=== PATIENT | female | born 1960 | race Caucasian/White ===

== ENCOUNTER 2022-07-29 10:47 | Outpatient (CLI) | payer MEDICARE, MEDICAID, SELFPAY | END 2022-07-29 11:06 | disposition home or self-care (01) | LOC: MS OUT 10:51 → MEDSURG 10:51 → MS OUT 16:08 | PROVIDERS: PCP Family Medicine; Visit Provider Family Medicine | DX: Z48.01 Encounter for change or removal of surgical wound dressing (principal) | CPT/HCPCS: 99211 ==

== ENCOUNTER 2022-07-29 10:48 | Outpatient (RCR) | payer MEDICARE, MEDICAID, SELFPAY ==
[2022-07-28 11:07] VITALS: BP 155/68; PULSE 66; RESP 20; TEMP 36.7; O2SAT 91
== END 2022-07-29 11:50 | disposition home or self-care (01) ==
LOC: MS OUT 10:48
PROVIDERS: PCP Family Medicine; Visit Provider Family Medicine
DX: N61.1 Abscess of the breast and nipple (principal)
CPT/HCPCS: 99211

== ENCOUNTER 2022-08-05 11:27 | Outpatient (RCR) | payer MEDICARE, MEDICAID, SELFPAY | END 2022-08-05 13:07 | disposition home or self-care (01) | LOC: MS OUT 11:27 | PROVIDERS: PCP Family Medicine; Visit Provider Family Medicine | DX: Z48.01 Encounter for change or removal of surgical wound dressing (principal) | CPT/HCPCS: 99211 ==

== ENCOUNTER 2022-08-06 07:53 | Outpatient (CLI) | payer MEDICARE, MEDICAID, SELFPAY | END 2022-08-06 07:54 | disposition home or self-care (01) | LOC: WOUND 07:54 | PROVIDERS: PCP Family Medicine; Visit Provider Family Medicine | DX: N61.1 Abscess of the breast and nipple (principal) | CPT/HCPCS: 99203 ==

== ENCOUNTER 2022-08-13 09:46 | Outpatient (CLI) | payer MEDICARE, MEDICAID, SELFPAY | END 2022-08-13 09:47 | disposition home or self-care (01) | LOC: WOUND 09:47 | PROVIDERS: PCP Family Medicine; Visit Provider Family Medicine | DX: N61.1 Abscess of the breast and nipple (principal) | CPT/HCPCS: 99212 ==

== ENCOUNTER 2022-09-10 10:30 | Outpatient (CLI) | payer MEDICARE, MEDICAID, SELFPAY ==
--- NOTE | 2022-09-10 09:12 | W.ANESCHARGE ---
Anesthesia Charges Start Date/Time Anesthesia Start Date: 09/10/22 Anesthesia Start Time: 12:08 Stop Date/Time Anesthesia Stop Date: 09/10/22 Anesthesia Stop Time: 12:32
--- NOTE | 2022-09-10 13:17 | W.ANESCHARGE ---
Anesthesia Charges Start Date/Time Anesthesia Start Date: 09/10/22 Anesthesia Start Time: 12:08 Stop Date/Time Anesthesia Stop Date: 09/10/22 Anesthesia Stop Time: 12:32
== END 2022-09-10 10:31 | disposition home or self-care (01) ==
LOC: OP CLINIC 10:31
PROVIDERS: PCP Family Medicine; Visit Provider Internal Medicine Gastroenterology
DX: Z86.010 Personal history of colon polyps (principal); K63.5 Polyp of colon; K62.1 Rectal polyp
CPT/HCPCS: 45385; 811; 88305; J2704

== ENCOUNTER 2022-12-15 13:07 | Inpatient (IN) | payer MEDICARE, MEDICAID, SELFPAY ==
[2022-12-15 13:18] VITALS: BP 153/78; PULSE 84; RESP 22; TEMP 36.8; O2SAT 91; BMI 25.7
--- NOTE | 2022-12-15 13:33 | CRLHL7_ITS ---
For Patients: As a result of the Century Cures Act, medical imaging exams and procedure reports are released immediately into your electronic medical record. You may view this report before your referring provider. If you have questions, please contact your health care provider. INDICATION: Difficulty breathing TECHNIQUE: Two view chest. FINDINGS: Mildly enlarged cardiac silhouette. Prominent interstitial markings. Left basilar patchy consolidation possible small effusions. No pneumothorax. Dictated by Starla Solis MD @ 12/15/2022 2:35:20 PM (Electronically Signed)
--- NOTE | 2022-12-15 13:35 | ED_ITS ---
HPI - SOB/Dyspnea General Chief Complaint: Shortness of Breath/Dyspnea Stated Complaint: Difficulty breathing Time Seen by Provider: 12/15/22 13:09 History of Present Illness HPI Narrative: This 62-year-old female comes in reporting shortness of breath. She states that she quit smoking 3 weeks ago. She reports that she has been smoking for 56 years so she started at age 6. She arrives with a resting oximetry at 87%. With 3 L nasal cannula she is up around 91-93%. Her baseline oximetry is probably in the upper 80s to 90%. She had an oximetry of 78% when ambulating in here. She does not report any fevers. He does not use any medicines to treat her breathing. Related Data Home Medications Medication Instructions Recorded Confirmed amlodipine 10 mg tablet 10 mg PO DAILY 12/15/22 12/15/22 aspirin 81 mg capsule 81 mg PO DAILY 12/15/22 12/15/22 chlorthalidone 25 mg tablet 12.5 mg PO DAILY 12/15/22 12/15/22 insulin aspart U-100 100 unit/mL 36 unit subcut TID 12/15/22 12/15/22 (3 mL) subcutaneous pen (Novolog FlexPen U-100 Insulin aspart) insulin glargine 100 unit/mL (3 62 unit subcut QAM 12/15/22 12/15/22 mL) subcutaneous pen (Basaglar KwikPen U-100 Insulin) losartan 100 mg tablet 100 mg PO DAILY 12/15/22 12/15/22 metformin 1,000 mg tablet 1,000 mg PO BID 12/15/22 12/15/22 metoprolol succinate 100 mg 100 mg PO BID 12/15/22 12/15/22 tablet,extended release 24 hr multivitamin (Daily Multi-Vitamin 1 tab PO DAILY 12/15/22 12/15/22 tablet) nystatin 100,000 unit/gram topical 1 applic topical 3XD 12/15/22 12/15/22 powder ([facility]) omega-3 fatty acids 500 mg capsule 500 mg PO DAILY 12/15/22 12/15/22 rosuvastatin 40 mg tablet 40 mg PO HS 12/15/22 12/15/22 sertraline 100 mg tablet 100 mg PO QAM 12/15/22 12/15/22 Allergies Allergy/AdvReac Type Severity Reaction Status Date / Time iodine AdvReac Severe Anaphylaxis Verified 12/15/22 13:23 shellfish derived AdvReac Severe Anaphylaxis Verified 12/15/22 13:23 ticagrelor [From Brilinta] AdvReac Severe Rash Verified 12/15/22 13:23 Review of Systems Status of ROS: Reports: 10 or more systems reviewed and unremarkable except as noted in History and below Narrative: Constitutional: No fevers, no weight gain or loss. Eyes: No discharge. No vision changes. HENT: No congestion, no sore throat, no ear pain. Cardiovascular: No chest pain, no palpitations. Respiratory: Shortness of breath and frequent cough. Gastrointestinal: No abdominal pain, no vomiting, no diarrhea. Genitourinary: No dysuria, no hematuria. Musculoskeletal: Normal range of motion. Skin: No rashes, no pruritis. Neurological: No dizziness, weakness, sensory change, speech change. Endo/Heme/Allergies: No bruising or bleeding. No polydipsia. Pysch: no suicidality, no anxiety, no insomnia. All other systems reviewed and are negative. [facility] Medical History (Updated 12/15/22 @ 22:25 by Jasmeet Berg MD) Hyperlipidemia ?E78.5 - Hyperlipidemia, unspecified (ICD-10) Essential hypertension ?I10 - Essential (primary) hypertension (ICD-10) Type 2 diabetes mellitus ?E11.9 - Type 2 diabetes mellitus without complications (ICD-10) Social History What is your current living situation?: I presently have a place to live Problems where you live: no known problems Problems where you live details: None noted In the past 12 months, utilities in danger of being shut off: no In past 12 months, lack of transportation kept you from medical appts, meetings, work, or getting things needed for daily living: no In the past 12 mos, have been you worried that your food would run out before you had money to buy more?: never true In the past 12 mos, the food you bought just didn't last and you didn't have money to buy more?: never true Highest level of school completed/degree received: Associate degree: occupational, technical, vocational program Smoking Status: Former smoker What tobacco products do you use: cigarettes Smoking quit date/years: <= 15 years ago Do you use any of these nicotine containing products: None Second hand tobacco smoke exposure: No How often do you have a drink containing alcohol: never How often do you have six or more drinks on one occasion: Never AUDIT-C Alcohol total score: 0 Non-prescribed substance use: denies use Caffeine: No How often does anyone, including family, friends and others, physically hurt you : never How often does anyone, including family, friends and others, insult or talk down to you: never How often does anyone, including family, friends and others, threaten you with harm: never How often does anyone, including family, friends and others, scream or curse at you: never service: No Exam Narrative: Exam Narrative: Constitutional: Well-developed, well-nourished, no acute distress. HEENT: Normocephalic, atraumatic. Neck: Normal range of motion. Nontender. Supple. Heart: Regular. No murmurs. Normal rate. Intact distal pulses. Lungs: Clear to auscultation. No chest discomfort. Abdomen: Normal bowel sounds. Nontender. No rebound tenderness. Genitalia: Deferred. Back: No midline tenderness. Normal range of motion. Extremities: Normal range of motion. No injury. Skin: Intact. No rash. Warm. No erythema or pallor. Neurologic: No altered sensation. No weakness. Alert and oriented. Psychiatric: No suicidality. No anxiety or depression. No insomnia. Nursing notes and vitals signs are reviewed. Const: Vital Signs, click to edit/add: Vital Signs - 24 hr 12/15/22 13:18 12/15/22 14:15 12/15/22 18:16 Temperature 98.2 F 97.6 F Pulse Rate [Left P ulse Oximeter] 82 Pulse Rate [Right Pulse Oximeter] 84 Respiratory Rate 22 20 20 Blood Pressure [Ri ght Arm] 181/101 H Blood Pressure [Ri ght Upper Arm] 153/78 H Pulse Oximetry 91 90 94 Oxygen Delivery Me thod Nasal Cannula Nasal Cannula Nasal Cannula Oxygen Flow Rate 3 3 4 12/15/22 18:16 Temperature Pulse Rate [Left P ulse Oximeter] Pulse Rate [Right Pulse Oximeter] Respiratory Rate 20 Blood Pressure [Ri ght Arm] Blood Pressure [Ri ght Upper Arm] Pulse Oximetry 94 Oxygen Delivery Me thod Nasal Cannula Oxygen Flow Rate 4 Course Vital Signs Vital signs: Initial Vital Signs Temperature 98.2 F 12/15/22 13:18 Temperature Source Temporal Artery Scan 12/15/22 13:18 Pulse Rate 84 12/15/22 13:18 Pulse Rhythm Regular 12/15/22 13:18 Pulse Strength 3+ Normal 12/15/22 13:18 Respiratory Rate 22 12/15/22 13:18 Blood Pressure 153/78 H 12/15/22 13:18 Blood Pressure Mean 103 12/15/22 13:18 Blood Pressure Position Sitting 12/15/22 13:18 Pulse Oximetry 91 12/15/22 13:18 Oxygen Delivery Method Nasal Cannula 12/15/22 13:18 Oxygen Flow Rate 3 12/15/22 13:18 Vital Signs Temperature 98.2 F 12/15/22 13:18 Pulse Rate 84 12/15/22 13:18 Respiratory Rate 22 12/15/22 13:18 Blood Pressure 153/78 H 12/15/22 13:18 Pulse Oximetry 91 12/15/22 13:18 Oxygen Delivery Method Nasal Cannula 12/15/22 13:18 Oxygen Flow Rate 3 12/15/22 13:18 Temperature 98.0 F 12/15/22 19:22 Pulse Rate 83 12/15/22 19:22 Respiratory Rate 20 12/15/22 19:22 Blood Pressure 171/71 H 12/15/22 19:22 Pulse Oximetry 91 12/15/22 19:22 Oxygen Delivery Method Nasal Cannula 12/15/22 19:22 Oxygen Flow Rate 4 12/15/22 19:22 MDM - SOB/Dyspnea MDM Narrative Medical decision making narrative: This patient comes in with shortness of breath. She quit smoking about 3 weeks ago. She is requiring oxygen at this time to maintain oximetry around 90%. I did turn her oxygen off and she desaturated to 78% at rest. X-ray imaging does show a consolidation in the left lower lung. CT imaging was followed up which does show again this consolidation and some evidence of effusion. The patient is in need of admission to the hospital. I did speak to Dr. Verde in this regard who accepts her admission. After cultures are drawn the patient did receive IV dose of Rocephin and an oral dose of Zithromax. She also received an oral dose of prednisone 40 mg. Lab Data Labs: Lab Results 12/15/22 12/15/22 Range/Units 13:25 15:07 WBC 11.93 H (4.50-11.00) K/uL RBC 5.19 (4.00-5.20) m/uL Hgb 14.3 (12.0-16.0) gm/dL Hct 46.3 (33.0-51.0) % MCV 89 (80-100) fL MCH 28 (26-34) pg MCHC 31 L (32-36) gm/dL RDW Coeff of Vanessa 14.7 (11.5-15.5) % Plt Count 409 (140-440) K/uL Neut % (Auto) 77.7 H (42.0-72.0) % Lymph % (Auto) 13.4 L (20-44) % [place] % (Auto) 6.5 (0.0-11.0) % Eos % (Auto) 1.1 (0.0-7.0) % Baso % (Auto) 0.2 (0.0-3.0) % Neut # (Auto) 9.30 H (1.7-7.0) K/uL Lymph # (Auto) 1.60 (0.90-2.90) K/uL [place] # (Auto) 0.80 (0.00-0.90) K/UL Eos # (Auto) 0.10 (0.00-0.50) K/uL Baso # (Auto) 0.00 (0.00-0.30) K/uL Abs Immat Gran (auto) 0.10 (0.00-0.30) K/uL Imm/Tot Granulo (auto) 1.1 % Sodium 137 (135-149) mmol/L Potassium 2.6 L* (3.6-5.1) mmol/L Chloride 97 (96-114) mmol/L Carbon Dioxide 34 H (20-32) mmol/L Anion Gap 6 L (7-15) mEq/L BUN 17 (7-30) mg/dL Creatinine 0.8 (0.5-1.5) mg/dL Estimated Creat Clear 49.72 Estimated GFR 83 ml/min Glucose 419 H* (60-115) mg/dL Calcium 9.2 (8.4-10.6) mg/dL SARS-CoV-2 (PCR) Negative SARS-CoV-2 (Negative) Influenza Type A (PCR) Negative PCR FLU A (Negative) Influenza Type B (PCR) Negative PCR FLU B (Negative) RSV (PCR) Negative PCR RSV (Negative) Imaging Data CT scan - chest: Radiologist's impression: 1. Bilateral pulmonary opacities, with smooth interlobular septal thickening, ground-glass, and areas of consolidation in the left lung. 2. Bilateral pleural effusions, left greater than right. Differential diagnosis for the left-sided effusion includes a parapneumonic effusion or empyema. Consider thoracentesis with laboratory analysis. 3. Bilateral adrenal nodules, 1 of which meets criteria for an adenoma. The larger lesion in the left adrenal gland measures greater than 10 Hounsfield units, and is favored to represent a lipid poor adenoma. This could be assessed non emergently with an adrenal mass protocol CT. Discharge Plan Discharge Clinical Impression: Pneumonia Patient Disposition: Admitted As Observation Discharge Location: [facility]
[2022-12-15 14:15] VITALS: RESP 20; O2SAT 90
--- NOTE | 2022-12-15 14:17 | RESP.RT ---
DuoNeb given with small volume nebulizer, mouth piece, at 6 Lpm Oxygen flow meter. Patient tolerated well, VSS during treatment, Post treatment patient able to take deeper breath, and breath easier. Return to 3 Lpm Nasal Cannula to maintain SaO2 >88%.
[2022-12-15 14:33] LABS: PCR FLU A Negative PCR FLU A (Negative); PCR FLU B Negative PCR FLU B (Negative); PCR RSV Negative PCR RSV (Negative)
[2022-12-15 14:54] LABS: SARS PCR* Negative SARS-CoV-2 (Negative)
--- NOTE | 2022-12-15 14:58 | CRLHL7_ITS ---
For Patients: As a result of the 21st Century Cures Act, medical imaging exams and procedure reports are released immediately into your electronic medical record. You may view this report before your referring provider. If you have questions, please contact your health care provider. INDICATION: HYPOXIA HISTORY: Hypoxia. COMPARISON: Chest, 2 views, 12/15/2022. Technique: CT of the chest without contrast. Coronal/sagittal reconstruction images. Findings: Sub centimeter nodules and a benign-appearing calcification in the thyroid gland. There are calcified and noncalcified mediastinal lymph nodes. Nonenlarged axillary lymph nodes are present. Coronary artery calcifications. Moderate left and small right pleural effusion. The effusion on the left appears loculated. There is no intramural or mediastinal hematoma. The lung windows demonstrate no endobronchial mass. There is a region of consolidation within the lingular segment and left lower lobe, and nonspecific ground-glass opacities, which are seen bilaterally. There is also mild interlobular septal thickening. There is no endobronchial nodule or mass. There is no peripheral reticulation or honeycombing. No traction bronchiectasis. No pneumothorax. Evaluation of the upper abdomen demonstrates hepatomegaly. Spleen size is normal. Bilateral adrenal nodules are present. The largest is seen in the left adrenal gland. This measures 2.6 cm in AP dimension, and 12 Hounsfield units. The smaller nodule measures 5 Hounsfield units, and 14 millimeters in AP dimension. No gastric or duodenal wall thickening. No pancreatic duct dilation. The bone windows demonstrate no suspicious bone lesions. Degenerative disc disease. There are left-sided rib fractures, which do not appear acute. On sagittal reconstruction images, vertebral body heights are maintained. Indeterminate sclerotic lesion at the level of T1. This is seen on series 2, image 12. On sagittal reconstruction images, it measures 8 millimeters in maximum dimension. If there is concern regarding this finding, consider skeletal scintigraphy. Impression: 1. Bilateral pulmonary opacities, with smooth interlobular septal thickening, ground-glass, and areas of consolidation in the left lung. 2. Bilateral pleural effusions, left greater than right. Differential diagnosis for the left-sided effusion includes a parapneumonic effusion or empyema. Consider thoracentesis with laboratory analysis. 3. Bilateral adrenal nodules, 1 of which meets criteria for an adenoma. The larger lesion in the left adrenal gland measures greater than 10 Hounsfield units, and is favored to represent a lipid poor adenoma. This could be assessed non emergently with an adrenal mass protocol CT. Dictated by Jerald Ortiz MD @ 12/15/2022 3:56:18 PM Please note that all CT scans at this facility use dose modulation, iterative reconstruction, and/or weight-based dosing when appropriate to reduce radiation dose to as low as reasonably achievable. Dictated by: Jerald Ortiz MD @ 12/15/2022 15:57:03 (Electronically Signed)
[2022-12-15 15:29] LABS: Basophils Percent Auto 0.2 % (0.0-3.0); Chloride* 97 mmol/L (96-114); Eosinophils Percent Auto 1.1 % (0.0-7.0); Hematocrit 46.3 % (33.0-51.0); Hemoglobin* 14.3 gm/dL (12.0-16.0); Immature Granulocytes Pct Auto 1.1 %; Lymphocytes Percent Auto 13.4 % (20-44); Mean Corpuscular HGB Conc 31 gm/dL (32-36); Mean Corpuscular Hemoglobin 28 pg (26-34); Mean Corpuscular Volume 89 fL (80-100); Monocytes Percent Auto 6.5 % (0.0-11.0); Neutrophils Percent Auto 77.7 % (42.0-72.0); Platelet Count* 409 K/uL (140-440); RDW Coefficient of Variation % 14.7 % (11.5-15.5); Red Blood Count 5.19 m/uL (4.00-5.20); White Blood Count* 11.93 K/uL (4.50-11.00)
[2022-12-15 15:30] LABS: Sodium* 137 mmol/L (135-149)
[2022-12-15 15:32] LABS: Anion Gap 6 mEq/L (7-15); Carbon Dioxide* 34 mmol/L (20-32); Creatinine* 0.8 mg/dL (0.5-1.5); Est. Creatinine Clearance* 49.72; Estimated Glomerular Filt Rate 83 ml/min
[2022-12-15 15:33] LABS: Blood Urea Nitrogen* 17 mg/dL (7-30); Calcium* 9.2 mg/dL (8.4-10.6)
[2022-12-15 15:36] LABS: Slide Review Reflex No
[2022-12-15 15:54] LABS: Glucose* 419 mg/dL (60-115); Potassium* 2.6 mmol/L (3.6-5.1)
[2022-12-15] MEDS: predniSONE 20 MG TABLET 40 MG PO (16:23)
[2022-12-15] MEDS: AZITHROMYCIN 250 MG TABLET 500 MG PO (16:23)
[2022-12-15] MEDS: cefTRIAXone 1 GM in 0.9 % SODIUM CHLORIDE Mini-bag 100 ML IVPB (16:24)
[2022-12-15] MEDS: IPRAT-ALBUT 0.5-2.5 MG/3 ML NEB 1 NEB IH ×2 (16:41→19:28)
--- NOTE | 2022-12-15 17:30 | ED.NURSE ---
Report called to Med/Surg nurse, they are aware of oral potassium replacement that needs to be given upstairs.
[2022-12-15 18:16] VITALS: BP 181/101; PULSE 82; RESP 20; TEMP 36.4; O2SAT 94; BMI 42.3
--- NOTE | 2022-12-15 18:42 | P.IMHP_ITS ---
Hospitalist- H&P: HPI History of Present Illness Time Seen by Provider: 18:30 Date Seen: 12/15/22 Chief complaint: Difficulty breathing Narrative: Nela Gutierrez is a 62 year old female with DM type 1.5, HTN, long h/o smoking who presented through the ER for dyspnea. She started noticing a cough late night which then turned into difficulty breathing. Today she found it very difficult to breathe and felt like maybe she should get out her CPAP and use that even during the day to try to push the air in. She did not have any fevers this week, but noted that 2 weeks ago she thought she had a fever and then it went away. She did not have any other symptoms at that time. She has a long history of smoking, but quit 3 weeks ?cold turkey? ago because it is now too expensive at 12 dollars a pack. She denies any chest pain or leg swelling. She has noticed that her sugars have been higher over the last few days, but has not changed her insulin regimen. She has been following with Dr. Beavers about every 3 months as an outpatient and they have been going on blood pressure management because her blood pressures have continued to be elevated. She is due to see him within the next week or 2 and has that appointment already scheduled. She reports that she had been switch from hydrochlorothiazide to chlorthalidone about 6 months ago because of low potassium and have gotten a phone call after her last labs about 3 months ago saying that her potassium was normal. Review of Systems Status of ROS: Reports: 10 or more systems reviewed and unremarkable except as noted in History and below [facility] Medical History (Updated 12/15/22 @ 23:00 by Susie Verde MD) Depression, recurrent ?F33.9 - Major depressive disorder, recurrent, unspecified (ICD-10) Spinal stenosis, lumbar region with neurogenic claudication ?M48.062 - Spinal stenosis, lumbar region with neurogenic claudication (ICD- 10) Abscess of right breast ?N61.1 - Abscess of the breast and nipple (ICD-10) Adenomatous colon polyp ?D12.6 - Benign neoplasm of colon, unspecified (ICD-10) Ureteral stone with hydronephrosis ?N13.2 - Hydronephrosis with renal and ureteral calculous obstruction (ICD- 10) Coronary artery disease involving [place] coronary artery of [place] heart without angina pectoris ?I25.10 - Atherosclerotic heart disease of [place] coronary artery without angina pectoris (ICD-10) BILLIE (obstructive sleep apnea) ?G47.33 - Obstructive sleep apnea (adult) (pediatric) (ICD-10) STEMI (ST elevation myocardial infarction) ?I21.3 - ST elevation (STEMI) myocardial infarction of unspecified site (ICD- 10) Psoriasis ?L40.9 - Psoriasis, unspecified (ICD-10) Hypokalemia ?E87.6 - Hypokalemia (ICD-10) Sciatica ?M54.30 - Sciatica, unspecified side (ICD-10) Hyperlipidemia ?E78.5 - Hyperlipidemia, unspecified (ICD-10) Essential hypertension ?I10 - Essential (primary) hypertension (ICD-10) Type 2 diabetes mellitus ?E11.9 - Type 2 diabetes mellitus without complications (ICD-10) Surgical History (Updated 12/15/22 @ 22:48 by Susie Verde MD) H/O tubal ligation ?Z98.51 - Tubal ligation status (ICD-10) S/P rotator cuff repair ?Z98.890 - Other specified postprocedural states (ICD-10) H/O lithotripsy ?Z98.890 - Other specified postprocedural states (ICD-10) H/O arthroscopic knee surgery ?Z98.890 - Other specified postprocedural states (ICD-10) History of reduction surgery of right breast ?Z98.890 - Other specified postprocedural states (ICD-10) Hx of colonoscopy ?Z98.890 - Other specified postprocedural states (ICD-10) Previous back surgery ?Z98.890 - Other specified postprocedural states (ICD-10) Social History (Updated 12/15/22 @ 22:49 by Susie Verde MD) Narrative: Smoked 1ppd for 45 years, quit cold turkey 3 weeks ago because of the cost. Denies alcohol use. Denies recreational drug use. FULL CODE What is your current living situation?: I presently have a place to live Problems where you live: no known problems Problems where you live details: None noted In the past 12 months, utilities in danger of being shut off: no In past 12 months, lack of transportation kept you from medical appts, meetings, work, or getting things needed for daily living: no In the past 12 mos, have been you worried that your food would run out before you had money to buy more?: never true In the past 12 mos, the food you bought just didn't last and you didn't have money to buy more?: never true Highest level of school completed/degree received: Associate degree: occupational, technical, vocational program Smoking Status: Former smoker What tobacco products do you use: cigarettes Smoking quit date/years: <= 15 years ago Do you use any of these nicotine containing products: None Second hand tobacco smoke exposure: No How often do you have a drink containing alcohol: never How often do you have six or more drinks on one occasion: Never AUDIT-C Alcohol total score: 0 Non-prescribed substance use: denies use Caffeine: No How often does anyone, including family, friends and others, physically hurt you : never How often does anyone, including family, friends and others, insult or talk down to you: never How often does anyone, including family, friends and others, threaten you with harm: never How often does anyone, including family, friends and others, scream or curse at you: never service: No Meds Home Medications and Allergies Home Medications Medication Instructions Recorded Confirmed Type amlodipine 10 mg tablet 10 mg PO DAILY 12/15/22 12/15/22 History aspirin 81 mg capsule 81 mg PO DAILY 12/15/22 12/15/22 History chlorthalidone 25 mg tablet 12.5 mg PO DAILY 12/15/22 12/15/22 History insulin aspart U-100 100 unit/mL 36 unit subcut TID 12/15/22 12/15/22 History (3 mL) subcutaneous pen (Novolog FlexPen U-100 Insulin aspart) insulin glargine 100 unit/mL (3 62 unit subcut QAM 12/15/22 12/15/22 History mL) subcutaneous pen (Basaglar KwikPen U-100 Insulin) losartan 100 mg tablet 100 mg PO DAILY 12/15/22 12/15/22 History metformin 1,000 mg tablet 1,000 mg PO BID 12/15/22 12/15/22 History metoprolol succinate 100 mg 100 mg PO BID 12/15/22 12/15/22 History tablet,extended release 24 hr multivitamin (Daily Multi-Vitamin 1 tab PO DAILY 12/15/22 12/15/22 History tablet) nystatin 100,000 unit/gram topical 1 applic topical 3XD 12/15/22 12/15/22 History powder ([facility]) omega-3 fatty acids 500 mg capsule 500 mg PO DAILY 12/15/22 12/15/22 History rosuvastatin 40 mg tablet 40 mg PO HS 12/15/22 12/15/22 History sertraline 100 mg tablet 100 mg PO QAM 12/15/22 12/15/22 History Allergies Allergy/AdvReac Type Severity Reaction Status Date / Time iodine AdvReac Severe Anaphylaxis Verified 12/15/22 13:23 shellfish derived AdvReac Severe Anaphylaxis Verified 12/15/22 13:23 ticagrelor [From Brilinta] AdvReac Severe Rash Verified 12/15/22 13:23 Exam Narrative: Exam Narrative: General: No acute distress. Awake alert oriented x3. HEENT: Normocephalic atraumatic, pupils equally round and reactive to light and accommodation. Oropharynx clear. Mucous membranes are moist. No cervical lymphadenopathy, thyromegaly or carotid bruits. No JVD. Cardiovascular: Regular rate and rhythm. No murmurs, gallops, or rubs. Chest: No increased work of breathing. Up and moving about the room without difficulty or shortness of breath. Coarse bilaterally. Diminished in both bases. No crackles or wheezes. Abdomen: Bowel sounds present. Soft, nondistended, nontender. No hepatosplenomegaly or masses. Extremities: No edema, no cyanosis or clubbing. Skin: No jaundice, no pallor, no rashes. Neuro: Grossly intact. No focal deficits. Const: Vital Signs, click to edit/add: Vital Signs - 24 hr 12/15/22 13:18 12/15/22 14:15 12/15/22 18:16 Temperature 98.2 F 97.6 F Pulse Rate [Left P ulse Oximeter] 82 Pulse Rate [Right Pulse Oximeter] 84 Respiratory Rate 22 20 20 Blood Pressure [Ri ght Arm] 181/101 H Blood Pressure [Ri ght Upper Arm] 153/78 H Pulse Oximetry 91 90 94 Oxygen Delivery Me thod Nasal Cannula Nasal Cannula Nasal Cannula Oxygen Flow Rate 3 3 4 12/15/22 18:16 Temperature Pulse Rate [Left P ulse Oximeter] Pulse Rate [Right Pulse Oximeter] Respiratory Rate 20 Blood Pressure [Ri ght Arm] Blood Pressure [Ri ght Upper Arm] Pulse Oximetry 94 Oxygen Delivery Me thod Nasal Cannula Oxygen Flow Rate 4 Hospitalist - H&P: Result Labs Labs: Short CBC 12/15/22 Range/Units 15:07 WBC 11.93 H (4.50-11.00) K/uL Hgb 14.3 (12.0-16.0) gm/dL Hct 46.3 (33.0-51.0) % Plt Count 409 (140-440) K/uL BMP 12/15/22 15:07 Sodium 137 Potassium 2.6 L* Chloride 97 Carbon Dioxide 34 H BUN 17 Creatinine 0.8 Glucose 419 H* Calcium 9.2 Ordering Physician: Jasmeet Berg M.D. Date of Service: 12/15/22 Procedure(s): XR chest 2V Accession Number(s): [id number] cc: Jasmeet Berg M.D.; Mateusz Beavers M.D.~ For Patients: As a result of the Cures Act, medical imaging exams and procedure reports are released immediately into your electronic medical record. You may view this report before your referring provider. If you have questions, please contact your health care provider. INDICATION: Difficulty breathing TECHNIQUE: Two view chest. FINDINGS: Mildly enlarged cardiac silhouette. Prominent interstitial markings. Left basilar patchy consolidation possible small effusions. No pneumothorax. Dictated by Starla Solis MD @ 12/15/2022 2:35:20 PM (Electronically Signed) Ordering Physician: Jasmeet Berg M.D. Date of Service: 12/15/22 Procedure(s): CT chest wo con Accession Number(s): [id number] cc: Jasmeet Berg M.D.; Mateusz Beavers M.D.~ For Patients: As a result of the Cures Act, medical imaging exams and procedure reports are released immediately into your electronic medical record. You may view this report before your referring provider. If you have questions, please contact your health care provider. INDICATION: HYPOXIA HISTORY: Hypoxia. COMPARISON: Chest, 2 views, 12/15/2022. Technique: CT of the chest without contrast. Coronal/sagittal reconstruction images. Findings: Sub centimeter nodules and a benign-appearing calcification in the thyroid gland. There are calcified and noncalcified mediastinal lymph nodes. Nonenlarged axillary lymph nodes are present. Coronary artery calcifications. Moderate left and small right pleural effusion. The effusion on the left appears loculated. There is no intramural or mediastinal hematoma. The lung windows demonstrate no endobronchial mass. There is a region of consolidation within the lingular segment and left lower lobe, and nonspecific ground-glass opacities, which are seen bilaterally. There is also mild interlobular septal thickening. There is no endobronchial nodule or mass. There is no peripheral reticulation or honeycombing. No traction bronchiectasis. No pneumothorax. Evaluation of the upper abdomen demonstrates hepatomegaly. Spleen size is normal. Bilateral adrenal nodules are present. The largest is seen in the left adrenal gland. This measures 2.6 cm in AP dimension, and 12 Hounsfield units. The smaller nodule measures 5 Hounsfield units, and 14 millimeters in AP dimension. No gastric or duodenal wall thickening. No pancreatic duct dilation. The bone windows demonstrate no suspicious bone lesions. Degenerative disc disease. There are left-sided rib fractures, which do not appear acute. On sagittal reconstruction images, vertebral body heights are maintained. Indeterminate sclerotic lesion at the level of T1. This is seen on series 2, image 12. On sagittal reconstruction images, it measures 8 millimeters in maximum dimension. If there is concern regarding this finding, consider skeletal scintigraphy. Impression: 1. Bilateral pulmonary opacities, with smooth interlobular septal thickening, ground-glass, and areas of consolidation in the left lung. 2. Bilateral pleural effusions, left greater than right. Differential diagnosis for the left-sided effusion includes a parapneumonic effusion or empyema. Consider thoracentesis with laboratory analysis. 3. Bilateral adrenal nodules, 1 of which meets criteria for an adenoma. The larger lesion in the left adrenal gland measures greater than 10 Hounsfield units, and is favored to represent a lipid poor adenoma. This could be assessed non emergently with an adrenal mass protocol CT. Dictated by Jerald Ortiz MD @ 12/15/2022 3:56:18 PM Please note that all CT scans at this facility use dose modulation, iterative reconstruction, and/or weight-based dosing when appropriate to reduce radiation dose to as low as reasonably achievable. Dictated by: Jerald Ortiz MD @ 12/15/2022 15:57:03 (Electronically Signed) Assessment and Plan Assessment and plan (1) Pneumonia: Problem comment: - Community acquired. Continue ceftriaxone and azithromycin started in the ER. Was tight and wheezy in ER for which she was given nebs and steroids. COPD also strongly suspected, but does not have previous diagnosis of this. Continue daily oral prednisone for total of 5 days. Status: Acute (2) Bilateral pleural effusion: Problem comment: - Concern for possible empyema by radiology read. I spoke with general surgery, Dr. Gastelum. She called me back and said she looked at the CT and did not see rim enhancement. We spoke about the patient's condition and how she was actually fairly well, white count not that high, and no recent fevers. She did not think there was enough fluid to tap at this point and suggested treating the pneumonia and seeing if the patient improves. If she does not, then we can reimage to see if the fluid has loculated or if there is enough to tap at that point. Status: Acute (3) Hypokalemia: Problem comment: - Has h/o this for which she switched from HCTZ to chlorthalidone about 6 months ago. - patient has markedly elevated blood pressures, although this appears to be chronic. Continue chlorthalidone and replace potassium. I checked a magnesium with which is within normal limits. She will likely need to be on a higher daily dose of potassium as an outpatient as well. Status: Acute (4) Hyperlipidemia: Problem comment: Continue home medication Status: Chronic (5) Essential hypertension: Problem comment: BP's are elevated and patient notes that they have been elevated as an outpatient as well. She is asymptomatic. Continue her usual home medications. I have recommended that she follow-up with her primary care provider as previously scheduled. Status: Chronic (6) Type 2 diabetes mellitus: Problem comment: - proteinuria - check hemoglobin A1c. - since she will be on prednisone for presumed COPD, and her sugars were already elevated due to illness, I have increased her basal insulin and added insulin sliding scale. Continue her usual mealtime insulin as well. Also continue metformin. Status: Chronic (7) Lesion of adrenal gland: Problem comment: CT scan today: Bilateral adrenal nodules, 1 of which meets criteria for an adenoma. The larger lesion in the left adrenal gland measures greater than 10 Hounsfield units, and is favored to represent a lipid poor adenoma. This could be assessed non emergently with an adrenal mass protocol CT. - I spoke with the patient about these findings and have recommended outpatient follow-up with her primary care provider to obtain an on urgent adrenal mass protocol CT. Status: Acute
[2022-12-15] MEDS: POTASSIUM CHLORIDE 10 MEQ CAPSULE ER 40 MEQ PO (19:04)
--- NOTE | 2022-12-15 19:15 | PC.NURSE ---
End of Shift: Pt admitted to MedSurg unit via ED, arrived at 1700. Pt reports SOB and dry cough. LS diminished. O2 sats ranging from 91-94% on 4L NC. Pt ambulating with cane well. Continent, no BM during shift. rounded and entered orders. Awaiting pharmacy verification.
[2022-12-15 19:22] VITALS: BP 171/71; PULSE 83; RESP 20; TEMP 36.7; O2SAT 91
[2022-12-15 20:42] LABS: Magnesium* 2.1 mg/dL (1.5-2.6)
[2022-12-15] MEDS: SODIUM CHLORIDE 0.9 % (FLUSH) 10 ML SYRINGE 5 ML IVF (20:53)
[2022-12-15 21:00] LABS: Potassium* 2.9 mmol/L (3.6-5.1)
[2022-12-15] MEDS: ENOXAPARIN 40 MG/0.4 ML INJ SUBCUT (21:57)
[2022-12-15 23:00] VITALS: BP 182/70; PULSE 83; PULSE 85; RESP 18; TEMP 36.9; O2SAT 90
[2022-12-15] MEDS: METOPROLOL SUCCINATE (XL) 100 MG TAB PO (23:10)
[2022-12-15] MEDS: POTASSIUM BICARB 25 MEQ EFFERVESCENT TAB PO (23:10)
[2022-12-16] VITALS (7 sets, daily range): BP systolic 147–186; BP diastolic 60–87; PULSE 69–84; RESP 18–20; TEMP 36.3–36.9; O2SAT 88–90
[2022-12-16] MEDS: POTASSIUM BICARB 25 MEQ EFFERVESCENT TAB PO ×2 (00:25→02:22)
[2022-12-16] MEDS: IPRAT-ALBUT 0.5-2.5 MG/3 ML NEB 1 NEB IH ×4 (00:26→18:05)
[2022-12-16] MEDS: NYSTATIN POWDER 1 APPLIC TOPICAL ×3 (00:29→14:35)
--- NOTE | 2022-12-16 06:34 | PC.NURSE ---
End of shift [id number]: A&O, pleasant and cooperative. Hypertensive throughout shift. MD aware. Pt denies pain. Lung sounds diminished. Pt has dry cough. Using IS. Pt had CPAP on but keep de sating to mid 80s. O2 placed back on pt to sleep to maintain sats. SBA. Reports SOB w/ activity. Occasionally inc of urine. Using call light appropriately.
[2022-12-16 06:42] LABS: Basophils Absolute Auto 0.03 K/uL (0.00-0.30); Basophils Percent Auto 0.3 % (0.0-3.0); Eosinophils Absolute Auto 0.02 K/uL (0.00-0.50); Eosinophils Percent Auto 0.2 % (0.0-7.0); Hemoglobin* 13.2 gm/dL (12.0-16.0); Immature Granulocytes Abs Auto 0.03 K/uL (0.00-0.30); Immature Granulocytes Pct Auto 0.3 %; Lymphocytes Percent Auto 13.1 % (20-44); Mean Corpuscular HGB Conc 31 gm/dL (32-36); Mean Corpuscular Hemoglobin 28 pg (26-34); Mean Corpuscular Volume 90 fL (80-100); Monocytes Percent Auto 4.9 % (0.0-11.0); Neutrophils Percent Auto 81.2 % (42.0-72.0); Platelet Count* 366 K/uL (140-440); RDW Coefficient of Variation % 14.8 % (11.5-15.5); Red Blood Count 4.76 m/uL (4.00-5.20); White Blood Count* 9.59 K/uL (4.50-11.00)
[2022-12-16 06:46] LABS: Slide Review Reflex No
[2022-12-16 06:57] LABS: Chloride* 98 mmol/L (96-114); Sodium* 139 mmol/L (135-149)
[2022-12-16 06:58] LABS: Potassium* 3.3 mmol/L (3.6-5.1)
[2022-12-16 07:00] LABS: Creatinine* 0.8 mg/dL (0.5-1.5); Est. Creatinine Clearance* 49.72; Estimated Glomerular Filt Rate 83 ml/min
[2022-12-16 07:01] LABS: Anion Gap 5 mEq/L (7-15); Blood Urea Nitrogen* 20 mg/dL (7-30); Carbon Dioxide* 36 mmol/L (20-32)
[2022-12-16 07:04] LABS: C Reactive Protein* 1.4 mg/dL (0.5-1.0)
[2022-12-16 07:08] LABS: Glucose* 392 mg/dL (60-115)
[2022-12-16] MEDS: predniSONE 20 MG TABLET 40 MG PO (07:54)
[2022-12-16] MEDS: CHLORTHALIDONE 25 MG TABLET 12.5 MG PO (09:00)
[2022-12-16] MEDS: METFORMIN 1,000 MG TABLET 1000 MG PO ×2 (09:01→20:37)
[2022-12-16] MEDS: AMLODIPINE 10 MG TABLET PO (09:01)
[2022-12-16] MEDS: METOPROLOL SUCCINATE (XL) 100 MG TAB PO ×2 (09:01→20:37)
[2022-12-16] MEDS: SERTRALINE 100 MG TABLET PO (09:01)
[2022-12-16] MEDS: ASPIRIN 81 MG TABLET EC PO (09:01)
[2022-12-16] MEDS: LOSARTAN POTASSIUM 50 MG TABLET 100 MG PO (09:01)
[2022-12-16] MEDS: MULTIVITAMIN/MINERALS 1 TABLET 1 TAB PO (09:01)
[2022-12-16] MEDS: NYSTATIN CREAM 30 GM 1 APPLIC TOPICAL ×3 (09:02→21:57)
[2022-12-16] MEDS: SODIUM CHLORIDE 0.9 % (FLUSH) 10 ML SYRINGE 5 ML IVF ×2 (09:03→20:41)
--- NOTE | 2022-12-16 10:22 | PM.IMPN1 ---
Progress Note: A&P Assessment and plan (1) Pneumonia: Problem details: - Community acquired. Continue ceftriaxone and azithromycin started in the ER. Was tight and wheezy in ER for which she was given nebs and steroids. COPD also strongly suspected, but does not have previous diagnosis of this. Continue daily oral prednisone for total of 5 days. Status: Acute (2) Bilateral pleural effusion: Problem details: - Concern for possible empyema by radiology read. I spoke with general surgery, Dr. Gastelum. She called me back and said she looked at the CT and did not see rim enhancement. We spoke about the patient's condition and how she was actually fairly well, white count not that high, and no recent fevers. She did not think there was enough fluid to tap at this point and suggested treating the pneumonia and seeing if the patient improves. If she does not, then we can reimage to see if the fluid has loculated or if there is enough to tap at that point. Status: Acute (3) Hypokalemia: Problem details: - Has h/o this for which she switched from HCTZ to chlorthalidone about 6 months ago. - patient has markedly elevated blood pressures, although this appears to be chronic. Continue chlorthalidone and replace potassium. I checked a magnesium with which is within normal limits. She will likely need to be on a higher daily dose of potassium as an outpatient as well. Status: Acute (4) Hyperlipidemia: Problem details: Continue home medication Status: Chronic (5) Essential hypertension: Problem details: BP's are elevated and patient notes that they have been elevated as an outpatient as well. She is asymptomatic. Continue her usual home medications. I have recommended that she follow-up with her primary care provider as previously scheduled. Status: Chronic (6) Type 2 diabetes mellitus: Problem details: - proteinuria - check hemoglobin A1c. - since she will be on prednisone for presumed COPD, and her sugars were already elevated due to illness - up titrated her basal bolus insulin dosing. Also continue metformin. Status: Chronic (7) Lesion of adrenal gland: Problem details: CT scan today: Bilateral adrenal nodules, 1 of which meets criteria for an adenoma. The larger lesion in the left adrenal gland measures greater than 10 Hounsfield units, and is favored to represent a lipid poor adenoma. This could be assessed non emergently with an adrenal mass protocol CT. - I spoke with the patient about these findings and have recommended outpatient follow-up with her primary care provider to obtain an on urgent adrenal mass protocol CT. Status: Acute Subjective Date Seen: 12/16/22 Interval history: Daily Progress Note - Hospital Medicine #: 2 CC: acute hypoxic resp failure. CAP. diabetes. OVERNIGHT UPDATES FROM STAFF & MED, LAB, IMAGING UPDATES feels much better. less air hunger and weakness. Blood pressures have been hypertensive 155-186 systolic and 60s to 70s up to 101 diastolic. Afebrile Pulse 70s to 80s Respiratory rate 18 Pulse ox 90% Weight this morning 111.8 kilos Leukocytosis is down to 9.5, normal this morning Potassium is up 3.3 Hyperglycemic with a glucose of 419 and 392 CRP this morning's 1.4 Blood glucose: 333, 426 CT chest from admission Impression: 1. Bilateral pulmonary opacities, with smooth interlobular septal thickening, ground-glass, and areas of consolidation in the left lung. 2. Bilateral pleural effusions, left greater than right. Differential diagnosis for the left-sided effusion includes a parapneumonic effusion or empyema. Consider thoracentesis with laboratory analysis. 3. Bilateral adrenal nodules, 1 of which meets criteria for an adenoma. The larger lesion in the left adrenal gland measures greater than 10 Hounsfield units, and is favored to represent a lipid poor adenoma. This could be assessed non emergently with an adrenal mass protocol CT. Blood cultures negative to date Prednisone 40 mg, oral Ceftriaxone 1 g Q 24 Azithromycin Objective: tired, disshelved. poor dentition. Vitals: see above Lungs: scattered wheeze, much improved Cardiac: S1S2. Disposition/Potential discharge - Likely to return to previous living situation. Today I spent 50minutes seeing the patient, reviewing [facility] and EPIC notes/diagnostics, discussing the care plan with our care time that includes social work, PT/OT, pharmacy, RT, [place] [facility] and documenting my impressions and plan in the medical record. Smoking/Tobacco 42715 >10 mins. I went over the clinical stigmata of chronic tobacco use on the body. I explained the effect on the vasculature, lungs, heart, skin. I recommended complete abstinence from tobacco products and instructed on programs available at discharge from acute care. Exam Const: Vital Signs, click to edit/add: Vital Signs - 24 hr 12/15/22 13:18 12/15/22 14:15 12/15/22 18:16 Temperature 98.2 F 97.6 F Pulse Rate Pulse Rate [Left P ulse Oximeter] 82 Pulse Rate [Right Pulse Oximeter] 84 Respiratory Rate 22 20 20 Blood Pressure [Ri ght Arm] 181/101 H Blood Pressure [Ri ght Upper Arm] 153/78 H Pulse Oximetry 91 90 94 Oxygen Delivery Me thod Nasal Cannula Nasal Cannula Nasal Cannula Oxygen Flow Rate 3 3 4 12/15/22 18:16 12/15/22 19:22 12/15/22 23:00 Temperature 98.0 F 98.4 F Pulse Rate Pulse Rate [Left P ulse Oximeter] 83 85 Pulse Rate [Right Pulse Oximeter] Respiratory Rate 20 20 18 Blood Pressure [Ri ght Arm] 171/71 H 182/70 H Blood Pressure [Ri ght Upper Arm] Pulse Oximetry 94 91 90 Oxygen Delivery Me thod Nasal Cannula Nasal Cannula Oxygen Flow Rate 4 4 12/15/22 23:00 12/15/22 23:00 12/16/22 03:00 Temperature 98.4 F Pulse Rate 83 Pulse Rate [Left P ulse Oximeter] 73 Pulse Rate [Right Pulse Oximeter] Respiratory Rate 18 18 Blood Pressure [Ri ght Arm] 186/65 H Blood Pressure [Ri ght Upper Arm] Pulse Oximetry 90 90 Oxygen Delivery Me thod Nasal Cannula Nasal Cannula Oxygen Flow Rate 4 4 Labs Labs: Laboratory Results - last 24 hr 12/15/22 12/15/22 12/15/22 13:25 15:07 20:14 WBC 11.93 H RBC 5.19 Hgb 14.3 Hct 46.3 MCV 89 MCH 28 MCHC 31 L RDW Coeff of Vanessa 14.7 Plt Count 409 Neut % (Auto) 77.7 H Lymph % (Auto) 13.4 L [place] % (Auto) 6.5 Eos % (Auto) 1.1 Baso % (Auto) 0.2 Neut # (Auto) 9.30 H Lymph # (Auto) 1.60 [place] # (Auto) 0.80 Eos # (Auto) 0.10 Baso # (Auto) 0.00 Abs Immat Gran (auto) 0.10 Imm/Tot Granulo (auto) 1.1 Sodium 137 Potassium 2.6 L* 2.9 L* Chloride 97 Carbon Dioxide 34 H Anion Gap 6 L BUN 17 Creatinine 0.8 Estimated Creat Clear 49.72 Estimated GFR 83 Glucose 419 H* Hemoglobin A1c Cancelled Calcium 9.2 Magnesium 2.1 C-Reactive Protein SARS-CoV-2 (PCR) Negative SARS-CoV-2 Influenza Type A (PCR) Negative PCR FLU A Influenza Type B (PCR) Negative PCR FLU B RSV (PCR) Negative PCR RSV 12/16/22 05:30 WBC 9.59 RBC 4.76 Hgb 13.2 Hct 43.0 MCV 90 MCH 28 MCHC 31 L RDW Coeff of [place]essa 14.8 Plt Count 366 Neut % (Auto) 81.2 H Lymph % (Auto) 13.1 L [place] % (Auto) 4.9 Eos % (Auto) 0.2 Baso % (Auto) 0.3 Neut # (Auto) 7.80 H Lymph # (Auto) 1.30 [place] # (Auto) 0.50 Eos # (Auto) 0.02 Baso # (Auto) 0.03 Abs Immat Gran (auto) 0.03 Imm/Tot Granulo (auto) 0.3 Sodium 139 Potassium 3.3 L Chloride 98 Carbon Dioxide 36 H Anion Gap 5 L BUN 20 Creatinine 0.8 Estimated Creat Clear 49.72 Estimated GFR 83 Glucose 392 H* Hemoglobin A1c Calcium 9.0 Magnesium C-Reactive Protein 1.4 H SARS-CoV-2 (PCR) Influenza Type A (PCR) Influenza Type B (PCR) RSV (PCR)
--- NOTE | 2022-12-16 13:32 | RESP.RT ---
Patient sitting on edge of bed, On Nasal Cannula 2 Lpm, SaO2 88-90%, breathing regular/easy, no complaint of SOB. Patient did Aerobika with good effort, good chest shake, had patient feel chest shake to help understand user of Aerobika, she did and verbally stated so. Used IS with good effort to 1200 matt with float in middle of column. Both produced good congested, moist nonproductive cough, able to clear secretions when present. Patient has 56 Yr smoking history, quit 3 weeks ago, doing well with quitting.
[2022-12-16] MEDS: cefTRIAXone 1 GM in 0.9 % SODIUM CHLORIDE Mini-bag 100 ML IVPB (15:30)
[2022-12-16] MEDS: AZITHROMYCIN 500 MG in 0.9 % SODIUM CHLORIDE 250 ml 250 ML 255 MG IVPB (16:44)
[2022-12-16] MEDS: POTASSIUM BICARB 25 MEQ EFFERVESCENT TAB 50 MEQ PO (17:54)
--- NOTE | 2022-12-16 19:17 | PC.NURSE ---
End of Shift: Pt AO, pleasant and cooperative throughout shift. Denies any pain, SOB at rest. Intermittent cough, no sputum production noted. O2 titrated down to 1L NC, saturations at 89%. Independent in room, continent with bowel and bladder. Tele NSR. Blood glucose range between 192-333. IV in right hand infiltrated. New IV placed in left wrist, remained patent, tolerating abx infusions well.
[2022-12-16] MEDS: ROSUVASTATIN CALCIUM 10 MG TABLET 40 MG PO (20:37)
[2022-12-16] MEDS: ENOXAPARIN 40 MG/0.4 ML INJ SUBCUT (20:38)
[2022-12-17] VITALS (7 sets, daily range): BP systolic 138–180; BP diastolic 56–107; PULSE 62–74; RESP 18–28; TEMP 36.6–37.1; O2SAT 85–93; BMI 42.6
[2022-12-17] MEDS: IPRAT-ALBUT 0.5-2.5 MG/3 ML NEB 1 NEB IH ×4 (00:05→18:22)
[2022-12-17 02:01] LABS: CDIFFEPI 027 PRESUMPTIVE NEGATIVE (Negative)
[2022-12-17 02:02] LABS: C.Difficile POSITIVE (Negative)
[2022-12-17] MEDS: VANCOMYCIN 125 MG CAPSULE 250 MG PO ×3 (02:47→15:32)
--- NOTE | 2022-12-17 06:28 | PC.NURSE ---
End of shift [id number]: A&O, pleasant and cooperative.? Pt denies pain. Lung sounds diminished. has dry cough. Using IS and Aerobika. 2L of o2 on pt to maintain sats. Pt had two episodes of inc loose stool. MD updated. C-DIFF sample obtained. Updated w/ results. See orders. SBA. Reports SOB w/ activity.
[2022-12-17 06:40] LABS: HCO3 VBG 39 mmol/L (21-28); PCO2 VBG 57 mmHG (40-50); PO2 VBG 34.6 mmHG (25-47); pH VBG 7.447 (7.32-7.43)
[2022-12-17 07:00] LABS: Hematocrit 45.6 % (33.0-51.0); Hemoglobin* 13.8 gm/dL (12.0-16.0); Mean Corpuscular HGB Conc 30 gm/dL (32-36); Mean Corpuscular Hemoglobin 28 pg (26-34); Mean Corpuscular Volume 92 fL (80-100); Platelet Count* 414 K/uL (140-440); Red Blood Count 4.95 m/uL (4.00-5.20)
[2022-12-17 07:09] LABS: Chloride* 99 mmol/L (96-114)
[2022-12-17 07:10] LABS: Slide Review Reflex No; Sodium* 142 mmol/L (135-149)
[2022-12-17 07:13] LABS: Creatinine* 0.8 mg/dL (0.5-1.5); Est. Creatinine Clearance* 49.72; Estimated Glomerular Filt Rate 83 ml/min
[2022-12-17 07:14] LABS: Anion Gap 5 mEq/L (7-15); Blood Urea Nitrogen* 21 mg/dL (7-30); Calcium* 8.8 mg/dL (8.4-10.6); Carbon Dioxide* 38 mmol/L (20-32); Glucose* 68 mg/dL (60-115)
[2022-12-17 07:16] LABS: C Reactive Protein* 0.6 mg/dL (0.5-1.0)
[2022-12-17] MEDS: LACTOBACILLUS ACIDOPHILUS 1 TABLET 2 TAB PO ×3 (08:25→18:22)
[2022-12-17] MEDS: POTASSIUM BICARB 25 MEQ EFFERVESCENT TAB 50 MEQ PO ×2 (08:25→18:22)
[2022-12-17] MEDS: AMLODIPINE 10 MG TABLET PO (08:26)
[2022-12-17] MEDS: ASPIRIN 81 MG TABLET EC PO (08:26)
[2022-12-17] MEDS: predniSONE 20 MG TABLET 40 MG PO (08:26)
[2022-12-17] MEDS: CHLORTHALIDONE 25 MG TABLET 12.5 MG PO (08:26)
[2022-12-17] MEDS: LOSARTAN POTASSIUM 50 MG TABLET 100 MG PO (08:28)
[2022-12-17] MEDS: METOPROLOL SUCCINATE (XL) 100 MG TAB PO ×2 (08:28→20:10)
[2022-12-17] MEDS: METFORMIN 1,000 MG TABLET 1000 MG PO ×2 (08:28→20:10)
[2022-12-17] MEDS: MULTIVITAMIN/MINERALS 1 TABLET 1 TAB PO (08:29)
[2022-12-17] MEDS: NYSTATIN CREAM 30 GM 1 APPLIC TOPICAL ×3 (08:29→20:11)
[2022-12-17] MEDS: SERTRALINE 100 MG TABLET PO (08:30)
[2022-12-17] MEDS: NYSTATIN POWDER 1 APPLIC TOPICAL ×2 (08:30→20:19)
[2022-12-17] MEDS: SODIUM CHLORIDE 0.9 % (FLUSH) 10 ML SYRINGE 5 ML IVF ×2 (08:30→20:19)
--- NOTE | 2022-12-17 11:52 | RESP.RT ---
Goal Maintain Patients SaO2 85-92%. Placed Patient on room air 11:45, SaO2 88-89%, post IS, PEP, and forceful cough SO2 increased to 94%. Patient has good forceful cough able to clear secretions when present. BBS with coarse crackles, good air movement, and end expiratory wheeze noted, wheeze clears with cough. Patient has good clear voice, excellent cough to command, good effort with IS and Aerobika. Both promoting cough.
--- NOTE | 2022-12-17 12:36 | PM.IMPN1 ---
Progress Note: A&P Assessment and plan (1) Pneumonia: Problem details: - Community acquired. Continue ceftriaxone and azithromycin started in the ER. Was tight and wheezy in ER for which she was given nebs and steroids. COPD also strongly suspected but does not have previous diagnosis of this. Continue daily oral prednisone for total of 5 days. -CXR for f/u morning of 12/18 ordered Status: Acute (2) Bilateral pleural effusion: Problem details: - Concern for possible empyema by radiology read. I spoke with general surgery, Dr. Gastelum. She called me back and said she looked at the CT and did not see rim enhancement. We spoke about the patient's condition and how she was actually fairly well, white count not that high, and no recent fevers. She did not think there was enough fluid to tap at this point and suggested treating the pneumonia and seeing if the patient improves. If she does not, then we can reimage to see if the fluid has loculated or if there is enough to tap at that point. Status: Acute (3) Hypokalemia: Problem details: - Has h/o this for which she switched from HCTZ to chlorthalidone about 6 months ago. - patient has markedly elevated blood pressures, although this appears to be chronic. Continue chlorthalidone and replace potassium. I checked a magnesium with which is within normal limits. She will likely need to be on a higher daily dose of potassium as an outpatient as well. Status: Acute (4) Hyperlipidemia: Problem details: Continue home medication Status: Chronic (5) Essential hypertension: Problem details: BP's are elevated and patient notes that they have been elevated as an outpatient as well. She is asymptomatic. Continue her usual home medications. I have recommended that she follow-up with her primary care provider as previously scheduled. Status: Chronic (6) Type 2 diabetes mellitus: Problem details: - proteinuria - check hemoglobin A1c. - since she will be on prednisone for presumed COPD, and her sugars were already elevated due to illness - up titrated her basal bolus insulin dosing. Also continue metformin. Status: Chronic (7) Lesion of adrenal gland: Problem details: CT scan today: Bilateral adrenal nodules, 1 of which meets criteria for an adenoma. The larger lesion in the left adrenal gland measures greater than 10 Hounsfield units, and is favored to represent a lipid poor adenoma. This could be assessed non emergently with an adrenal mass protocol CT. - I spoke with the patient about these findings and have recommended outpatient follow-up with her primary care provider to obtain an on urgent adrenal mass protocol CT. Status: Acute (8) Clostridium difficile diarrhea: Problem details: dx 12/17 started vancomycin po conservative care Status: Acute Subjective Date Seen: 12/17/22 Interval history: Daily Progress Note - Hospital Medicine Day #: 3 CC: acute hypoxic resp failure. CAP. diabetes. OVERNIGHT UPDATES FROM STAFF & MED, LAB, IMAGING UPDATES feels improved. off oxygen. coughing is intense, but she is bringing up phelgm. doing ISP and aerobika well. 180/18, 138/56 Pulse is in the 70s Respiratory rate 18 88-90% on room air White count is about the same. Potassium between 3.0 and 3.3. Blood sugar has been difficult it has bounced between 68-535 C diff positive stool study 12/[address] chest from admission Impression: 1. Bilateral pulmonary opacities, with smooth interlobular septal thickening, ground-glass, and areas of consolidation in the left lung. 2. Bilateral pleural effusions, left greater than right. Differential diagnosis for the left-sided effusion includes a parapneumonic effusion or empyema. Consider thoracentesis with laboratory analysis. 3. Bilateral adrenal nodules, 1 of which meets criteria for an adenoma. The larger lesion in the left adrenal gland measures greater than 10 Hounsfield units, and is favored to represent a lipid poor adenoma. This could be assessed non emergently with an adrenal mass protocol CT. Blood cultures negative to date Prednisone 40 mg, oral Ceftriaxone 1 g Q 24 Azithromycin Objective: tired, disshelved. poor dentition. Vitals: see above Lungs: scattered wheeze, much improved Cardiac: S1S2. Disposition/Potential discharge - Likely to return to previous living situation. Today I spent 50minutes seeing the patient, reviewing Expanse and EPIC notes/diagnostics, discussing the care plan with our care time that includes social work, PT/OT, pharmacy, RT, detention and documenting my impressions and plan in the medical record. Exam Const: Vital Signs, click to edit/add: Vital Signs - 24 hr 12/16/22 13:29 12/16/22 15:00 12/16/22 15:00 Temperature 97.4 F L Pulse Rate 84 Pulse Rate [Left P ulse Oximeter] 77 Respiratory Rate 20 20 Blood Pressure [Ri ght Arm] 167/60 H Pulse Oximetry 88 89 Oxygen Delivery Me thod Nasal Cannula Nasal Cannula Oxygen Flow Rate 2 4 12/16/22 15:00 12/16/22 15:00 12/16/22 19:53 Temperature 98.1 F Pulse Rate Pulse Rate [Left P ulse Oximeter] 72 78 Respiratory Rate 20 20 20 Blood Pressure [Ri ght Arm] 167/87 H Pulse Oximetry 88 88 Oxygen Delivery Me thod Nasal Cannula Nasal Cannula Oxygen Flow Rate 2 1.5 12/16/22 23:00 12/16/22 23:00 12/17/22 00:01 Temperature 98.7 F Pulse Rate 70 Pulse Rate [Left P ulse Oximeter] 68 Respiratory Rate 20 20 Blood Pressure [Ri ght Arm] 147/107 H Pulse Oximetry 89 89 Oxygen Delivery Me thod Nasal Cannula Nasal Cannula Oxygen Flow Rate 2 2 12/17/22 02:40 12/17/22 07:00 12/17/22 07:00 Temperature 98.4 F 98 F Pulse Rate 64 Pulse Rate [Left P ulse Oximeter] 62 72 Respiratory Rate 22 20 Blood Pressure [Ri ght Arm] 144/60 H 167/101 H Pulse Oximetry 90 93 Oxygen Delivery Me thod Nasal Cannula Nasal Cannula Oxygen Flow Rate 2 2 12/17/22 07:00 12/17/22 07:00 12/17/22 11:15 Temperature Pulse Rate Pulse Rate [Left P ulse Oximeter] 72 Respiratory Rate 20 20 20 Blood Pressure [Ri ght Arm] Pulse Oximetry 93 89 Oxygen Delivery Me thod Nasal Cannula Room Air Oxygen Flow Rate 2 Labs Labs: Laboratory Results - last 24 hr 12/17/22 12/17/22 00:38 06:12 WBC 11.80 H RBC 4.95 Hgb 13.8 Hct 45.6 MCV 92 MCH 28 MCHC 30 L Plt Count 414 VBG pH 7.447 H VBG pCO2 57 H VBG pO2 34.6 VBG HCO3 39 H Sodium 142 Potassium 3.0 L Chloride 99 Carbon Dioxide 38 H Anion Gap 5 L BUN 21 Creatinine 0.8 Estimated Creat Clear 49.72 Estimated GFR 83 Glucose 68 Calcium 8.8 C-Reactive Protein 0.6 Stl C. diff Tox B Gene POSITIVE A* Stl C. diff [id number] PRESUMPTIVE NEGATIVE
[2022-12-17] MEDS: cefTRIAXone 1 GM in 0.9 % SODIUM CHLORIDE Mini-bag 100 ML IVPB (15:34)
[2022-12-17] MEDS: AZITHROMYCIN 500 MG in 0.9 % SODIUM CHLORIDE 250 ml 250 ML 255 MG IVPB (16:55)
--- NOTE | 2022-12-17 19:40 | PC.NURSE ---
Nursing Care Hours: [id number] Pt this shift calm and cooperative with cares, alert and oriented. No c/o pain. Titrated supplemental oxygen from 2L to RA, sats around 84-88%. Independent in room. Eating and drinking. Insulin orders adjusted d/t low blood sugar in AM. New orders started with dinner. Sliding scale given at lunch. Dinner blood sugar critically elevated. Hospitalist made aware and new orders entered, racebook writer administered as ordered. Recheck blood sugar QH and treat per orders. Pt HTN, asymptomatic. Loose stool x1.
[2022-12-17] MEDS: VANCOMYCIN 125 MG CAPSULE PO (20:10)
[2022-12-17] MEDS: ENOXAPARIN 40 MG/0.4 ML INJ SUBCUT (20:11)
[2022-12-17] MEDS: ROSUVASTATIN CALCIUM 10 MG TABLET 40 MG PO (20:11)
[2022-12-18] VITALS (8 sets, daily range): BP systolic 147–185; BP diastolic 70–101; PULSE 58–93; RESP 18–20; TEMP 36.4–37.1; O2SAT 88–93
[2022-12-18] MEDS: IPRAT-ALBUT 0.5-2.5 MG/3 ML NEB 1 NEB IH ×3 (06:53→17:33)
[2022-12-18 06:56] LABS: HCO3 VBG 38 mmol/L (21-28); PCO2 VBG 55 mmHG (40-50); PO2 VBG 33.5 mmHG (25-47); pH VBG 7.453 (7.32-7.43)
[2022-12-18 07:12] LABS: Basophils Absolute Auto 0.02 K/uL (0.00-0.30); Basophils Percent Auto 0.2 % (0.0-3.0); Eosinophils Absolute Auto 0.15 K/uL (0.00-0.50); Eosinophils Percent Auto 1.5 % (0.0-7.0); Hematocrit 45.1 % (33.0-51.0); Hemoglobin* 13.7 gm/dL (12.0-16.0); Immature Granulocytes Abs Auto 0.01 K/uL (0.00-0.30); Immature Granulocytes Pct Auto 0.1 %; Lymphocytes Absolute Auto 2.57 K/uL (0.90-2.90); Lymphocytes Percent Auto 25.7 % (20-44); Mean Corpuscular HGB Conc 30 gm/dL (32-36); Mean Corpuscular Hemoglobin 28 pg (26-34); Mean Corpuscular Volume 92 fL (80-100); Monocytes Percent Auto 6.5 % (0.0-11.0); Platelet Count* 377 K/uL (140-440); RDW Coefficient of Variation % 15.2 % (11.5-15.5); Red Blood Count 4.92 m/uL (4.00-5.20)
[2022-12-18 07:20] LABS: Slide Review Reflex No
--- NOTE | 2022-12-18 07:56 | PC.NURSE ---
Pt is alert and oriented x3. Afebrile. Pt denies pain, chest pain, and N/V. SOB is noted with exertion. Pt is up ad grace in room. Pt is voiding and tolerating a regular diet. Pt O2 stats overnight ranged between 87-90% on room air. Pt refused CPAP. Night uneventful.
--- NOTE | 2022-12-18 08:00 | CRLHL7_ITS ---
For Patients: As a result of the Cures Act, medical imaging exams and procedure reports are released immediately into your electronic medical record. You may view this report before your referring provider. If you have questions, please contact your health care provider. INDICATION: f/u pneumonia TECHNIQUE: Chest 2 views COMPARISON: 12/15/2022 FINDINGS: Decreased pleural effusions. Mild improved aeration within the left lower lobe. No vertebral body compression fracture. Interstitium is similar. Stable mediastinum. IMPRESSION: Mild improvement regarding the left lower lobe infiltrate. Decreased pleural effusions. Dictated by Jarrett Russo MD @ 12/18/2022 11:46:17 AM (Electronically Signed)
[2022-12-18 08:05] LABS: Albumin* 3.1 g/dL (3.3-5.0); Chloride* 94 mmol/L (96-114)
[2022-12-18 08:06] LABS: Sodium* 140 mmol/L (135-149)
[2022-12-18 08:07] LABS: Creatinine* 0.6 mg/dL (0.5-1.5); Est. Creatinine Clearance* 49.72; Estimated Glomerular Filt Rate 101 ml/min
[2022-12-18 08:08] LABS: Alanine Aminotransferase* 38 U/L (4-35); Alkaline Phosphatase* 63 U/L (40-150); Anion Gap 9 mEq/L (7-15); Aspartate Amino Transferase* 34 U/L (12-35); Bilirubin Total* 0.5 mg/dL (0.1-1.5); Blood Urea Nitrogen* 19 mg/dL (7-30); Carbon Dioxide* 37 mmol/L (20-32); Total Protein* 6.2 g/dL (6.0-8.3)
[2022-12-18 08:09] LABS: Calcium* 8.5 mg/dL (8.4-10.6); Glucose* 81 mg/dL (60-115); Magnesium* 2.1 mg/dL (1.5-2.6)
[2022-12-18 08:21] LABS: C Reactive Protein* < 0.5 mg/dL (0.5-1.0)
[2022-12-18] MEDS: ASPIRIN 81 MG TABLET EC PO (10:58)
[2022-12-18] MEDS: MULTIVITAMIN/MINERALS 1 TABLET 1 TAB PO (10:59)
[2022-12-18] MEDS: predniSONE 20 MG TABLET 40 MG PO (10:59)
[2022-12-18] MEDS: METOPROLOL SUCCINATE (XL) 100 MG TAB PO ×2 (10:59→20:40)
[2022-12-18] MEDS: LACTOBACILLUS ACIDOPHILUS 1 TABLET 2 TAB PO ×3 (11:00→16:54)
[2022-12-18] MEDS: POTASSIUM BICARB 25 MEQ EFFERVESCENT TAB 50 MEQ PO ×3 (11:00→16:54)
[2022-12-18] MEDS: SERTRALINE 100 MG TABLET PO (11:00)
[2022-12-18] MEDS: LOSARTAN POTASSIUM 50 MG TABLET 100 MG PO (11:01)
[2022-12-18] MEDS: CHLORTHALIDONE 25 MG TABLET 12.5 MG PO (11:01)
[2022-12-18] MEDS: VANCOMYCIN 125 MG CAPSULE PO ×4 (11:02→20:39)
[2022-12-18] MEDS: AMLODIPINE 10 MG TABLET PO (11:02)
[2022-12-18] MEDS: METFORMIN 1,000 MG TABLET 1000 MG PO ×2 (11:03→20:40)
[2022-12-18] MEDS: SODIUM CHLORIDE 0.9 % (FLUSH) 10 ML SYRINGE 5 ML IVF ×2 (11:10→20:50)
[2022-12-18] MEDS: NYSTATIN CREAM 30 GM 1 APPLIC TOPICAL ×3 (11:10→20:42)
[2022-12-18] MEDS: NYSTATIN POWDER 1 APPLIC TOPICAL ×3 (11:10→20:42)
[2022-12-18 12:24] LABS: Hemoglobin A1C* 8.6 % (0-5.6)
--- NOTE | 2022-12-18 12:54 | PM.IMPN1 ---
Progress Note: A&P Assessment and plan (1) Pneumonia: Problem details: - Community acquired. Continue ceftriaxone and azithromycin started in the ER. Will transition to oral prior to discharge. Was tight and wheezy in ER for which she was given nebs and steroids. COPD also strongly suspected but does not have previous diagnosis of this. Continue daily oral prednisone for total of 5 days. -CXR 12/18 shows Mild improvement regarding the left lower lobe infiltrate. Decreased pleural effusions. Status: Acute (2) Bilateral pleural effusion: Problem details: - Concern for possible empyema by radiology read. I spoke with general surgery, Dr. Gastelum. She called me back and said she looked at the CT and did not see rim enhancement. We spoke about the patient's condition and how she was actually fairly well, white count not that high, and no recent fevers. She did not think there was enough fluid to tap at this point and suggested treating the pneumonia and seeing if the patient improves. If she does not, then we can reimage to see if the fluid has loculated or if there is enough to tap at that point. - CXR as above shows improvement in pleural effusions. Plan to continue clinical course Status: Acute (3) Hypokalemia: Problem details: - Has h/o this for which she switched from HCTZ to chlorthalidone about 6 months ago. - patient has markedly elevated blood pressures, although this appears to be chronic. Continue chlorthalidone and replace potassium. I checked a magnesium with which is within normal limits. She will likely need to be on a higher daily dose of potassium as an outpatient as well - increase potassium to 60 mEq b.i.d. on 12/18 Status: Acute (4) Hyperlipidemia: Problem details: Continue home medication Status: Chronic (5) Essential hypertension: Problem details: BP's are elevated and patient notes that they have been elevated as an outpatient as well. She is asymptomatic. Continue her usual home medications. I have recommended that she follow-up with her primary care provider as previously scheduled. Status: Chronic (6) Type 2 diabetes mellitus: Problem details: - proteinuria - A1c 8.6 - since she will be on prednisone for presumed COPD, and her sugars were already elevated due to illness - up titrated her basal bolus insulin dosing. Also continue metformin. Status: Chronic (7) Lesion of adrenal gland: Problem details: CT scan today: Bilateral adrenal nodules, 1 of which meets criteria for an adenoma. The larger lesion in the left adrenal gland measures greater than 10 Hounsfield units, and is favored to represent a lipid poor adenoma. This could be assessed non emergently with an adrenal mass protocol CT. - I spoke with the patient about these findings and have recommended outpatient follow-up with her primary care provider to obtain an on urgent adrenal mass protocol CT. Status: Acute (8) Clostridium difficile diarrhea: Problem details: dx 12/17 started vancomycin po conservative care Status: Acute Plan Possible discharge 12/19/2022 Time Spent With Patient Total time spent: Total time spent caring for the patient today was 45 minutes. This includes time spent for the visit reviewing the chart, time spent during the visit, time spent after the visit and documentation and planning in coordination of care. Subjective Date Seen: 12/18/22 Interval history: Patient reports feeling pretty good this morning. Breathing has improved. She remained stable on room air. No fevers. Stool culture growing C difficile and started on vancomycin yesterday. Tolerating orals. No events reported overnight. Exam Narrative: Exam Narrative: PHYSICAL EXAM General: Lying in bed, pleasant, conversant, NAD Cardiovascular: RRR, S1S2. Pulmonary: mildly diminished without rhonchi, rales, expiratory wheezes. No dyspnea on room air Neurological: Alert, answering questions appropriately, cranial nerves intact, no focal findings Extremities: No gross joint deformity or swelling. AROMI. Neurovascularly intact Skin: Warm, dry. Const: Vital Signs, click to edit/add: Vital Signs - 24 hr 12/17/22 15:00 12/17/22 15:00 12/17/22 15:00 Temperature Pulse Rate Pulse Rate [Left P ulse Oximeter] 74 74 Respiratory Rate 18 18 18 Blood Pressure [Ri ght Arm] 180/80 H Pulse Oximetry 88 88 Oxygen Delivery Me thod Room Air Room Air Oxygen Flow Rate 12/17/22 15:00 12/17/22 19:17 12/18/22 00:20 Temperature 98 F Pulse Rate 69 58 L Pulse Rate [Left P ulse Oximeter] 74 Respiratory Rate 18 Blood Pressure [Ri ght Arm] 163/74 H Pulse Oximetry 88 Oxygen Delivery Me thod Room Air Oxygen Flow Rate 0 12/18/22 00:20 12/18/22 00:20 12/18/22 00:20 Temperature 97.7 F Pulse Rate Pulse Rate [Left P ulse Oximeter] 60 Respiratory Rate 20 20 20 Blood Pressure [Ri ght Arm] 155/101 H Pulse Oximetry 88 88 Oxygen Delivery Me thod Room Air Room Air Oxygen Flow Rate 12/18/22 04:40 12/18/22 07:00 12/18/22 08:15 Temperature 97.6 F Pulse Rate 59 L Pulse Rate [Left P ulse Oximeter] 60 Respiratory Rate 20 Blood Pressure [Ri ght Arm] 178/87 H Pulse Oximetry 88 93 Oxygen Delivery Me thod Room Air Room Air Oxygen Flow Rate 12/18/22 08:15 Temperature 98.3 F Pulse Rate Pulse Rate [Left P ulse Oximeter] 93 Respiratory Rate 20 Blood Pressure [Ri ght Arm] 169/76 H Pulse Oximetry 93 Oxygen Delivery Me thod Room Air Oxygen Flow Rate Labs Labs: Laboratory Results - last 24 hr 12/15/22 12/17/22 12/17/22 20:14 06:12 17:43 WBC RBC Hgb Hct MCV MCH MCHC RDW Coeff of Vanessa Plt Count Neut % (Auto) Lymph % (Auto) [place] % (Auto) Eos % (Auto) Baso % (Auto) Neut # (Auto) Lymph # (Auto) [place] # (Auto) Eos # (Auto) Baso # (Auto) Abs Immat Gran (auto) Imm/Tot Granulo (auto) VBG pH VBG pCO2 VBG pO2 VBG HCO3 Sodium Potassium Chloride Carbon Dioxide Anion Gap BUN Creatinine Estimated Creat Clear Estimated GFR Glucose Hemoglobin A1c 8.6 H Cancelled Calcium Magnesium Total Bilirubin AST ALT Alkaline Phosphatase C-Reactive Protein Total Protein Albumin Lab Acknowledgement Test Added 12/18/22 06:07 WBC 10.00 RBC 4.92 Hgb 13.7 Hct 45.1 MCV 92 MCH 28 MCHC 30 L RDW Coeff of Vanessa 15.2 Plt Count 377 Neut % (Auto) 66.0 Lymph % (Auto) 25.7 [place] % (Auto) 6.5 Eos % (Auto) 1.5 Baso % (Auto) 0.2 Neut # (Auto) 6.60 Lymph # (Auto) 2.57 [place] # (Auto) 0.70 Eos # (Auto) 0.15 Baso # (Auto) 0.02 Abs Immat Gran (auto) 0.01 Imm/Tot Granulo (auto) 0.1 VBG pH 7.453 H VBG pCO2 55 H VBG pO2 33.5 VBG HCO3 38 H Sodium 140 Potassium 3.0 L Chloride 94 L Carbon Dioxide 37 H Anion Gap 9 BUN 19 Creatinine 0.6 Estimated Creat Clear 49.72 Estimated GFR 101 Glucose 81 Hemoglobin A1c Calcium 8.5 Magnesium 2.1 Total Bilirubin 0.5 AST 34 ALT 38 H Alkaline Phosphatase 63 C-Reactive Protein < 0.5 L Total Protein 6.2 Albumin 3.1 L Lab Acknowledgement
[2022-12-18] MEDS: cefTRIAXone 1 GM in 0.9 % SODIUM CHLORIDE Mini-bag 100 ML IVPB (15:39)
--- NOTE | 2022-12-18 16:26 | PC.NURSE ---
Tele indicates NSR. Pt taken for CXR prior to bkfst. BG 98 so no SS insulin given and scheduled Novolog held, though pt did receive her Levemir. Contact precautions continue for + c-diff toxin. Please see Emar for multiple meds administered to this patient on day shift, no dysphagia noted with pills. BG 218 at 1230 was covered with 4 units Novolog insulin from SS and 35 units scheduled insulin. Continue plan of care, report provided to Rosalba CASANOVA for evening shift.
--- NOTE | 2022-12-18 18:25 | PC.NURSE ---
PATIENT PLEASANT AND COOPERATIVE, ALERT AND ORIENTED, UP AD WOJCIECH TOLERATING WELL, DECLINING PAIN, DECLINING SOB, TOLERATING REGULAR DIET.
[2022-12-18] MEDS: ROSUVASTATIN CALCIUM 10 MG TABLET 40 MG PO (20:39)
[2022-12-18] MEDS: ENOXAPARIN 40 MG/0.4 ML INJ SUBCUT (20:40)
[2022-12-19] MEDS: IPRAT-ALBUT 0.5-2.5 MG/3 ML NEB 1 NEB IH ×3 (00:21→13:57)
[2022-12-19 03:00] VITALS: BP 154/77; PULSE 59; RESP 18; TEMP 36.5; O2SAT 88
--- NOTE | 2022-12-19 04:43 | PC.NURSE ---
Shift note: Pt has been doing well without oxygen except that the O2 desaturate when sleeping. O2 has been between 87 and 91. CPAP applied tonight. No pain, SOB, and Cough observed. Alert and oriented, vitally stable. Pt had adequate sleep.
[2022-12-19 07:00] VITALS: PULSE 63
[2022-12-19 07:00] LABS: Mean Corpuscular HGB Conc 30 gm/dL (32-36); Mean Corpuscular Hemoglobin 28 pg (26-34); Mean Corpuscular Volume 91 fL (80-100); Platelet Count* 361 K/uL (140-440); Red Blood Count 5.08 m/uL (4.00-5.20)
[2022-12-19 07:05] LABS: Slide Review Reflex No
[2022-12-19 07:17] LABS: Chloride* 94 mmol/L (96-114); Potassium* 3.4 mmol/L (3.6-5.1); Sodium* 139 mmol/L (135-149)
[2022-12-19 07:20] LABS: Anion Gap 11 mEq/L (7-15); Blood Urea Nitrogen* 19 mg/dL (7-30); Carbon Dioxide* 34 mmol/L (20-32); Creatinine* 0.7 mg/dL (0.5-1.5); Est. Creatinine Clearance* 49.72; Estimated Glomerular Filt Rate 97 ml/min
[2022-12-19 07:21] LABS: Calcium* 8.8 mg/dL (8.4-10.6); Glucose* 110 mg/dL (60-115)
[2022-12-19 09:40] VITALS: BP 164/77; PULSE 68; RESP 20; TEMP 36.4; O2SAT 92
[2022-12-19] MEDS: AMLODIPINE 10 MG TABLET PO (09:47)
[2022-12-19] MEDS: POTASSIUM BICARB 25 MEQ EFFERVESCENT TAB 50 MEQ PO ×2 (09:47→13:55)
[2022-12-19] MEDS: SERTRALINE 100 MG TABLET PO (09:47)
[2022-12-19] MEDS: VANCOMYCIN 125 MG CAPSULE PO ×2 (09:48→13:55)
[2022-12-19] MEDS: ASPIRIN 81 MG TABLET EC PO (09:48)
[2022-12-19] MEDS: LOSARTAN POTASSIUM 50 MG TABLET 100 MG PO (09:48)
[2022-12-19] MEDS: predniSONE 20 MG TABLET 40 MG PO (09:49)
[2022-12-19] MEDS: MULTIVITAMIN/MINERALS 1 TABLET 1 TAB PO (09:49)
[2022-12-19] MEDS: LACTOBACILLUS ACIDOPHILUS 1 TABLET 2 TAB PO ×2 (09:49→13:56)
[2022-12-19] MEDS: CHLORTHALIDONE 25 MG TABLET 12.5 MG PO (09:50)
[2022-12-19] MEDS: METOPROLOL SUCCINATE (XL) 100 MG TAB PO (09:50)
[2022-12-19] MEDS: METFORMIN 1,000 MG TABLET 1000 MG PO (09:51)
[2022-12-19] MEDS: NYSTATIN CREAM 30 GM 1 APPLIC TOPICAL ×2 (09:58→13:57)
[2022-12-19] MEDS: NYSTATIN POWDER 1 APPLIC TOPICAL ×2 (09:59→13:57)
[2022-12-19] MEDS: SODIUM CHLORIDE 0.9 % (FLUSH) 10 ML SYRINGE 5 ML IVF (13:54)
[2022-12-19] MEDS: cefTRIAXone 1 GM in 0.9 % SODIUM CHLORIDE Mini-bag 100 ML IVPB (13:56)
--- NOTE | 2022-12-19 15:07 | P.DS_ITS ---
DS: Providers Provider Date Seen: 12/19/22 Date of admission: 12/15/22 18:23 Primary care physician: Mateusz Beavers MD Admitting Clinician: Susie Verde MD Consults: 12/15/22 18:25 Consult to Respiratory Therapy [CONS] Routine Comment: Reason(s) for RT Consult:: Consult Attending Physician on discharge: DALTON Duke, [facility] Date of Discharge: 12/19/22 DS: Diagnosis Discharge Diagnosis (1) Clostridium difficile diarrhea: Status: Acute Problem details: dx 12/17 after developing diarrhea while on IV antibiotics continue oral vancomycin 4 times daily to complete a 10 day course (2) Hypokalemia: Status: Acute Problem details: - Has h/o this for which she switched from HCTZ to chlorthalidone about 6 months ago. - patient has markedly elevated blood pressures, although this appears to be chronic. Continue chlorthalidone and replace potassium. I checked a magnesium with which is within normal limits. She will likely need to be on a higher daily dose of potassium as an outpatient as well - increased potassium to 50 mEq t.i.d. on 12/18 with improved response, potassium 3.4 on day of discharge. Will continue on 20 mEq twice daily for the next 5 days. Recheck BMP with PCP for further management. (3) Pneumonia: Status: Acute Problem details: - Community acquired. Continue ceftriaxone and azithromycin started in the ER. Will transition to oral prior to discharge. Was tight and wheezy in ER for which she was given nebs and steroids. COPD also strongly suspected but does not have previous diagnosis of this. Continue daily oral prednisone for total of 5 days. -CXR 12/18 showed Mild improvement regarding the left lower lobe infiltrate. Decreased pleural effusions. patient completed 5 day course of IV antibiotics. She is discharged with oral prednisone to complete a 5 day course. remained stable on room air. (4) Bilateral pleural effusion: Status: Acute Problem details: - Concern for possible empyema by radiology read. I spoke with general surgery, Dr. Gastelum. She called me back and said she looked at the CT and did not see rim enhancement. We spoke about the patient's condition and how she was actually fairly well, white count not that high, and no recent fevers. She did not think there was enough fluid to tap at this point and suggested treating the pneumonia and seeing if the patient improves. If she does not, then we can reimage to see if the fluid has loculated or if there is enough to tap at that point. - repeat CXR as above showed improvement in pleural effusions. patient completed 5 day course of IV antibiotics for pneumonia. (5) Hyperlipidemia: Status: Chronic Problem details: Continue home medication (6) Essential hypertension: Status: Chronic Problem details: BP's are elevated and patient notes that they have been elevated as an outpatient as well. She is asymptomatic. Continue her usual home medications. I have recommended that she follow-up with her primary care provider as previously scheduled. (7) Type 2 diabetes mellitus: Status: Chronic Problem details: - proteinuria - A1c 8.6 - since she will be on prednisone for presumed COPD, and her sugars were already elevated due to illness - up titrated her basal bolus insulin dosing. Also continue metformin. She will continue with home medications on discharge and follow-up with PCP for further medication management. (8) Lesion of adrenal gland: Status: Acute Problem details: CT scan today: Bilateral adrenal nodules, 1 of which meets criteria for an adenoma. The larger lesion in the left adrenal gland measures greater than 10 Hounsfield units, and is favored to represent a lipid poor adenoma. This could be assessed non emergently with an adrenal mass protocol CT. - I spoke with the patient about these findings and have recommended outpatient follow-up with her primary care provider to obtain an on urgent adrenal mass protocol CT. DS: Summary Hospital Course Hospital Course: [age] year old female past medical history significant for diabetes mellitus type 2, hypertension, hyperlipidemia, former smoker was admitted to the medical floor for further management pneumonia with dyspnea. Course of care and details as noted above. Remainder of chronic medical comorbidities were monitored and managed with home medications. Status at Discharge Overall status at discharge: patient is back to baseline Time Spent with Patient Time attestation: Total time spent providing and/or coordinating discharge services: Time spent: Greater than 30 minutes Exam Narrative: Exam Narrative: PHYSICAL EXAM General: Pleasant, conversant, NAD Cardiovascular: RRR, S1S2. Pulmonary: mildly diminished without rhonchi, rales, expiratory wheezes. No dyspnea on room air Neurological: Alert, answering questions appropriately, cranial nerves intact, no focal findings Extremities: No gross joint deformity or swelling. AROMI. Neurovascularly intact Skin: Warm, dry. Const: Vital Signs, click to edit/add: Vital Signs - 24 hr 12/18/22 19:00 12/18/22 23:00 12/18/22 23:00 Temperature 98.1 F Pulse Rate 58 L Pulse Rate [Left P ulse Oximeter] 72 Respiratory Rate 18 18 Blood Pressure [Ri ght Arm] 152/70 H Pulse Oximetry 89 Oxygen Delivery Me thod Room Air Oxygen Flow Rate 0 12/18/22 23:00 12/18/22 23:00 12/19/22 03:00 Temperature 97.8 F 97.7 F Pulse Rate Pulse Rate [Left P ulse Oximeter] 61 59 L Respiratory Rate 18 18 18 Blood Pressure [Ri ght Arm] 147/78 H 154/77 H Pulse Oximetry 90 90 88 Oxygen Delivery Me thod CPAP Room Air Room Air Oxygen Flow Rate 0 0 0 DS: Data Data Completed and Pending Labs on day of discharge: Labs from last 24 hours 12/19/22 06:20 WBC 10.70 RBC 5.08 Hgb 14.0 Hct 46.0 MCV 91 MCH 28 MCHC 30 L Plt Count 361 Sodium 139 Potassium 3.4 L Chloride 94 L Carbon Dioxide 34 H Anion Gap 11 BUN 19 Creatinine 0.7 Estimated Creat Clear 49.72 Estimated GFR 97 Glucose 110 Calcium 8.8 Preliminary micro results at discharge 12/15/22 15:39 Blood Culture - Preliminary Blood NO GROWTH AFTER 72 HOURS 12/15/22 15:19 Blood Culture - Preliminary Blood NO GROWTH AFTER 72 HOURS Discharge Plan Discharge Disposition: Home, Self-Care Date of Admission: 12/15/22 18:23 Attending Provider on Discharge: Shea Carey Primary Care Provider: Mateusz Beavers Condition: Improved Anticipated Discharge Date/Time: 12/19/22 12:03 Discharge Medications: New prednisone 20 mg Tablet 40 mg PO DAILYWM 1 Days Qty: 2 0RF vancomycin 125 mg Capsule 125 mg PO QID 9 Days Qty: 36 0RF potassium chloride 20 mEq tablet extended release 20 meq PO BID Qty: 10 0RF Continued chlorthalidone 25 mg tablet 12.5 mg PO DAILY amlodipine 10 mg tablet 10 mg PO DAILY insulin aspart U-100 [Novolog FlexPen U-100 Insulin] 100 unit/mL (3 mL) insulin pen 36 unit subcut TID metoprolol succinate 100 mg tablet extended release 24 hr 100 mg PO BID metformin 1,000 mg tablet 1,000 mg PO BID losartan 100 mg tablet 100 mg PO DAILY rosuvastatin 40 mg tablet 40 mg PO HS insulin glargine [Basaglar KwikPen U-100 Insulin] 100 unit/mL (3 mL) insulin pen 62 unit subcut QAM sertraline 100 mg tablet 100 mg PO QAM nystatin [Nyamyc] 100,000 unit/gram powder 1 applic topical 3XD omega-3 fatty acids 500 mg capsule 500 mg PO DAILY multivitamin [Daily Multi-Vitamin] Tablet 1 tab PO DAILY aspirin 81 mg capsule 81 mg PO DAILY Discharge Orders: Discharge Order (Routine); Ordered 12/19/22 Ordered By: Shea Carey Patient Education: Prednisone (By mouth), Vancomycin (By mouth), C. Diff (Clostridioides Difficile) Infection (GEN), Bacterial Pneumonia (GEN) Additional Instructions: You completed a 5 day course of ceftriaxone for your pneumonia while in the hospital so you do not need to take an oral antibiotic when you discharge. You have 1 more day of prednisone to take on 12/20/2022. Complete your antibiotics for C difficile infection. Follow-up with your primary care provider following your hospital stay. Follow-up with her primary care provider to obtain an adrenal mass protocol CT. Activity Level: No Restrictions Discharge Diet: Diabetic Follow Up Appointments: Mateusz Beavers MD [Primary Care Provider] - 12/28/22 11:20 am ([facility] for follow-up, and post hospital follow-up community-acquired pneumonia, C difficile infection) Forms: [employer] Info Instructions
--- NOTE | 2022-12-19 16:03 | PC.NURSE ---
Please see eMar for extensive list of medications provided to this patient on day shift. No dysphagia with meds. Pt denies pain. Adequate appetite. Pt remains on C-diff enhanced precautions. Pt verbalized understanding of d/c diagnosis, new meds, home meds, f/up appt and sx to report urgently to MD. Pt d/c'ed via w/c to own home with her personal belongings at 1522 pm with dtr as transportation.
== END 2022-12-19 15:22 | disposition home or self-care (01) | DRG 193 ==
LOC: ED 14:42 → MEDSURG 16:59
PROVIDERS: Family Medicine; Internal Medicine; Physician Assistant; Admitting Provider Family Medicine; Emergency Provider Emergency Medicine Emergency Medical Services; PCP Family Medicine; Visit Provider Family Medicine
DX: J18.9 Pneumonia, unspecified organism (principal); J96.01 Acute respiratory failure with hypoxia; J90 Pleural effusion, not elsewhere classified; A04.72 Enterocolitis due to Clostridium difficile, not specified as recurrent; F33.9 Major depressive disorder, recurrent, unspecified; E87.6 Hypokalemia; E27.9 Disorder of adrenal gland, unspecified; I10 Essential (primary) hypertension; E11.9 Type 2 diabetes mellitus without complications; G47.33 Obstructive sleep apnea (adult) (pediatric); Z79.4 Long term (current) use of insulin; Z79.84 Long term (current) use of oral hypoglycemic drugs; I25.10 Atherosclerotic heart disease of native coronary artery without angina pectoris; E78.5 Hyperlipidemia, unspecified; Z87.891 Personal history of nicotine dependence
CPT/HCPCS: 36415; 71046; 71250; 80048; 80053; 82803; 82962; 83036; 83735; 84132; 85025; 85027; 86140; 87040; 87493; 87631; 93005; 94640; 94664; 99284; 99285; A9153; A9270; J0456; J0696; J1650; J7050; J7512

== ENCOUNTER 2023-01-21 09:09 | Outpatient (CLI) | payer MEDICARE, MEDICAID, SELFPAY | END 2023-01-21 09:10 | disposition home or self-care (01) | PROVIDERS: PCP Family Medicine; Visit Provider Family Medicine | DX: R06.09 Other forms of dyspnea (principal) | CPT/HCPCS: A0425; A0427 ==

== ENCOUNTER 2023-01-21 09:28 | Inpatient (IN) | payer MEDICARE, MEDICAID, SELFPAY ==
[2023-01-21] VITALS (47 sets, daily range): BP systolic 123–172; BP diastolic 56–99; PULSE 65–81; RESP 22–33; TEMP 36.9–37.7; O2SAT 86–94; BMI 41.2; BMI 41.8
--- NOTE | 2023-01-21 10:03 | ED.GENADULT ---
HPI - General Adult General Time Seen by Provider: 10:04 Date Seen: 01/21/23 Chief complaint: Shortness of Breath/Dyspnea Stated complaint: Difficulty breathing Time Seen by Provider: 01/21/23 10:03 Source: patient, EMS and RN notes reviewed Mode of arrival: EMS History of Present Illness HPI narrative: This 62-year-old female is brought in by ambulance from home for not feeling well. 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 She was hospitalized recently and was treated with vancomycin. She just was not feeling well at home and short of breath. On arrival here her O2 sats were 86%, respiratory therapy did see her and she ended up on 6 L OxyMask. She reports that the oxygen has made her breathing feel better. She is not coughing, has been feeling short of breath. Denies any significant abdominal pain at this time, has not noted fevers at home. She feels like she completed the vancomycin as prescribed, maybe was well for couple days in the diarrhea started again. She states the diarrhea looks yellowish and smells like it could be C difficile. She denies any chest pain. She notes she did not take her insulin this morning. Related Data Home Medications Medication Instructions Recorded Confirmed amlodipine 10 mg tablet 10 mg PO DAILY 12/15/22 01/21/23 aspirin 81 mg capsule 81 mg PO DAILY 12/15/22 01/21/23 chlorthalidone 25 mg tablet 12.5 mg PO DAILY 12/15/22 01/21/23 insulin aspart U-100 100 unit/mL 36 unit subcut TID 12/15/22 01/21/23 (3 mL) subcutaneous pen (Novolog FlexPen U-100 Insulin aspart) insulin glargine 100 unit/mL (3 62 unit subcut QAM 12/15/22 01/21/23 mL) subcutaneous pen (Basaglar KwikPen U-100 Insulin) losartan 100 mg tablet 100 mg PO DAILY 12/15/22 01/21/23 metformin 1,000 mg tablet 1,000 mg PO BID 12/15/22 01/21/23 metoprolol succinate 100 mg 100 mg PO BID 12/15/22 01/21/23 tablet,extended release 24 hr multivitamin (Daily Multi-Vitamin 1 tab PO DAILY 12/15/22 01/21/23 tablet) nystatin 100,000 unit/gram topical 1 applic topical 3XD 12/15/22 01/21/23 powder ([facility]) omega-3 fatty acids 500 mg capsule 500 mg PO DAILY 12/15/22 01/21/23 rosuvastatin 40 mg tablet 40 mg PO HS 12/15/22 01/21/23 sertraline 100 mg tablet 100 mg PO QAM 12/15/22 01/21/23 Previous Rx's Medication Instructions Recorded potassium chloride 20 mEq 20 meq PO BID #10 tabs 12/19/22 tablet,extended release Allergies Allergy/AdvReac Type Severity Reaction Status Date / Time iodine AdvReac Severe Anaphylaxis Verified 01/21/23 09:42 shellfish derived AdvReac Severe Anaphylaxis Verified 01/21/23 09:42 ticagrelor [From Brilinta] AdvReac Severe Rash Verified 01/21/23 09:42 Review of Systems Status of ROS: Reports: 6 or more systems reviewed and unremarkable except as noted in History and below [facility] Medical History Depression, recurrent ?F33.9 - Major depressive disorder, recurrent, unspecified (ICD-10) Spinal stenosis, lumbar region with neurogenic claudication ?M48.062 - Spinal stenosis, lumbar region with neurogenic claudication (ICD-10) Abscess of right breast ?N61.1 - Abscess of the breast and nipple (ICD-10) Adenomatous colon polyp ?D12.6 - Benign neoplasm of colon, unspecified (ICD-10) Ureteral stone with hydronephrosis ?N13.2 - Hydronephrosis with renal and ureteral calculous obstruction (ICD-10) Coronary artery disease involving [place] coronary artery of [place] heart without angina pectoris ?I25.10 - Atherosclerotic heart disease of [place] coronary artery without angina pectoris (ICD-10) BILLIE (obstructive sleep apnea) ?G47.33 - Obstructive sleep apnea (adult) (pediatric) (ICD-10) STEMI (ST elevation myocardial infarction) ?I21.3 - ST elevation (STEMI) myocardial infarction of unspecified site (ICD-10) Psoriasis ?L40.9 - Psoriasis, unspecified (ICD-10) Hypokalemia ?E87.6 - Hypokalemia (ICD-10) Sciatica ?M54.30 - Sciatica, unspecified side (ICD-10) Hyperlipidemia ?E78.5 - Hyperlipidemia, unspecified (ICD-10) Essential hypertension ?I10 - Essential (primary) hypertension (ICD-10) Type 2 diabetes mellitus ?E11.9 - Type 2 diabetes mellitus without complications (ICD-10) Surgical History H/O tubal ligation ?Z98.51 - Tubal ligation status (ICD-10) S/P rotator cuff repair ?Z98.890 - Other specified postprocedural states (ICD-10) H/O lithotripsy ?Z98.890 - Other specified postprocedural states (ICD-10) H/O arthroscopic knee surgery ?Z98.890 - Other specified postprocedural states (ICD-10) History of reduction surgery of right breast ?Z98.890 - Other specified postprocedural states (ICD-10) Hx of colonoscopy ?Z98.890 - Other specified postprocedural states (ICD-10) Previous back surgery ?Z98.890 - Other specified postprocedural states (ICD-10) Social History Narrative: Smoked 1ppd for 45 years, quit cold turkey 3 weeks ago because of the cost. Denies alcohol use. Denies recreational drug use. FULL CODE What is your current living situation?: I presently have a place to live Problems where you live: no known problems Problems where you live details: None noted In the past 12 months, utilities in danger of being shut off: no In past 12 months, lack of transportation kept you from medical appts, meetings, work, or getting things needed for daily living: no In the past 12 mos, have been you worried that your food would run out before you had money to buy more?: never true In the past 12 mos, the food you bought just didn't last and you didn't have money to buy more?: never true Highest level of school completed/degree received: Associate degree: occupational, technical, vocational program Smoking Status: Former smoker What tobacco products do you use: cigarettes Smoking quit date/years: <= 15 years ago Do you use any of these nicotine containing products: None Second hand tobacco smoke exposure: No How often do you have a drink containing alcohol: never How often do you have six or more drinks on one occasion: Never AUDIT-C Alcohol total score: 0 Non-prescribed substance use: denies use Caffeine: No How often does anyone, including family, friends and others, physically hurt you: never How often does anyone, including family, friends and others, insult or talk down to you: never How often does anyone, including family, friends and others, threaten you with harm: never How often does anyone, including family, friends and others, scream or curse at you: never service: No Exam Const: Vital Signs, click to edit/add: Vital Signs - 24 hr 01/21/23 09:46 01/21/23 09:50 01/21/23 09:52 Temperature 98.6 F Pulse Rate 72 Pulse Rate [Pulse Oximeter] 67 Respiratory Rate 28 H Blood Pressure Blood Pressure [Ri ght Upper Arm] 127/99 H Pulse Oximetry 86 L 92 93 Oxygen Delivery Me thod Room Air OxyMask OxyMask Oxygen Flow Rate 6 6 01/21/23 10:00 01/21/23 10:05 01/21/23 10:06 Temperature Pulse Rate 72 65 76 Pulse Rate [Pulse Oximeter] Respiratory Rate 28 H 28 H Blood Pressure 132/61 Blood Pressure [Ri ght Upper Arm] Pulse Oximetry 92 91 88 Oxygen Delivery Me thod OxyMask OxyMask Oxygen Flow Rate 6 6 01/21/23 10:15 01/21/23 10:15 01/21/23 10:15 Temperature 99.9 F H Pulse Rate 72 Pulse Rate [Pulse Oximeter] Respiratory Rate Blood Pressure Blood Pressure [Ri ght Upper Arm] Pulse Oximetry 91 91 94 Oxygen Delivery Me thod OxyMask Oxygen Flow Rate 6 01/21/23 10:30 01/21/23 10:45 01/21/23 11:00 Temperature Pulse Rate 70 73 69 Pulse Rate [Pulse Oximeter] Respiratory Rate Blood Pressure Blood Pressure [Ri ght Upper Arm] Pulse Oximetry 88 92 92 Oxygen Delivery Me thod Oxygen Flow Rate 01/21/23 11:02 01/21/23 11:15 01/21/23 11:30 Temperature Pulse Rate 65 72 69 Pulse Rate [Pulse Oximeter] Respiratory Rate Blood Pressure 157/79 H Blood Pressure [Ri ght Upper Arm] Pulse Oximetry 91 89 88 Oxygen Delivery Me thod Oxygen Flow Rate 01/21/23 11:32 01/21/23 11:45 01/21/23 12:02 Temperature Pulse Rate 69 75 67 Pulse Rate [Pulse Oximeter] Respiratory Rate Blood Pressure 172/74 H Blood Pressure [Ri ght Upper Arm] Pulse Oximetry 91 86 L 90 Oxygen Delivery Me thod Oxygen Flow Rate 01/21/23 12:15 01/21/23 12:30 01/21/23 12:32 Temperature Pulse Rate 75 68 69 Pulse Rate [Pulse Oximeter] Respiratory Rate Blood Pressure 123/56 L Blood Pressure [Ri ght Upper Arm] Pulse Oximetry 92 91 91 Oxygen Delivery Me thod Oxygen Flow Rate 01/21/23 12:45 01/21/23 13:00 01/21/23 13:02 Temperature Pulse Rate 76 71 70 Pulse Rate [Pulse Oximeter] Respiratory Rate Blood Pressure 158/86 H Blood Pressure [Ri ght Upper Arm] Pulse Oximetry 89 89 90 Oxygen Delivery Me thod Oxygen Flow Rate 01/21/23 13:15 01/21/23 13:30 01/21/23 13:32 Temperature Pulse Rate 72 75 75 Pulse Rate [Pulse Oximeter] Respiratory Rate Blood Pressure 149/76 H Blood Pressure [Ri ght Upper Arm] Pulse Oximetry 92 91 92 Oxygen Delivery Me thod Oxygen Flow Rate 01/21/23 13:45 01/21/23 14:00 01/21/23 14:04 Temperature Pulse Rate 77 78 73 Pulse Rate [Pulse Oximeter] Respiratory Rate Blood Pressure Blood Pressure [Ri ght Upper Arm] Pulse Oximetry 90 86 L 93 Oxygen Delivery Me thod OxyMask Oxygen Flow Rate 6 01/21/23 14:05 01/21/23 14:15 01/21/23 14:15 Temperature 98.5 F Pulse Rate 72 74 Pulse Rate [Pulse Oximeter] Respiratory Rate 22 Blood Pressure Blood Pressure [Ri ght Upper Arm] Pulse Oximetry 93 91 Oxygen Delivery Me thod Oxygen Flow Rate Patient is a 62-year-old female resting the bed, she awakens very easily, is alert after wakening, no apparent distress. She has an oxygen mask on. Pupils are equal round reactive, sclera clear, extraocular muscles intact. Oropharynx with dry mucosa but lips are not cracked. She is able to roll for me to listen to her lungs, diminished at bases but do not hear any crackles or wheezing, no tachypnea no significant prolongation of her expiratory phase. CV regular rate and rhythm, no murmur, normal S1-S2. Abdomen is soft, nontender, nondistended, no organomegaly. She does have some symmetric lower extremity edema, no overlying changes of any cellulitis. Is moving all extremities. Documenting provider has reviewed patient's vital signs: yes Course Course ED Course: Patient obviously needs to be tested for failed C difficile treatment. I did review in her records that she was hospitalized December 15 through December 19. She did have C difficile colitis but was also hospitalized with community-acquired pneumonia, did have effusion seen. We will test this patient for C diff today, look at chest x-ray, consider advanced imaging. We will get full complement of labs, initiate antibiotics if appropriate. She will have cardiac monitoring and pulse oximetry while here, established an IV. Reevaluation(s) Time of Reevaluation #1: 13:26 Reevaluation #1: Reviewed with patient her hypokalemia, her potassium is already started replacement IV. We also reviewed the possibly obstructing stone seen on the right side, currently her bowel is looking normal, she has not had any further diarrhea to recheck a C difficile here. We discussed the implications of an infected obstructing kidney stone. This is a complex situation with her with a recent C difficile and reported recurrent diarrhea. She also has evidence fluid buildup with pulmonary edema and pleural effusions in her lungs. This could be secondary to underlying infectious etiology, congestive heart failure developing. She will certainly need an echo. With her potassium being so low at 2.4, this is going to prove to be difficult treatment, overall she has evidence of being clinically dry but with pulmonary edema. She is maintaining with the OxyMask on at 6 L. nursing staff is going to do an in and out catheter to obtain urinalysis so that we can proceed attempting to contact for transfer if there is an obstructing stone with infection. Patient possibly has an obstructing kidney stone but does not seem to be symptomatic from my interactions with her. No C difficile colitis based on the lab test. Consultations Consultation #1: Have reviewed with the hospitalist Dr. Kim, he will accept this patient. Have reviewed that she has some IV fluids going to counter effects of the potassium IV, he will follow up on fluids. Have reviewed that I did subsequently give 40mg IV lasix for very likely fluid overload. Her procalcitonin is normal, likely not infection at this time. Time: 16:25 Vital Signs Vital signs: Initial Vital Signs Temperature 98.6 F 01/21/23 09:46 Temperature Source Temporal Artery Scan 01/21/23 09:46 Pulse Rate 67 01/21/23 09:46 Pulse Rhythm Regular 01/21/23 09:46 Pulse Strength 3+ Normal 01/21/23 09:46 Respiratory Rate 28 H 01/21/23 09:46 Blood Pressure 127/99 H 01/21/23 09:46 Blood Pressure Mean 108 H 01/21/23 09:46 Blood Pressure Position Sitting 01/21/23 09:46 Pulse Oximetry 86 L 01/21/23 09:46 Oxygen Delivery Method Room Air 01/21/23 09:46 Vital Signs Temperature 98.6 F 01/21/23 09:46 Pulse Rate 67 01/21/23 09:46 Respiratory Rate 28 H 01/21/23 09:46 Blood Pressure 127/99 H 01/21/23 09:46 Pulse Oximetry 86 L 01/21/23 09:46 Oxygen Delivery Method Room Air 01/21/23 09:46 Temperature 98.5 F 01/21/23 14:15 Pulse Rate 74 01/21/23 14:15 Respiratory Rate 22 01/21/23 14:15 Blood Pressure 149/76 H 01/21/23 13:32 Pulse Oximetry 91 01/21/23 14:15 Oxygen Delivery Method OxyMask 01/21/23 14:04 Oxygen Flow Rate 6 01/21/23 14:04 Medications Administered Medications: Generic Name Dose Route Start Last Admin Trade Name Freq PRN Reason Stop Dose Admin Potassium Chloride 10 meq in 100 mls @ 100 mls/hr 01/21/23 11:30 01/21/23 15:13 Potassium Chloride IVPB 01/21/23 16:59 100 mls/hr Q90M JOSH Administration Lactated Ringer's 1,000 mls @ 75 mls/hr 01/21/23 11:25 01/21/23 12:10 Lactated Ringers 1000 Ml IV 75 mls/hr .[id number] JOSH Administration Discontinued Medications Generic Name Dose Route Start Last Admin Trade Name Freq PRN Reason Stop Dose Admin Furosemide 40 mg 01/21/23 15:10 01/21/23 15:21 Furosemide 10 Mg/Ml Inj IVP 01/21/23 15:11 40 mg ONCE ONE Administration Sodium Chloride 250 mls @ 250 mls/hr 01/21/23 10:25 01/21/23 11:52 0.9 % Sodium Chloride 250 Ml IV 01/21/23 11:24 Infused .Q1H ONE Infusion Medical Decision Making Lab Data Lab results reviewed: Yes I reviewed the patient's lab results Labs: Lab Results 01/21/23 01/21/23 01/21/23 Range/Units 10:05 10:06 10:29 WBC 13.06 H (4.50-11.00) K/uL RBC 4.93 (4.00-5.20) m/uL Hgb 13.4 (12.0-16.0) gm/dL Hct 43.4 (33.0-51.0) % MCV 88 (80-100) fL MCH 27 (26-34) pg MCHC 31 L (32-36) gm/dL RDW Coeff of Vanessa 15.8 H (11.5-15.5) % Plt Count 315 (140-440) K/uL Neut % (Auto) 83.4 H (42.0-72.0) % Lymph % (Auto) 10.1 L (20-44) % [place] % (Auto) 4.9 (0.0-11.0) % Eos % (Auto) 0.3 (0.0-7.0) % Baso % (Auto) 0.2 (0.0-3.0) % Neut # (Auto) 10.90 H (1.7-7.0) K/uL Lymph # (Auto) 1.30 (0.90-2.90) K/uL [place] # (Auto) 0.60 (0.00-0.90) K/UL Eos # (Auto) 0.00 (0.00-0.50) K/uL Baso # (Auto) 0.00 (0.00-0.30) K/uL Abs Immat Gran (auto) 0.10 (0.00-0.30) K/uL Imm/Tot Granulo (auto) 1.1 % ESR 51 H (2-20) mm/hr D-Dimer Quant (PE/DVT) 0.60 H (0.00-0.50) ug/ml VBG pH 7.452 H (7.32-7.43) VBG pCO2 48 (40-50) mmHG VBG pO2 44.3 (25-47) mmHG VBG HCO3 34 H (21-28) mmol/L Sodium 134 L (135-149) mmol/L Potassium 2.3 L* (3.6-5.1) mmol/L Chloride 93 L (96-114) mmol/L Carbon Dioxide 33 H (20-32) mmol/L Anion Gap 8 (7-15) mEq/L BUN 12 (7-30) mg/dL Creatinine 0.8 (0.5-1.5) mg/dL Estimated Creat Clear 49.72 Estimated GFR 83 ml/min Glucose 356 H* (60-115) mg/dL Lactate 2.4 H (0.5-1.9) mmol/L Calcium 8.5 (8.4-10.6) mg/dL Magnesium 2.0 (1.5-2.6) mg/dL Total Bilirubin 1.0 (0.1-1.5) mg/dL AST 23 (12-35) U/L ALT 22 (4-35) U/L Alkaline Phosphatase 92 (40-150) U/L Troponin I 0.03 (0.01-0.04) ng/mL C-Reactive Protein 5.4 H (0.5-1.0) mg/dL NT-Pro-B Natriuret Pep 5300 pg/mL Total Protein 6.4 (6.0-8.3) g/dL Albumin 3.5 (3.3-5.0) g/dL Procalcitonin 0.14 (<0.50) ng/mL Urine Color (Yellow) Urine Appearance (Clear) Urine pH (5.0-8.5) Ur Specific [place] (1.000-1.030) Urine Protein (Negative) Urine Glucose (UA) (Negative) Urine Ketones (Negative) Urine Blood (Negative) Urine Nitrite (Negative) Urine Bilirubin (Negative) Urine Urobilinogen (0.2-1.0) Ur Leukocyte Esterase (Negative) Urine RBC (0-2) Urine WBC (0-5) Ur Squamous Epith Cells (None-Few) Urine Bacteria (None) Coarse Granular Casts (None) Stl C. diff Tox B Gene (Negative) Stl C. diff 027-NAP1-BI (Negative) SARS-CoV-2 (PCR) (Negative) Influenza Type A (PCR) (Negative) Influenza Type B (PCR) (Negative) RSV (PCR) (Negative) Lab Acknowledgement Test Added POC Troponin I 0.04 (0.01-0.04) ng/ml 01/21/23 01/21/23 01/21/23 Range/Units 11:42 14:02 Unknown WBC (4.50-11.00) K/uL RBC (4.00-5.20) m/uL Hgb (12.0-16.0) gm/dL Hct (33.0-51.0) % MCV (80-100) fL MCH (26-34) pg MCHC (32-36) gm/dL RDW Coeff of Vanessa (11.5-15.5) % Plt Count (140-440) K/uL Neut % (Auto) (42.0-72.0) % Lymph % (Auto) (20-44) % [place] % (Auto) (0.0-11.0) % Eos % (Auto) (0.0-7.0) % Baso % (Auto) (0.0-3.0) % Neut # (Auto) (1.7-7.0) K/uL Lymph # (Auto) (0.90-2.90) K/uL [place] # (Auto) (0.00-0.90) K/UL Eos # (Auto) (0.00-0.50) K/uL Baso # (Auto) (0.00-0.30) K/uL Abs Immat Gran (auto) (0.00-0.30) K/uL Imm/Tot Granulo (auto) % ESR (2-20) mm/hr D-Dimer Quant (PE/DVT) (0.00-0.50) ug/ml VBG pH (7.32-7.43) VBG pCO2 (40-50) mmHG VBG pO2 (25-47) mmHG VBG HCO3 (21-28) mmol/L Sodium (135-149) mmol/L Potassium (3.6-5.1) mmol/L Chloride (96-114) mmol/L Carbon Dioxide (20-32) mmol/L Anion Gap (7-15) mEq/L BUN (7-30) mg/dL Creatinine (0.5-1.5) mg/dL Estimated Creat Clear Estimated GFR ml/min Glucose (60-115) mg/dL Lactate (0.5-1.9) mmol/L Calcium (8.4-10.6) mg/dL Magnesium (1.5-2.6) mg/dL Total Bilirubin (0.1-1.5) mg/dL AST (12-35) U/L ALT (4-35) U/L Alkaline Phosphatase (40-150) U/L Troponin I (0.01-0.04) ng/mL C-Reactive Protein (0.5-1.0) mg/dL NT-Pro-B Natriuret Pep pg/mL Total Protein (6.0-8.3) g/dL Albumin (3.3-5.0) g/dL Procalcitonin (<0.50) ng/mL Urine Color Yellow (Yellow) Urine Appearance Clear (Clear) Urine pH 6.5 (5.0-8.5) Ur Specific [place] >= 1.030 (1.000-1.030) Urine Protein 3+ A (Negative) Urine Glucose (UA) 1+ A (Negative) Urine Ketones Negative (Negative) Urine Blood 2+ A (Negative) Urine Nitrite Negative (Negative) Urine Bilirubin 1+ A (Negative) Urine Urobilinogen 0.2 (0.2-1.0) Ur Leukocyte Esterase Negative (Negative) Urine RBC 0-2 (0-2) Urine WBC 2-5 (0-5) Ur Squamous Epith Cells Moderate A (None-Few) Urine Bacteria None (None) Coarse Granular Casts Moderate A (None) Stl C. diff Tox B Gene Negative (Negative) Stl C. diff 027-NAP1-BI PRESUMPTIVE NEGATIVE (Negative) SARS-CoV-2 (PCR) Negative SARS-CoV-2 (Negative) Influenza Type A (PCR) Negative PCR FLU A (Negative) Influenza Type B (PCR) Negative PCR FLU B (Negative) RSV (PCR) Negative PCR RSV (Negative) Lab Acknowledgement Test Added POC Troponin I (0.01-0.04) ng/ml Imaging Data Chest x-ray: Attestation: I have reviewed the pertinent imaging results. Radiologist's impression: Patient: SHANIKA NOWAK Facility:?[facility] Patient ID:?[id number] Site Patient ID:?[id number]. Site :?[id number] Study:?XRay Chest PORTABLE-01/21/2023 10:26:37 AM Ordering Physician:Victor Hugo Osborn Final Report: INDICATION: Hypoxia, shortness of breath TECHNIQUE: Chest 1 views. COMPARISON: Chest radiograph on December 18, 2022 FINDINGS/IMPRESSION: Examination is limited secondary to underpenetration. The cardiomediastinal silhouette is unchanged compared to prior examination. There is no new focal airspace consolidation or appreciable new pleural effusion or pneumothorax. There appears to be improvement in left basilar airspace opacities/effusion compared to prior exam. The osseous structures are unremarkable. Dictated by Winston Handley MD @ 01/21/2023 10:37:22 AM (Electronic Signature) CT Chest/Ab/Pelvis: Attestation: I have reviewed the pertinent imaging results. Radiologist's impression: Patient: SHANIKA NOWAK Facility:?[facility] Patient ID:?[id number] Site Patient ID:?[id number]. Site :?[id number] Study:?CT Chest/Abd/Pelvis WITHOUT-01/21/2023 12:07:43 PM Ordering Physician:Victor Hugo Osborn Final Report: INDICATION: Hypoxia. Fever. TECHNIQUE: CT chest, abdomen and pelvis acquired without contrast. COMPARISON: December 15, 2022. December 11, 2018. FINDINGS: CHEST: Cardiovascular structures: Heart size is normal. Coronary artery calcifications. Thoracic aorta and main pulmonary artery are normal in caliber. Mediastinum and alannah: No mass or adenopathy. Lungs and pleura: Mosaic attenuation throughout the lungs. Few scattered tiny pulmonary nodules. Small bilateral pleural effusions. No pneumothorax. Chest wall and axilla: No mass or adenopathy. Bones: No suspicious bone lesions. Unremarkable for age. ABDOMEN AND PELVIS: Liver: Unremarkable. Gallbladder and bile ducts: Unremarkable. Pancreas: Unremarkable. Spleen: Unremarkable. Adrenal glands: Stable bilateral adrenal nodules. Kidneys: Mild left-sided hydroureteronephrosis with 6 millimeter partially obstructing stone in the left UVJ. Punctate nonobstructing right renal stone. GI tract: Unremarkable. Vascular structures: Moderate aortoiliac arterial calcification. S abdominal aorta is normal in caliber. Lymph nodes: Unremarkable. Miscellaneous: Unremarkable. No free air or significant free fluid. Pelvic Organs: Unremarkable. Bones: L4-S1 posterior hardware fixation. IMPRESSION: Mosaic attenuation throughout the lung, possibly small vessel/airway disease or pulmonary edema. Small bilateral pleural effusions. Coronary artery calcifications. Mild left-sided hydroureteronephrosis with 6 millimeter partially obstructing stone in the left UVJ. No CT evidence of colitis on this limited noncontrast CT scan. Please note that all CT scans at this facility use dose modulation, iterative reconstruction, and/or weight-based dosing when appropriate to reduce radiation dose to as low as reasonably achievable. Dictated by Garrett Rivas MD @ 01/21/2023 1:10:59 PM (Electronic Signature) ECG Data Attestation: I personally reviewed and interpreted this ECG as follows: (Sinus rhythm with calculated it short NV interval by computer, 70 beats per minute for rate. Some artifact seen. Nonspecific ST and T-wave segment changes but not indicative acute OH. QT corrected 524 milliseconds. ) Discharge Plan Discharge Clinical Impression: Congestive heart failure, Hypoxia, Hypokalemia Patient Disposition: Admitted As Observation
--- NOTE | 2023-01-21 10:05 | CRLHL7_ITS ---
For Patients: As a result of the Century Cures Act, medical imaging exams and procedure reports are released immediately into your electronic medical record. You may view this report before your referring provider. If you have questions, please contact your health care provider. INDICATION: Hypoxia, shortness of breath TECHNIQUE: Chest 1 views. COMPARISON: Chest radiograph on December 18, 2022 FINDINGS/IMPRESSION: Examination is limited secondary to underpenetration. The cardiomediastinal silhouette is unchanged compared to prior examination. There is no new focal airspace consolidation or appreciable new pleural effusion or pneumothorax. There appears to be improvement in left basilar airspace opacities/effusion compared to prior exam. The osseous structures are unremarkable. Dictated by Winston Handley MD @ 01/21/2023 10:37:22 AM (Electronically Signed)
[2023-01-21 10:16] LABS: Troponin, Point-of-Care* 0.04 ng/ml (0.01-0.04)
[2023-01-21 10:18] LABS: HCO3 VBG 34 mmol/L (21-28); Lactate* 2.4 mmol/L (0.5-1.9); PCO2 VBG 48 mmHG (40-50); PO2 VBG 44.3 mmHG (25-47); pH VBG 7.452 (7.32-7.43)
[2023-01-21 10:23] LABS: Basophils Percent Auto 0.2 % (0.0-3.0); Eosinophils Percent Auto 0.3 % (0.0-7.0); Hematocrit 43.4 % (33.0-51.0); Hemoglobin* 13.4 gm/dL (12.0-16.0); Immature Granulocytes Pct Auto 1.1 %; Lymphocytes Percent Auto 10.1 % (20-44); Mean Corpuscular HGB Conc 31 gm/dL (32-36); Mean Corpuscular Hemoglobin 27 pg (26-34); Mean Corpuscular Volume 88 fL (80-100); Monocytes Percent Auto 4.9 % (0.0-11.0); Neutrophils Percent Auto 83.4 % (42.0-72.0); Platelet Count* 315 K/uL (140-440); RDW Coefficient of Variation % 15.8 % (11.5-15.5); Red Blood Count 4.93 m/uL (4.00-5.20); White Blood Count* 13.06 K/uL (4.50-11.00)
[2023-01-21 10:41] LABS: Slide Review Reflex No
[2023-01-21 10:44] LABS: Albumin* 3.5 g/dL (3.3-5.0); Chloride* 93 mmol/L (96-114); Sodium* 134 mmol/L (135-149)
[2023-01-21 10:47] LABS: Creatinine* 0.8 mg/dL (0.5-1.5); Est. Creatinine Clearance* 49.72; Estimated Glomerular Filt Rate 83 ml/min
[2023-01-21 10:48] LABS: Alanine Aminotransferase* 22 U/L (4-35); Alkaline Phosphatase* 92 U/L (40-150); Anion Gap 8 mEq/L (7-15); Aspartate Amino Transferase* 23 U/L (12-35); Blood Urea Nitrogen* 12 mg/dL (7-30); Calcium* 8.5 mg/dL (8.4-10.6); Carbon Dioxide* 33 mmol/L (20-32); Total Protein* 6.4 g/dL (6.0-8.3)
[2023-01-21] MEDS: 0.9 % SODIUM CHLORIDE 250 ml 250 ML IV (10:50)
[2023-01-21 10:51] LABS: C Reactive Protein* 5.4 mg/dL (0.5-1.0)
[2023-01-21 10:52] LABS: Potassium* 2.3 mmol/L (3.6-5.1)
[2023-01-21 10:53] LABS: Glucose* 356 mg/dL (60-115); Troponin I* 0.03 ng/mL (0.01-0.04)
--- NOTE | 2023-01-21 10:54 | ED.NURSE ---
Critical lab K 2.3 and Glucose [address] Wu of results
[2023-01-21 11:06] LABS: NT Pro B Type NatriureticPept* 5300 pg/mL; Procalcitonin* 0.14 ng/mL (<0.50)
--- NOTE | 2023-01-21 11:21 | CRLHL7_ITS ---
For Patients: As a result of the Century Cures Act, medical imaging exams and procedure reports are released immediately into your electronic medical record. You may view this report before your referring provider. If you have questions, please contact your health care provider. INDICATION: Hypoxia. Fever. TECHNIQUE: CT chest, abdomen and pelvis acquired without contrast. COMPARISON: December 15, 2022. December 11, 2018. FINDINGS: CHEST: Cardiovascular structures: Heart size is normal. Coronary artery calcifications. Thoracic aorta and main pulmonary artery are normal in caliber. Mediastinum and alannah: No mass or adenopathy. Lungs and pleura: Mosaic attenuation throughout the lungs. Few scattered tiny pulmonary nodules. Small bilateral pleural effusions. No pneumothorax. Chest wall and axilla: No mass or adenopathy. Bones: No suspicious bone lesions. Unremarkable for age. ABDOMEN AND PELVIS: Liver: Unremarkable. Gallbladder and bile ducts: Unremarkable. Pancreas: Unremarkable. Spleen: Unremarkable. Adrenal glands: Stable bilateral adrenal nodules. Kidneys: Mild left-sided hydroureteronephrosis with 6 millimeter partially obstructing stone in the left UVJ. Punctate nonobstructing right renal stone. GI tract: Unremarkable. Vascular structures: Moderate aortoiliac arterial calcification. S abdominal aorta is normal in caliber. Lymph nodes: Unremarkable. Miscellaneous: Unremarkable. No free air or significant free fluid. Pelvic Organs: Unremarkable. Bones: L4-S1 posterior hardware fixation. IMPRESSION: Mosaic attenuation throughout the lung, possibly small vessel/airway disease or pulmonary edema. Small bilateral pleural effusions. Coronary artery calcifications. Mild left-sided hydroureteronephrosis with 6 millimeter partially obstructing stone in the left UVJ. No CT evidence of colitis on this limited noncontrast CT scan. Please note that all CT scans at this facility use dose modulation, iterative reconstruction, and/or weight-based dosing when appropriate to reduce radiation dose to as low as reasonably achievable. Dictated by Garrett Rivas MD @ 01/21/2023 1:10:59 PM (Electronically Signed)
[2023-01-21 11:35] LABS: Erythrocyte SedimentationRate* 51 mm/hr (2-20)
[2023-01-21 11:38] LABS: PCR FLU A Negative PCR FLU A (Negative); PCR FLU B Negative PCR FLU B (Negative); PCR RSV Negative PCR RSV (Negative)
[2023-01-21 11:40] LABS: SARS PCR* Negative SARS-CoV-2 (Negative)
[2023-01-21] MEDS: POTASSIUM CHLORIDE 10 MEQ/100 ML PIGGYBACK 100 MEQ IVPB ×4 (12:09→15:13)
[2023-01-21] MEDS: LACTATED RINGERS 1000 ML 1,000 ML 75 ML IV (12:10)
--- NOTE | 2023-01-21 13:41 | ED.NURSE ---
obtained the UA from a straight cath and sent ua to lab. patient is warm to touch and feeling weak on the feet, sob with activity.
--- NOTE | 2023-01-21 14:12 | ED.NURSE ---
Patient up to bed side commode. Took oxygen off. Sats were 56% on RA with activity. Replaced on 6L oxymask and recovered after 5 minutes.
[2023-01-21 14:21] LABS: Appearance Urine Clear (Clear); Bilirubin Urine 1+ (Negative); Blood Urine 2+ (Negative); Color Urine Yellow (Yellow); Glucose Urine 1+ (Negative); Ketones Urine Negative (Negative); Leukocyte Esterase Urine Negative (Negative); Nitrite Urine Negative (Negative); Protein Urine 3+ (Negative); Specific Gravity Urine >= 1.030 (1.000-1.030); Urobilinogen Urine 0.2 (0.2-1.0); pH Urine 6.5 (5.0-8.5)
--- NOTE | 2023-01-21 14:33 | ED.NURSE ---
MD notified of low oxygen saturation with activity.
[2023-01-21 14:44] LABS: RBC Urine 0-2 (0-2); Squamous Epithelial Cell Urine Moderate (None-Few)
[2023-01-21 14:45] LABS: Coarse Granular Casts Urine Moderate
[2023-01-21 15:07] LABS: C.Difficile Negative (Negative); CDIFFEPI 027 PRESUMPTIVE NEGATIVE (Negative)
[2023-01-21] MEDS: FUROSEMIDE 10 MG/ML inj 40 MG IVP (15:21)
--- NOTE | 2023-01-21 17:03 | ED.NURSE ---
Report to JOCELYNE Daniel.
[2023-01-21] MEDS: METFORMIN 1,000 MG TABLET 1000 MG PO (19:16)
[2023-01-21] MEDS: POTASSIUM CHLORIDE 10 MEQ CAPSULE ER 20 MEQ PO (19:17)
[2023-01-21] MEDS: VANCOMYCIN 125 MG CAPSULE PO ×2 (19:18→21:27)
[2023-01-21] MEDS: INSULIN ASPART 100 UNIT/ML 36 UNIT SUBCUT (19:54)
[2023-01-21] MEDS: INSULIN ASPART 100 UNIT/ML SUBCUT ×2 (19:55→21:27)
--- NOTE | 2023-01-21 20:05 | PM.IMHP1 ---
Hospitalist- H&P: HPI History of Present Illness Date Seen: 01/21/23 Chief complaint: Difficulty breathing Narrative: Nela Gutierrez is a 62 year old woman presents to the emergency department for evaluation of not feeling well. She notes that she has had a sense of dyspnea with exertion. Denies dyspnea at rest. Denies paroxysmal nocturnal dyspnea orthopnea. Denies cough, syncope, chest heaviness, pressure, tightness, or pain. Denies nausea or vomiting. Denies palpitations or chest fluttering. Denies dependent edema. She she was diagnosed with C difficile diarrhea while in the hospital about a month ago. Was treated with 10 days of oral vancomycin, which she states she completed. She states the diarrhea never really resolved. Continues to have loose stools. Denies fevers, rigors, diaphoresis. She wonders if she needs more medication for this. Has multiple episodes of loose stools during the course of the day. No bloody stools. Review of Systems Status of ROS: Reports: 10 or more systems reviewed and unremarkable except as noted in History and below [facility] Medical History Depression, recurrent ?F33.9 - Major depressive disorder, recurrent, unspecified (ICD-10) Spinal stenosis, lumbar region with neurogenic claudication ?M48.062 - Spinal stenosis, lumbar region with neurogenic claudication (ICD-10) Abscess of right breast ?N61.1 - Abscess of the breast and nipple (ICD-10) Adenomatous colon polyp ?D12.6 - Benign neoplasm of colon, unspecified (ICD-10) Ureteral stone with hydronephrosis ?N13.2 - Hydronephrosis with renal and ureteral calculous obstruction (ICD-10) Coronary artery disease involving [place] coronary artery of [place] heart without angina pectoris ?I25.10 - Atherosclerotic heart disease of [place] coronary artery without angina pectoris (ICD-10) BILLIE (obstructive sleep apnea) ?G47.33 - Obstructive sleep apnea (adult) (pediatric) (ICD-10) STEMI (ST elevation myocardial infarction) ?I21.3 - ST elevation (STEMI) myocardial infarction of unspecified site (ICD-10) Psoriasis ?L40.9 - Psoriasis, unspecified (ICD-10) Hypokalemia ?E87.6 - Hypokalemia (ICD-10) Sciatica ?M54.30 - Sciatica, unspecified side (ICD-10) Hyperlipidemia ?E78.5 - Hyperlipidemia, unspecified (ICD-10) Essential hypertension ?I10 - Essential (primary) hypertension (ICD-10) Type 2 diabetes mellitus ?E11.9 - Type 2 diabetes mellitus without complications (ICD-10) Surgical History H/O tubal ligation ?Z98.51 - Tubal ligation status (ICD-10) S/P rotator cuff repair ?Z98.890 - Other specified postprocedural states (ICD-10) H/O lithotripsy ?Z98.890 - Other specified postprocedural states (ICD-10) H/O arthroscopic knee surgery ?Z98.890 - Other specified postprocedural states (ICD-10) History of reduction surgery of right breast ?Z98.890 - Other specified postprocedural states (ICD-10) Hx of colonoscopy ?Z98.890 - Other specified postprocedural states (ICD-10) Previous back surgery ?Z98.890 - Other specified postprocedural states (ICD-10) Family History Brother Alcohol dependence Father Alcohol dependence Social History (Updated 01/21/23 @ 21:07 by Hua Kim MD) Narrative: Smoked 1ppd for 45 years, quit cold turkey 2 months ago. Denies alcohol use. Denies recreational drug use. Requests DNR DNI resuscitation status. Designates her sons as power of real estate associate attorney for health should that be required. What is your current living situation?: I presently have a place to live Problems where you live: no known problems Problems where you live details: NA In the past 12 months, utilities in danger of being shut off: no In past 12 months, lack of transportation kept you from medical appts, meetings, work, or getting things needed for daily living: no In the past 12 mos, have been you worried that your food would run out before you had money to buy more?: never true In the past 12 mos, the food you bought just didn't last and you didn't have money to buy more?: never true Highest level of school completed/degree received: high school graduate Smoking Status: Former smoker What tobacco products do you use: cigarettes Smoking quit date/years: <= 15 years ago Do you use any of these nicotine containing products: None Second hand tobacco smoke exposure: No How often do you have a drink containing alcohol: never How often do you have six or more drinks on one occasion: Never AUDIT-C Alcohol total score: 0 Non-prescribed substance use: denies use Caffeine: Yes (sometimes pop) How often does anyone, including family, friends and others, physically hurt you: never How often does anyone, including family, friends and others, insult or talk down to you: never How often does anyone, including family, friends and others, threaten you with harm: never How often does anyone, including family, friends and others, scream or curse at you: never service: No Meds Home Medications and Allergies Home Medications Medication Instructions Recorded Confirmed Type amlodipine 10 mg tablet 10 mg PO DAILY 12/15/22 01/21/23 History aspirin 81 mg capsule 81 mg PO DAILY 12/15/22 01/21/23 History chlorthalidone 25 mg tablet 12.5 mg PO DAILY 12/15/22 01/21/23 History insulin aspart U-100 100 unit/mL 36 unit subcut TID 12/15/22 01/21/23 History (3 mL) subcutaneous pen (Novolog FlexPen U-100 Insulin aspart) insulin glargine 100 unit/mL (3 62 unit subcut QAM 12/15/22 01/21/23 History mL) subcutaneous pen (Basaglar KwikPen U-100 Insulin) losartan 100 mg tablet 100 mg PO DAILY 12/15/22 01/21/23 History metformin 1,000 mg tablet 1,000 mg PO BID 12/15/22 01/21/23 History metoprolol succinate 100 mg 100 mg PO BID 12/15/22 01/21/23 History tablet,extended release 24 hr multivitamin (Daily Multi-Vitamin 1 tab PO DAILY 12/15/22 01/21/23 History tablet) nystatin 100,000 unit/gram topical 1 applic topical 3XD 12/15/22 01/21/23 History powder ([facility]) omega-3 fatty acids 500 mg capsule 500 mg PO DAILY 12/15/22 01/21/23 History rosuvastatin 40 mg tablet 40 mg PO HS 12/15/22 01/21/23 History sertraline 100 mg tablet 100 mg PO QAM 12/15/22 01/21/23 History Allergies Allergy/AdvReac Type Severity Reaction Status Date / Time iodine AdvReac Severe Anaphylaxis Verified 01/21/23 09:42 shellfish derived AdvReac Severe Anaphylaxis Verified 01/21/23 09:42 ticagrelor [From Brilinta] AdvReac Severe Rash Verified 01/21/23 09:42 Exam Narrative: Exam Narrative: Examined patient in the emergency department and then again on hospital medical floor. Appears comfortable in no acute distress. Obese. When she 1st presents to the hospital her resting room air oxygen saturation is 86%. Oxygen saturation improves with oxygen supplementation at 6 liters/minute via OxyMask. Later she walks to the bedside commode and back to her exam table without oxygen supplementation and her saturations are in the mid 50% range. With oxygen supplementation her saturations improved to around 90%. Is tachypneic at rest which worsens with exertion. Hearing is preserved. Tympanic membranes normal. Midline nasal septum. Multiple missing teeth. Neck is supple. Midline trachea. No JVD but does have hepatojugular reflux in sitting upright position. Fine end inspiratory rales bibasilarly. Few scattered rhonchi that clear with cough. No wheezing. Chest wall excursions are full. Heart tones with regular rhythm, normal S1-S2. Abdomen obese with active bowel sounds, soft, nontender. Extremities without edema. Independent transfer, station, and gait. No focal motor neurologic deficits. No tremor, asterixis, or ataxia. Does have diarrhea on the floor in the emergency department next to where she was sitting on bedside commode. Const: Vital Signs, click to edit/add: Vital Signs - 24 hr 01/21/23 09:46 01/21/23 09:50 01/21/23 09:52 Temperature 98.6 F Pulse Rate 72 Pulse Rate [Pulse Oximeter] 67 Respiratory Rate 28 H Blood Pressure Blood Pressure [Ri ght Upper Arm] 127/99 H Pulse Oximetry 86 L 92 93 Oxygen Delivery Me thod Room Air OxyMask OxyMask Oxygen Flow Rate 6 6 01/21/23 10:00 01/21/23 10:05 01/21/23 10:06 Temperature Pulse Rate 72 65 76 Pulse Rate [Pulse Oximeter] Respiratory Rate 28 H 28 H Blood Pressure 132/61 Blood Pressure [Ri ght Upper Arm] Pulse Oximetry 92 91 88 Oxygen Delivery Me thod OxyMask OxyMask Oxygen Flow Rate 6 6 01/21/23 10:15 01/21/23 10:15 01/21/23 10:15 Temperature 99.9 F H Pulse Rate 72 Pulse Rate [Pulse Oximeter] Respiratory Rate Blood Pressure Blood Pressure [Ri ght Upper Arm] Pulse Oximetry 91 91 94 Oxygen Delivery Me thod OxyMask Oxygen Flow Rate 6 01/21/23 10:30 01/21/23 10:45 01/21/23 11:00 Temperature Pulse Rate 70 73 69 Pulse Rate [Pulse Oximeter] Respiratory Rate Blood Pressure Blood Pressure [Ri ght Upper Arm] Pulse Oximetry 88 92 92 Oxygen Delivery Me thod Oxygen Flow Rate 01/21/23 11:02 01/21/23 11:15 01/21/23 11:30 Temperature Pulse Rate 65 72 69 Pulse Rate [Pulse Oximeter] Respiratory Rate Blood Pressure 157/79 H Blood Pressure [Ri ght Upper Arm] Pulse Oximetry 91 89 88 Oxygen Delivery Me thod Oxygen Flow Rate 01/21/23 11:32 01/21/23 11:45 01/21/23 12:02 Temperature Pulse Rate 69 75 67 Pulse Rate [Pulse Oximeter] Respiratory Rate Blood Pressure 172/74 H Blood Pressure [Ri ght Upper Arm] Pulse Oximetry 91 86 L 90 Oxygen Delivery Me thod Oxygen Flow Rate 01/21/23 12:15 01/21/23 12:30 01/21/23 12:32 Temperature Pulse Rate 75 68 69 Pulse Rate [Pulse Oximeter] Respiratory Rate Blood Pressure 123/56 L Blood Pressure [Ri ght Upper Arm] Pulse Oximetry 92 91 91 Oxygen Delivery Me thod Oxygen Flow Rate 01/21/23 12:45 01/21/23 13:00 01/21/23 13:02 Temperature Pulse Rate 76 71 70 Pulse Rate [Pulse Oximeter] Respiratory Rate Blood Pressure 158/86 H Blood Pressure [Ri ght Upper Arm] Pulse Oximetry 89 89 90 Oxygen Delivery Me thod Oxygen Flow Rate 01/21/23 13:15 01/21/23 13:30 01/21/23 13:32 Temperature Pulse Rate 72 75 75 Pulse Rate [Pulse Oximeter] Respiratory Rate Blood Pressure 149/76 H Blood Pressure [Ri ght Upper Arm] Pulse Oximetry 92 91 92 Oxygen Delivery Me thod Oxygen Flow Rate 01/21/23 13:45 01/21/23 14:00 01/21/23 14:04 Temperature Pulse Rate 77 78 73 Pulse Rate [Pulse Oximeter] Respiratory Rate Blood Pressure Blood Pressure [Ri ght Upper Arm] Pulse Oximetry 90 86 L 93 Oxygen Delivery Me thod OxyMask Oxygen Flow Rate 6 01/21/23 14:05 01/21/23 14:15 01/21/23 14:15 Temperature 98.5 F Pulse Rate 72 74 Pulse Rate [Pulse Oximeter] Respiratory Rate 22 Blood Pressure Blood Pressure [Ri ght Upper Arm] Pulse Oximetry 93 91 Oxygen Delivery Me thod Oxygen Flow Rate 01/21/23 14:30 01/21/23 14:33 01/21/23 14:45 Temperature Pulse Rate 73 73 68 Pulse Rate [Pulse Oximeter] Respiratory Rate Blood Pressure 157/74 H Blood Pressure [Ri ght Upper Arm] Pulse Oximetry 92 91 89 Oxygen Delivery Me thod Oxygen Flow Rate 01/21/23 15:00 01/21/23 15:02 01/21/23 15:15 Temperature Pulse Rate 68 67 71 Pulse Rate [Pulse Oximeter] Respiratory Rate Blood Pressure 155/72 H Blood Pressure [Ri ght Upper Arm] Pulse Oximetry 87 L 91 92 Oxygen Delivery Me thod Oxygen Flow Rate 01/21/23 15:30 01/21/23 15:31 01/21/23 15:45 Temperature Pulse Rate 74 74 74 Pulse Rate [Pulse Oximeter] Respiratory Rate Blood Pressure 157/94 H Blood Pressure [Ri ght Upper Arm] Pulse Oximetry 93 94 91 Oxygen Delivery Me thod Oxygen Flow Rate 01/21/23 16:00 01/21/23 16:01 01/21/23 16:15 Temperature Pulse Rate 68 69 72 Pulse Rate [Pulse Oximeter] Respiratory Rate Blood Pressure 165/89 H Blood Pressure [Ri ght Upper Arm] Pulse Oximetry 90 91 94 Oxygen Delivery Me thod Oxygen Flow Rate 01/21/23 16:33 01/21/23 16:34 Temperature Pulse Rate 81 79 Pulse Rate [Pulse Oximeter] Respiratory Rate Blood Pressure 170/82 H Blood Pressure [Ri ght Upper Arm] Pulse Oximetry 89 92 Oxygen Delivery Me thod Oxygen Flow Rate Hospitalist - H&P: Result Labs Labs: Short CBC 01/21/23 Range/Units 10:05 WBC 13.06 H (4.50-11.00) K/uL Hgb 13.4 (12.0-16.0) gm/dL Hct 43.4 (33.0-51.0) % Plt Count 315 (140-440) K/uL BMP 01/21/23 10:05 Sodium 134 L Potassium 2.3 L* Chloride 93 L Carbon Dioxide 33 H BUN 12 Creatinine 0.8 Glucose 356 H* Calcium 8.5 Cardiac Enzymes 01/21/23 Range/Units 10:05 Troponin I 0.03 (0.01-0.04) ng/mL Liver Function 01/21/23 Range/Units 10:05 Total Bilirubin 1.0 (0.1-1.5) mg/dL AST 23 (12-35) U/L ALT 22 (4-35) U/L Alkaline Phosphatase 92 (40-150) U/L Albumin 3.5 (3.3-5.0) g/dL Urine 01/21/23 Range/Units 14:02 Urine Color Yellow (Yellow) Urine Appearance Clear (Clear) Urine pH 6.5 (5.0-8.5) Ur Specific [place] >= 1.030 (1.000-1.030) Urine Protein 3+ A (Negative) Urine Glucose (UA) 1+ A (Negative) ECG Attestation: I personally reviewed and interpreted this ECG as follows: ECG interpretation date: 01/21/23 Interpretation: Normal sinus rhythm. Nonspecific ST segment changes. Imaging Chest x-ray: Attestation: I have reviewed the pertinent imaging results. Radiologist's impression: FINDINGS/IMPRESSION: Examination is limited secondary to underpenetration. The cardiomediastinal silhouette is unchanged compared to prior examination. There is no new focal airspace consolidation or appreciable new pleural effusion or pneumothorax. There appears to be improvement in left basilar airspace opacities/effusion compared to prior exam. The osseous structures are unremarkable. CT Chest/Ab/Pelvis: Attestation: I have reviewed the pertinent imaging results. Radiologist's impression: IMPRESSION: Mosaic attenuation throughout the lung, possibly small vessel/airway disease or pulmonary edema. Small bilateral pleural effusions. Coronary artery calcifications. Mild left-sided hydroureteronephrosis with 6 millimeter partially obstructing stone in the left UVJ. No CT evidence of colitis on this limited noncontrast CT scan. Assessment and Plan Assessment and plan (1) Dyspnea: Problem comment: - likely due to cardiac and pulmonary disease - oxygen supplementation Status: Acute (2) Hypoxia: Problem comment: - likely multifactorial from lung disease and heart failure - oxygen supplementation and respiratory therapy consultation Status: Acute (3) Congestive heart failure: Problem comment: - brain natriuretic peptide level markedly elevated at 5300 - already on beta-torri and angiotensin receptor torri agents. Will initiate furosemide therapy in hospital at this time. - check echo on 01/22/2023 Status: Acute (4) Clostridium difficile diarrhea: Problem comment: -dx 12/17 after developing diarrhea while on IV antibiotics Completed a 10 day course of oral vancomycin 4 times daily -restart on 01/21/2023, and will likely need extended taper Status: Acute (5) Hypokalemia: Problem comment: - likely from ongoing diarrhea inadequate oral supplementation Status: Acute (6) Bilateral pleural effusion: Problem comment: - small bilateral pleural effusions 1st noted 12/15/2022, too small to tap for diagnostic purposes - repeat CXR prior to discharge from hospital on 12/19/2022 showed improvement in pleural effusions. patient completed 5 day course of IV antibiotics for pneumonia. - CT scan of chest, abdomen, pelvis 01/21/2023 demonstrated the following findings: Mosaic attenuation throughout the lung, possibly small vessel/airway disease or pulmonary edema. Small bilateral pleural effusions. Coronary artery calcifications. - seemingly related to heart failure, no loculation, no obvious pneumonia therefore doubt parapneumonic effusion at this time. Status: Acute (7) Hydronephrosis concurrent with and due to calculi of kidney and ureter: Problem comment: - CT scan of chest, abdomen, pelvis on 01/21/2023 demonstrated the following findings: Mild left-sided hydroureteronephrosis with 6 millimeter partially obstructing stone in the left UVJ. Status: Acute (8) Tobacco dependence in remission: Problem comment: - quit abruptly about 2 months ago Status: Acute Plan 1. Patient agreeable to above stated plans and recommendations.
--- NOTE | 2023-01-21 20:11 | PC.NURSE ---
Nursing Care Hours: [id number] Pt this shift arrived on stretcher to unit alert and oriented, calm and cooperative. 6L oxi mask, spo2 above 90%, tachypnea, c/o SOB with exertion. Afebrile but states feeling flushed. Able to walk with cane and SB assist from lee onto bed. No c/o pain but does have chronic R leg pain. States 3 days of increasing SOB and nausea with dry heaves, no emesis. Scabs on bilat shoulders from self picking' d/t itchiness. Dinner meal ordered.
[2023-01-21] MEDS: METOPROLOL SUCCINATE (XL) 100 MG TAB PO (21:26)
[2023-01-21] MEDS: ROSUVASTATIN CALCIUM 10 MG TABLET 40 MG PO (21:27)
[2023-01-21] MEDS: NYSTATIN POWDER 1 APPLIC TOPICAL (21:27)
[2023-01-22 03:00] VITALS: BP 147/78; PULSE 61; RESP 24; TEMP 36.8; O2SAT 91
--- NOTE | 2023-01-22 06:29 | PC.NURSE ---
Shift note: Pt has been on 6L of oxygen via OxyMask throughout the night. O2 desaturate when sleeping, especially when mask accidentally get displaced. Ambulated independently in room. Blood glucose level was high (460). Charge nurse informed and NovoLog given per scheduled and sliding scale.
[2023-01-22 06:42] LABS: HCO3 VBG 37 mmol/L (21-28); Lactate* 0.9 mmol/L (0.5-1.9); PCO2 VBG 56 mmHG (40-50); PO2 VBG 57.2 mmHG (25-47); pH VBG 7.426 (7.32-7.43)
[2023-01-22 06:46] LABS: Hematocrit 44.1 % (33.0-51.0); Hemoglobin* 13.5 gm/dL (12.0-16.0); Mean Corpuscular HGB Conc 31 gm/dL (32-36); Mean Corpuscular Hemoglobin 27 pg (26-34); Mean Corpuscular Volume 89 fL (80-100); Platelet Count* 344 K/uL (140-440); Red Blood Count 4.98 m/uL (4.00-5.20); White Blood Count* 9.92 K/uL (4.50-11.00)
[2023-01-22 07:00] VITALS: BP 128/80; PULSE 116; PULSE 69; RESP 24; TEMP 36.5; O2SAT 96
[2023-01-22 07:16] LABS: Slide Review Reflex No
[2023-01-22 07:26] LABS: Chloride* 98 mmol/L (96-114); Sodium* 138 mmol/L (135-149)
[2023-01-22 07:29] LABS: Anion Gap 4 mEq/L (7-15); Blood Urea Nitrogen* 16 mg/dL (7-30); Carbon Dioxide* 36 mmol/L (20-32); Creatinine* 0.7 mg/dL (0.5-1.5); Est. Creatinine Clearance* 49.72; Estimated Glomerular Filt Rate 97 ml/min
[2023-01-22 07:30] LABS: Calcium* 8.4 mg/dL (8.4-10.6); Glucose* 221 mg/dL (60-115); Magnesium* 2.2 mg/dL (1.5-2.6); Phosphorus* 2.7 mg/dL (2.5-4.5)
[2023-01-22 07:32] LABS: C Reactive Protein* 5.6 mg/dL (0.5-1.0)
[2023-01-22 07:43] LABS: Troponin I* 0.02 ng/mL (0.01-0.04)
[2023-01-22 07:45] LABS: Procalcitonin* 0.15 ng/mL (<0.50)
[2023-01-22 07:48] LABS: NT Pro B Type NatriureticPept* 3580 pg/mL; Potassium* 2.8 mmol/L (3.6-5.1)
[2023-01-22] MEDS: INSULIN ASPART 100 UNIT/ML 36 UNIT SUBCUT (08:47)
[2023-01-22] MEDS: INSULIN ASPART 100 UNIT/ML SUBCUT ×4 (08:47→21:44)
[2023-01-22] MEDS: METFORMIN 1,000 MG TABLET 1000 MG PO (08:48)
[2023-01-22] MEDS: POTASSIUM CHLORIDE 10 MEQ CAPSULE ER 20 MEQ PO ×3 (10:42→18:13)
[2023-01-22] MEDS: SERTRALINE 100 MG TABLET PO (10:43)
[2023-01-22] MEDS: AMLODIPINE 10 MG TABLET PO (10:43)
[2023-01-22] MEDS: LOPERAMIDE HCL 2 MG CAPSULE PO (10:43)
[2023-01-22] MEDS: METOPROLOL SUCCINATE (XL) 100 MG TAB PO ×2 (10:43→21:44)
[2023-01-22] MEDS: ASPIRIN 81 MG TABLET EC PO (10:44)
[2023-01-22] MEDS: LOSARTAN POTASSIUM 50 MG TABLET 100 MG PO (10:44)
[2023-01-22] MEDS: NYSTATIN POWDER 1 APPLIC TOPICAL ×3 (10:45→21:45)
[2023-01-22 11:00] VITALS: BP 133/65; PULSE 74; RESP 28; O2SAT 92
[2023-01-22] MEDS: FUROSEMIDE 10 MG/ML inj 20 MG IVP ×2 (11:02→16:32)
--- NOTE | 2023-01-22 11:18 | P.IMPN_ITS ---
Progress Note: A&P Assessment and plan (1) Congestive heart failure: Problem details: - brain natriuretic peptide level markedly elevated at 5300 - already on beta-torri and angiotensin receptor torri agents. Will initiate furosemide therapy in hospital at this time. - check echo on 01/22/202301/22: Echo; additional IV lasix; daily weight; monitor I&O; electrolyte replacement as needed Status: Acute (2) Hypoxia: Problem details: - likely multifactorial from lung disease and heart failure - oxygen supplementation and respiratory therapy consultation 01/22: Acute hypoxic resp failure likely multifactorial; CHF, possible COPD and underlying Obesity hypoventilation syndrome; marina check Vbg; wean oxygen as tolerated goal 88-92%; RT consult; scheduled duoneb; outpatient PFTs Status: Acute (3) Tobacco dependence in remission: Problem details: - quit abruptly about 2 months ago -will need outpatient PFTs Status: Acute (4) Clostridium difficile diarrhea: Problem details: -dx 12/17 after developing diarrhea while on IV antibiotics Completed a 10 day course of oral vancomycin 4 times daily -restart on 01/21/2023, and will likely need extended taper 01/22: C diff pcr negative vanco stopped Status: Acute (5) Hypokalemia: Problem details: - likely from ongoing diarrhea inadequate oral supplementation -continue replacement as needed Status: Acute (6) Lesion of adrenal gland: Problem details: CT scan today: Bilateral adrenal nodules, 1 of which meets criteria for an adenoma. The larger lesion in the left adrenal gland measures greater than 10 Hounsfield units, and is favored to represent a lipid poor adenoma. This could be assessed non emergently with an adrenal mass protocol CT. - I spoke with the patient about these findings and have recommended outpatient follow-up with her primary care provider to obtain an on urgent adrenal mass protocol CT. Status: Acute (7) Hydronephrosis concurrent with and due to calculi of kidney and ureter: Problem details: - CT scan of chest, abdomen, pelvis on 01/21/2023 demonstrated the following findings: Mild left-sided hydroureteronephrosis with 6 millimeter partially obstructing stone in the left UVJ. Status: Acute Subjective Date Seen: 01/22/23 Interval history: patient endorses SOB on 6 liters likely hx of undiagnosed COPD denies chest pain C diff negative; oral vanco stopped Exam Narrative: Exam Narrative: Gen: obese female no acute distress HEENT: NCAT EOMI mmm CV: RRR normal s1 s2 Lungs:diminished breath sounds Abd: Soft,nt, nd Neuro: Alert, oriented, CN grossly intact; nonfocal screening?exam Psych: appropriate affect MSK: age appropriate muscle mass Skin; Warm, dry no rash on face Const: Vital Signs, click to edit/add: Vital Signs - 24 hr 01/21/23 11:30 01/21/23 11:32 01/21/23 11:45 Temperature Pulse Rate 69 69 75 Pulse Rate [Left P ulse Oximeter] Respiratory Rate Blood Pressure 172/74 H Blood Pressure [Ri ght Radial Artery] Pulse Oximetry 88 91 86 L Oxygen Delivery Me thod Oxygen Flow Rate 01/21/23 12:02 01/21/23 12:15 01/21/23 12:30 Temperature Pulse Rate 67 75 68 Pulse Rate [Left P ulse Oximeter] Respiratory Rate Blood Pressure Blood Pressure [Ri ght Radial Artery] Pulse Oximetry 90 92 91 Oxygen Delivery Me thod Oxygen Flow Rate 01/21/23 12:32 01/21/23 12:45 01/21/23 13:00 Temperature Pulse Rate 69 76 71 Pulse Rate [Left P ulse Oximeter] Respiratory Rate Blood Pressure 123/56 L Blood Pressure [Ri ght Radial Artery] Pulse Oximetry 91 89 89 Oxygen Delivery Me thod Oxygen Flow Rate 01/21/23 13:02 01/21/23 13:15 01/21/23 13:30 Temperature Pulse Rate 70 72 75 Pulse Rate [Left P ulse Oximeter] Respiratory Rate Blood Pressure 158/86 H Blood Pressure [Ri ght Radial Artery] Pulse Oximetry 90 92 91 Oxygen Delivery Me thod Oxygen Flow Rate 01/21/23 13:32 01/21/23 13:45 01/21/23 14:00 Temperature Pulse Rate 75 77 78 Pulse Rate [Left P ulse Oximeter] Respiratory Rate Blood Pressure 149/76 H Blood Pressure [Ri ght Radial Artery] Pulse Oximetry 92 90 86 L Oxygen Delivery Me thod Oxygen Flow Rate 01/21/23 14:04 01/21/23 14:05 01/21/23 14:15 Temperature 98.5 F Pulse Rate 73 72 Pulse Rate [Left P ulse Oximeter] Respiratory Rate Blood Pressure Blood Pressure [Ri ght Radial Artery] Pulse Oximetry 93 93 Oxygen Delivery Me thod OxyMask Oxygen Flow Rate 6 01/21/23 14:15 01/21/23 14:30 01/21/23 14:33 Temperature Pulse Rate 74 73 73 Pulse Rate [Left P ulse Oximeter] Respiratory Rate 22 Blood Pressure 157/74 H Blood Pressure [Ri ght Radial Artery] Pulse Oximetry 91 92 91 Oxygen Delivery Me thod Oxygen Flow Rate 01/21/23 14:45 01/21/23 15:00 01/21/23 15:02 Temperature Pulse Rate 68 68 67 Pulse Rate [Left P ulse Oximeter] Respiratory Rate Blood Pressure 155/72 H Blood Pressure [Ri ght Radial Artery] Pulse Oximetry 89 87 L 91 Oxygen Delivery Me thod Oxygen Flow Rate 01/21/23 15:15 01/21/23 15:30 01/21/23 15:31 Temperature Pulse Rate 71 74 74 Pulse Rate [Left P ulse Oximeter] Respiratory Rate Blood Pressure 157/94 H Blood Pressure [Ri ght Radial Artery] Pulse Oximetry 92 93 94 Oxygen Delivery Me thod Oxygen Flow Rate 01/21/23 15:45 01/21/23 16:00 01/21/23 16:01 Temperature Pulse Rate 74 68 69 Pulse Rate [Left P ulse Oximeter] Respiratory Rate Blood Pressure 165/89 H Blood Pressure [Ri ght Radial Artery] Pulse Oximetry 91 90 91 Oxygen Delivery Me thod Oxygen Flow Rate 01/21/23 16:15 01/21/23 16:33 01/21/23 16:34 Temperature Pulse Rate 72 81 79 Pulse Rate [Left P ulse Oximeter] Respiratory Rate Blood Pressure 170/82 H Blood Pressure [Ri t Radial Artery] Pulse Oximetry 94 89 92 Oxygen Delivery Me thod Oxygen Flow Rate 01/21/23 17:31 01/21/23 17:31 01/21/23 19:00 Temperature 98.5 F Pulse Rate Pulse Rate [Left P ulse Oximeter] 66 75 Respiratory Rate 33 H 24 24 Blood Pressure Blood Pressure [Ri ght Radial Artery] 156/83 H 150/62 H Pulse Oximetry 92 92 Oxygen Delivery Me thod OxyMask OxyMask Oxygen Flow Rate 6 6 01/21/23 23:00 01/21/23 23:00 01/22/23 03:00 Temperature 98.5 F 98.2 F Pulse Rate Pulse Rate [Left P ulse Oximeter] 68 68 61 Respiratory Rate 24 24 24 Blood Pressure Blood Pressure [Ri [facility] Radial Artery] 126/66 147/78 H Pulse Oximetry 90 91 Oxygen Delivery Me thod OxyMask OxyMask Oxygen Flow Rate 6 6 01/22/23 07:00 Temperature 97.7 F Pulse Rate Pulse Rate [Left P ulse Oximeter] 116 H Respiratory Rate Blood Pressure Blood Pressure [[facility] Radial Artery] 128/80 Pulse Oximetry 96 Oxygen Delivery Me thod OxyMask Oxygen Flow Rate 6 Labs Labs: Laboratory Results - last 24 hr 01/21/23 01/21/23 01/21/23 10:05 11:42 14:02 WBC RBC Hgb Hct MCV MCH MCHC Plt Count ESR 51 H VBG pH VBG pCO2 VBG pO2 VBG HCO3 Sodium Potassium Chloride Carbon Dioxide Anion Gap BUN Creatinine Estimated Creat Clear Estimated GFR Glucose Lactate Calcium Phosphorus Magnesium 2.0 Troponin I C-Reactive Protein NT-Pro-B Natriuret Pep Procalcitonin TSH Urine Color Yellow Urine Appearance Clear Urine pH 6.5 Ur Specific [place] >= 1.030 Urine Protein 3+ A Urine Glucose (UA) 1+ A Urine Ketones Negative Urine Blood 2+ A Urine Nitrite Negative Urine Bilirubin 1+ A Urine Urobilinogen 0.2 Ur Leukocyte Esterase Negative Urine RBC 0-2 Urine WBC 2-5 Ur Squamous Epith Cells Moderate A Urine Bacteria None Coarse Granular Casts Moderate A Stl C. diff Tox B Gene Negative Stl C. diff [id number]-NAP1-[id number] PRESUMPTIVE NEGATIVE SARS-CoV-2 (PCR) Influenza Type A (PCR) Influenza Type B (PCR) RSV (PCR) Lab Acknowledgement Test Added 01/21/23 01/22/23 Unknown 05:55 WBC 9.92 RBC 4.98 Hgb 13.5 Hct 44.1 MCV 89 MCH 27 MCHC 31 L Plt Count 344 ESR VBG pH 7.426 VBG pCO2 56 H VBG pO2 57.2 H VBG HCO3 37 H Sodium 138 Potassium 2.8 L* Chloride 98 Carbon Dioxide 36 H Anion Gap 4 L BUN 16 Creatinine 0.7 Estimated Creat Clear 49.72 Estimated GFR 97 Glucose 221 H Lactate 0.9 Calcium 8.4 Phosphorus 2.7 Magnesium 2.2 Troponin I 0.02 C-Reactive Protein 5.6 H NT-Pro-B Natriuret Pep 3580 Procalcitonin 0.15 TSH 1.010 Urine Color Urine Appearance Urine pH Ur Specific [place] Urine Protein Urine Glucose (UA) Urine Ketones Urine Blood Urine Nitrite Urine Bilirubin Urine Urobilinogen Ur Leukocyte Esterase Urine RBC Urine WBC Ur Squamous Epith Cells Urine Bacteria Coarse Granular Casts Stl C. diff Tox B Gene Stl C. diff [id number] SARS-CoV-2 (PCR) Negative SARS-CoV-2 Influenza Type A (PCR) Negative PCR FLU A Influenza Type B (PCR) Negative PCR FLU B RSV (PCR) Negative PCR RSV Lab Acknowledgement
[2023-01-22] MEDS: INSULIN ASPART 100 UNIT/ML 18 UNIT SUBCUT (12:32)
--- NOTE | 2023-01-22 13:36 | NUTR.NU ---
MARIANO with diet education related to new congestive heart failure diagnosis. Patient admitted for hypoxia, found the have new congestive heart failure diagnosis. RDN visited with patient whom reports eating regularly at home. She reports not salting food. She reports living with her daughter. Current diet is low sodium. 100% of dinner 01/21 recorded. Weight history is stable; weight 242 lb, height 64 inches, BMI is obese at 41.6 kg/m2. 12/19/2022 250 lb 6oz. RDN offered patient diet education related to congestive heart failure. Nutrition education provided on a low sodium diet related to congestive heart failure. Verbal and written information provided. Recommend limiting sodium to 2,000 mg per day. Discussed foods recommended and to avoid. Handouts provided from [facility] on heart failure nutrition therapy, sodium content of foods, heart healthy label reading tips, sodium-free flavoring tips and heart healthy cooking and shopping tips. Patient verbalized understanding. RDN's contact information was provided and patient was encouraged to call with questions.
[2023-01-22 15:00] VITALS: PULSE 68; PULSE 74; RESP 28; O2SAT 91
[2023-01-22] MEDS: IPRAT-ALBUT 0.5-2.5 MG/3 ML NEB 1 NEB IH ×2 (16:28→21:44)
[2023-01-22] MEDS: INSULIN ASPART 100 UNIT/ML 20 UNIT SUBCUT (18:12)
--- NOTE | 2023-01-22 18:37 | P.EN_ITS ---
Chart Event Note Time Seen by Provider: 18:30 Date Seen: 01/22/23 Chart Event Note: Patient's heart rate has been variable between 102,140 with patient at rest. Rhythm is chaotic. Patient is unaware of this. Denies any symptoms. Indicates she is starting to feel better than when she 1st came in. Systolic blood pressure of 130. With patient on 2 L of oxygen per minute via nasal cannula, resting respiratory rate is 24 with saturations of 92%. Patient is afebrile. Twelve lead electrocardiogram demonstrates atrial fibrillation with rapid ventricular response. Preliminary report of transthoracic echocardiogram obtained earlier today demonstrates the following findings: 1. Left ventricular inferior wall thinned and akinetic. Ejection fraction estimated at 46%. Appears restrictive diastolic. 2. Left atrial enlargement. 3. Mild functional mitral regurgitation. 4. Right ventricle within normal limits. Paroxysmal atrial fibrillation with rapid ventricular response. Likely has a lot to do with her presentation of being in heart failure. Appears to have had previous myocardial infarction involving the inferior wall of the left ventricle. Combined systolic and diastolic heart failure, acute on chronic. Acute on chronic hypoxemic respiratory failure, multifactorial. Hypokalemia. 1. Stop scheduled amlodipine 10 mg once daily. 2. Continue with metoprolol succinate 100 mg twice daily id 3. Schedule diltiazem immediate release 30 mg q.6 hours for now, consider sw itching to the CD formula in time. 4. IV metoprolol tartrate 2.5 mg q.6 hours p.r.n. for heart rate greater than 100 for more than 10 minutes with mean arterial pressures of greater than 65 mmHg. 5. Continue to supplement potassium and magnesium as warranted.
[2023-01-22] MEDS: dilTIAZem 30 MG TABLET PO (18:52)
[2023-01-22 19:00] VITALS: BP 158/80; PULSE 75; RESP 20; TEMP 36.6; O2SAT 88
--- NOTE | 2023-01-22 20:14 | PC.NURSE ---
Nursing Care Hours: [id number] Pt this shift alert and oriented, calm and cooperative. C/o sore throat but declined medications. Was independent in room with cane. Per PT, d/t hypoxia with exertion, recommend SB assist. Mid day, tele strip shows some abnormal rhythm, EKG done and results given to hospitalist. At end of shift, HR noted to be tachycardic on monitor and irregular and faint on palpation. No c/o from pt. EKG done and showed Afib with RVR. Hospitalist made aware and new orders put in. Abnormal lung sounds see note. Neb treatments started. Pt having loose stools, Imodium requested and administered. Eating and drinking sufficiently.
[2023-01-22] MEDS: ROSUVASTATIN CALCIUM 10 MG TABLET 40 MG PO (21:44)
[2023-01-22] MEDS: METOPROLOL TARTRATE 1 MG/ML inj 2.5 MG IVP (22:23)
[2023-01-22 23:00] VITALS: BP 120/92; PULSE 120; PULSE 65; RESP 20; RESP 22; TEMP 36.6; O2SAT 90
[2023-01-23] VITALS (7 sets, daily range): BP systolic 137–147; BP diastolic 67–83; PULSE 62–127; RESP 20; TEMP 35.8–37.1; O2SAT 90–98
[2023-01-23] MEDS: dilTIAZem 30 MG TABLET PO ×5 (00:24→23:44)
[2023-01-23 06:58] LABS: HCO3 VBG 38 mmol/L (21-28); PCO2 VBG 56 mmHG (40-50); PO2 VBG 39.3 mmHG (25-47); pH VBG 7.446 (7.32-7.43)
--- NOTE | 2023-01-23 07:00 | CRLHL7_ITS ---
For Patients: As a result of the Cures Act, medical imaging exams and procedure reports are released immediately into your electronic medical record. You may view this report before your referring provider. If you have questions, please contact your health care provider. INDICATION: CHF, hypoxia TECHNIQUE: Chest 2 views COMPARISON: CT 01/21/2023 FINDINGS: Bilateral pleural effusions are present. Thickening of the interlobular septa noted bilaterally with cephalization of the pulmonary vascularity. No pneumothorax. Cardiac silhouette enlarged. IMPRESSION: CHF with bilateral effusions. Improved aeration within the left lung base since the prior study. Persistent right basilar atelectasis. Dictated by Jarrett Russo MD @ 01/23/2023 9:08:08 AM (Electronically Signed)
[2023-01-23 07:11] LABS: Basophils Absolute Auto 0.03 K/uL (0.00-0.30); Basophils Percent Auto 0.3 % (0.0-3.0); Eosinophils Absolute Auto 0.35 K/uL (0.00-0.50); Eosinophils Percent Auto 3.8 % (0.0-7.0); Hematocrit 44.3 % (33.0-51.0); Hemoglobin* 13.4 gm/dL (12.0-16.0); Immature Granulocytes Abs Auto 0.02 K/uL (0.00-0.30); Immature Granulocytes Pct Auto 0.2 %; Lymphocytes Absolute Auto 2.25 K/uL (0.90-2.90); Lymphocytes Percent Auto 24.5 % (20-44); Mean Corpuscular HGB Conc 30 gm/dL (32-36); Mean Corpuscular Hemoglobin 27 pg (26-34); Mean Corpuscular Volume 90 fL (80-100); Monocytes Percent Auto 6.5 % (0.0-11.0); Neutrophils Absolute Auto 5.92 K/uL (1.7-7.0); Neutrophils Percent Auto 64.7 % (42.0-72.0); Platelet Count* 330 K/uL (140-440); RDW Coefficient of Variation % 15.9 % (11.5-15.5); Red Blood Count 4.94 m/uL (4.00-5.20); White Blood Count* 9.17 K/uL (4.50-11.00)
[2023-01-23 07:28] LABS: Slide Review Reflex No
[2023-01-23 07:31] LABS: Chloride* 99 mmol/L (96-114); Potassium* 3.1 mmol/L (3.6-5.1); Sodium* 138 mmol/L (135-149)
[2023-01-23 07:34] LABS: Anion Gap 1 mEq/L (7-15); Blood Urea Nitrogen* 15 mg/dL (7-30); Carbon Dioxide* 38 mmol/L (20-32); Creatinine* 0.7 mg/dL (0.5-1.5); Est. Creatinine Clearance* 49.72; Estimated Glomerular Filt Rate 97 ml/min; Glucose* 163 mg/dL (60-115)
--- NOTE | 2023-01-23 07:34 | PC.NURSE ---
End of shift report [id number]: Pleasant and cooperative with cares, denies any pain. Shortness of breath with exertion, patient denies dyspnea at rest. O2 at 2L per nasal cannula, at 0500 patient O2 sat decreased to 82%, increased to 4L per NC but sats remained <85%. Oxymask applied with oxygen at 5L, O2 sat increased to 89%. Patient denies any difficulty breathing at that time. Pulse remains variable from 60-135, PRN metoprolol given around 2225 for pulse rate sustained at 120 or greater, medication effective and pulse decreased to 70?s. Ambulates with SBA with cane.
[2023-01-23 07:35] LABS: Calcium* 7.9 mg/dL (8.4-10.6); Magnesium* 2.1 mg/dL (1.5-2.6)
[2023-01-23 07:39] LABS: NT Pro B Type NatriureticPept* 1900 pg/mL
[2023-01-23] MEDS: INSULIN ASPART 100 UNIT/ML 20 UNIT SUBCUT ×3 (08:07→17:44)
[2023-01-23] MEDS: INSULIN ASPART 100 UNIT/ML SUBCUT ×4 (08:07→21:18)
[2023-01-23] MEDS: FUROSEMIDE 10 MG/ML inj 20 MG IVP (08:08)
[2023-01-23] MEDS: POTASSIUM CHLORIDE 10 MEQ CAPSULE ER 20 MEQ PO (08:11)
[2023-01-23] MEDS: ASPIRIN 81 MG TABLET EC PO (09:23)
[2023-01-23] MEDS: LOSARTAN POTASSIUM 50 MG TABLET 100 MG PO (09:23)
[2023-01-23] MEDS: SERTRALINE 100 MG TABLET PO (09:23)
[2023-01-23] MEDS: IPRAT-ALBUT 0.5-2.5 MG/3 ML NEB 1 NEB IH (09:23)
[2023-01-23] MEDS: METOPROLOL SUCCINATE (XL) 100 MG TAB PO ×2 (09:23→21:17)
[2023-01-23] MEDS: NYSTATIN POWDER 1 APPLIC TOPICAL ×2 (09:24→15:00)
--- NOTE | 2023-01-23 10:25 | PM.IMPN1 ---
Progress Note: A&P Assessment and plan (1) Systolic CHF, acute: Problem details: EF 46%; enlarged RA Abnormal Inferior Wall Plan: Increase lasix 40 mg BID; daily weight, monitor I&O, electrolyte replacement Status: Acute (2) Atrial fibrillation with RVR: Problem details: Likely secondary to #1; stop duonebs; continue metoprolol; wean off diltiazem as able; start eliquis (01/23) Status: Acute (3) Tobacco dependence in remission: Problem details: - quit abruptly about 2 months ago -will need outpatient PFTs Status: Acute (4) Hydronephrosis concurrent with and due to calculi of kidney and ureter: Problem details: - CT scan of chest, abdomen, pelvis on 01/21/2023 demonstrated the following findings: Mild left-sided hydroureteronephrosis with 6 millimeter partially obstructing stone in the left UVJ. Status: Acute (5) Hypokalemia: Problem details: - likely from ongoing diarrhea inadequate oral supplementation -continue replacement as needed Status: Acute (6) Clostridium difficile diarrhea: Problem details: -dx 12/17 after developing diarrhea while on IV antibiotics Completed a 10 day course of oral vancomycin 4 times daily -restart on 01/21/2023, and will likely need extended taper 01/22: C diff pcr negative vanco stopped Status: Acute (7) Lesion of adrenal gland: Problem details: CT scan today: Bilateral adrenal nodules, 1 of which meets criteria for an adenoma. The larger lesion in the left adrenal gland measures greater than 10 Hounsfield units, and is favored to represent a lipid poor adenoma. This could be assessed non emergently with an adrenal mass protocol CT. - I spoke with the patient about these findings and have recommended outpatient follow-up with her primary care provider to obtain an on urgent adrenal mass protocol CT. Status: Acute Plan Likely 2-3 more days in hospital for diuresis; electrolyte replacement; rate control; wean off oxygen Therapy team anticipate discharge to home Subjective Date Seen: 01/23/23 Interval history: patient had episode of afib w/RVR yesterday on supplemental oxygen denies chest pain or palpitations currently states SOB better weight 110 kg to 106 kg cxr CHF with bilateral effusions. Improved aeration within the left lung base since the prior study. Persistent right basilar atelectasis. Exam Narrative: Exam Narrative: Gen: no acute distress HEENT: NCAT EOMI mmm CV: RRR normal s1 s2 Lungs: diminished Abd: Soft,nt, nd Neuro: Alert, oriented, CN grossly intact; nonfocal screening?exam Psych: appropriate affect MSK: age appropriate muscle mass Skin; Warm, dry no rash on face Const: Vital Signs, click to edit/add: Vital Signs - 24 hr 01/22/23 11:00 01/22/23 15:00 01/22/23 15:00 Temperature Pulse Rate Pulse Rate [Left P ulse Oximeter] 74 74 Respiratory Rate 28 H 28 H 28 H Blood Pressure [Ri t Radial Artery] 133/65 Pulse Oximetry 92 91 Oxygen Delivery Me thod Nasal Cannula Nasal Cannula Oxygen Flow Rate 3 2 01/22/23 15:00 01/22/23 15:00 01/22/23 19:00 Temperature 97.9 F Pulse Rate 68 Pulse Rate [Left P ulse Oximeter] 68 75 Respiratory Rate 20 Blood Pressure [Ri t Radial Artery] 158/80 H Pulse Oximetry 91 88 Oxygen Delivery Me thod Nasal Cannula Nasal Cannula Oxygen Flow Rate 2 2 01/22/23 23:00 01/22/23 23:00 01/22/23 23:00 Temperature 97.9 F Pulse Rate Pulse Rate [Left P ulse Oximeter] 120 H 120 H Respiratory Rate 20 20 22 Blood Pressure [Ri t Radial Artery] 120/92 H Pulse Oximetry 90 90 Oxygen Delivery Me thod Nasal Cannula Nasal Cannula Oxygen Flow Rate 2 2 01/22/23 23:00 01/23/23 03:00 Temperature 96.4 F L Pulse Rate 65 Pulse Rate [Left P ulse Oximeter] 62 Respiratory Rate 20 Blood Pressure [Ri t Radial Artery] 141/75 H Pulse Oximetry 91 Oxygen Delivery Me thod Nasal Cannula Oxygen Flow Rate 3 Labs Labs: Laboratory Results - last 24 hr 01/22/23 01/23/23 19:03 06:19 WBC 9.17 RBC 4.94 Hgb 13.4 Hct 44.3 MCV 90 MCH 27 MCHC 30 L RDW Coeff of [place] 15.9 H Plt Count 330 Neut % (Auto) 64.7 Lymph % (Auto) 24.5 [place] % (Auto) 6.5 Eos % (Auto) 3.8 Baso % (Auto) 0.3 Neut # (Auto) 5.92 Lymph # (Auto) 2.25 [place] # (Auto) 0.60 Eos # (Auto) 0.35 Baso # (Auto) 0.03 Abs Immat Gran (auto) 0.02 Imm/Tot Granulo (auto) 0.2 VBG pH 7.446 H VBG pCO2 56 H VBG pO2 39.3 VBG HCO3 38 H Sodium 138 Potassium 3.0 L 3.1 L Chloride 99 Carbon Dioxide 38 H Anion Gap 1 L BUN 15 Creatinine 0.7 Estimated Creat Clear 49.72 Estimated GFR 97 Glucose 163 H Calcium 7.9 L Magnesium 2.1 NT-Pro-B Natriuret Pep 1900
[2023-01-23] MEDS: POTASSIUM CHLORIDE 10 MEQ CAPSULE ER 40 MEQ PO ×2 (10:33→17:48)
--- NOTE | 2023-01-23 10:44 | REH.OT ---
Pt seen and talked with provider regarding pt's Respiratory Care. She is not wheezing, thus neb's are not helpful at this time. Pt. is probably over oxygenated suspecting that she does have undiagnosed. At this time, looking at heart failure for her. She is a compliant user of CPAP, and instructed pt to contact family to bring it in. Do not over oxygenate, tolerate SPO2 88-90%
[2023-01-23] MEDS: MAGNESIUM OXIDE 400 MG TABLET 800 MG PO (11:47)
[2023-01-23] MEDS: FUROSEMIDE 10 MG/ML inj 40 MG IVP (15:00)
--- NOTE | 2023-01-23 18:56 | PC.NURSE ---
End of shift: Patient is pleasant and cooperative with cares, alert and oriented x4, denies any pain. Shortness of breath with exertion at times, patient denies dyspnea at rest, SBA to BR, up to chair for meals. O2 currently at 1L oxymask, MD wants to continue trying to wean patient off O2 and to keep sats 88%-93%.
[2023-01-23] MEDS: ROSUVASTATIN CALCIUM 10 MG TABLET 40 MG PO (21:17)
[2023-01-23] MEDS: APIXABAN 5 MG TABLET PO (21:17)
[2023-01-23 22:00] LABS: Potassium* 3.4 mmol/L (3.6-5.1)
[2023-01-24] VITALS (8 sets, daily range): BP systolic 124–150; BP diastolic 65–82; PULSE 57–102; RESP 18–24; TEMP 36.2–37.2; O2SAT 88–93
--- NOTE | 2023-01-24 05:47 | PC.NURSE ---
Addendum entered by Deb Arguelles RN 01/24/23 06:19: HS blood sugar: 199; received 1 unit Novolog. Original Note: Patient A&O and afebrile overnight. VSS with exception to continued O2 therapy need. Patient was on 1.5-2L NC when awake and required 6-8L bled into CPAP machine overnight. Patient ambulates independently in her room. Dilip SOB at rest or exertion, nausea or pain. Patient had low output overnight but will get IV lasix again today. TELE continues to read A. Fib. Rate ranged between 60s and low 100s. Scheduled diltiazem given q6H per APR. PIV in left FA and left AC SL and C/D/I. No bowel movement overnight.
[2023-01-24] MEDS: dilTIAZem 30 MG TABLET PO (06:01)
[2023-01-24 07:13] LABS: Basophils Absolute Auto 0.03 K/uL (0.00-0.30); Basophils Percent Auto 0.4 % (0.0-3.0); Eosinophils Absolute Auto 0.35 K/uL (0.00-0.50); Eosinophils Percent Auto 4.7 % (0.0-7.0); Hematocrit 43.2 % (33.0-51.0); Hemoglobin* 13.1 gm/dL (12.0-16.0); Immature Granulocytes Abs Auto 0.02 K/uL (0.00-0.30); Immature Granulocytes Pct Auto 0.3 %; Lymphocytes Absolute Auto 1.73 K/uL (0.90-2.90); Lymphocytes Percent Auto 23.2 % (20-44); Mean Corpuscular HGB Conc 30 gm/dL (32-36); Mean Corpuscular Hemoglobin 27 pg (26-34); Mean Corpuscular Volume 89 fL (80-100); Neutrophils Absolute Auto 4.73 K/uL (1.7-7.0); Neutrophils Percent Auto 63.4 % (42.0-72.0); Platelet Count* 305 K/uL (140-440); RDW Coefficient of Variation % 15.9 % (11.5-15.5); Red Blood Count 4.86 m/uL (4.00-5.20); White Blood Count* 7.46 K/uL (4.50-11.00)
[2023-01-24 07:20] LABS: Slide Review Reflex No
[2023-01-24 07:33] LABS: Chloride* 101 mmol/L (96-114); Sodium* 138 mmol/L (135-149)
[2023-01-24 07:36] LABS: Anion Gap 0 mEq/L (7-15); Blood Urea Nitrogen* 18 mg/dL (7-30); Calcium* 7.7 mg/dL (8.4-10.6); Carbon Dioxide* 37 mmol/L (20-32); Creatinine* 0.7 mg/dL (0.5-1.5); Est. Creatinine Clearance* 49.72; Estimated Glomerular Filt Rate 97 ml/min; Glucose* 186 mg/dL (60-115)
[2023-01-24 07:39] LABS: Potassium* 2.8 mmol/L (3.6-5.1)
[2023-01-24] MEDS: POTASSIUM CHLORIDE 10 MEQ CAPSULE ER 40 MEQ PO ×3 (07:42→17:32)
[2023-01-24] MEDS: INSULIN ASPART 100 UNIT/ML 20 UNIT SUBCUT ×3 (08:12→17:32)
[2023-01-24] MEDS: INSULIN ASPART 100 UNIT/ML SUBCUT ×4 (08:12→20:38)
[2023-01-24] MEDS: LOSARTAN POTASSIUM 50 MG TABLET 100 MG PO (09:06)
[2023-01-24] MEDS: FUROSEMIDE 10 MG/ML inj 40 MG IVP ×2 (09:06→20:33)
[2023-01-24] MEDS: MAGNESIUM OXIDE 400 MG TABLET 800 MG PO (09:06)
[2023-01-24] MEDS: APIXABAN 5 MG TABLET PO ×2 (09:06→20:33)
[2023-01-24] MEDS: SERTRALINE 100 MG TABLET PO (09:06)
[2023-01-24] MEDS: NYSTATIN POWDER 1 APPLIC TOPICAL ×3 (09:10→20:35)
[2023-01-24 09:39] LABS: Magnesium* 2.1 mg/dL (1.5-2.6)
--- NOTE | 2023-01-24 10:56 | PM.IMPN1 ---
Progress Note: A&P Assessment and plan (1) Systolic CHF, acute: Problem details: EF 46%; enlarged RA Abnormal Inferior Wall Plan: Increase lasix 40 mg BID; daily weight, monitor I&O, electrolyte replacement Status: Acute (2) Atrial fibrillation with RVR: Problem details: Likely secondary to #1; stop duonebs; continue metoprolol; wean off diltiazem as able; start eliquis (01/23) Status: Acute (3) Tobacco dependence in remission: Problem details: - quit abruptly about 2 months ago -will need outpatient PFTs Status: Acute (4) Hydronephrosis concurrent with and due to calculi of kidney and ureter: Problem details: - CT scan of chest, abdomen, pelvis on 01/21/2023 demonstrated the following findings: Mild left-sided hydroureteronephrosis with 6 millimeter partially obstructing stone in the left UVJ. Status: Acute (5) Hypokalemia: Problem details: - likely from ongoing diarrhea inadequate oral supplementation -continue replacement as needed Status: Acute (6) Lesion of adrenal gland: Problem details: CT scan today: Bilateral adrenal nodules, 1 of which meets criteria for an adenoma. The larger lesion in the left adrenal gland measures greater than 10 Hounsfield units, and is favored to represent a lipid poor adenoma. This could be assessed non emergently with an adrenal mass protocol CT. - I spoke with the patient about these findings and have recommended outpatient follow-up with her primary care provider to obtain an on urgent adrenal mass protocol CT. Status: Acute (7) Clostridium difficile diarrhea: Problem details: -dx 12/17 after developing diarrhea while on IV antibiotics Completed a 10 day course of oral vancomycin 4 times daily -restart on 01/21/2023, and will likely need extended taper 01/22: C diff pcr negative vanco stopped Status: Acute Plan Hopefully discharge tomorrow; Oxygen requirements trending down to 1 liter currently (previously 6 liters at peak) Subjective Date Seen: 01/24/23 Interval history: patient oxygen demands decreasing denies chest pain SOB and cough improving Exam Narrative: Exam Narrative: Gen: no acute distress HEENT: NCAT EOMI mmm CV: RRR normal s1 s2 Lungs: diminished Abd: Soft,nt, nd Neuro: Alert, oriented, CN grossly intact; nonfocal screening?exam Psych: appropriate affect MSK: age appropriate muscle mass Skin; Warm, dry no rash on face Const: Vital Signs, click to edit/add: Vital Signs - 24 hr 01/23/23 15:00 01/23/23 15:00 01/23/23 15:00 Temperature Pulse Rate 63 Pulse Rate [Left P ulse Oximeter] 68 Respiratory Rate 20 20 Blood Pressure [Le ft Arm] Blood Pressure [Ri ght Arm] Blood Pressure [Ri ght Radial Artery] Pulse Oximetry 91 Oxygen Delivery Me thod Nasal Cannula Oxygen Flow Rate 1 01/23/23 15:00 01/23/23 19:00 01/23/23 22:54 Temperature 98.4 F 98.3 F Pulse Rate 62 Pulse Rate [Left P ulse Oximeter] 68 71 Respiratory Rate 20 20 Blood Pressure [Le ft Arm] Blood Pressure [Ri ght Arm] 147/76 H Blood Pressure [Ri ght Radial Artery] 139/78 Pulse Oximetry 91 91 Oxygen Delivery Me thod Nasal Cannula OxyMask Oxygen Flow Rate 1 1.5 01/23/23 22:54 01/23/23 22:54 01/23/23 23:00 Temperature 97.7 F Pulse Rate Pulse Rate [Left P ulse Oximeter] 71 127 H Respiratory Rate 20 20 20 Blood Pressure [Le ft Arm] 137/67 Blood Pressure [Ri ght Arm] Blood Pressure [Ri ght Radial Artery] Pulse Oximetry 90 92 Oxygen Delivery Me thod CPAP CPAP Oxygen Flow Rate 4 8 01/24/23 03:00 01/24/23 07:38 01/24/23 07:38 Temperature 97.2 F L 97.7 F Pulse Rate Pulse Rate [Left P ulse Oximeter] 60 102 H 102 H Respiratory Rate 20 20 20 Blood Pressure [Le ft Arm] Blood Pressure [Ri ght Arm] 124/76 136/82 Blood Pressure [Ri ght Radial Artery] Pulse Oximetry 92 93 Oxygen Delivery Me thod CPAP CPAP Oxygen Flow Rate 6 3 01/24/23 07:38 01/24/23 10:44 Temperature Pulse Rate 57 L Pulse Rate [Left P ulse Oximeter] Respiratory Rate 20 Blood Pressure [Le ft Arm] Blood Pressure [Ri ght Arm] Blood Pressure [Ri ght Radial Artery] Pulse Oximetry 93 Oxygen Delivery Me thod CPAP Oxygen Flow Rate 3 Labs Labs: Laboratory Results - last 24 hr 01/23/23 01/24/23 01/24/23 21:30 06:55 09:00 WBC 7.46 RBC 4.86 Hgb 13.1 Hct 43.2 MCV 89 MCH 27 MCHC 30 L RDW Coeff of [place]essa 15.9 H Plt Count 305 Neut % (Auto) 63.4 Lymph % (Auto) 23.2 [place] % (Auto) 8.0 Eos % (Auto) 4.7 Baso % (Auto) 0.4 Neut # (Auto) 4.73 Lymph # (Auto) 1.73 [place] # (Auto) 0.60 Eos # (Auto) 0.35 Baso # (Auto) 0.03 Abs Immat Gran (auto) 0.02 Imm/Tot Granulo (auto) 0.3 Sodium 138 Potassium 3.4 L 2.8 L* Chloride 101 Carbon Dioxide 37 H Anion Gap 0 L BUN 18 Creatinine 0.7 Estimated Creat Clear 49.72 Estimated GFR 97 Glucose 186 H Calcium 7.7 L Magnesium 2.1 Lab Acknowledgement Test Added
--- NOTE | 2023-01-24 18:17 | PC.NURSE ---
End of Shift: Patient pleasant and cooperative. Patient vitally stable, lungs clear, lower lobes diminished, BS WNL, IV SL and intact. Patient on 0.5 L nasal cannula with sats 88% to to low 90's, on RA patient slightly desats below 88%. Patient independent in room, and denies pain. Patient tolerating regular diet, urinating, and had 2 BM's today. Patient blood sugars 191, 326, 234. Tele=A.fib/NSR/BBB.
[2023-01-24] MEDS: ROSUVASTATIN CALCIUM 10 MG TABLET 40 MG PO (20:33)
[2023-01-24] MEDS: METOPROLOL SUCCINATE (XL) 100 MG TAB PO (20:33)
[2023-01-25 03:00] VITALS: BP 138/65; PULSE 60; RESP 20; TEMP 36.3; O2SAT 90
--- NOTE | 2023-01-25 05:08 | PC.NURSE ---
Pt A&O, afebrile and VSS overnight with exception to increased O2 therapy needs. O2 sats with CPAP only drop down to 82-83% so pt required anywhere between 3L and 7L bled into CPAP to maintain O2 sats between 88-92%. Pt ambulates independently in her room. Denies having any pain, nausea or SOB. Received IV lasix before bed; total output overnight: 1000 mL. Pt had x1 loose BM. TELE reading SR w/ BBB. HS blood sugar: 317; received 4 units Novolog. ?
[2023-01-25 07:00] LABS: HCO3 VBG 38 mmol/L (21-28); PCO2 VBG 58 mmHG (40-50); PO2 VBG 41.8 mmHG (25-47); pH VBG 7.423 (7.32-7.43)
[2023-01-25 07:02] LABS: Basophils Absolute Auto 0.02 K/uL (0.00-0.30); Basophils Percent Auto 0.3 % (0.0-3.0); Eosinophils Absolute Auto 0.28 K/uL (0.00-0.50); Eosinophils Percent Auto 4.1 % (0.0-7.0); Hematocrit 43.6 % (33.0-51.0); Immature Granulocytes Abs Auto 0.01 K/uL (0.00-0.30); Immature Granulocytes Pct Auto 0.1 %; Lymphocytes Absolute Auto 1.66 K/uL (0.90-2.90); Lymphocytes Percent Auto 24.4 % (20-44); Mean Corpuscular HGB Conc 30 gm/dL (32-36); Mean Corpuscular Hemoglobin 27 pg (26-34); Mean Corpuscular Volume 90 fL (80-100); Monocytes Percent Auto 7.2 % (0.0-11.0); Neutrophils Absolute Auto 4.34 K/uL (1.7-7.0); Neutrophils Percent Auto 63.9 % (42.0-72.0); Platelet Count* 308 K/uL (140-440); RDW Coefficient of Variation % 15.7 % (11.5-15.5); Red Blood Count 4.86 m/uL (4.00-5.20)
[2023-01-25 07:11] LABS: Slide Review Reflex No
[2023-01-25 07:27] LABS: Chloride* 101 mmol/L (96-114); Potassium* 3.5 mmol/L (3.6-5.1); Sodium* 140 mmol/L (135-149)
[2023-01-25 07:30] LABS: Anion Gap 1 mEq/L (7-15); Blood Urea Nitrogen* 18 mg/dL (7-30); Calcium* 7.7 mg/dL (8.4-10.6); Carbon Dioxide* 38 mmol/L (20-32); Creatinine* 0.7 mg/dL (0.5-1.5); Est. Creatinine Clearance* 49.72; Estimated Glomerular Filt Rate 97 ml/min; Glucose* 202 mg/dL (60-115)
[2023-01-25 07:31] LABS: Magnesium* 2.1 mg/dL (1.5-2.6)
[2023-01-25 07:43] LABS: Procalcitonin* 0.06 ng/mL (<0.50)
[2023-01-25 08:15] VITALS: BP 157/79; PULSE 55; PULSE 62; RESP 20; TEMP 37; O2SAT 90
[2023-01-25] MEDS: INSULIN ASPART 100 UNIT/ML SUBCUT ×4 (08:58→21:19)
[2023-01-25] MEDS: INSULIN ASPART 100 UNIT/ML 20 UNIT SUBCUT ×3 (09:02→18:05)
[2023-01-25] MEDS: POTASSIUM CHLORIDE 10 MEQ CAPSULE ER 40 MEQ PO ×2 (09:07→18:04)
[2023-01-25] MEDS: FUROSEMIDE 10 MG/ML inj 40 MG IVP ×2 (09:07→21:19)
[2023-01-25] MEDS: MAGNESIUM OXIDE 400 MG TABLET 800 MG PO (09:07)
[2023-01-25] MEDS: LOSARTAN POTASSIUM 50 MG TABLET 100 MG PO (09:08)
[2023-01-25] MEDS: APIXABAN 5 MG TABLET PO ×2 (09:08→21:19)
[2023-01-25] MEDS: METOPROLOL SUCCINATE (XL) 100 MG TAB PO ×2 (09:08→21:19)
[2023-01-25] MEDS: SERTRALINE 100 MG TABLET PO (09:08)
[2023-01-25] MEDS: NYSTATIN POWDER 1 APPLIC TOPICAL ×2 (09:08→21:19)
--- NOTE | 2023-01-25 09:29 | PM.IMPN1 ---
Progress Note: A&P Assessment and plan (1) Systolic CHF, acute: Problem details: EF 46%; enlarged RA Abnormal Inferior Wall; hx of previous STEMI with PCI Plan: Increase lasix 40 mg BID; daily weight, monitor I&O, electrolyte replacement 01/25: continues to have crackles on exam; pleural effusion on cxr, likely 1-2 days of IV lasix; assess daily Status: Acute (2) Atrial fibrillation with RVR: Problem details: Likely secondary to #1; stop duonebs; continue metoprolol; wean off diltiazem as able; start eliquis (01/23) 01/25: diltiazem stopped due to CHF with reduced EF; RVR has resolved, currently rate controlled on metoprolol Status: Acute (3) Tobacco dependence in remission: Problem details: - quit abruptly about 2 months ago -will need outpatient PFTs -presumed undiagnosed COPD Status: Acute (4) Hydronephrosis concurrent with and due to calculi of kidney and ureter: Problem details: - CT scan of chest, abdomen, pelvis on 01/21/2023 demonstrated the following findings: Mild left-sided hydroureteronephrosis with 6 millimeter partially obstructing stone in the left UVJ. Status: Acute (5) Hypokalemia: Problem details: - likely from ongoing diarrhea inadequate oral supplementation -continue replacement as needed Status: Acute (6) Clostridium difficile diarrhea: Problem details: -dx 12/17 after developing diarrhea while on IV antibiotics Completed a 10 day course of oral vancomycin 4 times daily -restart on 01/21/2023, and will likely need extended taper 01/22: C diff pcr negative vanco stopped Status: Acute (7) Lesion of adrenal gland: Problem details: CT scan today: Bilateral adrenal nodules, 1 of which meets criteria for an adenoma. The larger lesion in the left adrenal gland measures greater than 10 Hounsfield units, and is favored to represent a lipid poor adenoma. This could be assessed non emergently with an adrenal mass protocol CT. - I spoke with the patient about these findings and have recommended outpatient follow-up with her primary care provider to obtain an on urgent adrenal mass protocol CT. Status: Acute (8) BILLIE (obstructive sleep apnea): Problem details: continue cpap qhs Status: Acute Plan likely 1-2 days of IV diuresis then discharge home; may need home oxygen; home oxygen nocturnal evaluation Subjective Date Seen: 01/25/23 Interval history: patient down to 1 liter CXR this morning CHF with bilateral effusions. Improved aeration within the left lung base since the prior study. Persistent right basilar atelectasis. overall SOB improved denies chest pain weight's not accurate due to discrepancy between bedscale and standing scale Exam Narrative: Exam Narrative: Gen: no acute distress HEENT: NCAT EOMI mmm CV: RRR normal s1 s2 Lungs: bibasilar crackles Abd: Soft,nt, nd Neuro: Alert, oriented, CN grossly intact; nonfocal screening?exam Psych: appropriate affect MSK: age appropriate muscle mass Skin; Warm, dry no rash on face Const: Vital Signs, click to edit/add: Vital Signs - 24 hr 01/24/23 10:44 01/24/23 11:00 01/24/23 15:00 Temperature 98.6 F 98.9 F Pulse Rate 57 L Pulse Rate [Left P ulse Oximeter] 72 91 Respiratory Rate 24 20 Blood Pressure [Le ft Arm] 130/70 136/79 Pulse Oximetry 92 91 Oxygen Delivery Me thod Nasal Cannula Nasal Cannula Oxygen Flow Rate 0.5 0.5 01/24/23 15:00 01/24/23 15:00 01/24/23 15:00 Temperature Pulse Rate 69 Pulse Rate [Left P ulse Oximeter] 91 Respiratory Rate 20 20 Blood Pressure [Le ft Arm] Pulse Oximetry 91 Oxygen Delivery Me thod Nasal Cannula Oxygen Flow Rate 0.5 01/24/23 19:00 01/24/23 22:48 01/24/23 23:00 Temperature 98.2 F 97.9 F Pulse Rate 65 Pulse Rate [Left P ulse Oximeter] 88 64 Respiratory Rate 18 20 Blood Pressure [Le ft Arm] 139/65 150/67 H Pulse Oximetry 88 89 Oxygen Delivery Me thod Nasal Cannula CPAP Oxygen Flow Rate 0.5 5 01/24/23 23:00 01/24/23 23:00 01/25/23 03:00 Temperature 97.4 F L Pulse Rate Pulse Rate [Left P ulse Oximeter] 64 60 Respiratory Rate 20 20 20 Blood Pressure [Le ft Arm] 138/65 Pulse Oximetry 89 90 Oxygen Delivery Me thod CPAP CPAP Oxygen Flow Rate 5 7 Labs Labs: Laboratory Results - last 24 hr 01/24/23 01/24/23 01/25/23 06:55 09:00 05:55 WBC 6.80 RBC 4.86 Hgb 13.0 Hct 43.6 MCV 90 MCH 27 MCHC 30 L RDW Coeff of Vanessa 15.7 H Plt Count 308 Neut % (Auto) 63.9 Lymph % (Auto) 24.4 [place] % (Auto) 7.2 Eos % (Auto) 4.1 Baso % (Auto) 0.3 Neut # (Auto) 4.34 Lymph # (Auto) 1.66 [place] # (Auto) 0.50 Eos # (Auto) 0.28 Baso # (Auto) 0.02 Abs Immat Gran (auto) 0.01 Imm/Tot Granulo (auto) 0.1 VBG pH 7.423 VBG pCO2 58 H VBG pO2 41.8 VBG HCO3 38 H Sodium 140 Potassium 3.5 L Chloride 101 Carbon Dioxide 38 H Anion Gap 1 L BUN 18 Creatinine 0.7 Estimated Creat Clear 49.72 Estimated GFR 97 Glucose 202 H Calcium 7.7 L Magnesium 2.1 2.1 Procalcitonin 0.06 Lab Acknowledgement Test Added
[2023-01-25 11:20] VITALS: BP 147/67; PULSE 57; RESP 20; TEMP 36.4; O2SAT 90
[2023-01-25 15:30] VITALS: BP 152/65; PULSE 64; PULSE 65; RESP 20; TEMP 36.7; O2SAT 88
[2023-01-25 19:00] VITALS: BP 143/66; PULSE 73; RESP 20; TEMP 36.6; O2SAT 88
--- NOTE | 2023-01-25 19:15 | PC.NURSE ---
Pt up with cane in room. 1L O2 via nc entire shift to keep sats above 88%. States SOB with exertion has reduced since admitence. Denies pain.
[2023-01-25 19:56] LABS: C.Difficile Negative (Negative); CDIFFEPI 027 PRESUMPTIVE NEGATIVE (Negative)
[2023-01-25] MEDS: ROSUVASTATIN CALCIUM 10 MG TABLET 40 MG PO (21:19)
[2023-01-25 23:00] VITALS: BP 154/62; PULSE 69; PULSE 71; RESP 22; TEMP 36.9; O2SAT 88
[2023-01-26] VITALS (7 sets, daily range): BP systolic 141–186; BP diastolic 64–88; PULSE 59–66; RESP 18–22; TEMP 36.2–36.7; O2SAT 87–92
[2023-01-26 06:21] LABS: Basophils Absolute Auto 0.02 K/uL (0.00-0.30); Basophils Percent Auto 0.2 % (0.0-3.0); Eosinophils Percent Auto 3.2 % (0.0-7.0); Hematocrit 42.8 % (33.0-51.0); Immature Granulocytes Abs Auto 0.01 K/uL (0.00-0.30); Immature Granulocytes Pct Auto 0.1 %; Lymphocytes Percent Auto 18.1 % (20-44); Mean Corpuscular HGB Conc 30 gm/dL (32-36); Mean Corpuscular Hemoglobin 27 pg (26-34); Mean Corpuscular Volume 89 fL (80-100); Monocytes Percent Auto 5.1 % (0.0-11.0); Neutrophils Percent Auto 73.3 % (42.0-72.0); Platelet Count* 314 K/uL (140-440); RDW Coefficient of Variation % 15.5 % (11.5-15.5); Red Blood Count 4.79 m/uL (4.00-5.20); White Blood Count* 9.38 K/uL (4.50-11.00)
--- NOTE | 2023-01-26 06:34 | PC.NURSE ---
End of shift report [id number]: Patient pleasant and cooperative with cares. Denies any pain. CPAP applied at HS, throughout the night patient oximeter alarm sounding, entry writer titrated O2 up to 5L to maintain sats>87%. Currently on 5L via CPAP with O2 sats 88%, patient denies any dizziness or lightheadedness. Stool specimen collected, final results c-diff negative. Patient did have large loose incontinent stool at 0530.
[2023-01-26 06:38] LABS: Chloride* 100 mmol/L (96-114)
[2023-01-26 06:39] LABS: Potassium* 3.1 mmol/L (3.6-5.1); Sodium* 139 mmol/L (135-149)
[2023-01-26 06:41] LABS: Creatinine* 0.6 mg/dL (0.5-1.5); Est. Creatinine Clearance* 49.72; Estimated Glomerular Filt Rate 101 ml/min; Slide Review Reflex No
[2023-01-26 06:42] LABS: Anion Gap 5 mEq/L (7-15); Blood Urea Nitrogen* 17 mg/dL (7-30); Calcium* 7.9 mg/dL (8.4-10.6); Carbon Dioxide* 34 mmol/L (20-32); Glucose* 230 mg/dL (60-115); Magnesium* 2.2 mg/dL (1.5-2.6)
[2023-01-26] MEDS: INSULIN ASPART 100 UNIT/ML 20 UNIT SUBCUT ×3 (09:43→16:53)
[2023-01-26] MEDS: INSULIN ASPART 100 UNIT/ML SUBCUT ×4 (09:45→21:05)
[2023-01-26] MEDS: MAGNESIUM OXIDE 400 MG TABLET 800 MG PO (09:51)
[2023-01-26] MEDS: SERTRALINE 100 MG TABLET PO (09:51)
[2023-01-26] MEDS: METOPROLOL SUCCINATE (XL) 100 MG TAB PO ×2 (09:52→21:05)
[2023-01-26] MEDS: FUROSEMIDE 10 MG/ML inj 40 MG IVP ×2 (09:53→16:52)
[2023-01-26] MEDS: POTASSIUM CHLORIDE 10 MEQ CAPSULE ER 40 MEQ PO ×2 (09:53→17:56)
[2023-01-26] MEDS: APIXABAN 5 MG TABLET PO ×2 (09:53→21:05)
[2023-01-26] MEDS: LOSARTAN POTASSIUM 50 MG TABLET 100 MG PO (09:56)
[2023-01-26] MEDS: NYSTATIN POWDER 1 APPLIC TOPICAL ×2 (10:08→21:07)
--- NOTE | 2023-01-26 14:32 | RESP.RT ---
Patient has Home CPAP with Oxygen bleed in. Last night 5 Lpm Oxygen bed in to Maintain SaO2 >87%.
--- NOTE | 2023-01-26 15:51 | PC.NURSE ---
Pt's BG levels 218 prior to bkfst and 376 prior to lunch. Oxygen at 1L/NC. Please see eMar for meds provided and insulin coverage. Pt walked in hallway with PT and 1L/O2 via portable tank. Mild dyspnea with exertion, sats rebounded post brief rest period. Report to Karlee CASANOVA for evening shift.
--- NOTE | 2023-01-26 15:58 | PC.NURSE ---
Tele indicates NSR.
[2023-01-26] MEDS: POTASSIUM BICARB 25 MEQ EFFERVESCENT TAB PO ×3 (16:51→20:41)
--- NOTE | 2023-01-26 17:19 | PM.IMPN1 ---
Progress Note: A&P Assessment and plan (1) Systolic CHF, acute: Problem details: EF 46%; enlarged RA Abnormal Inferior Wall; hx of previous STEMI with PCI Plan: Increase lasix 40 mg BID; daily weight, monitor I&O, electrolyte replacement 01/25: continues to have crackles on exam; pleural effusion on cxr, likely 1-2 days of IV lasix; assess daily - 01/26 persistent crackles and lower extremity edema. Creatinine stable at 0.6. Weight up 1 kg each day over the last 2 days. Increase IV Lasix. Status: Acute (2) Atrial fibrillation with RVR: Problem details: Likely secondary to #1; stop duonebs; continue metoprolol; wean off diltiazem as able; start eliquis (01/23) 01/25: diltiazem stopped due to CHF with reduced EF; RVR has resolved, currently rate controlled on metoprolol - RVR resolved. Continue metoprolol. Now on Eliquis for anticoagulation. Status: Acute (3) Tobacco dependence in remission: Problem details: - quit abruptly about 2 months ago -will need outpatient PFTs -presumed undiagnosed COPD Status: Chronic (4) Hydronephrosis concurrent with and due to calculi of kidney and ureter: Problem details: - CT scan of chest, abdomen, pelvis on 01/21/2023 demonstrated the following findings: Mild left-sided hydroureteronephrosis with 6 millimeter partially obstructing stone in the left UVJ. - outpatient Urology follow-up Status: Acute (5) Hypokalemia: Problem details: - likely from ongoing diarrhea inadequate oral supplementation - continue oral replacement as needed Status: Acute (6) Clostridium difficile diarrhea: Problem details: -dx 12/17 after developing diarrhea while on IV antibiotics Completed a 10 day course of oral vancomycin 4 times daily -restart on 01/21/2023, and will likely need extended taper - 01/22: C diff pcr negative vanco stopped - 01/25 C diff pcr negative Status: Acute (7) Lesion of adrenal gland: Problem details: CT scan today: Bilateral adrenal nodules, 1 of which meets criteria for an adenoma. The larger lesion in the left adrenal gland measures greater than 10 Hounsfield units, and is favored to represent a lipid poor adenoma. This could be assessed non emergently with an adrenal mass protocol CT. - Dr. Fam spoke with the patient about these findings and have recommended outpatient follow-up with her primary care provider to obtain an on urgent adrenal mass protocol CT. Status: Acute (8) BILLIE (obstructive sleep apnea): Problem details: continue cpap qhs Status: Acute (9) Cellulitis of right breast: Problem details: Start Clindamycin. Aware of recent Cdiff and increased risk of recurrence with clinida. Monitor. May need surgical I&D if develops abscess. Status: Acute Plan likely 1-2 days of IV diuresis then discharge home; may need home oxygen; home oxygen nocturnal evaluation Time Spent With Patient Total time spent: Today I spent 35 minutes rounding on the patient. Greater than 50% included reviewing patient's chart, discussing care with the team, reviewing data, updating and managing the care plan. Subjective Time Seen by Provider: 14:40 Date Seen: 01/26/23 Interval history: Nela continues to have swollen feet. This morning she noticed a red hot tender swollen area on her right breast which is the same spot where she had an abscess that caused sepsis, according to her, in July. I have reviewed the wound care notes. I am not finding reference to an antibiotic used at that time. Apparently it broke open and drained on its own and then she followed in wound care for packing afterward. Exam Narrative: Exam Narrative: General: No acute distress. Awake, alert, oriented x3. No pallor. No jaundice. Oropharynx: Clear. Mucous membranes moist. Cardiovascular: Irregularly irregular. No murmurs, gallops, or rubs. Respiratory: Bibasilar crackles. Chest: Medial right breast has an area of induration without fluctuance of approximately 4 x 2 cm. This area is tender with calor. Abdomen: Bowel sounds present. Soft, nondistended, nontender. Extremities: 1+ pedal edema. Const: Vital Signs, click to edit/add: Vital Signs - 24 hr 01/25/23 19:00 01/25/23 23:00 01/25/23 23:00 Temperature 97.8 F Pulse Rate 69 Pulse Rate [Left P ulse Oximeter] 73 69 Respiratory Rate 20 22 Blood Pressure [Le ft Arm] Blood Pressure [Ri ght Arm] 143/66 H Pulse Oximetry 88 Oxygen Delivery Me thod Nasal Cannula Oxygen Flow Rate 1 01/25/23 23:00 01/25/23 23:00 01/26/23 03:00 Temperature 98.5 F 97.7 F Pulse Rate Pulse Rate [Left P ulse Oximeter] 71 66 Respiratory Rate 22 22 22 Blood Pressure [Le ft Arm] 153/66 H Blood Pressure [Ri ght Arm] 154/62 H Pulse Oximetry 88 88 89 Oxygen Delivery Me thod Nasal Cannula CPAP CPAP Oxygen Flow Rate 1 1 4 01/26/23 07:00 01/26/23 08:00 01/26/23 08:00 Temperature Pulse Rate 60 Pulse Rate [Left P ulse Oximeter] 65 Respiratory Rate 20 20 Blood Pressure [Le ft Arm] 141/64 H Blood Pressure [Ri ght Arm] Pulse Oximetry 92 92 Oxygen Delivery Me thod Room Air Room Air Oxygen Flow Rate 01/26/23 14:31 01/26/23 15:00 01/26/23 15:00 Temperature Pulse Rate 63 Pulse Rate [Left P ulse Oximeter] 64 Respiratory Rate 20 20 Blood Pressure [Le ft Arm] Blood Pressure [Ri ght Arm] Pulse Oximetry 88 Oxygen Delivery Me thod Nasal Cannula Oxygen Flow Rate 1 01/26/23 15:00 01/26/23 15:00 Temperature 98.1 F Pulse Rate Pulse Rate [Left P ulse Oximeter] 64 Respiratory Rate 20 20 Blood Pressure [Le ft Arm] Blood Pressure [Ri ght Arm] 149/72 H Pulse Oximetry 92 92 Oxygen Delivery Me thod Nasal Cannula Nasal Cannula Oxygen Flow Rate 1 1 Labs Labs: Laboratory Results - last 24 hr 01/25/23 01/26/23 Unknown 05:24 WBC 9.38 RBC 4.79 Hgb 13.0 Hct 42.8 MCV 89 MCH 27 MCHC 30 L RDW Coeff of Vanessa 15.5 Plt Count 314 Neut % (Auto) 73.3 H Lymph % (Auto) 18.1 L [place] % (Auto) 5.1 Eos % (Auto) 3.2 Baso % (Auto) 0.2 Neut # (Auto) 6.90 Lymph # (Auto) 1.70 [place] # (Auto) 0.50 Eos # (Auto) 0.30 Baso # (Auto) 0.02 Abs Immat Gran (auto) 0.01 Imm/Tot Granulo (auto) 0.1 Sodium 139 Potassium 3.1 L Chloride 100 Carbon Dioxide 34 H Anion Gap 5 L BUN 17 Creatinine 0.6 Estimated Creat Clear 49.72 Estimated GFR 101 Glucose 230 H Calcium 7.9 L Magnesium 2.2 Stl C. diff Tox B Gene Negative Stl C. diff [id number] PRESUMPTIVE NEGATIVE
--- NOTE | 2023-01-26 19:52 | PC.NURSE ---
Pt denies pain, up independent in room to BR. Continues to hold sats in upper 80's on 1L.
[2023-01-26] MEDS: ROSUVASTATIN CALCIUM 10 MG TABLET 40 MG PO (21:05)
[2023-01-26] MEDS: CLINDAMYCIN 150 MG CAPSULE PO (21:09)
[2023-01-27] VITALS (10 sets, daily range): BP systolic 148–166; BP diastolic 53–127; PULSE 52–122; RESP 16–20; TEMP 36.4–36.7; O2SAT 87–94
--- NOTE | 2023-01-27 06:44 | PC.NURSE ---
End of shift report [id number]: Patient pleasant and cooperative with cares. Denies any pain. CPAP applied at HS, oxygen bleed into CPAP at 3L and sats maintained between 88-90%. Right breast ?cyst? continues to be red and irritated, patient denies pain but does state she can feel it at times. Per report she has had this cyst drained several times in the past and has been seen in the wound clinic for this particular area as well as several other cysts. Independent with ambulation.
[2023-01-27 07:04] LABS: Chloride* 101 mmol/L (96-114); Potassium* 3.3 mmol/L (3.6-5.1); Sodium* 139 mmol/L (135-149)
[2023-01-27 07:07] LABS: Anion Gap 2 mEq/L (7-15); Blood Urea Nitrogen* 14 mg/dL (7-30); Carbon Dioxide* 36 mmol/L (20-32); Creatinine* 0.6 mg/dL (0.5-1.5); Est. Creatinine Clearance* 49.72; Estimated Glomerular Filt Rate 101 ml/min
[2023-01-27 07:08] LABS: Calcium* 8.3 mg/dL (8.4-10.6); Glucose* 219 mg/dL (60-115); Magnesium* 2.2 mg/dL (1.5-2.6)
[2023-01-27] MEDS: SERTRALINE 100 MG TABLET PO (09:30)
[2023-01-27] MEDS: LOSARTAN POTASSIUM 50 MG TABLET 100 MG PO (09:30)
[2023-01-27] MEDS: MAGNESIUM OXIDE 400 MG TABLET 800 MG PO (09:30)
[2023-01-27] MEDS: POTASSIUM CHLORIDE 10 MEQ CAPSULE ER 40 MEQ PO ×2 (09:31→17:45)
[2023-01-27] MEDS: METOPROLOL SUCCINATE (XL) 100 MG TAB PO ×2 (09:31→20:51)
[2023-01-27] MEDS: FUROSEMIDE 10 MG/ML inj 80 MG IVP ×2 (09:32→15:42)
[2023-01-27] MEDS: POTASSIUM BICARB 25 MEQ EFFERVESCENT TAB PO ×3 (09:32→13:02)
[2023-01-27] MEDS: NYSTATIN POWDER 1 APPLIC TOPICAL ×3 (09:35→20:51)
[2023-01-27] MEDS: APIXABAN 5 MG TABLET PO ×2 (09:36→20:50)
[2023-01-27] MEDS: INSULIN ASPART 100 UNIT/ML 20 UNIT SUBCUT ×3 (09:41→16:45)
[2023-01-27] MEDS: INSULIN ASPART 100 UNIT/ML SUBCUT ×4 (09:42→20:51)
[2023-01-27] MEDS: CLINDAMYCIN 150 MG CAPSULE PO ×3 (09:51→20:50)
[2023-01-27] MEDS: METOPROLOL TARTRATE 1 MG/ML inj 5 MG IVP ×2 (11:22→16:45)
--- NOTE | 2023-01-27 16:28 | PC.NURSE ---
BG levels remain high 251 at bkfst, 455 at lunch- Dr. Verde notified. Please see eMar for meds provided on day shift. Pt received 3 effervescent potassium bumps for K+ of 3.3. Pt reports 4 small loose stools. Adequate I and O. After physical therapy pt's HR went into 120-137 range. Triggered sepsis risk, she is already on ATB, afebrile, Metoprolol 5 mg IV given prn and HR returned to normal range. No new orders. IV site d/c'ed and new site to left forearm #20 per primary RN. Report to Annmarie Walker RN.
--- NOTE | 2023-01-27 16:32 | PC.NURSE ---
Tele indicates Sinus bradycardia at initial assesssment.
--- NOTE | 2023-01-27 18:42 | PM.IMPN1 ---
Progress Note: A&P Assessment and plan (1) Systolic CHF, acute: Problem details: EF 46%; enlarged RA Abnormal Inferior Wall; hx of previous STEMI with PCI Plan: Increase lasix 40 mg BID; daily weight, monitor I&O, electrolyte replacement 01/25: continues to have crackles on exam; pleural effusion on cxr, likely 1-2 days of IV lasix; assess daily - 01/26 persistent crackles and lower extremity edema. Creatinine stable at 0.6. Weight up 1 kg each day over the last 2 days. Increase Lasix dose started today. Continue to monitor weight daily. Status: Acute (2) Atrial fibrillation with RVR: Problem details: Likely secondary to #1; stop duonebs; continue metoprolol; wean off diltiazem as able; start eliquis (01/23) 01/25: diltiazem stopped due to CHF with reduced EF; RVR has resolved, currently rate controlled on metoprolol - RVR. Continue metoprolol. If she continues to have periodically elevated heart rates, may need to start on digoxin. Eliquis for anticoagulation. Status: Acute (3) Tobacco dependence in remission: Problem details: - quit abruptly about 2 months ago -will need outpatient PFTs -presumed undiagnosed COPD Status: Chronic (4) Hydronephrosis concurrent with and due to calculi of kidney and ureter: Problem details: - CT scan of chest, abdomen, pelvis on 01/21/2023 demonstrated the following findings: Mild left-sided hydroureteronephrosis with 6 millimeter partially obstructing stone in the left UVJ. - outpatient Urology follow-up Status: Acute (5) Hypokalemia: Problem details: - likely from ongoing diarrhea inadequate oral supplementation - continue oral replacement as needed Status: Acute (6) Clostridium difficile diarrhea: Problem details: -dx 12/17 after developing diarrhea while on IV antibiotics Completed a 10 day course of oral vancomycin 4 times daily -restart on 01/21/2023, and will likely need extended taper - 01/22: C diff pcr negative vanco stopped - 01/25 C diff pcr negative Status: Acute (7) Lesion of adrenal gland: Problem details: CT scan today: Bilateral adrenal nodules, 1 of which meets criteria for an adenoma. The larger lesion in the left adrenal gland measures greater than 10 Hounsfield units, and is favored to represent a lipid poor adenoma. This could be assessed non emergently with an adrenal mass protocol CT. - Dr. Fam spoke with the patient about these findings and have recommended outpatient follow-up with her primary care provider to obtain an on urgent adrenal mass protocol CT. Status: Acute (8) BILLIE (obstructive sleep apnea): Problem details: continue cpap qhs Status: Acute (9) Cellulitis of right breast: Problem details: Clindamycin started yesterday. Aware of recent Cdiff and increased risk of recurrence with clinida. Monitor. May need surgical I&D if develops abscess. Status: Acute Plan likely 1-2 days of IV diuresis then discharge home; may need home oxygen; home oxygen nocturnal evaluation Subjective Time Seen by Provider: 08:37 Date Seen: 01/27/23 Interval history: Jemima breast is much better today. It is still somewhat red, but feels better and is less indurated than yesterday she is having some elevated heart rates today for which she got IV metoprolol in addition to oral metoprolol. She is starting the higher dose of Lasix today. She notices that she is still having some lower extremity edema. Exam Narrative: Exam Narrative: General: No acute distress. Awake, alert, oriented x3. No pallor. No jaundice. Oropharynx: Clear. Mucous membranes moist. Cardiovascular: Irregularly irregular. No murmurs, gallops, or rubs. Respiratory: Bibasilar crackles, unchanged. Chest: Medial right breast has an area of induration which is pink, but much less red indurated today. There is no fluctuance or abscess. Abdomen: Bowel sounds present. Soft, nondistended, nontender. Extremities: 1+ pedal edema, unchanged. Const: Vital Signs, click to edit/add: Vital Signs - 24 hr 01/26/23 19:00 01/26/23 23:00 01/26/23 23:00 Temperature 97.9 F Pulse Rate 65 Pulse Rate [Left A pical] Pulse Rate [Left P ulse Oximeter] 66 65 Respiratory Rate 18 22 Blood Pressure [Le ft Arm] 159/88 H Blood Pressure [Ri ght Arm] Pulse Oximetry 89 Oxygen Delivery Me thod Nasal Cannula Oxygen Flow Rate 1 01/26/23 23:00 01/26/23 23:00 01/27/23 03:00 Temperature 97.1 F L 97.9 F Pulse Rate Pulse Rate [Left A pical] Pulse Rate [Left P ulse Oximeter] 59 L 62 Respiratory Rate 22 22 20 Blood Pressure [Le ft Arm] 186/85 H Blood Pressure [Ri ght Arm] 166/86 H Pulse Oximetry 87 L 87 L 90 Oxygen Delivery Me thod CPAP CPAP CPAP Oxygen Flow Rate 5 5 3 01/27/23 07:00 01/27/23 08:45 01/27/23 08:45 Temperature 97.5 F L Pulse Rate 53 L Pulse Rate [Left A pical] 56 L Pulse Rate [Left P ulse Oximeter] 56 L Respiratory Rate 20 20 Blood Pressure [Le ft Arm] 150/84 H Blood Pressure [Ri ght Arm] Pulse Oximetry 94 92 Oxygen Delivery Me thod Room Air Nasal Cannula Oxygen Flow Rate 1 01/27/23 11:00 01/27/23 12:30 01/27/23 15:50 Temperature 97.6 F 97.8 F Pulse Rate Pulse Rate [Left A pical] 122 H Pulse Rate [Left P ulse Oximeter] 58 L Respiratory Rate 20 20 Blood Pressure [Le ft Arm] 161/83 H Blood Pressure [Ri ght Arm] 160/127 H Pulse Oximetry 87 L 94 89 Oxygen Delivery Me thod Nasal Cannula Room Air Nasal Cannula Oxygen Flow Rate 1 2 01/27/23 15:50 01/27/23 17:03 01/27/23 17:52 Temperature 98.1 F Pulse Rate 109 H 59 L Pulse Rate [Left A pical] 59 L Pulse Rate [Left P ulse Oximeter] Respiratory Rate 18 Blood Pressure [Le ft Arm] 166/67 H Blood Pressure [Ri ght Arm] Pulse Oximetry 89 Oxygen Delivery Me thod Nasal Cannula Oxygen Flow Rate 2 Labs Labs: Laboratory Results - last 24 hr 01/27/23 05:45 Sodium 139 Potassium 3.3 L Chloride 101 Carbon Dioxide 36 H Anion Gap 2 L BUN 14 Creatinine 0.6 Estimated Creat Clear 49.72 Estimated GFR 101 Glucose 219 H Calcium 8.3 L Magnesium 2.2
[2023-01-27] MEDS: ROSUVASTATIN CALCIUM 10 MG TABLET 40 MG PO (20:51)
--- NOTE | 2023-01-27 23:15 | PC.NURSE ---
Shift [id number]- Patient denies SOB at rest, though admits with exertion. She is on 2L O2 with saturations 88-91% while awake. CPAP used with sleep with 3L O2 to keep saturations within range. She is up ad grace within room. Denies pain.
[2023-01-28] VITALS (7 sets, daily range): BP systolic 146–184; BP diastolic 66–86; PULSE 51–64; RESP 18–20; TEMP 36.2–37.2; O2SAT 88–92
--- NOTE | 2023-01-28 06:09 | PC.NURSE ---
Shift note: Pt has been sleeping very well. No diarrhea reported tonight. Alert and oriented and has been using CPAP throughout the shift. Vitally stable.
[2023-01-28 07:06] LABS: Chloride* 101 mmol/L (96-114); Potassium* 3.3 mmol/L (3.6-5.1); Sodium* 140 mmol/L (135-149)
[2023-01-28 07:09] LABS: Anion Gap 2 mEq/L (7-15); Blood Urea Nitrogen* 15 mg/dL (7-30); Calcium* 8.2 mg/dL (8.4-10.6); Carbon Dioxide* 37 mmol/L (20-32); Creatinine* 0.6 mg/dL (0.5-1.5); Est. Creatinine Clearance* 49.72; Estimated Glomerular Filt Rate 101 ml/min; Glucose* 193 mg/dL (60-115)
[2023-01-28] MEDS: INSULIN ASPART 100 UNIT/ML 20 UNIT SUBCUT ×3 (09:08→17:15)
[2023-01-28] MEDS: INSULIN ASPART 100 UNIT/ML SUBCUT ×4 (09:09→21:14)
[2023-01-28] MEDS: CLINDAMYCIN 150 MG CAPSULE PO ×3 (09:12→21:02)
[2023-01-28] MEDS: POTASSIUM CHLORIDE 10 MEQ CAPSULE ER 40 MEQ PO ×2 (09:12→17:12)
[2023-01-28] MEDS: METOPROLOL SUCCINATE (XL) 100 MG TAB PO ×2 (09:13→21:08)
[2023-01-28] MEDS: APIXABAN 5 MG TABLET PO ×2 (09:13→21:01)
[2023-01-28] MEDS: MAGNESIUM OXIDE 400 MG TABLET PO ×2 (09:13→21:02)
[2023-01-28] MEDS: FUROSEMIDE 10 MG/ML inj 80 MG IVP ×2 (09:13→16:04)
[2023-01-28] MEDS: SERTRALINE 100 MG TABLET PO (09:13)
[2023-01-28] MEDS: LOSARTAN POTASSIUM 50 MG TABLET 100 MG PO (09:13)
--- NOTE | 2023-01-28 09:31 | PC.NURSE ---
had an area on lower right breast that is now draining placed a telfa pad and abd pad to try and collect drainage. Did have patient take a hot shower before pads placed to see if it would drain more. Patient states after shower area feels much better. Stated yesterday it was painful to touch and swollen.
[2023-01-28] MEDS: NYSTATIN POWDER 1 APPLIC TOPICAL ×3 (10:09→21:06)
--- NOTE | 2023-01-28 13:15 | RESP.RT ---
Patient used Home CPAP during night with 3 Lpm Oxygen bleed in. During the day patient use 1.5 Lpm as needed for activity or SOB.
--- NOTE | 2023-01-28 15:00 | CRLHL7_ITS ---
For Patients: As a result of the Century Cures Act, medical imaging exams and procedure reports are released immediately into your electronic medical record. You may view this report before your referring provider. If you have questions, please contact your health care provider. RIGHT BREAST ULTRASOUND CLINICAL HISTORY: Patient has history of breast reduction. Admitted to in-patient 01/22, redness at area of concern. Per patient, has had two previous abscesses at this site. COMPARISON: 04/27/2020, 05/03/2020. TECHNIQUE: Real-time ultrasound imaging of RIGHT breast with imaging documentation. FINDINGS: Hypoechoic collection of material located at the level of the skin extending 1.6 cm deep from the skin surface. This collection measures 5.8 x 4.1 cm. Increased vascularity noted in the adjacent soft tissues. IMPRESSION: Probable complex hypoechoic collection of fluid within the RIGHT breast just beneath the skin 5 o`clock 8 cm from the nipple. RECOMMENDATIONS: Surgical consultation for consideration of incision and drainage. Exam was done without radiologist present. Short-term follow-up in 2-3 weeks recommended after antibiotic/surgical therapy. BI-RADS Category 3: Probably benign A lay language report of this examination will be provided to the patient. Dictated by Jarrett Russo MD @ 01/29/2023 10:46:06 AM jj/Dictated by: Jarrett Russo MD @ 01/29/2023 10:46:00 AM (Electronically Signed)
--- NOTE | 2023-01-28 15:19 | PC.NURSE ---
End of Shift Note: Patient has been up indep in room. She does have an area on her right breast that is draining. Applied telfa pad and abd to area after she had a hot shower. VSS. Will continue to monitor.
--- NOTE | 2023-01-28 16:52 | PM.IMPN1 ---
Progress Note: A&P Assessment and plan (1) Cellulitis of right breast: Problem details: - Clindamycin started 01/26. Aware of recent Cdiff and increased risk of recurrence with clinida. - appears to be an abscess now with drainage I have spoken with Dr. Gastelum from General surgery and she is going to drop by either today or tomorrow to take a look give recommendations. Status: Acute (2) Systolic CHF, acute: Problem details: EF 46%; enlarged RA Abnormal Inferior Wall; hx of previous STEMI with PCI Plan: Increase lasix 40 mg BID; daily weight, monitor I&O, electrolyte replacement 01/25: continues to have crackles on exam; pleural effusion on cxr, likely 1-2 days of IV lasix; assess daily - 01/28 crackles and lower extremity edema improving now that she is on a higher dose of Lasix that was started yesterday morning. Creatinine stable at 0.6. Weight down 2 kg each day over the last 2 days. Continue Lasix at 80 mg IV twice a day for diuresis. I spoke with the patient and her daughter today about my recommendations for daily weights, fluid restriction, and sodium restriction. They demonstrated understanding. Continue to monitor weight daily. Status: Acute (3) Atrial fibrillation with RVR: Problem details: Likely secondary to #1; stop duonebs; continue metoprolol; wean off diltiazem as able; start eliquis (01/23) 01/25: diltiazem stopped due to CHF with reduced EF; RVR has resolved, currently rate controlled on metoprolol - RVR. Although this was going on yesterday, it has resolved again. Continue metoprolol. Continue Eliquis for anticoagulation. Status: Acute (4) Tobacco dependence in remission: Problem details: - quit abruptly about 2 months ago -will need outpatient PFTs -presumed undiagnosed COPD Status: Chronic (5) Hydronephrosis concurrent with and due to calculi of kidney and ureter: Problem details: - CT scan of chest, abdomen, pelvis on 01/21/2023 demonstrated the following findings: Mild left-sided hydroureteronephrosis with 6 millimeter partially obstructing stone in the left UVJ. - outpatient Urology follow-up Status: Acute (6) Hypokalemia: Problem details: - likely from ongoing diarrhea inadequate oral supplementation - continue oral replacement as needed Status: Acute (7) Clostridium difficile diarrhea: Problem details: -dx 12/17 after developing diarrhea while on IV antibiotics Completed a 10 day course of oral vancomycin 4 times daily -restart on 01/21/2023, and will likely need extended taper - 01/22: C diff pcr negative vanco stopped - 01/25 C diff pcr negative - 01/28 complains of diarrhea. Rechecking C diff. Status: Acute (8) Lesion of adrenal gland: Problem details: CT scan today: Bilateral adrenal nodules, 1 of which meets criteria for an adenoma. The larger lesion in the left adrenal gland measures greater than 10 Hounsfield units, and is favored to represent a lipid poor adenoma. This could be assessed non emergently with an adrenal mass protocol CT. - Dr. Fam spoke with the patient about these findings and have recommended outpatient follow-up with her primary care provider to obtain an on urgent adrenal mass protocol CT. Status: Acute (9) BILLIE (obstructive sleep apnea): Problem details: continue cpap qhs Status: Acute Plan Await recommendations from Dr. Gastelum regarding right breast cellulitis and abscess, continue diuresis, disposition will then be determined these recommendations are available. Time Spent With Patient Total time spent: Today I spent 40 minutes rounding on the patient. Greater than 50% included discussing care with the patient and her daughter, Dr. Gastelum, team, reviewing data, updating and managing the care plan. Subjective Time Seen by Provider: 11:41 Date Seen: 01/28/23 Interval history: Edgard tells me that she feels a bit better today, but still has heavy breathing. Her ankles are slightly less swollen, but she does still note there is some swelling there. She has had more urine output over the last 24 hours with a higher dose of Lasix. Her daughter, who is deaf, was in the room with her today and I used application that wrote down what I was saying as I was saying it to communicate with her daughter. Her daughter does read lips, but we are currently masked on the unit so she was unable to read my lips while I spoke. Her daughter listened to the recommendations about weighing Edgard daily and a low-salt diet along with a fluid restriction. Edgard and her daughter live together and help each other out. Edgard noted that the abscess on her breast has now opened up and started draining. She says it feels a bit better,, but is still somewhat tender and red. Although she got a few extra doses of IV metoprolol yesterday, she has not needed any today and her heart rates are well controlled in the 50s. Exam Narrative: Exam Narrative: General: No acute distress. Awake, alert, oriented. No pallor. No jaundice. Oropharynx: Clear. Mucous membranes moist. Cardiovascular: Irregularly irregular. No murmurs, gallops, or rubs. Respiratory: Bibasilar crackles, unchanged. Chest: Medial right breast has an area of induration which is pink, about the same as yesterday. There is a small punctate opening with a small amount of serous drainage at the most medial portion of the induration. Palpation reveals that there is a band of induration now that appears to have coalesced overnight headed from 5:00 a.m. up to the mid breast. Abdomen: Bowel sounds present. Soft, nondistended, nontender. Extremities: 1+ pedal edema, slight improvement from yesterday. Const: Vital Signs, click to edit/add: Vital Signs - 24 hr 01/27/23 17:03 01/27/23 17:52 01/27/23 19:05 Temperature 98.1 F Pulse Rate 109 H 59 L Pulse Rate [Left A pical] 58 L Pulse Rate [Left P ulse Oximeter] Respiratory Rate 16 Blood Pressure [Le ft Arm] 148/53 H Blood Pressure [Ri ght Arm] Pulse Oximetry 91 Oxygen Delivery Me thod Nasal Cannula Oxygen Flow Rate 2 01/27/23 23:00 01/27/23 23:00 01/27/23 23:00 Temperature 98 F Pulse Rate 52 L Pulse Rate [Left A pical] Pulse Rate [Left P ulse Oximeter] 53 L Respiratory Rate 18 18 Blood Pressure [Le ft Arm] 165/84 H Blood Pressure [Ri ght Arm] Pulse Oximetry 89 89 Oxygen Delivery Me thod CPAP CPAP Oxygen Flow Rate 2 2 01/28/23 03:00 01/28/23 07:00 01/28/23 07:00 Temperature 97.6 F 97.1 F L Pulse Rate Pulse Rate [Left A pical] 57 L Pulse Rate [Left P ulse Oximeter] 54 L Respiratory Rate 18 20 Blood Pressure [Le ft Arm] 166/81 H Blood Pressure [Ri ght Arm] 157/72 H Pulse Oximetry 89 91 91 Oxygen Delivery Me thod CPAP Nasal Cannula Room Air Oxygen Flow Rate 2 1 01/28/23 07:00 01/28/23 07:00 01/28/23 11:00 Temperature 97.5 F L Pulse Rate 64 Pulse Rate [Left A pical] 57 L 55 L Pulse Rate [Left P ulse Oximeter] Respiratory Rate 20 18 Blood Pressure [Le ft Arm] 146/66 H Blood Pressure [Ri ght Arm] Pulse Oximetry 92 Oxygen Delivery Me thod Nasal Cannula Oxygen Flow Rate 15 01/28/23 13:11 01/28/23 15:00 01/28/23 15:00 Temperature 98.9 F Pulse Rate Pulse Rate [Left A pical] Pulse Rate [Left P ulse Oximeter] 54 L Respiratory Rate 20 18 Blood Pressure [Le ft Arm] 153/75 H Blood Pressure [Ri ght Arm] Pulse Oximetry 88 90 88 Oxygen Delivery Me thod Room Air Nasal Cannula Nasal Cannula Oxygen Flow Rate 3.5 3.5 01/28/23 15:00 01/28/23 15:00 Temperature Pulse Rate 54 L Pulse Rate [Left A pical] Pulse Rate [Left P ulse Oximeter] Respiratory Rate 18 Blood Pressure [Le ft Arm] Blood Pressure [Ri ght Arm] Pulse Oximetry Oxygen Delivery Me thod Oxygen Flow Rate Labs Labs: Laboratory Results - last 24 hr 01/28/23 06:10 Sodium 140 Potassium 3.3 L Chloride 101 Carbon Dioxide 37 H Anion Gap 2 L BUN 15 Creatinine 0.6 Estimated Creat Clear 49.72 Estimated GFR 101 Glucose 193 H Calcium 8.2 L
[2023-01-28 19:19] LABS: C.Difficile Negative (Negative); CDIFFEPI 027 PRESUMPTIVE NEGATIVE (Negative)
[2023-01-28] MEDS: ROSUVASTATIN CALCIUM 10 MG TABLET 40 MG PO (21:06)
--- NOTE | 2023-01-28 21:54 | PC.NURSE ---
Sinus roland, elevated BP, saturations in high 80s to low 90s on 3-4 L NC. Denies pain. Right LS- fine crackles. Tolerating regular diet- 1840 cc fluids in. Voided 600 cc clear, yellow urine. Small loose stool x1- stool sample sent, c-diff negative. PIV in left hand- SL'd, 80 mg IV lasix given. Up in room independently. Wound on right breast, ultrasound complete, results pending- moderate serous drainage out of wound, dressing intact. Pt's son was in car accident tonight and is up at [facility]- pt coping okay, but concerned. Will continue to monitor, follow POC, and keep pt and family updated. Angella Baker RN
[2023-01-29] VITALS (10 sets, daily range): BP systolic 140–173; BP diastolic 61–97; PULSE 50–141; RESP 20; TEMP 36.2–37.4; O2SAT 88–93
[2023-01-29] MEDS: HYDRALAZINE HCL 20 MG/ML inj 10 MG IVP (01:07)
--- NOTE | 2023-01-29 06:16 | PC.NURSE ---
Pt A&O and afebrile overnight. VSS with exception to elevated SBP into the 170s-180s. Dr. Alvarez ordered PRN 10mg IV hydralazine q4H for SBP greater than or equal to 170. Gave x1 dose @ 0107 for SBP 184 with success resulting in SBP 147. Pt had no c/o pain overnight. Independent in her room. Total U/O: 700 mL. O2 maintained on CPAP with 3L bled in. On TELE showing SB w/ BBB rate in the 50s. Dressing on right breast abscess C/D/I. Pt to meet with General Surgery today for treatment advice. ?
[2023-01-29 07:39] LABS: Basophils Absolute Auto 0.05 K/uL (0.00-0.30); Basophils Percent Auto 0.6 % (0.0-3.0); Eosinophils Absolute Auto 0.33 K/uL (0.00-0.50); Eosinophils Percent Auto 3.7 % (0.0-7.0); Hemoglobin* 13.1 gm/dL (12.0-16.0); Immature Granulocytes Abs Auto 0.02 K/uL (0.00-0.30); Immature Granulocytes Pct Auto 0.2 %; Mean Corpuscular HGB Conc 30 gm/dL (32-36); Mean Corpuscular Hemoglobin 27 pg (26-34); Mean Corpuscular Volume 90 fL (80-100); Monocytes Percent Auto 6.6 % (0.0-11.0); Neutrophils Absolute Auto 6.44 K/uL (1.7-7.0); Neutrophils Percent Auto 71.9 % (42.0-72.0); Platelet Count* 348 K/uL (140-440); RDW Coefficient of Variation % 15.4 % (11.5-15.5); Red Blood Count 4.89 m/uL (4.00-5.20); White Blood Count* 8.95 K/uL (4.50-11.00)
[2023-01-29 07:42] LABS: Slide Review Reflex No
[2023-01-29 07:50] LABS: Chloride* 102 mmol/L (96-114)
[2023-01-29 07:51] LABS: Potassium* 3.7 mmol/L (3.6-5.1); Sodium* 141 mmol/L (135-149)
[2023-01-29 07:53] LABS: Creatinine* 0.6 mg/dL (0.5-1.5); Est. Creatinine Clearance* 49.72; Estimated Glomerular Filt Rate 101 ml/min
[2023-01-29 07:54] LABS: Anion Gap 4 mEq/L (7-15); Blood Urea Nitrogen* 15 mg/dL (7-30); Calcium* 8.6 mg/dL (8.4-10.6); Carbon Dioxide* 35 mmol/L (20-32); Glucose* 219 mg/dL (60-115)
--- NOTE | 2023-01-29 08:11 | PM.GSCN ---
History of Present Illness Consult details Date Seen: 01/29/23 Consult date: 01/29/23 Narrative: 62-year-old female was admitted to the hospital with shortness of breath that was thought to be due to COPD and hypoventilation syndrome developed right breast erythema. I was asked by Dr. Verde to see her in consultation. Patient is well known to me from her 2 other episodes of right breast infection. The first episode happened a few years ago and her last episode was in July of 2022. Patient usually develops erythema in the medial right breast that sometimes results in drainage. During her last episode in July we performed I&D and send the tissue to pathology. Pathology returned as benign tissue. Patient has a history of breast reduction in 1986. Patient developed redness and her right medial breast over the weekend. On Saturday she noticed increasing pain and developed drainage from the skin. Her pain is now slightly better but with palpation, she still experiences some discomfort. Her white count was reviewed and remained normal during her hospital stay. Patient had 2 episodes of C diff colitis in the past. She is currently on oral clindamycin. He Review of Systems Narrative: General: no fevers HENT: no problems swallowing CV: + shortness of breath. She was recently hospitalized with pneumonia as well. Resp: Occasional chronic cough Skin: See above Musculoskeletal: no back pain Neuro: no muscle weakness Psyche: + depression PFSH PFSH Medical History Dyspnea ?R06.00 - Dyspnea, unspecified (ICD-10) Hypoxia ?R09.02 - Hypoxemia (ICD-10) Congestive heart failure ?I50.9 - Heart failure, unspecified (ICD-10) Bilateral pleural effusion ?J90 - Pleural effusion, not elsewhere classified (ICD-10) Pneumonia ?J18.9 - Pneumonia, unspecified organism (ICD-10) Depression, recurrent ?F33.9 - Major depressive disorder, recurrent, unspecified (ICD-10) Spinal stenosis, lumbar region with neurogenic claudication ?M48.062 - Spinal stenosis, lumbar region with neurogenic claudication (ICD-10) Abscess of right breast ?N61.1 - Abscess of the breast and nipple (ICD-10) Adenomatous colon polyp ?D12.6 - Benign neoplasm of colon, unspecified (ICD-10) Ureteral stone with hydronephrosis ?N13.2 - Hydronephrosis with renal and ureteral calculous obstruction (ICD-10) Coronary artery disease involving [place] coronary artery of [place] heart without angina pectoris ?I25.10 - Atherosclerotic heart disease of [place] coronary artery without angina pectoris (ICD-10) BILLIE (obstructive sleep apnea) ?G47.33 - Obstructive sleep apnea (adult) (pediatric) (ICD-10) STEMI (ST elevation myocardial infarction) ?I21.3 - ST elevation (STEMI) myocardial infarction of unspecified site (ICD-10) Psoriasis ?L40.9 - Psoriasis, unspecified (ICD-10) Hypokalemia ?E87.6 - Hypokalemia (ICD-10) Sciatica ?M54.30 - Sciatica, unspecified side (ICD-10) Hyperlipidemia ?E78.5 - Hyperlipidemia, unspecified (ICD-10) Essential hypertension ?I10 - Essential (primary) hypertension (ICD-10) Type 2 diabetes mellitus ?E11.9 - Type 2 diabetes mellitus without complications (ICD-10) Surgical History H/O tubal ligation ?Z98.51 - Tubal ligation status (ICD-10) S/P rotator cuff repair ?Z98.890 - Other specified postprocedural states (ICD-10) H/O lithotripsy ?Z98.890 - Other specified postprocedural states (ICD-10) H/O arthroscopic knee surgery ?Z98.890 - Other specified postprocedural states (ICD-10) History of reduction surgery of right breast ?Z98.890 - Other specified postprocedural states (ICD-10) Hx of colonoscopy ?Z98.890 - Other specified postprocedural states (ICD-10) Previous back surgery ?Z98.890 - Other specified postprocedural states (ICD-10) Family History Brother Alcohol dependence Father Alcohol dependence Social History Narrative: Smoked 1ppd for 45 years, quit cold turkey 2 months ago. Denies alcohol use. Denies recreational drug use. Requests DNR DNI resuscitation status. Designates her sons as power of assistant district attorney for health should that be required. What is your current living situation?: I presently have a place to live Problems where you live: no known problems Problems where you live details: NA In the past 12 months, utilities in danger of being shut off: no In past 12 months, lack of transportation kept you from medical appts, meetings, work, or getting things needed for daily living: no In the past 12 mos, have been you worried that your food would run out before you had money to buy more?: never true In the past 12 mos, the food you bought just didn't last and you didn't have money to buy more?: never true Highest level of school completed/degree received: high school graduate Smoking Status: Former smoker What tobacco products do you use: cigarettes Smoking quit date/years: <= 15 years ago Do you use any of these nicotine containing products: None Second hand tobacco smoke exposure: No How often do you have a drink containing alcohol: never How often do you have six or more drinks on one occasion: Never AUDIT-C Alcohol total score: 0 Non-prescribed substance use: denies use Caffeine: Yes (sometimes pop) How often does anyone, including family, friends and others, physically hurt you: never How often does anyone, including family, friends and others, insult or talk down to you: never How often does anyone, including family, friends and others, threaten you with harm: never How often does anyone, including family, friends and others, scream or curse at you: never service: No Meds Home Medications and Allergies Home Medications Medication Instructions Recorded Confirmed Type amlodipine 10 mg tablet 10 mg PO DAILY 12/15/22 01/21/23 History aspirin 81 mg capsule 81 mg PO DAILY 12/15/22 01/21/23 History chlorthalidone 25 mg tablet 12.5 mg PO DAILY 12/15/22 01/21/23 History insulin aspart U-100 100 unit/mL 36 unit subcut TID 12/15/22 01/21/23 History (3 mL) subcutaneous pen (Novolog FlexPen U-100 Insulin aspart) insulin glargine 100 unit/mL (3 62 unit subcut QAM 12/15/22 01/21/23 History mL) subcutaneous pen (Basaglar KwikPen U-100 Insulin) losartan 100 mg tablet 100 mg PO DAILY 10/28/23 12/04/23 History metformin 1,000 mg tablet 1,000 mg PO BID 12/15/22 01/21/23 History metoprolol succinate 100 mg 100 mg PO BID 12/15/22 01/21/23 History tablet,extended release 24 hr multivitamin (Daily Multi-Vitamin 1 tab PO DAILY 12/15/22 01/21/23 History tablet) omega-3 fatty acids 500 mg capsule 500 mg PO DAILY 12/15/22 01/21/23 History rosuvastatin 40 mg tablet 40 mg PO HS 12/15/22 01/21/23 History sertraline 100 mg tablet 100 mg PO QAM 12/15/22 01/21/23 History potassium chloride 8 mEq 8 meq PO BID 01/22/23 01/22/23 History capsule,extended release Allergies Allergy/AdvReac Type Severity Reaction Status Date / Time iodine AdvReac Severe Anaphylaxis Verified 01/21/23 09:42 shellfish derived AdvReac Severe Anaphylaxis Verified 01/21/23 09:42 ticagrelor [From Brilinta] AdvReac Severe Rash Verified 01/21/23 09:42 Exam Narrative: Exam Narrative: General appearance: Alert, cooperative, and in no distress Pulmonary: Chest symmetric, breathing is nonlabored. Right breast: In the right medial breast there is a 1 cm x 0.6 cm slightly raised hyperemic area were patient's drainage was coming out. There is mild pink cellulitis extending towards the lateral breast. This is in the midst of well-healed surgical incisions from patient's breast reduction, previous excisional debridement, and most recent excisional debridement. Psychiatric: Alert, cooperative, normal affect. Const: Vital Signs, click to edit/add: Vital Signs - 24 hr 01/28/23 11:00 01/28/23 13:11 01/28/23 15:00 Temperature 97.5 F L 98.9 F Pulse Rate Pulse Rate [Left A pical] 55 L Pulse Rate [Left P ulse Oximeter] 54 L Respiratory Rate 18 20 18 Blood Pressure [Le ft Arm] 146/66 H 153/75 H Blood Pressure [Ri ght Arm] Pulse Oximetry 92 88 90 Oxygen Delivery Me thod Nasal Cannula Room Air Nasal Cannula Oxygen Flow Rate 15 3.5 01/28/23 15:00 01/28/23 15:00 01/28/23 15:00 Temperature Pulse Rate 54 L Pulse Rate [Left A pical] Pulse Rate [Left P ulse Oximeter] Respiratory Rate 18 Blood Pressure [Le ft Arm] Blood Pressure [Ri ght Arm] Pulse Oximetry 88 Oxygen Delivery Me thod Nasal Cannula Oxygen Flow Rate 3.5 01/28/23 17:44 01/28/23 23:00 01/28/23 23:00 Temperature 98.1 F 98.2 F Pulse Rate 51 L Pulse Rate [Left A pical] Pulse Rate [Left P ulse Oximeter] 61 56 L Respiratory Rate 20 20 Blood Pressure [Le ft Arm] 167/73 H 179/78 H Blood Pressure [Ri ght Arm] 184/86 H Pulse Oximetry 92 92 Oxygen Delivery Me thod Nasal Cannula CPAP Oxygen Flow Rate 3 3 01/28/23 23:00 01/28/23 23:00 01/29/23 02:56 Temperature 98.4 F Pulse Rate Pulse Rate [Left A pical] Pulse Rate [Left P ulse Oximeter] 56 L 74 Respiratory Rate 20 20 20 Blood Pressure [Le ft Arm] Blood Pressure [Ri ght Arm] 147/68 H Pulse Oximetry 92 88 Oxygen Delivery Me thod CPAP CPAP Oxygen Flow Rate 3 3 Results Labs Labs: Abnormal lab results 01/29/23 Range/Units 07:32 MCHC 30 L (32-36) gm/dL Lymph % (Auto) 17.0 L (20-44) % Carbon Dioxide 35 H (20-32) mmol/L Anion Gap 4 L (7-15) mEq/L Glucose 219 H (60-115) mg/dL Diabetes panel 01/29/23 Range/Units 07:32 Sodium 141 (135-149) mmol/L Potassium 3.7 (3.6-5.1) mmol/L Chloride 102 (96-114) mmol/L Carbon Dioxide 35 H (20-32) mmol/L BUN 15 (7-30) mg/dL Creatinine 0.6 (0.5-1.5) mg/dL Glucose 219 H (60-115) mg/dL Calcium 8.6 (8.4-10.6) mg/dL Calcium panel 01/29/23 Range/Units 07:32 Calcium 8.6 (8.4-10.6) mg/dL Pituitary panel 01/29/23 Range/Units 07:32 Sodium 141 (135-149) mmol/L Potassium 3.7 (3.6-5.1) mmol/L Chloride 102 (96-114) mmol/L Carbon Dioxide 35 H (20-32) mmol/L BUN 15 (7-30) mg/dL Creatinine 0.6 (0.5-1.5) mg/dL Glucose 219 H (60-115) mg/dL Calcium 8.6 (8.4-10.6) mg/dL Adrenal panel 01/29/23 Range/Units 07:32 Sodium 141 (135-149) mmol/L Potassium 3.7 (3.6-5.1) mmol/L Chloride 102 (96-114) mmol/L Carbon Dioxide 35 H (20-32) mmol/L BUN 15 (7-30) mg/dL Creatinine 0.6 (0.5-1.5) mg/dL Glucose 219 H (60-115) mg/dL Calcium 8.6 (8.4-10.6) mg/dL All other labs normal. Assessment and Plan Assessment and plan (1) Cellulitis of right breast: Problem comment: - Clindamycin started 01/26. Aware of recent Cdiff and increased risk of recurrence with clinida. - appears to be an abscess now with drainage I have spoken with Dr. Gastelum from General surgery and she is going to drop by either today or tomorrow to take a look give recommendations. Status: Acute Plan 62-year-old female on Eliquis with history of diabetes and breast reduction therapy in 1986 presents with recurrent right breast infection and drainage. This is patient's at least third episode of recurrence of infection in the same location in the right medial breast. This patient had 1 extensive debridement during her first episode and healed well by secondary intention. She then had a recent recurrence that also healed by secondary intention but recurred. I think her history of obesity, smoking, and diabetes contribute to recurrence of her infection. Patient quit smoking 2 months ago. However, I suspect that she may have a permanent suture from her previous breast reduction that could be a nidus for infection. I recommended to proceed with excisional biopsy and partial incisional closure. This will allow us to drain her infected field and stop antibiotics given patient's 2 episodes of C diff. Patient is aware that cosmetically her breast will not look natural after this excisional biopsy. Patient's last dose of Eliquis was last night. I discussed with the patient the risk of bleeding related to this procedure. I also discussed that we usually hold Eliquis for 2-3 days. Elimination half life is about 12 hours for Eliquis. Given the location of her procedure, I think it is reasonable to still proceed with this today. All questions were answered.
--- NOTE | 2023-01-29 11:14 | P.IMPN_ITS ---
Progress Note: A&P Assessment and plan (1) Cellulitis of right breast: Problem details: - Clindamycin started 01/26. Aware of recent Cdiff and increased risk of recurrence with clinida. - 01/28 appears to be an abscess now with drainage I have spoken with Dr. Gastelum from General surgery and she is going to drop by either today or tomorrow to take a look give recommendations. - US breast complete. 01/[address] Gastelum who is planning surgery today. We discussed anesthesia, I have recommended MAC due to probable underlying COPD. I think she is fairly well diuresed at this point. Eliquis stopped this morning. Dr. Gastelum aware. Should be able to stop clindamycin after surgery today. Status: Acute (2) Systolic CHF, acute: Problem details: EF 46%; enlarged RA Abnormal Inferior Wall; hx of previous STEMI with PCI Plan: Increase lasix 40 mg BID; daily weight, monitor I&O, electrolyte replacement 01/25: continues to have crackles on exam; pleural effusion on cxr, likely 1-2 days of IV lasix; assess daily - 01/28 crackles and lower extremity edema improving now that she is on a higher dose of Lasix that was started yesterday morning. Creatinine stable at 0.6. Weight down 2 kg each day over the last 2 days. Continue Lasix at 80 mg IV twice a day for diuresis. I spoke with the patient and her daughter today about my recommendations for daily weights, fluid restriction, and sodium restriction. They demonstrated understanding. Continue to monitor weight daily. - 01/29 better. Good UO, weight stable. symptoms improving. Remains hypoxic, suspect underlying COPD. Continue diuresis with IV lasix today and anticipate transition to oral lasix for d/c home tomorrow. Status: Acute (3) Atrial fibrillation with RVR: Problem details: Likely secondary to #1; stop duonebs; continue metoprolol; wean off diltiazem as able; start eliquis (01/23) 01/25: diltiazem stopped due to CHF with reduced EF; RVR has resolved, currently rate controlled on metoprolol - RVR. Although this was going on yesterday, it has resolved again. Continue metoprolol. Holding Eliquis for surgery. Status: Acute (4) Tobacco dependence in remission: Problem details: - quit abruptly about 2 months ago -will need outpatient PFTs -presumed undiagnosed COPD Status: Chronic (5) Hydronephrosis concurrent with and due to calculi of kidney and ureter: Problem details: - CT scan of chest, abdomen, pelvis on 01/21/2023 demonstrated the following findings: Mild left-sided hydroureteronephrosis with 6 millimeter partially obstructing stone in the left UVJ. - outpatient Urology follow-up Status: Acute (6) Hypokalemia: Problem details: - likely from ongoing diarrhea inadequate oral supplementation - continue oral replacement as needed, none needed today Status: Acute (7) Clostridium difficile diarrhea: Problem details: -dx 12/17 after developing diarrhea while on IV antibiotics Completed a 10 day course of oral vancomycin 4 times daily -restart on 01/21/2023, and will likely need extended taper - 01/22: C diff pcr negative vanco stopped - 01/25 C diff pcr negative - 01/28 complains of diarrhea. C diff negative Status: Acute (8) Lesion of adrenal gland: Problem details: CT scan today: Bilateral adrenal nodules, 1 of which meets criteria for an adenoma. The larger lesion in the left adrenal gland measures greater than 10 Hounsfield units, and is favored to represent a lipid poor adenoma. This could be assessed non emergently with an adrenal mass protocol CT. - Dr. Fam spoke with the patient about these findings and have recommended outpatient follow-up with her primary care provider to obtain an on urgent adrenal mass protocol CT. Status: Acute (9) BILLIE (obstructive sleep apnea): Problem details: continue cpap qhs Status: Acute (10) Type 2 diabetes mellitus: Problem details: - proteinuria - 12/15/22: A1c 8.6 - She is having hyperglycemia for which I have increased her total daily Levemir and have split it to BID. Continue mealtime insulin and ISS as is. Status: Chronic Plan Anticipating breast surgery today. Suspect COPD. Overnight pulse ox study tonight and evaluate for home O2 tomorrow. Continue IV diuresis and lab monitoring. Time Spent With Patient Total time spent: Today I spent 45 minutes rounding on the patient. Greater than 50% included discussing care with the patient, Dr. Gastelum, team, reviewing data, updating and managing the care plan. Subjective Time Seen by Provider: 07:55 Date Seen: 01/29/23 Interval history: Nela is feeling back to baseline breathing. She wishes she was off oxygen. She got a call last night that her son was in a MVA and is in [facility] hospital for a spinal compression fracture. She is hoping to go home soon so she can go visit him. Spoke with Nirav about OR today. Recommended MAC for anesthesia. Stopped Eliquis, last dose was last evening. Exam Narrative: Exam Narrative: General: No acute distress. Awake, alert, oriented. No pallor. No jaundice. Oropharynx: Clear. Mucous membranes moist. Cardiovascular: Irregularly irregular. No murmurs, gallops, or rubs. Respiratory: Bibasilar crackles, improving. Abdomen: Bowel sounds present. Soft, nondistended, nontender. Extremities: 1+ pedal edema, continues to improve slowly. Const: Vital Signs, click to edit/add: Vital Signs - 24 hr 01/28/23 13:11 01/28/23 15:00 01/28/23 15:00 Temperature 98.9 F Pulse Rate Pulse Rate [Left A pical] Pulse Rate [Left P ulse Oximeter] 54 L Respiratory Rate 20 18 Blood Pressure [Le ft Arm] 153/75 H Blood Pressure [Ri ght Arm] Pulse Oximetry 88 90 88 Oxygen Delivery Me thod Room Air Nasal Cannula Nasal Cannula Oxygen Flow Rate 3.5 3.5 01/28/23 15:00 01/28/23 15:00 01/28/23 17:44 Temperature 98.1 F Pulse Rate 54 L Pulse Rate [Left A pical] Pulse Rate [Left P ulse Oximeter] 61 Respiratory Rate 18 20 Blood Pressure [Le ft Arm] 167/73 H Blood Pressure [Ri ght Arm] Pulse Oximetry 92 Oxygen Delivery Me thod Nasal Cannula Oxygen Flow Rate 3 01/28/23 23:00 01/28/23 23:00 01/28/23 23:00 Temperature 98.2 F Pulse Rate 51 L Pulse Rate [Left A pical] Pulse Rate [Left P ulse Oximeter] 56 L 56 L Respiratory Rate 20 20 Blood Pressure [Le ft Arm] 179/78 H Blood Pressure [Ri ght Arm] 184/86 H Pulse Oximetry 92 Oxygen Delivery Me thod CPAP Oxygen Flow Rate 3 01/28/23 23:00 01/29/23 02:56 01/29/23 07:00 Temperature 98.4 F Pulse Rate Pulse Rate [Left A pical] Pulse Rate [Left P ulse Oximeter] 74 Respiratory Rate 20 20 Blood Pressure [Le ft Arm] Blood Pressure [Ri ght Arm] 147/68 H Pulse Oximetry 92 88 91 Oxygen Delivery Me thod CPAP CPAP CPAP Oxygen Flow Rate 3 3 01/29/23 07:00 01/29/23 07:00 01/29/23 11:00 Temperature 97.2 F L 97.8 F Pulse Rate 70 Pulse Rate [Left A pical] 50 L 55 L Pulse Rate [Left P ulse Oximeter] Respiratory Rate 20 20 Blood Pressure [Le ft Arm] 159/64 H 167/73 H Blood Pressure [Ri ght Arm] Pulse Oximetry 91 93 Oxygen Delivery Me thod CPAP Nasal Cannula Oxygen Flow Rate 1 Labs Labs: Laboratory Results - last 24 hr 01/28/23 01/29/23 18:18 07:32 WBC 8.95 RBC 4.89 Hgb 13.1 Hct 44.0 MCV 90 MCH 27 MCHC 30 L RDW Coeff of Vanessa 15.4 Plt Count 348 Neut % (Auto) 71.9 Lymph % (Auto) 17.0 L [place] % (Auto) 6.6 Eos % (Auto) 3.7 Baso % (Auto) 0.6 Neut # (Auto) 6.44 Lymph # (Auto) 1.50 [place] # (Auto) 0.60 Eos # (Auto) 0.33 Baso # (Auto) 0.05 Abs Immat Gran (auto) 0.02 Imm/Tot Granulo (auto) 0.2 Sodium 141 Potassium 3.7 Chloride 102 Carbon Dioxide 35 H Anion Gap 4 L BUN 15 Creatinine 0.6 Estimated Creat Clear 49.72 Estimated GFR 101 Glucose 219 H Calcium 8.6 Stl C. diff Tox B Gene Negative Stl C. diff [id number] PRESUMPTIVE NEGATIVE
[2023-01-29] MEDS: BUPIVACAINE 0.25% 30 ML INJECTION (12:18)
--- NOTE | 2023-01-29 12:25 | W.ANESCHARGE ---
Anesthesia Charges Start Date/Time Anesthesia Start Date: 01/29/23 Anesthesia Start Time: 11:57 Stop Date/Time Anesthesia Stop Date: 01/29/23 Anesthesia Stop Time: 13:05
--- NOTE | 2023-01-29 12:59 | P.GSOP_ITS ---
Operative Note Pre-op diagnosis: 1. Recurrent right breast infection s/p excisional debridement x2. Post-op diagnosis: same Type of Procedure: 1. Excisional biopsy of the right breast recurrent area of infection with partial incisional closure. Indications: 62-year-old female with history of bilateral breast reduction was admitted to the hospital with shortness of breath. Patient developed erythema and drainage from the right medial breast. Patient has a history of previous severe infection in the right medial breast over 2 years ago. At that time patient underwent excisional debridement and her incision was healed by secondary intention with VAC. In July of 2022 she developed infection in the same area and that was treated by local excisional debridement in clinic. The incision was again healed by secondary intention. A few days ago patient developed recurrent erythema and spontaneous drainage from the medial right breast. This was located in the same area as her previous infection. Patient's WBC was normal. She was placed on oral antibiotics but has a history of C diff colitis x2. An ultrasound was obtained that showed tissue edema and possible fluid col lection underlying the area of drainage. On clinical exam patient had erythema in the medial right breast at 5:00 near the sternum. There was an area of hyperemic raised skin measuring 1 x 0.6 cm. This is the area where patient had her drainage from. Given patient's clinical history and her recurrent infections with normal recent mammogram, excision of biopsy of this area with partial closure was recommended. The procedure was discussed in detail. The risks associated procedure including infection, bleeding and recurrence of the infection were all discussed with the patient, and she agreed to proceed. Procedure Description: After discussing the risks and benefits of the procedure, the patient signed informed consent.? The operative site was marked and the patient was brought to the operating room and placed on the operating table in supine position.? Care was taken to pad the patient's pressure points.?? The patient was then sedated by anesthesia.?? The operative site was then prepped and draped in the usual sterile fashion.? A time-out was then performed. The area of erythema and current drainage In the right breast was marked with a marking pen. Local anesthetic was injected in the surgical site. A horizontal elliptical skin incision was made excising the current drainage area and previously well-healed I&D incision just lateral to it. The ellipse of skin and underlying subcutaneous fat and breast tissue was then excised circumferentially with cautery. This excision was carried down to the muscle fascia. No sutures were noted in the excisional biopsy specimen. Internal mammary vessels were noted in the medial and superior breast and those were divided with clamps and ties. When the specimen was removed, it was inked for orientation and sent to pathology for permanent section. Hemostasis was achieved with cautery. The surrounding breast tissue was healthy with good blood supply. Breast tissue was minimally mobilized superiorly and inferiorly and reapproximated with interrupted 2-0 Vicryl sutures. The dermis was reapproximated with interrupted 2-0 Vicryl sutures laterally and medially. Over 50% of the central incision was left open. Medially, the skin was stapled with 3 nenita.The incision also had undermining medially and that was marked with a marking pen. The incision was irrigated with normal saline. The open area was then packed with moist 4 x 4. the incision was covered with sterile gauze and tape. All counts were correct at the end of the case.? The patient was then woken and transported to the recovery area in stable condition. ? The patient tolerated the procedure well. Anesthesia: MAC and local Surgeon: Noe Gastelum MD Additional Specimen Information: 1. Right breast excisional biopsy. Condition: stable Disposition: [facility] Date of procedure: 01/29/23
--- NOTE | 2023-01-29 13:09 | W.ANESCHARGE ---
Anesthesia Charges Start Date/Time Anesthesia Start Date: 01/29/23 Anesthesia Start Time: 11:57 Stop Date/Time Anesthesia Stop Date: 01/29/23 Anesthesia Stop Time: 13:05
[2023-01-29] MEDS: SERTRALINE 100 MG TABLET PO (13:20)
[2023-01-29] MEDS: LOSARTAN POTASSIUM 50 MG TABLET 100 MG PO (13:20)
[2023-01-29] MEDS: MAGNESIUM OXIDE 400 MG TABLET PO ×2 (13:21→21:01)
[2023-01-29] MEDS: INSULIN ASPART 100 UNIT/ML SUBCUT ×3 (13:21→21:44)
[2023-01-29] MEDS: INSULIN ASPART 100 UNIT/ML 20 UNIT SUBCUT ×2 (13:22→17:38)
[2023-01-29] MEDS: POTASSIUM CHLORIDE 10 MEQ CAPSULE ER 40 MEQ PO ×2 (13:24→17:37)
--- NOTE | 2023-01-29 14:35 | PC.NURSE ---
End of Shift Note: Patient was NPO this morning as she went into surgery for drainage of right breast abcess. She went around 1200 and returned shortly there after as they only did a MAC for the procedure. She has been up to the bathroom a couple of times now since the return to the unit. No complaints of pain noted and tolerated a regular diet. Will continue to monitor until the next shift arrives.
[2023-01-29] MEDS: FUROSEMIDE 10 MG/ML inj 80 MG IVP (16:00)
[2023-01-29] MEDS: METOPROLOL TARTRATE 1 MG/ML inj 5 MG IVP (18:20)
[2023-01-29] MEDS: METOPROLOL SUCCINATE (XL) 100 MG TAB PO (19:01)
[2023-01-29] MEDS: NYSTATIN POWDER 1 APPLIC TOPICAL (21:01)
[2023-01-29] MEDS: ROSUVASTATIN CALCIUM 10 MG TABLET 40 MG PO (21:01)
--- NOTE | 2023-01-29 21:56 | PC.NURSE ---
End of Shift: Patient pleasant and cooperative. Temp max 99.3. Dressing to right chest C/D/I. Denies pain. Up in room with SBA. 1.5L NC to keep sats 88-90%. Tolerating regular diet with no nausea. Heart rate increased to 120-150 bpm, PRN IV Metoprolol given. Continued to be elevated, updated MD and bedtime dose of PO Metoprolol given early. Heart rate decreased to 60s-70s. BG 357 and 456, updated MD.
[2023-01-30 03:00] VITALS: BP 160/71; PULSE 53; RESP 20; TEMP 36.5; O2SAT 86
--- NOTE | 2023-01-30 06:04 | PC.NURSE ---
Pt A&O and afebrile overnight. Nocturnal O2 study initiated @ 2330 when pt applied her CPAP. O2 did not maintain > 80% with CPAP alone so oxygen was slowly titrated up and bled into her CPAP until RT parameters were met (80-88%). Pt denied having any pain overnight. Total U/O overnight was 600cc. VS WNL with exception to TELE reading A. Fib for approximately 5 minutes around 0440. Pt quickly converted back to SR and has been SB 40s-50s bpm throughout the night. Right breast dressing remained C/D/I, did not require being changed overnight. Blood sugar checked @ 0200 reading 225 d/t pt receiving 18 units of Novolog at HS for an elevated BG. Day shift provider needs to be notified to resume pt?s Artemio since it was on hold for her procedure yesterday. PIV in left FA SL and flushes well. Pt hopeful on discharging home today. ?
[2023-01-30 07:00] VITALS: BP 160/65; PULSE 49; PULSE 50; RESP 18; TEMP 36.4; O2SAT 90
[2023-01-30] MEDS: INSULIN ASPART 100 UNIT/ML 20 UNIT SUBCUT ×2 (09:13→12:47)
[2023-01-30] MEDS: FUROSEMIDE 10 MG/ML inj 80 MG IVP (09:13)
[2023-01-30] MEDS: INSULIN ASPART 100 UNIT/ML SUBCUT ×2 (09:14→12:48)
[2023-01-30] MEDS: LOSARTAN POTASSIUM 50 MG TABLET 100 MG PO (09:15)
[2023-01-30] MEDS: MAGNESIUM OXIDE 400 MG TABLET PO (09:15)
[2023-01-30] MEDS: SERTRALINE 100 MG TABLET PO (09:15)
[2023-01-30] MEDS: METOPROLOL SUCCINATE (XL) 100 MG TAB PO (09:15)
--- NOTE | 2023-01-30 09:15 | PM.GSPN ---
Subjective Subjective Date Seen: 01/30/23 Interval history: Patient is doing well postoperatively. Her outer dressing was changed yesterday because of serosanguineous bloody drainage. She tolerated regular diet. She denies shortness of breath but has been on oxygen. Exam Narrative: Exam Narrative: Right breast: Surgical incision was examined and the packing was removed. There is mild erythema medially and that is significantly decreased. There are no clots or active bleeding noted in the wound bed. The wound was repacked with moist gauze and covered by dry gauze and tape. Const: Vital Signs, click to edit/add: Vital Signs - 24 hr 01/29/23 11:00 01/29/23 13:15 01/29/23 13:30 Temperature 97.8 F 97.8 F 97.8 F Pulse Rate 55 L Pulse Rate [Left A pical] 55 L 66 Pulse Rate [Left P ulse Oximeter] Respiratory Rate 20 20 20 Blood Pressure [Le ft Arm] 167/73 H Blood Pressure [Ri ght Arm] 173/61 H 143/90 H Pulse Oximetry 93 88 Oxygen Delivery Me thod Nasal Cannula Room Air Nasal Cannula Oxygen Flow Rate 1 1 1 01/29/23 13:55 01/29/23 15:00 01/29/23 15:00 Temperature 97.8 F 99.3 F Pulse Rate Pulse Rate [Left A pical] 59 L 67 Pulse Rate [Left P ulse Oximeter] Respiratory Rate 20 20 Blood Pressure [Le ft Arm] Blood Pressure [Ri ght Arm] 161/66 H 161/67 H Pulse Oximetry 88 88 88 Oxygen Delivery Me thod Nasal Cannula Nasal Cannula Nasal Cannula Oxygen Flow Rate 1 1.5 1.5 01/29/23 15:00 01/29/23 15:00 01/29/23 18:20 Temperature Pulse Rate 68 Pulse Rate [Left A pical] 67 130 H Pulse Rate [Left P ulse Oximeter] Respiratory Rate 20 Blood Pressure [Le ft Arm] Blood Pressure [Ri ght Arm] 140/86 H Pulse Oximetry Oxygen Delivery Me thod Oxygen Flow Rate 01/29/23 19:00 01/29/23 23:00 01/29/23 23:00 Temperature 97.8 F Pulse Rate 56 L Pulse Rate [Left A pical] 141 H Pulse Rate [Left P ulse Oximeter] 56 L Respiratory Rate 20 20 Blood Pressure [Le ft Arm] Blood Pressure [Ri ght Arm] 141/97 H Pulse Oximetry 88 Oxygen Delivery Me thod Nasal Cannula Oxygen Flow Rate 1.5 01/29/23 23:00 01/29/23 23:00 01/30/23 03:00 Temperature 97.7 F 97.7 F Pulse Rate Pulse Rate [Left A pical] Pulse Rate [Left P ulse Oximeter] 56 L 53 L Respiratory Rate 20 20 20 Blood Pressure [Le ft Arm] Blood Pressure [Ri ght Arm] 160/83 H 160/71 H Pulse Oximetry 90 90 86 L Oxygen Delivery Me thod Nasal Cannula Nasal Cannula CPAP Oxygen Flow Rate 1.5 1.5 1.5 01/30/23 07:00 01/30/23 07:00 Temperature 97.5 F L Pulse Rate 49 L Pulse Rate [Left A pical] Pulse Rate [Left P ulse Oximeter] 50 L Respiratory Rate 18 Blood Pressure [Le ft Arm] 160/65 H Blood Pressure [Ri ght Arm] Pulse Oximetry 90 Oxygen Delivery Me thod Nasal Cannula Oxygen Flow Rate 0.5 Progress Note: A&P Assessment and plan (1) Infection of right breast: Status: Acute Plan 62-year-old female admitted to the hospital with shortness of breath and developed recurrent right breast infection s/p excisional debridement in the operating room POD 1. Patient is okay to discharge home from surgery standpoint. She will need daily wet-to-dry dressing changes until she sees a provider and wound clinic. Patient would possibly benefit from a VAC in the future.
[2023-01-30] MEDS: NYSTATIN POWDER 1 APPLIC TOPICAL (09:16)
[2023-01-30] MEDS: POTASSIUM CHLORIDE 10 MEQ CAPSULE ER 40 MEQ PO (09:36)
--- NOTE | 2023-01-30 11:12 | P.DS_ITS ---
DS: Providers Provider Date Seen: 01/30/23 Date of admission: 01/22/23 09:09 Primary care physician: Mateusz Beavers MD Admitting Clinician: Hua Kim MD Consults: 01/22/23 10:13 Consult to Respiratory Therapy [CONS] Routine Comment: Reason(s) for RT Consult:: New COPD/Asthma Diag Consult Comment: former smoker; likely undiagnosed COPD, hypoxia; CHF+COPD 01/22/23 10:14 Consult to Physical Therapy [CONS] Routine Comment: Reason(s) for PT Consult:: Evaluate and Treat Any Restrictions?:: No Restrictions 01/22/23 10:15 Consult to Occupational Therapy [CONS] Routine Comment: Reason(s) for OT Consult:: Evaluate and Treat ADLs Prior to Discharge Any Restrictions?:: No Restrictions 01/28/23 12:08 Consult to Physician [CONS] Routine Comment: Consulting Provider: Noe Gastelum Has provider been notified: Yes Attending Physician on discharge: Shea Carey [facility], PA-C [facility] Date of Discharge: 01/30/23 DS: Diagnosis Discharge Diagnosis (1) Type 2 diabetes mellitus: Status: Chronic Problem details: During hospitalization noted hyperglycemia for which daily Levemir was increased and split into BID dosing. Resuming normal dosing at discharge. Continued on mealtime insulin and sliding scale. Close follow-up with PCP. (2) Cellulitis of right breast: Status: Acute Problem details: Started on clindamycin knowing increased risk of recurrence with clinidamycin On 01/28 an abscess with drainage was noted. Ultrasound obtained. Dr. Gastelum from General surgery performed excisional biopsy right breast with partial incisional closure. Clindamycin discontinued postoperatively. Patient follow-up with Dr. Fam in 1 week as well as Wound Clinic for dressing changes. (3) BILLIE (obstructive sleep apnea): Status: Acute Problem details: Continued with CPAP (4) Atrial fibrillation with RVR: Status: Acute Problem details: Following episode of RVR, she was weaned off of diltiazem due to CHF with reduced EF and continued on metoprolol. She was started on Eliquis (01/23). Continue metoprolol and Eliquis on discharge, close follow-up with PCP. Cardiology as needed. (5) Systolic CHF, acute: Status: Acute Problem details: EF 46%; enlarged RA Abnormal Inferior Wall; hx of previous STEMI with PCI Lasix increased to 40 mg b.i.d. on discharge following hospital course with IV diuresis with 80 mg b.i.d.. Close follow-up with PCP (6) Tobacco dependence in remission: Status: Chronic Problem details: - quit abruptly about 2 months ago -will need outpatient PFTs -presumed undiagnosed COPD (7) Hydronephrosis concurrent with and due to calculi of kidney and ureter: Status: Acute Problem details: - CT scan of chest, abdomen, pelvis on 01/21/2023 demonstrated the following findings: Mild left-sided hydroureteronephrosis with 6 millimeter partially obstructing stone in the left UVJ. - outpatient Urology follow-up (8) Hypokalemia: Status: Acute Problem details: - resolved, likely from ongoing diarrhea and inadequate oral supplementation - continue oral replacement at discharge, with close follow-up, repeat BMP with PCP. (9) Clostridium difficile diarrhea: Status: Acute Problem details: H/O 12/17 following IV antibiotics. Diarrhea again noted during this hospital course, C difficile negative on the following dates - 01/22: C diff pcr negative vanco stopped - 01/25 C diff pcr negative - 01/28 complains of diarrhea. C diff negative (10) Lesion of adrenal gland: Status: Acute Problem details: CT scan showing Bilateral adrenal nodules, 1 of which meets criteria for an adenoma. The larger lesion in the left adrenal gland measures greater than 10 Hounsfield units, and is favored to represent a lipid poor adenoma. - Dr. Fam, general surgery, spoke with the patient about these findings and have recommended outpatient follow-up with her primary care provider to obtain an on urgent adrenal mass protocol CT. DS: Summary Hospital Course Hospital Course: [age] year old female past medical history significant for insulin- dependent diabetes mellitus, BILLIE on CPAP, chronic systolic heart failure, tobacco dependence, C difficile, was admitted to the medical floor for further management and workup of dyspnea, hypoxia in setting of overall not feeling well. Course of care and details as noted above. Outpatient follow-up to include: General surgery, Wound Care Clinic, Urology, PFTs with further COPD workup, CT adrenal mass protocol Home Lasix dose was increased. Patient is discharged with home oxygen. Remainder of chronic medical comorbidities were monitored and managed with home medications. Status at Discharge Overall status at discharge: patient is back to baseline Time Spent with Patient Time attestation: Total time spent providing and/or coordinating discharge services: Time spent: Greater than 30 minutes Exam Narrative: Exam Narrative: PHYSICAL EXAM General: Pleasant, conversant, NAD Cardiovascular: IRRR Pulmonary: No dyspnea on nasal cannula Neurological: Alert, answering questions appropriately Skin: Warm, dry. Const: Vital Signs, click to edit/add: Vital Signs - 24 hr 01/29/23 13:15 01/29/23 13:30 01/29/23 13:55 Temperature 97.8 F 97.8 F 97.8 F Pulse Rate 55 L Pulse Rate [Left A pical] 66 59 L Pulse Rate [Left P ulse Oximeter] Respiratory Rate 20 20 20 Blood Pressure [Le ft Arm] Blood Pressure [Ri ght Arm] 173/61 H 143/90 H 161/66 H Pulse Oximetry 88 88 Oxygen Delivery Me thod Room Air Nasal Cannula Nasal Cannula Oxygen Flow Rate 1 1 1 01/29/23 15:00 01/29/23 15:00 01/29/23 15:00 Temperature 99.3 F Pulse Rate Pulse Rate [Left A pical] 67 67 Pulse Rate [Left P ulse Oximeter] Respiratory Rate 20 20 Blood Pressure [Le ft Arm] Blood Pressure [Ri ght Arm] 161/67 H Pulse Oximetry 88 88 Oxygen Delivery Me thod Nasal Cannula Nasal Cannula Oxygen Flow Rate 1.5 1.5 01/29/23 15:00 01/29/23 18:20 01/29/23 19:00 Temperature 97.8 F Pulse Rate 68 Pulse Rate [Left A pical] 130 H 141 H Pulse Rate [Left P ulse Oximeter] Respiratory Rate 20 Blood Pressure [Le ft Arm] Blood Pressure [Ri ght Arm] 140/86 H 141/97 H Pulse Oximetry 88 Oxygen Delivery Me thod Nasal Cannula Oxygen Flow Rate 1.5 01/29/23 23:00 01/29/23 23:00 01/29/23 23:00 Temperature Pulse Rate 56 L Pulse Rate [Left A pical] Pulse Rate [Left P ulse Oximeter] 56 L Respiratory Rate 20 20 Blood Pressure [Le ft Arm] Blood Pressure [Ri ght Arm] Pulse Oximetry 90 Oxygen Delivery Me thod Nasal Cannula Oxygen Flow Rate 1.5 01/29/23 23:00 01/30/23 03:00 01/30/23 07:00 Temperature 97.7 F 97.7 F Pulse Rate 49 L Pulse Rate [Left A pical] Pulse Rate [Left P ulse Oximeter] 56 L 53 L Respiratory Rate 20 20 Blood Pressure [Le ft Arm] Blood Pressure [Ri ght Arm] 160/83 H 160/71 H Pulse Oximetry 90 86 L Oxygen Delivery Me thod Nasal Cannula CPAP Oxygen Flow Rate 1.5 1.5 01/30/23 07:00 01/30/23 07:00 01/30/23 07:00 Temperature 97.5 F L Pulse Rate Pulse Rate [Left A pical] Pulse Rate [Left P ulse Oximeter] 50 L 50 L Respiratory Rate 18 18 Blood Pressure [Le ft Arm] 160/65 H Blood Pressure [Ri ght Arm] Pulse Oximetry 90 90 Oxygen Delivery Me thod Nasal Cannula Nasal Cannula Oxygen Flow Rate 0.5 0.5 DS: Data Data Completed and Pending Completed studies during hospitalization: Procedures Introduction of Other Gas into Respiratory Tract, Via Natural or Artificial Opening (12/15/22) Discharge Plan Discharge Disposition: Home, Self-Care Date of Admission: 01/22/23 09:09 Attending Provider on Discharge: Shea Carey Consulting Providers: Noe Gastelum Primary Care Provider: Mateusz Beavers Condition: Improved Anticipated Discharge Date/Time: 01/30/23 10:49 Discharge Medications: New Eliquis 5 mg Tablet 5 mg PO BID Qty: 60 0RF furosemide 40 mg tablet 40 mg PO BID Qty: 60 0RF potassium chloride 20 mEq tablet extended release 20 meq PO BID Qty: 60 2RF Continued insulin aspart U-100 [Novolog FlexPen U-100 Insulin] 100 unit/mL (3 mL) insulin pen 36 unit subcut TID metoprolol succinate 100 mg tablet extended release 24 hr 100 mg PO BID metformin 1,000 mg tablet 1,000 mg PO BID losartan 100 mg tablet 100 mg PO DAILY rosuvastatin 40 mg tablet 40 mg PO HS insulin glargine [Basaglar KwikPen U-100 Insulin] 100 unit/mL (3 mL) insulin pen 62 unit subcut QAM sertraline 100 mg tablet 100 mg PO QAM omega-3 fatty acids 500 mg capsule 500 mg PO DAILY multivitamin [Daily Multi-Vitamin] Tablet 1 tab PO DAILY aspirin 81 mg capsule 81 mg PO DAILY Discontinued chlorthalidone 25 mg tablet 12.5 mg PO DAILY amlodipine 10 mg tablet 10 mg PO DAILY potassium chloride 8 mEq capsule, extended release 8 meq PO BID Discharge Orders: Discharge Order (Routine); Ordered 01/30/23 Ordered By: Shea Carey Patient Education: Furosemide (By mouth), Potassium Chloride (By mouth), Apixaban (By mouth) (Eliquis), Heart Failure (GEN), Dyspnea (GEN), Incision and Drainage (DC) Additional Instructions: Wet to dry dressing changes daily to right breast wound until patient is seen in wound clinic. If patient is unable to have a family member do the dressing changes, she should be arranged to come to [facility] for dressing changes. No further antibiotics given recent bouts of Clostridium difficile. HOME OXYGEN 2 LITERS OUTPATIENT FOLLOW UP RECOMMENDATIONS: PFTs, presumed undiagnosed COPD; UROLOGY for Mild left-sided hydroureteronephrosis with 6 millimeter partially obstructing stone in the left UVJ; ADRENAL MASS PROTOCOL CT for finding of bilateral adrenal nodules, 1 of which meets criteria for an adenoma. The larger lesion in the left adrenal gland measures greater than 10 Hounsfield units, and is favored to represent a lipid poor adenoma Activity Level: Activity as Tolerated Activity Detail: No swimming Discharge Diet: Diabetic Follow Up Appointments: Baljeet Choe [Other] - 03/21/23 2:00 pm (CT scan of chest, abdomen, pelvis on 01/21/2023 demonstrated the following findings: Mild left-sided hydroureteronephrosis with 6 millimeter partially obstructing stone in the left UVJ) [facility] [Provider Group] - None (CT scan of chest, abdomen, pelvis on 01/21/2023 demonstrated the following findings: Mild left-sided hydroureteronephrosis with 6 millimeter partially obstructing stone in the left UVJ) Noe Gastelum MD [Staff Physician] - 03/28/23 3:00 pm ( [facility] for follow-up.) Mateusz Beavers MD [Primary Care Provider] - 02/08/23 11:20 pm ([facility] for post hospital follow-up, including recommendations for recheck potassium, outpatient PFTs, further workup for COPD, discharged on home O2, adrenal mass protocol CT for finding of bilateral adrenal nodules.) Diana Miranda CNP [Nurse Practitioner] - (Follow-up and wound clinic for management of right breast surgical wound. Follow-up should be within 1 week.) Forms: [employer] Info Instructions
--- NOTE | 2023-01-30 15:06 | PC.NURSE ---
Discharge note: The patient discharged home via wheel chair.. all discharge instructions were provided to the patient and oxygen teaching was provided to the patient from [place] RNas well as the discharge. The patients IV was removed. BAHMAN CASANOVA BSN
== END 2023-01-30 14:55 | disposition home or self-care (01) | DRG 987 ==
LOC: ED 16:38 → MEDSURG 17:17
PROVIDERS: Family Medicine; Hospitalist; Surgery; Admitting Provider Internal Medicine; Emergency Provider Family Medicine; PCP Family Medicine; Visit Provider Family Medicine
PROC: 0HBT0ZX Excision of Right Breast, Open Approach, Diagnostic (ICD-10-PCS; principal; 2023-01-29 12:00)
DX: I11.0 Hypertensive heart disease with heart failure (principal); I50.23 Acute on chronic systolic (congestive) heart failure; J96.01 Acute respiratory failure with hypoxia; N13.0 Hydronephrosis with ureteropelvic junction obstruction; N13.2 Hydronephrosis with renal and ureteral calculous obstruction; E66.2 Morbid (severe) obesity with alveolar hypoventilation; I48.20 Chronic atrial fibrillation, unspecified; A04.72 Enterocolitis due to Clostridium difficile, not specified as recurrent; Z68.41 Body mass index [BMI] 40.0-44.9, adult; F33.9 Major depressive disorder, recurrent, unspecified; E11.65 Type 2 diabetes mellitus with hyperglycemia; N61.1 Abscess of the breast and nipple; E87.6 Hypokalemia; J44.9 Chronic obstructive pulmonary disease, unspecified; E27.9 Disorder of adrenal gland, unspecified; I25.2 Old myocardial infarction; I25.10 Atherosclerotic heart disease of native coronary artery without angina pectoris; Z86.19 Personal history of other infectious and parasitic diseases; Z87.891 Personal history of nicotine dependence; Z79.4 Long term (current) use of insulin
CPT/HCPCS: 00400; 36415; 51702; 71045; 71046; 71250; 74176; 76642; 80048; 80053; 81001; 82803; 82962; 83605; 83735; 83880; 84100; 84132; 84145; 84443; 84484; 85025; 85027; 85379; 85651; 86140; 87040; 87086; 87186; 87493; 87631; 88304; 93005; 93306; 94640; 94761; 97110; 97116; 97161; 97165; 97530; 97535; 99285; A9270; G0378; J0360; J0665; J1940; J2250; J2704; J3010; J3480; J7050; J7120

== ENCOUNTER 2023-02-26 03:44 | Inpatient (IN) | payer MEDICARE, MEDICAID, SELFPAY ==
[2023-02-26] VITALS (22 sets, daily range): BP systolic 114–151; BP diastolic 41–81; PULSE 52–71; RESP 16–24; TEMP 36.5–36.9; O2SAT 90–93; BMI 38.3; BMI 38.9
--- NOTE | 2023-02-26 04:06 | ED_ITS ---
HPI - General Adult General Date Seen: 02/26/23 Chief complaint: Unspecified Complaint, Adult Stated complaint: Potassium levels are low Time Seen by Provider: 02/26/23 03:47 Source: patient Mode of arrival: ambulatory Limitations: no limitations History of Present Illness HPI narrative: Patient is a 62-year-old female with history of coronary artery disease, hypertension, diabetes, AFib with RVR on Eliquis presenting to the emergency department for hypokalemia. She states she was having a routine follow-up with her general surgeon for a chest abscess when they did lab work on her. She was called late tonight was told she had a low potassium at 2.2. She does states she has been having some dizziness over the past 2 days which she feels off centered. She states prior to coming in she took for for potassium pills. She usually takes 2 pills a day. He has been on potassium pills for some about 10 years she states. Denies fevers, chills, chest pain, shortness of breath, weakn ess, lightheadedness, numbness, cramping. She states she otherwise feels fine and would have waited till morning to follow-up but was told she had to come to the emergency department. She has seen her primary care provider 03/04/2023. She does note she has been having episodes of emesis daily since and she is not sure why. She states sometimes it is a small amount emesis and sometimes it is a large. She has also been having issues with intermittent diarrhea for the extended period of time. Related Data Home Medications Medication Instructions Recorded Confirmed aspirin 81 mg capsule 81 mg PO DAILY 12/15/22 01/21/23 insulin aspart U-100 100 unit/mL 36 unit subcut TID 12/15/22 01/21/23 (3 mL) subcutaneous pen (Novolog FlexPen U-100 Insulin aspart) insulin glargine 100 unit/mL (3 62 unit subcut QAM 12/15/22 01/21/23 mL) subcutaneous pen (Basaglar KwikPen U-100 Insulin) losartan 100 mg tablet 100 mg PO DAILY 12/15/22 01/21/23 metformin 1,000 mg tablet 1,000 mg PO BID 12/15/22 01/21/23 metoprolol succinate 100 mg 100 mg PO BID 12/15/22 01/21/23 tablet,extended release 24 hr multivitamin (Daily Multi-Vitamin 1 tab PO DAILY 12/15/22 01/21/23 tablet) omega-3 fatty acids 500 mg capsule 500 mg PO DAILY 12/15/22 01/21/23 rosuvastatin 40 mg tablet 40 mg PO HS 12/15/22 01/21/23 sertraline 100 mg tablet 100 mg PO QAM 12/15/22 01/21/23 Previous Rx's Medication Instructions Recorded apixaban 5 mg tablet (Eliquis) 5 mg PO BID #60 tabs 01/30/23 furosemide 40 mg tablet 40 mg PO BID #60 tabs 01/30/23 potassium chloride 20 mEq 20 meq PO BID #60 tabs 01/30/23 tablet,extended release Allergies Allergy/AdvReac Type Severity Reaction Status Date / Time iodine AdvReac Severe Anaphylaxis Verified 01/21/23 09:42 shellfish derived AdvReac Severe Anaphylaxis Verified 01/21/23 09:42 ticagrelor [From Brilinta] AdvReac Severe Rash Verified 01/21/23 09:42 Review of Systems Status of ROS: Reports: 10 or more systems reviewed and unremarkable except as noted in History and below [facility] Medical History Atrial fibrillation with RVR ?I48.91 - Unspecified atrial fibrillation (ICD-10) Systolic CHF, acute ?I50.21 - Acute systolic (congestive) heart failure (ICD-10) Tobacco dependence in remission ?F17.201 - Nicotine dependence, unspecified, in remission (ICD-10) Clostridium difficile diarrhea ?A04.72 - Enterocolitis due to Clostridium difficile, not specified as recurrent (ICD-10) Type 2 diabetes mellitus ?E11.9 - Type 2 diabetes mellitus without complications (ICD-10) Dyspnea ?R06.00 - Dyspnea, unspecified (ICD-10) Hypoxia ?R09.02 - Hypoxemia (ICD-10) Congestive heart failure ?I50.9 - Heart failure, unspecified (ICD-10) Bilateral pleural effusion ?J90 - Pleural effusion, not elsewhere classified (ICD-10) Pneumonia ?J18.9 - Pneumonia, unspecified organism (ICD-10) Depression, recurrent ?F33.9 - Major depressive disorder, recurrent, unspecified (ICD-10) Spinal stenosis, lumbar region with neurogenic claudication ?M48.062 - Spinal stenosis, lumbar region with neurogenic claudication (ICD- 10) Abscess of right breast ?N61.1 - Abscess of the breast and nipple (ICD-10) Adenomatous colon polyp ?D12.6 - Benign neoplasm of colon, unspecified (ICD-10) Ureteral stone with hydronephrosis ?N13.2 - Hydronephrosis with renal and ureteral calculous obstruction (ICD- 10) Coronary artery disease involving teller coronary artery of teller heart without angina pectoris ?I25.10 - Atherosclerotic heart disease of teller coronary artery without angina pectoris (ICD-10) BILLIE (obstructive sleep apnea) ?G47.33 - Obstructive sleep apnea (adult) (pediatric) (ICD-10) STEMI (ST elevation myocardial infarction) ?I21.3 - ST elevation (STEMI) myocardial infarction of unspecified site (ICD- 10) Psoriasis ?L40.9 - Psoriasis, unspecified (ICD-10) Hypokalemia ?E87.6 - Hypokalemia (ICD-10) Sciatica ?M54.30 - Sciatica, unspecified side (ICD-10) Hyperlipidemia ?E78.5 - Hyperlipidemia, unspecified (ICD-10) Essential hypertension ?I10 - Essential (primary) hypertension (ICD-10) Surgical History H/O tubal ligation ?Z98.51 - Tubal ligation status (ICD-10) S/P rotator cuff repair ?Z98.890 - Other specified postprocedural states (ICD-10) H/O lithotripsy ?Z98.890 - Other specified postprocedural states (ICD-10) H/O arthroscopic knee surgery ?Z98.890 - Other specified postprocedural states (ICD-10) History of reduction surgery of right breast ?Z98.890 - Other specified postprocedural states (ICD-10) Hx of colonoscopy ?Z98.890 - Other specified postprocedural states (ICD-10) Previous back surgery ?Z98.890 - Other specified postprocedural states (ICD-10) Family History Brother Alcohol dependence Father Alcohol dependence Social History Narrative: Smoked 1ppd for 45 years, quit cold turkey 2 months ago. Denies alcohol use. Denies recreational drug use. Requests DNR DNI resuscitation status. Designates her sons as power of retort kiln burner for health should that be required. What is your current living situation?: I presently have a place to live Problems where you live: no known problems Problems where you live details: NA In the past 12 months, utilities in danger of being shut off: no In past 12 months, lack of transportation kept you from medical appts, meetings, work, or getting things needed for daily living: no In the past 12 mos, have been you worried that your food would run out before you had money to buy more?: never true In the past 12 mos, the food you bought just didn't last and you didn't have money to buy more?: never true Highest level of school completed/degree received: high school graduate Smoking Status: Former smoker What tobacco products do you use: cigarettes Smoking quit date/years: <= 15 years ago Do you use any of these nicotine containing products: None Second hand tobacco smoke exposure: No How often do you have a drink containing alcohol: never How often do you have six or more drinks on one occasion: Never AUDIT-C Alcohol total score: 0 Non-prescribed substance use: denies use Caffeine: Yes (sometimes pop) How often does anyone, including family, friends and others, physically hurt you : never How often does anyone, including family, friends and others, insult or talk down to you: never How often does anyone, including family, friends and others, threaten you with harm: never How often does anyone, including family, friends and others, scream or curse at you: never service: No Exam Narrative: Exam Narrative: Const: Well-nourished, Well-developed, in no distress Eyes: PERRL, no conjunctival injection, and symmetrical lids HENT: Atraumatic external nose and ears. Moist mucous membranes. Neck: Symmetric, trachea midline, No thyromegaly. CVS: RRR, No murmurs or gallops. Peripheral pulses 2+ and equal in all extremities RESP: Unlabored respiratory effort. Clear to auscultation bilaterally. GI: Nontender/Nondistended, No rebound or guarding. MSK:Extremities w/o deformity, Normal Active ROM Skin: Warm, Dry. No rashes or lesions. Neuro: Normal Muscle tone, No focal neurological deficits. Psych: Awake, Alert, & Oriented x3. Appropriate mood and affect. Const: Vital Signs, click to edit/add: Vital Signs - 24 hr 02/26/23 03:53 02/26/23 04:45 02/26/23 04:53 Temperature 97.7 F Pulse Rate 68 Pulse Rate [Pulse Oximeter] 54 L Respiratory Rate 16 Blood Pressure 125/73 Blood Pressure [Ri ght Upper Arm] 114/77 Pulse Oximetry 92 90 Oxygen Delivery Me thod Room Air 02/26/23 05:02 02/26/23 05:29 Temperature Pulse Rate Pulse Rate [Pulse Oximeter] Respiratory Rate Blood Pressure 130/66 Blood Pressure [Ri ght Upper Arm] Pulse Oximetry 90 Oxygen Delivery Me thod Course Vital Signs Vital signs: Initial Vital Signs Temperature 97.7 F 02/26/23 03:53 Temperature Source Temporal Artery Scan 02/26/23 03:53 Pulse Rate 54 L 02/26/23 03:53 Respiratory Rate 16 02/26/23 03:53 Blood Pressure 114/77 02/26/23 03:53 Blood Pressure Mean 89 02/26/23 03:53 Blood Pressure Position Sitting 02/26/23 03:53 Pulse Oximetry 92 02/26/23 03:53 Oxygen Delivery Method Room Air 02/26/23 03:53 Vital Signs Temperature 97.7 F 02/26/23 03:53 Pulse Rate 54 L 02/26/23 03:53 Respiratory Rate 16 02/26/23 03:53 Blood Pressure 114/77 02/26/23 03:53 Pulse Oximetry 92 02/26/23 03:53 Oxygen Delivery Method Room Air 02/26/23 03:53 Temperature 97.7 F 02/26/23 03:53 Pulse Rate 68 02/26/23 04:45 Respiratory Rate 16 02/26/23 03:53 Blood Pressure 130/66 02/26/23 05:02 Pulse Oximetry 90 02/26/23 05:29 Oxygen Delivery Method Room Air 02/26/23 03:53 Medications Administered Medications: Generic Name Dose Route Start Last Admin Trade Name Freq PRN Reason Stop Dose Admin Potassium Chloride 10 meq in 100 mls @ 100 mls/hr 02/26/23 05:00 02/26/23 05:43 Potassium Chloride IVPB 02/26/23 07:29 100 mls/hr Q90M JOSH Administration Lactated Ringer's 125 ml 02/26/23 05:00 02/26/23 05:26 Lactated Ringers 1000 Ml IV 125 ml CONT JOSH Administration Discontinued Medications Generic Name Dose Route Start Last Admin Trade Name Gonzaloq PRN Reason Stop Dose Admin Potassium Chloride 40 meq 02/26/23 04:57 02/26/23 05:39 Potassium Chloride 10 Meq Capsule Er PO 02/26/23 04:58 40 meq ONCE ONE Administration Medical Decision Making MDM Narrative Medical decision making narrative: Patient is a 62-year-old female presenting to emergency department for hypokalemia. This could be secondary to her emesis and diarrhea. She did take potassium before she arrived. Will recheck a CBC, BMP, magnesium. She is otherwise feeling well at this time. EKG showed no abnormalities. Cbc returned showing no concerning findings. BMP shows hypokalemia and low chloride. She has also has an MARCELLA. Currently her creatinine is at 1.7 previously she was at 0.6. Magnesium is normal. All this is likely due to her vomiting and dehydration. We will give her some IV potassium and oral potassium to replenish it. Also started lactated Ringer's due to the included potassium. She is going to be admitted to the hospitalist service. Of note patient was satting in the mid to low 80s for us but she is supposed to be wearing oxygen at home which she does not. She states her oxygen is usually around 85% at home. She started satting much better once 1 L nasal cannula was placed Lab Data Labs: Lab Results 02/26/23 Range/Units 04:05 WBC 10.89 (4.50-11.00) K/uL RBC 5.73 H (4.00-5.20) m/uL Hgb 15.2 (12.0-16.0) gm/dL Hct 48.7 (33.0-51.0) % MCV 85 (80-100) fL MCH 27 (26-34) pg MCHC 31 L (32-36) gm/dL RDW Coeff of Vanessa 16.4 H (11.5-15.5) % Plt Count 319 (140-440) K/uL Neut % (Auto) 64.2 (42.0-72.0) % Lymph % (Auto) 24.6 (20-44) % [place] % (Auto) 6.6 (0.0-11.0) % Eos % (Auto) 3.9 (0.0-7.0) % Baso % (Auto) 0.5 (0.0-3.0) % Neut # (Auto) 6.99 (1.7-7.0) K/uL Lymph # (Auto) 2.68 (0.90-2.90) K/uL [place] # (Auto) 0.70 (0.00-0.90) K/UL Eos # (Auto) 0.43 (0.00-0.50) K/uL Baso # (Auto) 0.05 (0.00-0.30) K/uL Abs Immat Gran (auto) 0.02 (0.00-0.30) K/uL Imm/Tot Granulo (auto) 0.2 % Sodium 139 (135-149) mmol/L Potassium 2.3 L* (3.6-5.1) mmol/L Chloride 90 L (96-114) mmol/L Carbon Dioxide 37 H (20-32) mmol/L Anion Gap 12 (7-15) mEq/L BUN 40 H (7-30) mg/dL Creatinine 1.7 H (0.5-1.5) mg/dL Estimated Creat Clear 29.25 Estimated GFR 33 ml/min Glucose 286 H (60-115) mg/dL Calcium 8.9 (8.4-10.6) mg/dL Magnesium 1.9 (1.5-2.6) mg/dL ECG Data Attestation: I personally reviewed and interpreted this ECG as follows: Prior ECG tracings: available for review Interpretation: Normal sinus rhythm with 36 beats per minute, normal intervals, normal axis, no ST or T-wave abnormalities. Previous EKG show AFib. Discharge Plan Discharge Clinical Impression: Acute kidney injury, Acute hypokalemia Patient Disposition: Admitted As Observation Discharge Location: [facility] Condition: Stable
[2023-02-26 04:14] LABS: Basophils Absolute Auto 0.05 K/uL (0.00-0.30); Basophils Percent Auto 0.5 % (0.0-3.0); Eosinophils Absolute Auto 0.43 K/uL (0.00-0.50); Eosinophils Percent Auto 3.9 % (0.0-7.0); Hematocrit 48.7 % (33.0-51.0); Hemoglobin* 15.2 gm/dL (12.0-16.0); Immature Granulocytes Abs Auto 0.02 K/uL (0.00-0.30); Immature Granulocytes Pct Auto 0.2 %; Lymphocytes Absolute Auto 2.68 K/uL (0.90-2.90); Lymphocytes Percent Auto 24.6 % (20-44); Mean Corpuscular HGB Conc 31 gm/dL (32-36); Mean Corpuscular Hemoglobin 27 pg (26-34); Mean Corpuscular Volume 85 fL (80-100); Monocytes Percent Auto 6.6 % (0.0-11.0); Neutrophils Absolute Auto 6.99 K/uL (1.7-7.0); Neutrophils Percent Auto 64.2 % (42.0-72.0); Platelet Count* 319 K/uL (140-440); RDW Coefficient of Variation % 16.4 % (11.5-15.5); Red Blood Count 5.73 m/uL (4.00-5.20); Slide Review Reflex No; White Blood Count* 10.89 K/uL (4.50-11.00)
[2023-02-26 04:26] LABS: Chloride* 90 mmol/L (96-114); Sodium* 139 mmol/L (135-149)
[2023-02-26 04:29] LABS: Blood Urea Nitrogen* 40 mg/dL (7-30); Carbon Dioxide* 37 mmol/L (20-32); Creatinine* 1.7 mg/dL (0.5-1.5); Est. Creatinine Clearance* 29.25; Estimated Glomerular Filt Rate 33 ml/min
[2023-02-26 04:30] LABS: Calcium* 8.9 mg/dL (8.4-10.6); Glucose* 286 mg/dL (60-115); Magnesium* 1.9 mg/dL (1.5-2.6)
[2023-02-26 04:49] LABS: Anion Gap 12 mEq/L (7-15); Potassium* 2.3 mmol/L (3.6-5.1)
[2023-02-26] MEDS: LACTATED RINGERS 1000 ML 125 ML IV (05:26)
[2023-02-26] MEDS: POTASSIUM CHLORIDE 10 MEQ CAPSULE ER 40 MEQ PO (05:39)
[2023-02-26] MEDS: POTASSIUM CHLORIDE 10 MEQ/100 ML PIGGYBACK 100 MEQ IVPB ×2 (05:43→06:55)
--- NOTE | 2023-02-26 06:16 | W.PM.TELEH&P ---
Telehealth- H&P: HPI History of Present Illness Time Seen by Provider: 05:33 Date Seen: 02/26/23 Chief complaint: Potassium levels are low Narrative: Nela Gutierrez is seen as an Interactive Telehealth visit. Nela Gutierrez is a 62 year old Female with a history of systolic congestive heart failure, obesity, COPD, insulin-dependent type 2 diabetes with high insulin resistance, hypertension, obstructive sleep apnea, stable atherosclerotic coronary artery disease, atrial fibrillation intermittent on Eliquis, bilateral adrenal nodules possible adenoma and recurrent hypokalemia who was sent in today after routine lab at her surgeon's office showed significant hypokalemia. She states that she felt pretty much at her baseline with the exception that she has had ongoing daily vomiting since around [place]. She says it occurs generally around 2 in the afternoon and she vomits 1 time. It is generally clear liquid no undigested food. She has some anorexia after the event and just does not feel well. Bowel movements have been normal. Her congestive heart failure has been well-controlled with no significant exertional dyspnea orthopnea or PND no episodes of chest pain. She was found to have a potassium of 2.3 and tonight her creatinine was elevated to 1.7 from her baseline of 0.6 last month. Her magnesium today was 1.9. She has high insulin resistance. She says her blood sugars typically are in the 300 range. Has not had any symptomatic lows. She has known bilateral adrenal nodules on CT. She is being admitted tonight for electrolyte replacement and further evaluation as well as evaluation of her acute renal injury. Review of Systems Status of ROS: Reports: 10 or more systems reviewed and unremarkable except as noted in History and below [facility] Medical History (Updated 02/26/23 @ 06:40 by Cedric Stone MD) Congestive heart failure ?I50.9 - Heart failure, unspecified (ICD-10) Type 2 diabetes mellitus ?E11.9 - Type 2 diabetes mellitus without complications (ICD-10) Atrial fibrillation with RVR ?I48.91 - Unspecified atrial fibrillation (ICD-10) Systolic CHF, acute ?I50.21 - Acute systolic (congestive) heart failure (ICD-10) Tobacco dependence in remission ?F17.201 - Nicotine dependence, unspecified, in remission (ICD-10) Clostridium difficile diarrhea ?A04.72 - Enterocolitis due to Clostridium difficile, not specified as recurrent (ICD-10) Dyspnea ?R06.00 - Dyspnea, unspecified (ICD-10) Hypoxia ?R09.02 - Hypoxemia (ICD-10) Bilateral pleural effusion ?J90 - Pleural effusion, not elsewhere classified (ICD-10) Pneumonia ?J18.9 - Pneumonia, unspecified organism (ICD-10) Depression, recurrent ?F33.9 - Major depressive disorder, recurrent, unspecified (ICD-10) Spinal stenosis, lumbar region with neurogenic claudication ?M48.062 - Spinal stenosis, lumbar region with neurogenic claudication (ICD-10) Abscess of right breast ?N61.1 - Abscess of the breast and nipple (ICD-10) Adenomatous colon polyp ?D12.6 - Benign neoplasm of colon, unspecified (ICD-10) Ureteral stone with hydronephrosis ?N13.2 - Hydronephrosis with renal and ureteral calculous obstruction (ICD-10) Coronary artery disease involving tanacross coronary artery of tanacross heart without angina pectoris ?I25.10 - Atherosclerotic heart disease of tan[place] coronary artery without angina pectoris (ICD-10) BILLIE (obstructive sleep apnea) ?G47.33 - Obstructive sleep apnea (adult) (pediatric) (ICD-10) STEMI (ST elevation myocardial infarction) ?I21.3 - ST elevation (STEMI) myocardial infarction of unspecified site (ICD-10) Psoriasis ?L40.9 - Psoriasis, unspecified (ICD-10) Hypokalemia ?E87.6 - Hypokalemia (ICD-10) Sciatica ?M54.30 - Sciatica, unspecified side (ICD-10) Hyperlipidemia ?E78.5 - Hyperlipidemia, unspecified (ICD-10) Essential hypertension ?I10 - Essential (primary) hypertension (ICD-10) Surgical History H/O tubal ligation ?Z98.51 - Tubal ligation status (ICD-10) S/P rotator cuff repair ?Z98.890 - Other specified postprocedural states (ICD-10) H/O lithotripsy ?Z98.890 - Other specified postprocedural states (ICD-10) H/O arthroscopic knee surgery ?Z98.890 - Other specified postprocedural states (ICD-10) History of reduction surgery of right breast ?Z98.890 - Other specified postprocedural states (ICD-10) Hx of colonoscopy ?Z98.890 - Other specified postprocedural states (ICD-10) Previous back surgery ?Z98.890 - Other specified postprocedural states (ICD-10) Family History Brother Alcohol dependence Father Alcohol dependence Social History Narrative: Smoked 1ppd for 45 years, quit cold turkey 2 months ago. Denies alcohol use. Denies recreational drug use. Requests DNR DNI resuscitation status. Designates her sons as power of claims attorney for health should that be required. What is your current living situation?: I presently have a place to live Problems where you live: no known problems Problems where you live details: n/a In the past 12 months, utilities in danger of being shut off: no In past 12 months, lack of transportation kept you from medical appts, meetings, work, or getting things needed for daily living: no In the past 12 mos, have been you worried that your food would run out before you had money to buy more?: never true In the past 12 mos, the food you bought just didn't last and you didn't have money to buy more?: never true Highest level of school completed/degree received: high school graduate Smoking Status: Former smoker What tobacco products do you use: cigarettes Smoking quit date/years: <= 15 years ago Do you use any of these nicotine containing products: None Nicotine containing products detail: Quit November 2022 Second hand tobacco smoke exposure: No How often do you have a drink containing alcohol: never How often do you have six or more drinks on one occasion: Never AUDIT-C Alcohol total score: 0 Non-prescribed substance use: denies use Caffeine: No How often does anyone, including family, friends and others, physically hurt you: never How often does anyone, including family, friends and others, insult or talk down to you: never How often does anyone, including family, friends and others, threaten you with harm: never How often does anyone, including family, friends and others, scream or curse at you: never service: No Meds Home Medications and Allergies Home Medications Medication Instructions Recorded Confirmed Type aspirin 81 mg capsule 81 mg PO DAILY 12/15/22 02/26/23 History insulin aspart U-100 100 unit/mL 36 unit subcut TID 12/15/22 02/26/23 History (3 mL) subcutaneous pen (Novolog FlexPen U-100 Insulin aspart) insulin glargine 100 unit/mL (3 62 unit subcut QAM 12/15/22 02/26/23 History mL) subcutaneous pen (Basaglar KwikPen U-100 Insulin) losartan 100 mg tablet 100 mg PO DAILY 12/15/22 01/21/23 History metformin 1,000 mg tablet 1,000 mg PO BID 12/15/22 02/26/23 History metoprolol succinate 100 mg 100 mg PO BID 12/15/22 02/26/23 History tablet,extended release 24 hr multivitamin (Daily Multi-Vitamin 1 tab PO DAILY 12/15/22 02/26/23 History tablet) omega-3 fatty acids 500 mg capsule 500 mg PO DAILY 12/15/22 02/26/23 History rosuvastatin 40 mg tablet 40 mg PO HS 12/15/22 02/26/23 History sertraline 100 mg tablet 100 mg PO QAM 12/15/22 02/26/23 History Home Medication Comments: Patient also on furosemide twice daily and apixaban. Med rec was not reconciled at the time of dictation Allergies Allergy/AdvReac Type Severity Reaction Status Date / Time iodine AdvReac Severe Anaphylaxis Verified 01/21/23 09:42 shellfish derived AdvReac Severe Anaphylaxis Verified 01/21/23 09:42 ticagrelor [From Brilinta] AdvReac Severe Rash Verified 01/21/23 09:42 Exam Narrative Exam Narrative: Physical Exam GENERAL: ?vital signs reviewed, well developed and nourished, in no distressResting comfortably HEENT: pupils are equal round and reactive to light, extraocular movements are grossly within normal limits and oral mucosa is moist. NECK: Supple without lymphadenopathy or thyromegaly according to nursing staff examination observation HEART: Regular rate and rhythm without any rubs, murmurs, or gallops. LUNGS: Clear to auscultation bilaterally with good air movement throughout ABDOMEN: Observation from nurse assisted exam, abdomen appears soft, nontender, and nondistended with Positive bowel sounds noted.Corpulent nontender EXTREMITIES: Strength and sensation is observed to be grossly within normal limits in the upper and lower extremities.? No focal strength deficit is observed. SKIN:? Observed warm and dry with color normal Const Vital Signs, click to edit/add: Vital Signs - 24 hr 02/26/23 03:53 02/26/23 04:45 02/26/23 04:53 Temperature 97.7 F Pulse Rate 68 Pulse Rate [Pulse Oximeter] 54 L Respiratory Rate 16 Blood Pressure 125/73 Blood Pressure [Right Upper Arm] 114/77 Pulse Oximetry 92 90 Oxygen Delivery Method Room Air 02/26/23 05:02 02/26/23 05:29 Temperature Pulse Rate Pulse Rate [Pulse Oximeter] Respiratory Rate Blood Pressure 130/66 Blood Pressure [Right Upper Arm] Pulse Oximetry 90 Oxygen Delivery Method Hospitalist - H&P: Result Labs Labs: Laboratory Results - last 24 hr 02/26/23 04:05 WBC 10.89 RBC 5.73 H Hgb 15.2 Hct 48.7 MCV 85 MCH 27 MCHC 31 L RDW Coeff of Vanessa 16.4 H Plt Count 319 Neut % (Auto) 64.2 Lymph % (Auto) 24.6 [place] % (Auto) 6.6 Eos % (Auto) 3.9 Baso % (Auto) 0.5 Neut # (Auto) 6.99 Lymph # (Auto) 2.68 [place] # (Auto) 0.70 Eos # (Auto) 0.43 Baso # (Auto) 0.05 Abs Immat Gran (auto) 0.02 Imm/Tot Granulo (auto) 0.2 Sodium 139 Potassium 2.3 L* Chloride 90 L Carbon Dioxide 37 H Anion Gap 12 BUN 40 H Creatinine 1.7 H Estimated Creat Clear 29.25 Estimated GFR 33 Glucose 286 H Calcium 8.9 Magnesium 1.9 ECG Attestation: I personally reviewed and interpreted this ECG as follows: ECG interpretation date: 02/26/23 ECG interpretation time: 06:37 Interpretation: Normal sinus rhythm 76 bpm QT corrected 0.[address] wave flattening Assessment and Plan Assessment and plan (1) Acute hypokalemia: Status: Acute (2) Acute kidney injury: Status: Acute (3) Lesion of adrenal gland: Status: Acute Assessment and Plan: Congestive heart failure 62-year-old with history of congestive heart failure systolic last EF 46%, high insulin resistant type 2 diabetes mellitus, obesity, obstructive sleep apnea, adrenal adenoma, essential hypertension, who presents with hypokalemia and acute kidney injury metabolic alkalosis. In addition she is having daily episodes of vomiting. Her refractory hypokalemia may be related to type IV renal tubular acidosis, contraction alkalosis exacerbated by furosemide. She appears euvolemic at this time. She has a history of bilateral adrenal adenomas and the concern for possible primary hyperaldosterone-ism could be considered as well. Today will replete her potassium anticipate she will have a high need for potassium repletion. In addition we will run IV fluids to treat any degree of volume contraction. Her diabetes is suboptimally controlled anticipate she need has higher needs for insulin glargine and would recommend the twice daily dosing schedule and continue prandial insulin aspart. CHF seems to be well compensated CODE STATUS is full Telehealth: Statement Statement Telehealth Visit: Today's History and Physical is provided via interactive telehealth by Cedric Stone MD.? Patient is located at [facility].? Provider is located at [facility].? Nursing staff assisted with the patient's exam. The visit being done today meets criteria for a telehealth visit and the patient or patient?s parent/guardian is aware the visit is a telehealth visit. Camera Start Time: 05:33 Camera End Time: 05:58
[2023-02-26] MEDS: 0.9 % SODIUM CHLORIDE 500 ML 500 ML IV (07:41)
[2023-02-26] MEDS: 0.9 % SODIUM CHLORIDE 1000 ml 1,000 ML 125 ML IV ×2 (07:41→19:46)
[2023-02-26] MEDS: INSULIN ASPART 100 UNIT/ML SUBCUT ×4 (08:17→20:49)
--- NOTE | 2023-02-26 11:23 | PM.IMPN1 ---
Progress Note: A&P Assessment and plan (1) Numbness and tingling of left side of face: Problem details: Stroke code called, CT head without contrast wnl, further investigation reveals symptoms intermittent over 3 days and associated with dry mouth, less likely stroke. She is also on apixiban already for afib/stroke prevention. I spoke with Dr. Ruiz who recommended no further imaging, continue apixaban and outpatient w/u with MR brain. Status: Acute (2) Acute hypokalemia: Problem details: - hypokalemia, on 4 medications for hypertension, known adrenal nodule => will work up for hyperaldosteronism (ordered renin activity/PRA) - continue to replace potassium and recheck in the morning. Status: Acute (3) Acute kidney injury: Problem details: Give gentle hydration (h/o HF). Hold lasix, losartan, and chlorthalidone. Status: Acute (4) Atrial fibrillation: Problem details: - continue eliquis and metoprolol. Status: Chronic (5) Congestive heart failure: Problem details: - combined systolic/diastolic HF, EF 46%. - chronic, stable, on lasix and chlorthalidone which need to be held at present due to MARCELLA and hypokalemia. Status: Chronic (6) Type 2 diabetes mellitus: Problem details: - Hold metformin while in MARCELLA. Use LA insulin, mealtime insulin, ISS. Status: Chronic (7) Lesion of adrenal gland: Status: Chronic Time Spent With Patient Total time spent: Today I spent 70 minutes rounding on the patient. Greater than 50% included discussing care with the neurologist, team, reviewing data, updating and managing the care plan. Subjective Time Seen by Provider: 11:05 Date Seen: 02/26/23 Interval history: Nela tells me that since she has been having an episode each day around 2:00 p.m. where she suddenly vomits a small amount of clear liquid. This occasionally happens again later in the day, but no more than twice each day. She otherwise feels fine and has no nausea. There is no food in the emesis. She notes that her mother had a hiatal hernia. The reason she is here today is because she went to get routine labs drawn and a clinic yesterday and was called in the middle of the night to tell her that her potassium was very low at 2.2. The person following up on the labs asked her to take 4 tabs of potassium and go to the ER because of this. She did both of those things. While I was interviewing and examining Nela, she suddenly licked and touched her lips and said there it is again. She notes a sensation of right lip/mouth and lower face numbness and tingling that has been intermittent over the last 3 days. She says it comes on each afternoon and is persistent until she falls asleep at night, then it is completely gone by morning. Exam Narrative: Exam Narrative: General: No acute distress. Awake, alert, oriented x3. No pallor. No jaundice. Nontender to palpation over right TMJ and jaw; palpation over this area did not make symptoms worse. No swelling or redness of face. Oropharynx: Clear. Mucous membranes moist. Cardiovascular: Regular rate and rhythm. No murmurs, gallops, or rubs. Respiratory: Clear to auscultation bilaterally. No wheezes or crackles. Abdomen: Bowel sounds present. Soft, nondistended, nontender. Neuro: NIHSS is 1 for right lower face decreased sensation and tingling. No slurred speech or dysarthria or word finding difficulty. Romberg is negative. Gait is within normal limits. Cranial nerves 2-12 are otherwise intact. Extraocular movements are full. No nystagmus. No facial asymmetry. Tongue is midline. Peripheral vision and vision are grossly intact. Strength is 5/5 in all 4 extremities. DTRs intact and symmetric. Light touch sensation is decreased on right lips and lower face and intact in the rest of face, body and extremities. Coordination is intact in upper and lower extremities. Const: Vital Signs, click to edit/add: Vital Signs - 24 hr 02/26/23 03:53 02/26/23 04:45 02/26/23 04:53 Temperature 97.7 F Pulse Rate 68 Pulse Rate [Pulse Oximeter] 54 L Respiratory Rate 16 Blood Pressure 125/73 Blood Pressure [Le ft Arm] Blood Pressure [Ri ght Upper Arm] 114/77 Blood Pressure [ri ght forearm] Pulse Oximetry 92 90 Oxygen Delivery Me thod Room Air Oxygen Flow Rate 02/26/23 05:02 02/26/23 05:29 02/26/23 06:31 Temperature 98.4 F Pulse Rate Pulse Rate [Pulse Oximeter] 71 Respiratory Rate 20 Blood Pressure 130/66 Blood Pressure [Le ft Arm] 115/64 Blood Pressure [Ri ght Upper Arm] Blood Pressure [ri ght forearm] Pulse Oximetry 90 91 Oxygen Delivery Me thod Nasal Cannula Oxygen Flow Rate 2.0 02/26/23 07:00 02/26/23 07:00 Temperature 97.9 F Pulse Rate Pulse Rate [Pulse Oximeter] 67 67 Respiratory Rate 20 20 Blood Pressure Blood Pressure [Le ft Arm] Blood Pressure [Ri ght Upper Arm] Blood Pressure [ri ght forearm] 129/54 L Pulse Oximetry 93 Oxygen Delivery Me thod Nasal Cannula Oxygen Flow Rate 2 Labs Labs: Laboratory Results - last 24 hr 02/26/23 04:05 WBC 10.89 RBC 5.73 H Hgb 15.2 Hct 48.7 MCV 85 MCH 27 MCHC 31 L RDW Coeff of Vanessa 16.4 H Plt Count 319 Neut % (Auto) 64.2 Lymph % (Auto) 24.6 [place] % (Auto) 6.6 Eos % (Auto) 3.9 Baso % (Auto) 0.5 Neut # (Auto) 6.99 Lymph # (Auto) 2.68 [place] # (Auto) 0.70 Eos # (Auto) 0.43 Baso # (Auto) 0.05 Abs Immat Gran (auto) 0.02 Imm/Tot Granulo (auto) 0.2 Sodium 139 Potassium 2.3 L* Chloride 90 L Carbon Dioxide 37 H Anion Gap 12 BUN 40 H Creatinine 1.7 H Estimated Creat Clear 29.25 Estimated GFR 33 Glucose 286 H Calcium 8.9 Magnesium 1.9 02/26/2023 4:00 a.m. EKG: Normal sinus rhythm with sinus arrhythmia, 76 beats per minute, cannot rule out anterior infarct, age undetermined 02/26/2023 11:52 a.m. normal sinus rhythm, 65 beats per minute, cannot rule out anterior infarct, age undetermined. ST and T-wave abnormality, consider lateral ischemia. Prolonged QT of 504 milliseconds. Ordering Physician: Susie Verde M.D. Date of Service: 02/26/23 Procedure(s): CT head/brain wo con Accession Number(s): [id number] cc: Susei Verde M.D.; Mateusz Beavers M.D.~ ADDENDUMINDICATION: Facial numbness for 2 days. COMPARISON: None. TECHNIQUE: CT of the brain/head without the use of IV contrast. Multiplanar axial, coronal, and sagittal reformats were reconstructed. FINDINGS: Normal abad-white matter differentiation throughout. No intracranial hemorrhage. No mass, mass effect, or midline shift. The ventricles are normal in size and shape. No fracture or focal osseous lesion. The mastoid and middle ears are clear. The paranasal sinuses are clear. Included orbit and globe are normal. IMPRESSION: Normal head CT. Please note that all CT scans at this facility use dose modulation, iterative reconstruction, and/or weight-based dosing when appropriate to reduce radiation dose to as low as reasonably achievable. Dictated by Yolis Pedersen MD @ 02/26/2023 11:50:22 AM ----- ADDENDUM ----- Dr. Ruiz confirmed receipt of report at 11:52 a.m. on 02/26/2023. Dictated by Yolis Pedersen MD @ Feb 26 2023 11:53AM (Electronically Signed) For Patients: As a result of the Century Cures Act, medical imaging exams and procedure reports are released immediately into your electronic medical record. You may view this report before your referring provider. If you have questions, please contact your health care provider. INDICATION: Facial numbness for 2 days. COMPARISON: None. TECHNIQUE: CT of the brain/head without the use of IV contrast. Multiplanar axial, coronal, and sagittal reformats were reconstructed. FINDINGS: Normal abad-white matter differentiation throughout. No intracranial hemorrhage. No mass, mass effect, or midline shift. The ventricles are normal in size and shape. No fracture or focal osseous lesion. The mastoid and middle ears are clear. The paranasal sinuses are clear. Included orbit and globe are normal. IMPRESSION: Normal head CT. Please note that all CT scans at this facility use dose modulation, iterative reconstruction, and/or weight-based dosing when appropriate to reduce radiation dose to as low as reasonably achievable. Dictated by Yolis Pedersen MD @ 02/26/2023 11:50:22 AM (Electronically Signed) Progress Note: Quality Stroke Contraindication Not Initiating IV-Tpa: Medical contraindication (waxing waning symptoms over at least 3 days; currently on anticoagulation with apixaban) Onset of Symptoms Date: 02/23/23
[2023-02-26] MEDS: INSULIN ASPART 100 UNIT/ML 10 UNIT SUBCUT (14:37)
[2023-02-26] MEDS: SODIUM CHLORIDE 0.9 % (FLUSH) 10 ML SYRINGE 5 ML IVF (16:40)
--- NOTE | 2023-02-26 19:07 | PC.NURSE ---
Nursing Care Hours: [id number] Pt this shift calm and cooperative, alert and oriented. No c/o pain. Pt reported numbness to R side of lip and tongue when talking with hospitalist, stroke code called. Frequent VS initiated and remained stable, no further deficient noted and able to DC frequent vitals when imaging results came back. Pt had no appetite for lunch so ensure clear offered. BS 472, insulin given per sliding scale, rechecked 2 hours after and BS 360. One time 10unit insulin given per hospitalist. Rechecked 2 hours later and 198, treated per evening sliding scale order. Tele shows NSR with prolong QT
[2023-02-26] MEDS: POTASSIUM BICARB 25 MEQ EFFERVESCENT TAB 50 MEQ PO (22:19)
[2023-02-27] VITALS (9 sets, daily range): BP systolic 127–162; BP diastolic 48–80; PULSE 51–147; RESP 18–20; TEMP 36.8–36.9; O2SAT 89–95
[2023-02-27] MEDS: LACTATED RINGERS 1000 ML 1,000 ML 125 ML IV (00:15)
--- NOTE | 2023-02-27 01:58 | PC.NURSE ---
At approximately 0125, data analyst report writer noted pt's heart rate elevated at 107 and would then increase to 120s. Foreign Exchange Clerk checked on pt and noted pt's O2 to dip to 89% on 1.5 liters oxygen. Oxygen increased to 2 LPM via NC. Pt noted to have hx of BILLIE though did not bring CPAP with her for hospital stay. Foreign Exchange Clerk requested pt have CPAP brought to hospital when possible. Heart rate noted to increase to 164 and pt was noted to be in A fib with RVR. Pt denied chest pain when asked and stated she had no symptoms when asked. Foreign Exchange Clerk called [facility] to update MD and request order for oxygen along with providing update of elevated pulse and pt changing from NSR to A fib with RVR. MD Santoro noted that pt takes 100 mg Metoprolol for home medication. MD will give order for oxygen and to resume Metoprolol.
[2023-02-27] MEDS: METOPROLOL SUCCINATE (XL) 100 MG TAB PO (02:05)
--- NOTE | 2023-02-27 02:18 | PC.NURSE ---
Lapel Padder placed a second call to [facility] to provide update of weight gain: Pt noted to be 226 12.8 oz upon admit weight with weight of 232.2 noted this morning. Pt denies shortness of breath when asked and lung sounds are noted to be clear. O2 sat 93% on 2 liters oxygen via NC. Lapel Padder left voicemail for MD providing update and requesting call back to determine if MD would like IV fluid decreased or stopped.
[2023-02-27] MEDS: LACTATED RINGERS 1000 ML 1,000 ML 50 ML IV (02:37)
--- NOTE | 2023-02-27 07:02 | PC.NURSE ---
End of shift note [id number]: Pt alert & oriented x 4 and able to make needs known. She is transferring/ambulating independently in room. Pt has been afebrile. Pt remains on telemetry with prolonged QT noted which is not a new finding- MD Verde previously noted this on pt?s EKG completed on 02/26/23. She was noted to be in NSR at start of shift though rhythm changed to A fib with RVR and then to sinus bradycardia after po Metoprolol was given per Riaz KASPER. Riaz KASPER also updated regarding weight gain of approximately 6 pounds since 02/25/23.Pt has been denying shortness of breath and chest pain when asked. Lung sounds noted to be clear to all lobes bilaterally throughout the shift. O2 at 2 LPM with O2 sat of 93%. Pt has hx of BILLIE and was encouraged to have CPAP brought in. Blood glucose of 338 at HS with pt denying hyperglycemia symptoms when asked and water encouraged. MD Salcdeo ordered po Potassium 50 mEq dose which was given. Pt has been denying pain when asked with no nonverbal signs of pain noted. Pt has hx of abscess to R side of chest with scab noted to be formed over what appears to be packing material- battery charger tester updating MD Verde of findings at this time. MD also being updated regarding pt's heart rate throughout the night.
[2023-02-27 07:27] LABS: Chloride* 100 mmol/L (96-114); Sodium* 141 mmol/L (135-149)
[2023-02-27 07:30] LABS: Anion Gap 4 mEq/L (7-15); Blood Urea Nitrogen* 24 mg/dL (7-30); Carbon Dioxide* 37 mmol/L (20-32); Est. Creatinine Clearance* 49.72; Estimated Glomerular Filt Rate 63 ml/min
[2023-02-27 07:31] LABS: Glucose* 269 mg/dL (60-115)
[2023-02-27 07:33] LABS: Potassium* 2.3 mmol/L (3.6-5.1)
[2023-02-27] MEDS: MULTIVITAMIN/MINERALS 1 TABLET 1 TAB PO (09:34)
[2023-02-27] MEDS: SERTRALINE 100 MG TABLET PO (09:34)
[2023-02-27] MEDS: METOPROLOL TARTRATE 25 MG TABLET PO ×2 (09:34→20:43)
[2023-02-27] MEDS: ASPIRIN 81 MG TABLET EC PO (09:35)
[2023-02-27] MEDS: POTASSIUM CHLORIDE 10 MEQ CAPSULE ER 20 MEQ PO ×2 (09:35→18:18)
[2023-02-27] MEDS: APIXABAN 5 MG TABLET PO ×2 (09:35→20:43)
[2023-02-27] MEDS: INSULIN ASPART 100 UNIT/ML 34 UNIT SUBCUT ×3 (09:47→17:58)
[2023-02-27] MEDS: INSULIN ASPART 100 UNIT/ML SUBCUT ×3 (09:47→17:58)
[2023-02-27] MEDS: SODIUM CHLORIDE 0.9 % (FLUSH) 10 ML SYRINGE 5 ML IVF ×2 (10:15→20:44)
--- NOTE | 2023-02-27 10:59 | NUTR.NU ---
RDN with nutrition screen related to Diabetic diet. Patient admitted for hypokalemia with daily vomiting. Per MD report, no vomiting since admit. Past medical history include CHF - diagnosed in January 2023, and type 2 diabetes mellitus. Current height 5ft 4in; weight 234lb 1.6oz; BMI is obese at 40.2 kg/m2. Weight loss noted of about 10 lbs since January 2023, however this is not significant. Current diet is diabetic. Meal intakes have been adequate at mainly 100% since admit. Diet education related to diabetes was provided on 12/17/2022 and CHF on 02/11/2023. Due to education provided within 6 months, RDN will not attempt at this time. No nutrition interventions due to adequate oral intakes. RDN will continue to monitor and follow-up prn.
[2023-02-27] MEDS: POTASSIUM BICARB 25 MEQ EFFERVESCENT TAB PO ×4 (11:51→15:32)
[2023-02-27 14:39] LABS: Chloride* 96 mmol/L (96-114); Potassium* 3.1 mmol/L (3.6-5.1); Sodium* 141 mmol/L (135-149)
[2023-02-27 14:42] LABS: Est. Creatinine Clearance* 49.72; Estimated Glomerular Filt Rate 63 ml/min
[2023-02-27 14:43] LABS: Blood Urea Nitrogen* 23 mg/dL (7-30); Calcium* 8.5 mg/dL (8.4-10.6); Glucose* 279 mg/dL (60-115)
[2023-02-27 14:49] LABS: Anion Gap 10 mEq/L (7-15); Carbon Dioxide* 35 mmol/L (20-32)
--- NOTE | 2023-02-27 15:29 | PM.IMPN1 ---
Progress Note: A&P Assessment and plan (1) Acute hypokalemia: Problem details: - hypokalemia, on 4 medications for hypertension, known adrenal nodule => will work up for hyperaldosteronism (ordered renin activity/PRA 02/26) - persistent hypokalemia. Continue to hold chlorthalidone and furosemide. Start spironolactone. Continue to replace oral potassium and monitor closely since she will be on spironolactone now. Status: Acute (2) Numbness and tingling of left side of face: Problem details: - 02/26 Stroke code called, CT head without contrast wnl, further investigation reveals symptoms intermittent over 3 days and associated with dry mouth, less likely stroke. She is also on apixiban already for afib/stroke prevention. I spoke with Dr. Ruiz who recommended no further imaging, continue apixaban and outpatient w/u with MR brain. - 02/27 no symptoms at present. Status: Acute (3) Atrial fibrillation: Problem details: - 02/27 heart rates were in the 50s, so I did not order her home metoprolol yesterday. Heart rate was elevated last night and she got her usual dose of metoprolol and then heart rate went into the 40s. I am changing her long-acting metoprolol to short-acting and I will give her half the usual dose with hold parameters. Continue Eliquis. Status: Chronic (4) Acute kidney injury: Problem details: - 02/27 creatinine is improving. Continue to hold losartan, chlorthalidone, Lasix, and metformin. Start spironolactone and recheck renal function in the morning. Status: Acute (5) Congestive heart failure: Problem details: - combined systolic/diastolic HF, EF 46%. - chronic, stable, on lasix and chlorthalidone which need to be held at present due to MARCELLA and hypokalemia. - have stopped her IV fluid since her MARCELLA has improved. Monitor for volume overload. Starting spironolactone today for hypokalemia which is also a diuretic. Status: Chronic (6) Type 2 diabetes mellitus: Problem details: - Hold metformin while in MARCELLA. Use LA insulin, mealtime insulin, ISS. Status: Chronic (7) Lesion of adrenal gland: Problem details: I spoke with Dr. Beavers about this and he noted that they had done a CT abdomen in late January, just a few weeks ago that showed multiple bilateral benign adrenal nodules. Status: Chronic Time Spent With Patient Total time spent: Today I spent 35 minutes rounding on the patient. Greater than 50% included discussing care with the the patient, Dr. Beavers her primary care provider, the team, reviewing data, updating and managing the care plan. Subjective Time Seen by Provider: 07:15 Date Seen: 02/27/23 Interval history: Nela feels better today. She notes that she didn't even think she was feeling off until she started to feel better. She denies CP, SOB. R sided numbness intermittent. No other new neurologic symptoms. No vomiting since admission. We discussed hypokalemia, pending lab for primary hyperaldosteronism, spironolactone, and stopping lasix and chlorthalidone. Exam Narrative: Exam Narrative: General: No acute distress. Awake, alert, oriented x3. No pallor. No jaundice. Oropharynx: Clear. Mucous membranes moist. Cardiovascular: Regular rate and rhythm. No murmurs, gallops, or rubs. Respiratory: Clear to auscultation bilaterally. No wheezes or crackles. Abdomen: Bowel sounds present. Soft, nondistended, nontender. Neuro: No focal deficit at this time. Const: Vital Signs, click to edit/add: Vital Signs - 24 hr 02/26/23 19:40 02/26/23 23:05 02/26/23 23:17 Temperature 98.0 F 98.4 F Pulse Rate 63 Pulse Rate [Pulse Oximeter] 61 63 Respiratory Rate 18 16 Blood Pressure [Le ft Arm] 115/64 Blood Pressure [ri ght forearm] 151/81 H 142/70 H Pulse Oximetry 93 90 Oxygen Delivery Me thod Nasal Cannula Nasal Cannula Oxygen Flow Rate 1.5 1.5 02/26/23 23:18 02/27/23 01:47 02/27/23 03:04 Temperature 98.3 F Pulse Rate 147 H Pulse Rate [Pulse Oximeter] 63 99 Respiratory Rate 16 18 Blood Pressure [Le ft Arm] Blood Pressure [ri ght forearm] 131/78 Pulse Oximetry 95 Oxygen Delivery Me thod Nasal Cannula Oxygen Flow Rate 2 02/27/23 03:25 02/27/23 08:10 02/27/23 08:10 Temperature 98.4 F Pulse Rate 51 L Pulse Rate [Pulse Oximeter] 89 Respiratory Rate 20 20 Blood Pressure [Le ft Arm] Blood Pressure [ri ght forearm] 151/80 H Pulse Oximetry 89 89 Oxygen Delivery Me thod Room Air Room Air Oxygen Flow Rate 02/27/23 11:00 02/27/23 11:00 Temperature 98.2 F Pulse Rate 59 L Pulse Rate [Pulse Oximeter] 55 L Respiratory Rate 20 Blood Pressure [Le ft Arm] Blood Pressure [ri ght forearm] 127/48 L Pulse Oximetry 94 Oxygen Delivery Me thod Room Air Oxygen Flow Rate Labs Labs: Laboratory Results - last 24 hr 02/27/23 02/27/23 06:50 14:15 Sodium 141 141 Potassium 2.3 L* 3.1 L Chloride 100 96 Carbon Dioxide 37 H 35 H Anion Gap 4 L 10 BUN 24 23 Creatinine 1.0 1.0 Estimated Creat Clear 49.72 49.72 Estimated GFR 63 63 Glucose 269 H 279 H Calcium 8.0 L 8.5 Progress Note: Quality Stroke Contraindication Not Initiating IV-Tpa: Medical contraindication (waxing waning symptoms over at least 3 days; currently on anticoagulation with apixaban) Onset of Symptoms Date: 02/23/23
[2023-02-27] MEDS: SPIRONOLACTONE 25 MG TABLET PO (17:14)
--- NOTE | 2023-02-27 19:00 | PC.NURSE ---
Pt pleasant and conversational. Denies pain. Blood Sugars elevated, see charting and MAR for levels and Insulin amounts given. Spironolactone started per Dr. Verde. Pt stated she thought she had been on it before but wasn't positive. Call [facility] and was told pt last filled 07/16/2022 and Rx was still active and originally ordered by PCP, Dr. Beavers. Inform Pt and plans to talk to a.m. hospitalist. Pt also had a previously scheduled appt [facility] PCP on 03/01/2023.
[2023-02-27] MEDS: ROSUVASTATIN CALCIUM 10 MG TABLET 40 MG PO (20:43)
[2023-02-28] VITALS (13 sets, daily range): BP systolic 139–171; BP diastolic 53–111; PULSE 40–155; RESP 16–20; TEMP 36.5–37; O2SAT 90–94
[2023-02-28] MEDS: POTASSIUM BICARB 25 MEQ EFFERVESCENT TAB 50 MEQ PO (00:22)
[2023-02-28 06:41] LABS: Chloride* 97 mmol/L (96-114); Sodium* 140 mmol/L (135-149)
[2023-02-28 06:44] LABS: Anion Gap 5 mEq/L (7-15); Blood Urea Nitrogen* 22 mg/dL (7-30); Carbon Dioxide* 38 mmol/L (20-32); Creatinine* 0.9 mg/dL (0.5-1.5); Est. Creatinine Clearance* 49.72; Estimated Glomerular Filt Rate 72 ml/min; Glucose* 238 mg/dL (60-115)
[2023-02-28 06:45] LABS: Calcium* 8.5 mg/dL (8.4-10.6)
[2023-02-28 06:46] LABS: Potassium* 2.8 mmol/L (3.6-5.1)
--- NOTE | 2023-02-28 07:00 | PC.NURSE ---
End of shift note [id number]: Pt remains alert & oriented x 4 and able to make needs known. She is continent of bladder and transfers/ambulates independently in room. Blood glucose of 118 at HS with snack provided. Pt was given po Potassium per order as Potassium result noted to be 3.[address] Salcedo updated. Pt has been afebrile. She remains on telemetry and is noted to be in sinus bradycardia which is not a new finding- pt remains asymptomatic. Pt?s daughter did bring CPAP in from home and this was addressed by data warehouse architect. Pt otherwise used O2 at 1 LPM last evening as O2 sat noted to be 87% on RA even after deep breathing encouraged and performed. IV SL. B/P noted to be trending higher at 163/81 and 162/72 overnight though pt denying symptoms when asked and will receive Metoprolol and Spironolactone this morning per orders in place. She remains on telemetry with sinus bradycardia with prolonged QT noted last evening and NSR with prolonged QT noted this morning. MD Verde previously aware of prolonged QT (prolonged QT not a new finding). Pt has been denying pain when asked.
[2023-02-28 09:13] LABS: Magnesium* 1.9 mg/dL (1.5-2.6)
[2023-02-28] MEDS: INSULIN ASPART 100 UNIT/ML SUBCUT ×4 (09:35→20:56)
[2023-02-28] MEDS: INSULIN ASPART 100 UNIT/ML 34 UNIT SUBCUT ×3 (09:37→16:53)
[2023-02-28] MEDS: POTASSIUM CHLORIDE 10 MEQ/100 ML PIGGYBACK 100 MEQ IVPB ×4 (09:41→13:32)
[2023-02-28] MEDS: SPIRONOLACTONE 25 MG TABLET PO ×2 (09:42→20:05)
[2023-02-28] MEDS: APIXABAN 5 MG TABLET PO ×2 (09:42→20:04)
[2023-02-28] MEDS: ASPIRIN 81 MG TABLET EC PO (09:42)
[2023-02-28] MEDS: MULTIVITAMIN/MINERALS 1 TABLET 1 TAB PO (09:42)
[2023-02-28] MEDS: SERTRALINE 100 MG TABLET PO (09:43)
[2023-02-28] MEDS: METOPROLOL TARTRATE 25 MG TABLET PO (09:43)
[2023-02-28] MEDS: POTASSIUM CHLORIDE 10 MEQ CAPSULE ER 40 MEQ PO ×2 (09:54→16:55)
[2023-02-28] MEDS: SODIUM CHLORIDE 0.9 % (FLUSH) 10 ML SYRINGE 5 ML IVF ×3 (14:47→21:55)
--- NOTE | 2023-02-28 15:06 | P.IMPN_ITS ---
Progress Note: A&P Assessment and plan (1) Acute hypokalemia: Problem details: -persistent hypokalemia. Likely hyperaldosteronism. Hold offending agents. Start spironolactone at 25 mg b.i.d. -follow potassium and magnesium levels Status: Acute (2) Atrial fibrillation: Problem details: - 02/27 heart rates were in the 50s, so I did not order her home metoprolol yesterday. Heart rate was elevated last night and she got her usual dose of metoprolol and then heart rate went into the 40s. I am changing her long-acting metoprolol to short-acting and I will give her half the usual dose with hold parameters. Continue Eliquis. Status: Chronic (3) Acute kidney injury: Problem details: - 02/27 creatinine is improving. Continue to hold losartan, chlorthalidone, Lasix, and metformin. Start spironolactone and follow renal function Status: Acute (4) Congestive heart failure: Problem details: - combined systolic/diastolic HF, EF 46%. - chronic, stable, on lasix and chlorthalidone which need to be held at present due to MARCELLA and hypokalemia. - have stopped her IV fluid since her MARCELLA has improved. Monitor for volume overload. Starting spironolactone today for hypokalemia which is also a diuretic. Status: Chronic (5) Type 2 diabetes mellitus: Problem details: - Hold metformin while in MARCELLA. Use LA insulin, mealtime insulin, ISS. Status: Chronic (6) Lesion of adrenal gland: Problem details: I spoke with Dr. Beavers about this and he noted that they had done a CT abdomen in late January, just a few weeks ago that showed multiple bilateral benign adrenal nodules. Status: Chronic (7) Numbness and tingling of left side of face: Problem details: - 02/26 Stroke code called, CT head without contrast wnl, further investigation reveals symptoms intermittent over 3 days and associated with dry mouth, less likely stroke. She is also on apixiban already for afib/stroke prevention. I spoke with Dr. Ruiz who recommended no further imaging, continue apixaban and outpatient w/u with MR brain. - 02/27 no symptoms at present. Status: Acute Subjective Date Seen: 02/28/23 Interval history: Daily Progress Note - Hospital Medicine Day #: 3 CC: Hypokalemia. OVERNIGHT UPDATES FROM STAFF & MED, LAB, IMAGING UPDATES -feels better, anxious to get home. -CBC stable. -potassium is back down this morning to 2.8. -normal renal function -magnesium 1.9 -remain still pending Objective: alert. insightful. Vitals: see above Lungs: Clear. Cardiac: S1S2. Disposition/Potential discharge - Likely to return to previous living situation. Today I spent 50minutes seeing the patient, reviewing Expanse and EPIC notes/diagnostics, discussing the care plan with our care time that includes social work, PT/OT, pharmacy, RT, intermediate and documenting my impressions and plan in the medical record. Exam Const: Vital Signs, click to edit/add: Vital Signs - 24 hr 02/27/23 20:20 02/27/23 21:37 02/27/23 23:00 Temperature 98.2 F Pulse Rate 60 Pulse Rate [Pulse Oximeter] 60 59 L Respiratory Rate 18 18 Blood Pressure [Le ft Arm] Blood Pressure [ri ght forearm] 162/63 H Pulse Oximetry 93 Oxygen Delivery Me thod Room Air Oxygen Flow Rate 1 02/28/23 00:26 02/28/23 00:26 02/28/23 03:41 Temperature 98.6 F 98.0 F Pulse Rate Pulse Rate [Pulse Oximeter] 59 L 69 Respiratory Rate 18 18 18 Blood Pressure [Le ft Arm] Blood Pressure [ri ght forearm] 163/81 H 162/72 H Pulse Oximetry 93 93 92 Oxygen Delivery Me thod Nasal Cannula Nasal Cannula Room Air Oxygen Flow Rate 1 1 02/28/23 04:36 02/28/23 07:45 02/28/23 07:45 Temperature 97.8 F Pulse Rate 61 Pulse Rate [Pulse Oximeter] 64 Respiratory Rate 18 18 Blood Pressure [Le ft Arm] Blood Pressure [ri ght forearm] 148/78 H Pulse Oximetry 92 92 Oxygen Delivery Me thod CPAP CPAP Oxygen Flow Rate 02/28/23 10:05 02/28/23 11:19 Temperature 97.7 F Pulse Rate 69 Pulse Rate [Pulse Oximeter] 66 Respiratory Rate 18 Blood Pressure [Le ft Arm] 151/66 H Blood Pressure [ri ght forearm] Pulse Oximetry 90 Oxygen Delivery Me thod Room Air Oxygen Flow Rate Labs Labs: Laboratory Results - last 24 hr 02/27/23 02/27/2324 14:15 19:25 05:47 Sodium 141 140 Potassium 3.1 L 3.0 L 2.8 L* Chloride 96 97 Carbon Dioxide 35 H 38 H Anion Gap 10 5 L BUN 23 22 Creatinine 1.0 0.9 Estimated Creat Clear 49.72 49.72 Estimated GFR 63 72 Glucose 279 H 238 H Calcium 8.5 8.5 Magnesium 1.9 Lab Acknowledgement 02/28/23 08:55 Sodium Potassium Chloride Carbon Dioxide Anion Gap BUN Creatinine Estimated Creat Clear Estimated GFR Glucose Calcium Magnesium Lab Acknowledgement Test Added Progress Note: Quality Stroke Contraindication Not Initiating IV-Tpa: Medical contraindication (waxing waning symptoms over at least 3 days; currently on anticoagulation with apixaban) Onset of Symptoms Date: 02/23/23
--- NOTE | 2023-02-28 15:08 | PM.DS1 ---
DS: Providers Provider Date of admission: 02/26/23 13:51 Primary care physician: Mateusz Beavers MD Admitting Clinician: Artie Salcedo MD Attending Physician on discharge: Artie Salcedo MD DS: Summary Hospital Course Hospital Course: FINAL DIAGNOSIS/FOLLOW UP ISSUES: 1. hyperaldosteronsim -renin baseline PENDING. BRIEF HOSPITAL COURSE: Patient was admitted for [] days. Synopsis of acute inpatient issues are outlined above. Chronic medical conditions with notable findings outlined above. DISCHARGE MEDICATIONS: See Reconciled list - SIGNIFICANT CHANGES: Specific instructions to the patient and follow-up are outlined below. REVIEW OF SYSTEMS No new chest pain or dyspnea Pain controlled No voiding difficulties Tolerating diet challenge PHYSICAL EXAM: CONSTITUTIONAL: VITAL SIGNS: see record. HEENT: Normocephalic, atraumatic. PERRL, EOMI, conjunctivae pink, no scleral icterus. Ears and nose externally normal. Pharynx normal. NECK: No JVD. No carotid bruit, no thyromegaly, no adenopathy. CHEST: Clear to auscultation bilaterally. HEART: S1 and S2 normal. Edema ABDOMEN: Soft, nontender. Normal bowel sounds. MUSCULOSKELETAL: No gross joint deformity or swelling. NEURO: Cranial nerves intact. Grossly intact. No asymmetric findings. SKIN: No rashes, petechiae, concerning changes PSYCHIATRIC: Mood euthymic. DISPOSITION: Time spent on discharge 37 minutes. Time Spent with Patient Time attestation: Total time spent providing and/or coordinating discharge services: Exam Const: Vital Signs, click to edit/add: Vital Signs - 24 hr 02/27/23 20:20 02/27/23 21:37 02/27/23 23:00 Temperature 98.2 F Pulse Rate 60 Pulse Rate [Pulse Oximeter] 60 59 L Respiratory Rate 18 18 Blood Pressure [Le ft Arm] Blood Pressure [ri ght forearm] 162/63 H Pulse Oximetry 93 Oxygen Delivery Me thod Room Air Oxygen Flow Rate 1 02/28/23 00:26 02/28/23 00:26 02/28/23 03:41 Temperature 98.6 F 98.0 F Pulse Rate Pulse Rate [Pulse Oximeter] 59 L 69 Respiratory Rate 18 18 18 Blood Pressure [Le ft Arm] Blood Pressure [ri ght forearm] 163/81 H 162/72 H Pulse Oximetry 93 93 92 Oxygen Delivery Me thod Nasal Cannula Nasal Cannula Room Air Oxygen Flow Rate 1 1 02/28/23 04:36 02/28/23 07:45 02/28/23 07:45 Temperature 97.8 F Pulse Rate 61 Pulse Rate [Pulse Oximeter] 64 Respiratory Rate 18 18 Blood Pressure [Le ft Arm] Blood Pressure [ri ght forearm] 148/78 H Pulse Oximetry 92 92 Oxygen Delivery Me thod CPAP CPAP Oxygen Flow Rate 02/28/23 10:05 02/28/23 11:19 Temperature 97.7 F Pulse Rate 69 Pulse Rate [Pulse Oximeter] 66 Respiratory Rate 18 Blood Pressure [Le ft Arm] 151/66 H Blood Pressure [ri ght forearm] Pulse Oximetry 90 Oxygen Delivery Me thod Room Air Oxygen Flow Rate DS: Data Data Completed and Pending Completed studies during hospitalization: Procedures Excision of Right Breast, Open Approach, Diagnostic (01/22/23) Introduction of Other Gas into Respiratory Tract, Via Natural or Artificial Opening (01/22/23) Labs on day of discharge: Labs from last 24 hours 02/28/23 02/28/23 02/27/23 08:55 05:47 19:25 Sodium 140 Potassium 2.8 L* 3.0 L Chloride 97 Carbon Dioxide 38 H Anion Gap 5 L BUN 22 Creatinine 0.9 Estimated Creat Clear 49.72 Estimated GFR 72 Glucose 238 H Calcium 8.5 Magnesium 1.9 Lab Acknowledgement Test Added 02/27/23 14:15 Sodium 141 Potassium 3.1 L Chloride 96 Carbon Dioxide 35 H Anion Gap 10 BUN 23 Creatinine 1.0 Estimated Creat Clear 49.72 Estimated GFR 63 Glucose 279 H Calcium 8.5 Magnesium Lab Acknowledgement Discharge Plan Discharge Disposition: Home, Self-Care Date of Admission: 02/26/23 13:51 Primary Care Provider: Mateusz Beavers Condition: Stable Discharge Medications: No Action insulin aspart U-100 [Novolog FlexPen U-100 Insulin] 100 unit/mL (3 mL) insulin pen 34 unit subcut TIDWM metoprolol succinate 100 mg tablet extended release 24 hr 100 mg PO BID metformin 1,000 mg tablet 1,000 mg PO BIDWM losartan 100 mg tablet 100 mg PO DAILY rosuvastatin 40 mg tablet 40 mg PO HS insulin glargine [Basaglar KwikPen U-100 Insulin] 100 unit/mL (3 mL) insulin pen 62 unit subcut QAM sertraline 100 mg tablet 100 mg PO QAM omega-3 fatty acids 500 mg capsule 500 mg PO DAILY multivitamin [Daily Multi-Vitamin] Tablet 1 tab PO DAILY aspirin 81 mg capsule 81 mg PO DAILY furosemide 40 mg tablet 40 mg PO DAILY chlorthalidone 25 mg tablet 12.5 mg PO DAILY amlodipine 10 mg tablet 10 mg PO DAILY potassium chloride 20 mEq tablet extended release 20 meq PO BIDWM Eliquis 5 mg Tablet 5 mg PO BID Qty: 60 0RF Additional Instructions: - If persistent R facial numbness, will need outpatient MRI brain. - Stopping chlorthalidone and furosemide due to hypokalemia, starting spironolactone instead. - PRA for ?primary hyperaldosteronism is pending. - Outpatient EGD for daily vomiting without other symptoms. Follow Up Appointments: Mateusz Beavers MD [Primary Care Provider] - Forms: [employer] Info Instructions
[2023-02-28 16:02] LABS: Chloride* 100 mmol/L (96-114); Sodium* 141 mmol/L (135-149)
[2023-02-28 16:03] LABS: Potassium* 3.6 mmol/L (3.6-5.1)
[2023-02-28 16:05] LABS: Creatinine* 0.9 mg/dL (0.5-1.5); Est. Creatinine Clearance* 49.72; Estimated Glomerular Filt Rate 72 ml/min
[2023-02-28 16:06] LABS: Anion Gap 7 mEq/L (7-15); Blood Urea Nitrogen* 22 mg/dL (7-30); Calcium* 9.1 mg/dL (8.4-10.6); Carbon Dioxide* 34 mmol/L (20-32); Glucose* 280 mg/dL (60-115)
[2023-02-28] MEDS: MAGNESIUM IV 2 GM/50 ML PIGGYBACK IVPB (16:18)
--- NOTE | 2023-02-28 18:26 | PM.EN ---
Chart Event Note Time Seen by Provider: 18:00 Date Seen: 02/28/23 Chart Event Note: 62-year-old female with hypertension, hypokalemia, heart failure and recent history of atrial fibrillation being treated for hypokalemia. Went into atrial fibrillation with RVR this evening. This happened at the beginning of January as well. On this admission she was in a sinus rhythm. She had been on metoprolol 100 mg b.i.d. started in January for her AFib with RVR. On this admission she has been on 25 mg b.i.d.. She continues on Eliquis as well. Potassium and magnesium are corrected today. Increased her metoprolol and she converted to sinus.
[2023-02-28] MEDS: METOPROLOL TARTRATE 50 MG TABLET PO (18:36)
[2023-02-28] MEDS: METOPROLOL TARTRATE 1 MG/ML inj 5 MG IVP (18:37)
[2023-02-28] MEDS: ROSUVASTATIN CALCIUM 10 MG TABLET 40 MG PO (20:04)
[2023-02-28] MEDS: LOSARTAN POTASSIUM 50 MG TABLET PO (20:05)
[2023-02-28] MEDS: FUROSEMIDE 10 MG/ML inj 20 MG IVP (21:54)
[2023-02-28] MEDS: POTASSIUM BICARB 25 MEQ EFFERVESCENT TAB PO (21:54)
[2023-02-28] MEDS: SPIRONOLACTONE 25 MG TABLET 50 MG PO (21:54)
--- NOTE | 2023-02-28 23:21 | PC.NURSE ---
1809 EKG done, sharp chest pain- flipped into afib, BP 150/100s, oxygen sats mid 80s- placed on 2L NC. Gave 5mg IV metoprolol, 50 mg oral metoprolol. Converted back to sinus roland, elevated BP, still requiring 2L NC. MD ordered PRN 5mg IV metoprolol, lasix, sodium bicarb, spironolactone. Ate all of dinner, frequent snacking. Elevated blood sugars high 200s, low 300s- insulin given. ~1000 cc fluids in. Voided x5. BM x2. Brief on, occasional incontinence. Up independently in room. PIV- SL'd, IV magnesium given. Will continue to monitor, follow POC, and keep pt and family updated. Angella Baker RN
[2023-03-01] VITALS (15 sets, daily range): BP systolic 128–159; BP diastolic 65–123; PULSE 46–127; RESP 16–24; TEMP 36.5–37; O2SAT 90–93
[2023-03-01] MEDS: METOPROLOL TARTRATE 1 MG/ML inj 5 MG IVP ×4 (02:08→09:52)
[2023-03-01] MEDS: SODIUM CHLORIDE 0.9 % (FLUSH) 10 ML SYRINGE 5 ML IVF ×3 (03:19→20:36)
--- NOTE | 2023-03-01 05:58 | PC.NURSE ---
Shift note: Pt is in and out of A-fib with RVR throughout the night, PRN Metoprolol administered and [facility] hospitalist was contacted for additional HR management meds. Pt is currently in NSR.
[2023-03-01 06:40] LABS: HCO3 VBG 33 mmol/L (21-28); PCO2 VBG 50 mmHG (40-50); PO2 VBG 43.6 mmHG (25-47); pH VBG 7.432 (7.32-7.43)
[2023-03-01 07:29] LABS: Albumin* 3.6 g/dL (3.3-5.0); Chloride* 101 mmol/L (96-114); Potassium* 3.2 mmol/L (3.6-5.1); Sodium* 139 mmol/L (135-149)
[2023-03-01 07:31] LABS: Creatinine* 0.7 mg/dL (0.5-1.5); Est. Creatinine Clearance* 49.72; Estimated Glomerular Filt Rate 97 ml/min
[2023-03-01 07:32] LABS: Anion Gap 6 mEq/L (7-15); Blood Urea Nitrogen* 20 mg/dL (7-30); Calcium* 8.6 mg/dL (8.4-10.6); Carbon Dioxide* 32 mmol/L (20-32); Glucose* 306 mg/dL (60-115); Magnesium* 1.9 mg/dL (1.5-2.6); Phosphorus* 3.4 mg/dL (2.5-4.5)
[2023-03-01] MEDS: POTASSIUM CHLORIDE 10 MEQ CAPSULE ER 40 MEQ PO ×3 (08:09→17:38)
[2023-03-01] MEDS: METFORMIN 1,000 MG TABLET 1000 MG PO ×2 (08:09→17:40)
[2023-03-01] MEDS: INSULIN ASPART 100 UNIT/ML 34 UNIT SUBCUT ×3 (08:09→17:38)
[2023-03-01] MEDS: INSULIN ASPART 100 UNIT/ML SUBCUT ×4 (08:10→20:38)
[2023-03-01] MEDS: POTASSIUM CHLORIDE 10 MEQ/100 ML PIGGYBACK 100 MEQ IVPB ×2 (08:24→09:58)
[2023-03-01] MEDS: SPIRONOLACTONE 25 MG TABLET 50 MG PO ×2 (08:36→20:35)
[2023-03-01] MEDS: LOSARTAN POTASSIUM 50 MG TABLET 100 MG PO (08:36)
[2023-03-01] MEDS: ASPIRIN 81 MG TABLET EC PO (08:36)
[2023-03-01] MEDS: SERTRALINE 100 MG TABLET PO (08:36)
[2023-03-01] MEDS: APIXABAN 5 MG TABLET PO ×2 (08:36→20:35)
[2023-03-01] MEDS: METOPROLOL TARTRATE 25 MG TABLET 50 MG PO ×2 (08:36→20:35)
[2023-03-01] MEDS: MULTIVITAMIN/MINERALS 1 TABLET 1 TAB PO (08:36)
[2023-03-01] MEDS: AMLODIPINE 10 MG TABLET PO (08:40)
[2023-03-01] MEDS: FUROSEMIDE 40 MG TABLET PO (08:40)
[2023-03-01] MEDS: 0.9 % SODIUM CHLORIDE 250 ml IV (09:58)
--- NOTE | 2023-03-01 11:44 | PM.IMPN1 ---
Progress Note: A&P Assessment and plan (1) Acute hypokalemia: Problem details: -persistent hypokalemia. Likely hyperaldosteronism. Hold offending agents. Spironolactone up titrated to 50 b.i.d. -follow potassium and magnesium levels Status: Acute (2) Atrial fibrillation: Problem details: -typically controlled with metoprolol. Potentially with her weight gain, fluid status, this kicked her into in AFib RVR situation that was temporary last night. -continue anticoagulation and beta blockade Status: Chronic (3) Acute kidney injury: Problem details: - 02/27 creatinine is improving. Continue to hold chlorthalidon and metformin. restarted home lasix with improved potassium supplementation. restarted home losartan dose. continue new med: sprinolactone. Status: Acute (4) Congestive heart failure: Problem details: - combined systolic/diastolic HF, EF 46%. - chronic, stable, likely new regimen will be: lasix, sprinolactone, losartan, beta blockade and potassium supplementation. Status: Chronic (5) Type 2 diabetes mellitus: Problem details: - Hold metformin while in MARCELLA. Use LA insulin, mealtime insulin, ISS. Status: Chronic (6) Lesion of adrenal gland: Problem details: I spoke with Dr. Beavers about this and he noted that they had done a CT abdomen in late January, just a few weeks ago that showed multiple bilateral benign adrenal nodules. Status: Chronic Subjective Date Seen: 03/01/23 Interval history: Daily Progress Note - Hospital Medicine Day #: 4 CC: Hypokalemia. hyperaldosteronism vs iatrogenic loss OVERNIGHT UPDATES FROM STAFF & MED, LAB, IMAGING UPDATES -developed AFib with RVR last night. Converted after metoprolol. Rate controlled this morning. -weight is up, without evidence of acute CHF exacerbation. Clinically the patient needs her diuretics. Spironolactone was increased to 50 b.i.d. and IV Lasix was used last night acutely x1 dose. I restarted her home Lasix dose this morning and continue the spironolactone b.i.d.. -she feels better but understands the need to figure out her electrolyte imbalance and fluid status. -CBC stable. -potassium is bouncing around from normal to low normal. -normal renal function -magnesium 1.9 -RENIN still pending Objective: alert. insightful. Vitals: see above Lungs: Clear. Cardiac: S1S2. Disposition/Potential discharge - Likely to return to previous living situation. Today I spent 50minutes seeing the patient, reviewing Expanse and EPIC notes/diagnostics, discussing the care plan with our care time that includes social work, PT/OT, pharmacy, RT, detention and documenting my impressions and plan in the medical record. Exam Const: Vital Signs, click to edit/add: Vital Signs - 24 hr 02/28/23 15:00 02/28/23 15:00 02/28/23 15:00 Temperature 98.1 F Pulse Rate Pulse Rate [Pulse Oximeter] 95 95 Respiratory Rate 16 16 16 Blood Pressure [Le ft Arm] Blood Pressure [Le ft Forearm] Blood Pressure [ri ght forearm] 154/94 H Pulse Oximetry 90 90 Oxygen Delivery Me thod Room Air Room Air Oxygen Flow Rate 02/28/23 18:14 02/28/23 18:27 02/28/23 18:46 Temperature Pulse Rate Pulse Rate [Pulse Oximeter] 155 H 121 H 70 Respiratory Rate Blood Pressure [Le ft Arm] 157/104 H 139/86 171/111 H Blood Pressure [Le ft Forearm] Blood Pressure [ri ght forearm] Pulse Oximetry Oxygen Delivery Me thod Oxygen Flow Rate 02/28/23 18:48 02/28/23 20:00 02/28/23 20:00 Temperature 98.2 F Pulse Rate 58 L Pulse Rate [Pulse Oximeter] 66 59 L Respiratory Rate 20 Blood Pressure [Le ft Arm] 162/72 H Blood Pressure [Le ft Forearm] Blood Pressure [ri ght forearm] 171/111 H Pulse Oximetry 94 92 Oxygen Delivery Me thod Nasal Cannula Nasal Cannula Oxygen Flow Rate 2 2 02/28/23 23:00 02/28/23 23:00 02/28/23 23:00 Temperature 98 F Pulse Rate Pulse Rate [Pulse Oximeter] 65 40 L Respiratory Rate 20 20 20 Blood Pressure [Le ft Arm] 162/53 H Blood Pressure [Le ft Forearm] Blood Pressure [ri ght forearm] Pulse Oximetry 94 94 Oxygen Delivery Me thod CPAP CPAP Oxygen Flow Rate 03/01/23 00:30 03/01/23 02:30 03/01/23 02:38 Temperature Pulse Rate 46 L 124 H Pulse Rate [Pulse Oximeter] 120 H Respiratory Rate 22 Blood Pressure [Le ft Arm] 159/123 H Blood Pressure [Le ft Forearm] Blood Pressure [ri ght forearm] Pulse Oximetry 91 Oxygen Delivery Me thod CPAP Oxygen Flow Rate 03/01/23 03:30 03/01/23 08:16 03/01/23 08:16 Temperature 98.3 F Pulse Rate 64 Pulse Rate [Pulse Oximeter] 123 H 127 H Respiratory Rate 24 24 Blood Pressure [Le ft Arm] 128/106 H Blood Pressure [Le ft Forearm] Blood Pressure [ri ght forearm] Pulse Oximetry 90 Oxygen Delivery Me thod Room Air Oxygen Flow Rate 03/01/23 08:16 03/01/23 08:19 03/01/23 10:47 Temperature Pulse Rate 63 Pulse Rate [Pulse Oximeter] 127 H Respiratory Rate 24 Blood Pressure [Le ft Arm] Blood Pressure [Le ft Forearm] 142/114 H Blood Pressure [ri ght forearm] Pulse Oximetry 90 Oxygen Delivery Me thod Room Air Oxygen Flow Rate Labs Labs: Laboratory Results - last 24 hr 02/28/23 03/01/23 15:35 06:22 VBG pH 7.432 H VBG pCO2 50 VBG pO2 43.6 VBG HCO3 33 H Sodium 141 139 Potassium 3.6 3.2 L Chloride 100 101 Carbon Dioxide 34 H 32 Anion Gap 7 6 L BUN 22 20 Creatinine 0.9 0.7 Estimated Creat Clear 49.72 49.72 Estimated GFR 72 97 Glucose 280 H 306 H Calcium 9.1 8.6 Phosphorus 3.4 Magnesium 1.9 Albumin 3.6 Progress Note: Quality Stroke Contraindication Not Initiating IV-Tpa: Medical contraindication (waxing waning symptoms over at least 3 days; currently on anticoagulation with apixaban) Onset of Symptoms Date: 02/23/23
--- NOTE | 2023-03-01 18:06 | PC.NURSE ---
End of Shift: Patient pleasant and cooperative. Patient vitally stable, lungs clear, BS WNL, IV SL and intact. Patient given IV PRN 5mg Metoprolol x1 for HR over 100. Patient denies pain. Patient independent in room. Patient tolerating regular diet and has had 2 BMs, this shift. Patient showered this shift. Patient's blood sugars 290, 359, 164. Tele currently NSR
[2023-03-01] MEDS: ROSUVASTATIN CALCIUM 10 MG TABLET 40 MG PO (20:35)
[2023-03-02] VITALS (9 sets, daily range): BP systolic 99–155; BP diastolic 55–81; PULSE 54–126; RESP 16–18; TEMP 36.6–37; O2SAT 89–94
[2023-03-02] MEDS: METOPROLOL TARTRATE 1 MG/ML inj 5 MG IVP ×2 (00:44→06:16)
[2023-03-02] MEDS: SODIUM CHLORIDE 0.9 % (FLUSH) 10 ML SYRINGE 5 ML IVF ×4 (00:51→20:38)
--- NOTE | 2023-03-02 05:04 | PC.NURSE ---
Pt rested well this night. Afebrile. On RA all night. Up IND.
[2023-03-02 07:14] LABS: Albumin* 3.7 g/dL (3.3-5.0); Chloride* 106 mmol/L (96-114); Potassium* 4.3 mmol/L (3.6-5.1); Sodium* 139 mmol/L (135-149)
[2023-03-02 07:17] LABS: Anion Gap 6 mEq/L (7-15); Blood Urea Nitrogen* 26 mg/dL (7-30); Carbon Dioxide* 27 mmol/L (20-32); Creatinine* 0.9 mg/dL (0.5-1.5); Est. Creatinine Clearance* 49.72; Estimated Glomerular Filt Rate 72 ml/min; Glucose* 305 mg/dL (60-115)
[2023-03-02 07:18] LABS: Phosphorus* 3.8 mg/dL (2.5-4.5)
[2023-03-02 08:31] LABS: Renin Activity 2.4 ng/mL/hr
[2023-03-02] MEDS: INSULIN ASPART 100 UNIT/ML SUBCUT ×4 (09:06→20:30)
[2023-03-02] MEDS: INSULIN ASPART 100 UNIT/ML 34 UNIT SUBCUT ×3 (09:07→17:57)
[2023-03-02] MEDS: METFORMIN 1,000 MG TABLET 1000 MG PO (09:12)
[2023-03-02] MEDS: POTASSIUM CHLORIDE 10 MEQ CAPSULE ER 40 MEQ PO ×3 (09:12→17:58)
[2023-03-02] MEDS: AMLODIPINE 10 MG TABLET PO (09:13)
[2023-03-02] MEDS: APIXABAN 5 MG TABLET PO ×2 (09:13→20:24)
[2023-03-02] MEDS: SERTRALINE 100 MG TABLET PO (09:13)
[2023-03-02] MEDS: MULTIVITAMIN/MINERALS 1 TABLET 1 TAB PO (09:13)
[2023-03-02] MEDS: FUROSEMIDE 40 MG TABLET PO (09:13)
[2023-03-02] MEDS: METOPROLOL TARTRATE 25 MG TABLET 50 MG PO (09:13)
[2023-03-02] MEDS: LOSARTAN POTASSIUM 50 MG TABLET 100 MG PO (09:13)
[2023-03-02] MEDS: ASPIRIN 81 MG TABLET EC PO (09:13)
[2023-03-02] MEDS: METOPROLOL SUCCINATE (XL) 50 MG TAB PO (10:05)
--- NOTE | 2023-03-02 17:04 | PM.IMPN1 ---
Progress Note: A&P Assessment and plan (1) Acute hypokalemia: Problem details: -stable. She met discharge criteria with new med regimen. However her AFib with RVR has kept her admitted. Status: Acute (2) Atrial fibrillation: Problem details: -typically controlled with metoprolol. Potentially with her weight gain, fluid status, this kicked her into in AFib RVR that is not clinically noted by the patient. -titrate beta blockade and continue anticoagulation Status: Chronic (3) Acute kidney injury: Problem details: - 02/27 creatinine is improving. Continue to hold chlorthalidon and metformin. restarted home lasix with improved potassium supplementation. restarted home losartan dose. continue new med: sprinolactone. Status: Acute (4) Congestive heart failure: Problem details: - combined systolic/diastolic HF, EF 46%. - chronic, stable, likely new regimen will be: lasix, sprinolactone, losartan, beta blockade and potassium supplementation. Status: Chronic (5) Type 2 diabetes mellitus: Problem details: -blood sugars have been I am splitting her long-acting insulin in to 2 doses and adding in metformin dose -metformin 1 g t.i.d. with meals instead of 1 g b.i.d. with meals -insulin detemir 35 units b.i.d. verses 62 q.h.s. Status: Chronic (6) Lesion of adrenal gland: Problem details: I spoke with Dr. Beavers about this and he noted that they had done a CT abdomen in late January, just a few weeks ago that showed multiple bilateral benign adrenal nodules. Status: Chronic Subjective Date Seen: 03/02/23 Interval history: Daily Progress Note - Hospital Medicine Day #: 5 CC: Hypokalemia. hyperaldosteronism vs iatrogenic loss. AFib with RVR. OVERNIGHT UPDATES FROM STAFF & MED, LAB, IMAGING UPDATES -with her known AFib - she has been in an out of RVR. Increasing metoprolol today. -weight is up, without evidence of acute CHF exacerbation. Clinically the patient needs her diuretics. Spironolactone was increased to 50 b.i.d. and Lasix restarted. -she feels better but understands the need to figure out her electrolyte imbalance and fluid status. -CBC stable. -potassium stable -normal renal function -magnesium 1.9 -RENIN still pending Objective: alert. insightful. Vitals: see above Lungs: Clear. Cardiac: S1S2. Disposition/Potential discharge - Likely to return to previous living situation. Today I spent 50minutes seeing the patient, reviewing Expanse and EPIC notes/diagnostics, discussing the care plan with our care time that includes social work, PT/OT, pharmacy, RT, residential and documenting my impressions and plan in the medical record. Exam Const: Vital Signs, click to edit/add: Vital Signs - 24 hr 03/01/23 18:55 03/01/23 19:01 03/01/23 22:21 Temperature 98.6 F 98.6 F Pulse Rate 66 Pulse Rate [Pulse Oximeter] 91 93 Respiratory Rate 16 18 Blood Pressure [Le ft Forearm] 139/78 137/65 Pulse Oximetry 92 93 Oxygen Delivery [place] thod Room Air Room Air 03/01/23 22:22 03/01/23 22:23 03/02/23 01:55 Temperature 98.6 F Pulse Rate Pulse Rate [Pulse Oximeter] 93 104 H Respiratory Rate 18 18 Blood Pressure [Le ft Forearm] 134/81 Pulse Oximetry 93 [facility] 03/02/23 07:00 03/02/23 07:00 03/02/23 07:00 Temperature Pulse Rate 126 H Pulse Rate [Pulse Oximeter] 126 H Respiratory Rate 18 18 Blood Pressure [Le ft Forearm] Pulse Oximetry 94 [facility] 03/02/23 07:00 03/02/23 11:00 03/02/23 15:00 Temperature 97.9 F Pulse Rate Pulse Rate [Pulse Oximeter] 126 H 58 L 58 L Respiratory Rate 18 18 18 Blood Pressure [Le ft Forearm] 99/80 155/81 H Pulse Oximetry 94 89 [facility] Room Air 03/02/23 15:00 03/02/23 15:00 Temperature Pulse Rate Pulse Rate [Pulse Oximeter] 55 L Respiratory Rate 18 18 Blood Pressure [Le ft Forearm] 146/57 H Pulse Oximetry 94 94 [facility] Labs Labs: Laboratory Results - last 24 hr 02/26/23 03/02/23 15:19 06:13 Sodium 139 Potassium 4.3 Chloride 106 Carbon Dioxide 27 Anion Gap 6 L BUN 26 Creatinine 0.9 Estimated Creat Clear 49.72 Estimated GFR 72 Glucose 305 H Calcium 9.0 Phosphorus 3.8 Albumin 3.7 Renin Baseline 2.4 Progress Note: Quality Stroke Contraindication Not Initiating IV-Tpa: Medical contraindication (waxing waning symptoms over at least 3 days; currently on anticoagulation with apixaban) Onset of Symptoms Date: 02/23/23
--- NOTE | 2023-03-02 19:04 | PC.NURSE ---
Nursing Care Hours: [id number] Pt this shift calm and cooperative with cares, alert and oriented, independent in room. Low BP this AM, held diuretic per order parameters. Stable on RA, no c/o pain. Afib with RVR in AM. Metoprolol increased and switched to extended release. Pt converted to NSR around afternoon and remained NSR. Reported sm and medium BM. Drinking and voiding sufficiently. Insulin given per sliding scale and MAR.
[2023-03-02] MEDS: ROSUVASTATIN CALCIUM 10 MG TABLET 40 MG PO (20:24)
[2023-03-02] MEDS: METOPROLOL SUCCINATE (XL) 100 MG TAB PO (20:25)
[2023-03-02] MEDS: SPIRONOLACTONE 25 MG TABLET 50 MG PO (20:25)
[2023-03-03 04:38] VITALS: BP 151/78; PULSE 54; RESP 18; TEMP 36.6; O2SAT 92
--- NOTE | 2023-03-03 04:48 | PC.NURSE ---
Pt remained in Sinus Rhythm all night.
[2023-03-03 07:14] VITALS: PULSE 50
[2023-03-03 07:44] VITALS: BP 167/67; PULSE 57; RESP 20; TEMP 36.6; O2SAT 90
[2023-03-03 08:24] LABS: Chloride* 109 mmol/L (96-114); Sodium* 141 mmol/L (135-149)
[2023-03-03 08:25] LABS: Potassium* 4.6 mmol/L (3.6-5.1)
[2023-03-03 08:27] LABS: Anion Gap 6 mEq/L (7-15); Carbon Dioxide* 26 mmol/L (20-32); Creatinine* 0.9 mg/dL (0.5-1.5); Est. Creatinine Clearance* 49.72; Estimated Glomerular Filt Rate 72 ml/min
[2023-03-03 08:28] LABS: Blood Urea Nitrogen* 30 mg/dL (7-30); Calcium* 9.1 mg/dL (8.4-10.6); Glucose* 236 mg/dL (60-115)
[2023-03-03] MEDS: INSULIN ASPART 100 UNIT/ML 34 UNIT SUBCUT (08:38)
[2023-03-03] MEDS: INSULIN ASPART 100 UNIT/ML SUBCUT (08:38)
[2023-03-03] MEDS: METFORMIN 1,000 MG TABLET 850 MG PO (08:51)
[2023-03-03] MEDS: POTASSIUM CHLORIDE 10 MEQ CAPSULE ER 40 MEQ PO (08:51)
[2023-03-03] MEDS: SERTRALINE 100 MG TABLET PO (08:52)
[2023-03-03] MEDS: LOSARTAN POTASSIUM 50 MG TABLET 100 MG PO (08:53)
[2023-03-03] MEDS: AMLODIPINE 10 MG TABLET PO (08:53)
[2023-03-03] MEDS: APIXABAN 5 MG TABLET PO (08:53)
[2023-03-03] MEDS: FUROSEMIDE 40 MG TABLET PO (08:53)
[2023-03-03] MEDS: MULTIVITAMIN/MINERALS 1 TABLET 1 TAB PO (08:53)
[2023-03-03] MEDS: METOPROLOL SUCCINATE (XL) 100 MG TAB PO (08:53)
[2023-03-03] MEDS: SPIRONOLACTONE 25 MG TABLET 50 MG PO (08:53)
[2023-03-03] MEDS: ASPIRIN 81 MG TABLET EC PO (08:53)
[2023-03-03] MEDS: SODIUM CHLORIDE 0.9 % (FLUSH) 10 ML SYRINGE 5 ML IVF (08:56)
[2023-03-03 11:16] VITALS: BP 167/81; PULSE 92; RESP 20; TEMP 36.6; O2SAT 92
--- NOTE | 2023-03-03 11:52 | PC.NURSE ---
Discharge: Patient pleasant and cooperative. Patient vitally stable, lungs clear, BS WNL, IV removed, catheter intact. Patient tele=NSR. Patient denies pain, and independent in room. Patient tolerating regular diet. Blood sugar 239. Patient signed belongings sheet and discharge form. Patient had no further questions regarding discharge. Patient left the floor by wheelchair to home at 1147.
--- NOTE | 2023-03-03 17:07 | PM.DS1 ---
DS: Providers Provider Date Seen: 03/03/23 Date of admission: 02/26/23 13:51 Primary care physician: Mateusz Beavers MD Admitting Clinician: Artie Salcedo MD Attending Physician on discharge: Lata Fam MD [facility] Date of Discharge: 03/03/23 DS: Diagnosis Discharge Diagnosis (1) Acute hypokalemia: Status: Acute Problem details: -improved with med adjustments. Held chlorthalidone. Slowly restarted her Lasix with increased potassium support. Initiated spironolactone therapy. we checked a renin level and this was normal. likely iatrogenic from meds. (2) Congestive heart failure: Status: Chronic Problem details: - combined systolic/diastolic HF, EF 46%. - chronic, stable, likely new regimen will be: lasix, sprinolactone, losartan, beta blockade and potassium supplementation. (3) Type 2 diabetes mellitus: Status: Chronic Problem details: -I discharged her on split doses of her long-acting insulin in to 2 doses and slight bump in her metformin dose. -metformin 850mg BID (4) Atrial fibrillation: Status: Chronic Problem details: -typically controlled with metoprolol. Potentially with her weight gain, fluid status, this kicked her into in AFib RVR that is not clinically noted by the patient. -titrate beta blockade and continue anticoagulation (5) Acute kidney injury: Status: Acute Problem details: - 02/27 creatinine is improving. Continue to hold chlorthalidone. restarted home lasix with improved potassium supplementation. restarted home losartan dose. continue new med: sprinolactone. (6) Lesion of adrenal gland: Status: Chronic Problem details: hospitalist with Dr. Beavers about this and he noted that they had done a CT abdomen in late January, just a few weeks ago that showed multiple bilateral benign adrenal nodules. DS: Summary Hospital Course Hospital Course: FINAL DIAGNOSIS/FOLLOW UP ISSUES: 1. Chronic hypokalemia/?? hyperaldosteronsim -renin baseline normal. This was likely iatrogenic from her medication regimen. Continue to follow serial potassium levels. MARCELLA resolved 2. Atrial fibrillation, chronic with intermittent RVR -returned her to her home dosing of metoprolol XL. Converted and in sinus with normal heart rate upon discharge. BRIEF HOSPITAL COURSE: Patient was admitted for 7 days. Synopsis of acute inpatient issues are outlined above. Chronic medical conditions with notable findings outlined above. Initially we were managing acute hypokalemia. We held a lot of her typical meds. She needed IV and p.o. potassium supplementation. Eventually as her potassium normalized she was in fluid overload but minimally symptomatic. She was also back in AFib with RVR. Managing her potassium with her need for diuretics and rate control with borderline blood pressures was are challenge. Ultimately we got her back into sinus with a normal rate. She discharged with a normal potassium and at her baseline weight. DISCHARGE MEDICATIONS: See Reconciled list - SIGNIFICANT CHANGES: Spironolactone initiated. Lasix continued. Increased potassium supplementation. Held chlorthalidone. Specific instructions to the patient and follow-up are outlined below. REVIEW OF SYSTEMS No new chest pain or dyspnea Pain controlled No voiding difficulties Tolerating diet challenge PHYSICAL EXAM: CONSTITUTIONAL: Happy. Insightful. No acute distress. VITAL SIGNS: see record. HEENT: Normocephalic, atraumatic. PERRL, EOMI, conjunctivae pink, no scleral icterus. Ears and nose externally normal. Pharynx normal. NECK: No JVD. No carotid bruit, no thyromegaly, no adenopathy. CHEST: Clear to auscultation bilaterally. HEART: S1 and S2 normal. Edema ABDOMEN: Soft, nontender. Normal bowel sounds. MUSCULOSKELETAL: No gross joint deformity or swelling. NEURO: Cranial nerves intact. Grossly intact. No asymmetric findings. SKIN: No rashes, petechiae, concerning changes PSYCHIATRIC: Mood euthymic. DISPOSITION: Home with family. Time spent on discharge 37 minutes. Status at Discharge Functional status at discharge: uses cane/walker Overall status at discharge: patient is progressing back to baseline Time Spent with Patient Time attestation: Total time spent providing and/or coordinating discharge services: Time spent: Greater than 30 minutes Exam Const: Vital Signs, click to edit/add: Vital Signs - 24 hr 03/02/23 19:21 03/02/23 22:26 03/02/23 22:39 Temperature 98 F 98.2 F Pulse Rate Pulse Rate [Pulse Oximeter] 59 L 58 L 58 L Respiratory Rate 16 18 18 Blood Pressure [Le ft Forearm] 143/77 H 136/55 L Blood Pressure [ri ght forearm] Pulse Oximetry 94 93 Oxygen Delivery Me thod Room Air Room Air Oxygen Flow Rate 03/02/23 22:40 03/02/23 22:48 03/03/23 04:38 Temperature 98 F Pulse Rate 58 L Pulse Rate [Pulse Oximeter] 54 L Respiratory Rate 18 18 Blood Pressure [Le ft Forearm] 151/78 H Blood Pressure [ri ght forearm] Pulse Oximetry 93 92 Oxygen Delivery Me thod Room Air Room Air Oxygen Flow Rate 0 03/03/23 07:14 03/03/23 07:44 03/03/23 07:44 Temperature 97.9 F Pulse Rate 50 L Pulse Rate [Pulse Oximeter] 57 L 57 L Respiratory Rate 20 20 Blood Pressure [Le ft Forearm] Blood Pressure [ri ght forearm] 167/67 H Pulse Oximetry 90 Oxygen Delivery Me thod Room Air Oxygen Flow Rate 03/03/23 07:44 03/03/23 11:16 Temperature 97.9 F Pulse Rate Pulse Rate [Pulse Oximeter] 92 Respiratory Rate 20 20 Blood Pressure [Le ft Forearm] Blood Pressure [ri ght forearm] 167/81 H Pulse Oximetry 90 92 Oxygen Delivery Me thod Room Air Room Air Oxygen Flow Rate 0 DS: Data Data Completed and Pending Completed studies during hospitalization: Procedures Excision of Right Breast, Open Approach, Diagnostic (01/22/23) Introduction of Other Gas into Respiratory Tract, Via Natural or Artificial Opening (01/22/23) Labs on day of discharge: Labs from last 24 hours 03/03/23 08:05 Sodium 141 Potassium 4.6 Chloride 109 Carbon Dioxide 26 Anion Gap 6 L BUN 30 Creatinine 0.9 Estimated Creat Clear 49.72 Estimated GFR 72 Glucose 236 H Calcium 9.1 Discharge Plan Discharge Disposition: Home, Self-Care Date of Admission: 02/26/23 13:51 Primary Care Provider: Mateusz Beavers Condition: Stable Anticipated Discharge Date/Time: 03/03/23 10:15 Discharge Medications: New Levemir FlexPen 100 unit/mL (3 mL) Insulin Pen 35 unit subcut BID Qty: 15 0RF metformin 850 mg tablet 850 mg PO TIDWMEAL Qty: 90 2RF potassium chloride 20 mEq tablet extended release 40 meq PO BID Qty: 120 0RF spironolactone [Aldactone] 50 mg tablet 50 mg PO BID Qty: 60 0RF Continued insulin aspart U-100 [Novolog FlexPen U-100 Insulin] 100 unit/mL (3 mL) insulin pen 34 unit subcut TIDWM metoprolol succinate 100 mg tablet extended release 24 hr 100 mg PO BID losartan 100 mg tablet 100 mg PO DAILY rosuvastatin 40 mg tablet 40 mg PO HS sertraline 100 mg tablet 100 mg PO QAM omega-3 fatty acids 500 mg capsule 500 mg PO DAILY multivitamin [Daily Multi-Vitamin] Tablet 1 tab PO DAILY aspirin 81 mg capsule 81 mg PO DAILY furosemide 40 mg tablet 40 mg PO DAILY amlodipine 10 mg tablet 10 mg PO DAILY Eliquis 5 mg Tablet 5 mg PO BID Qty: 60 0RF Discontinued metformin 1,000 mg tablet 1,000 mg PO BIDWM insulin glargine [Basaglar KwikPen U-100 Insulin] 100 unit/mL (3 mL) insulin pen 62 unit subcut QAM chlorthalidone 25 mg tablet 12.5 mg PO DAILY potassium chloride 20 mEq tablet extended release 20 meq PO BIDWM Discharge Orders: Discharge Order (Routine); Ordered 03/03/23 Ordered By: Lata Fam Patient Education: Spironolactone (By mouth), Potassium Chloride (By mouth), Metformin (By mouth), Insulin Detemir (By injection) Additional Instructions: -new regimen for diabetes 1. metformin 850mg three times a day 2. split the dose of the long acting insulin into twice a day injections, 35 units 3. if you start to have low sugars back off on the middle of day (lunch dose) of metformin -new regimen with regard to heart failure, afib, potassium 1. spironolactone 2. same dose of Lasix 3. twice a day potassium at increased doses stop chlorthalidone Activity Level: Activity as Tolerated Discharge Diet: Diabetic Follow Up Appointments: Mateusz Beavers MD [Primary Care Provider] - 03/06/23 11:45 am ([facility] for follow-up.) Forms: AQH Info Instructions
== END 2023-03-03 11:47 | disposition home or self-care (01) | DRG 641 ==
LOC: ED 05:17 → MEDSURG 05:30
PROVIDERS: Family Medicine; Admitting Provider Family Medicine; Emergency Provider Student in an Organized Health Care Education/Training Program; PCP Family Medicine; Visit Provider Family Medicine
DX: E87.6 Hypokalemia (principal); I48.20 Chronic atrial fibrillation, unspecified; I50.42 Chronic combined systolic (congestive) and diastolic (congestive) heart failure; N17.9 Acute kidney failure, unspecified; J96.11 Chronic respiratory failure with hypoxia; Z68.41 Body mass index [BMI] 40.0-44.9, adult; E26.9 Hyperaldosteronism, unspecified; E27.9 Disorder of adrenal gland, unspecified; E11.9 Type 2 diabetes mellitus without complications; Z79.84 Long term (current) use of oral hypoglycemic drugs; Z79.4 Long term (current) use of insulin; Z87.891 Personal history of nicotine dependence; I25.10 Atherosclerotic heart disease of native coronary artery without angina pectoris; G47.33 Obstructive sleep apnea (adult) (pediatric); E88.819 Insulin resistance, unspecified; E66.9 Obesity, unspecified; J44.9 Chronic obstructive pulmonary disease, unspecified; R20.0 Anesthesia of skin; R20.2 Paresthesia of skin; Z79.01 Long term (current) use of anticoagulants; Z99.89 Dependence on other enabling machines and devices; Z99.81 Dependence on supplemental oxygen; I11.0 Hypertensive heart disease with heart failure
CPT/HCPCS: 36415; 70450; 80048; 80069; 82803; 82962; 83735; 84132; 84244; 85025; 93005; 94761; 99283; 99285; G0378; A9153; A9270; J1940; J3475; J3480; J7030; J7050; J7120

== ENCOUNTER 2024-10-04 01:26 | Inpatient (IN) | payer MEDICARE, SELFPAY ==
[2024-10-04] VITALS (75 sets, daily range): BP systolic 109–167; BP diastolic 54–117; PULSE 51–79; RESP 7–38; TEMP 36.1–37.4; O2SAT 77–97; BMI 39.7
--- OUTSIDE RECORDS SUMMARY | 2024-10-04 01:29 | XMS_ITS | Clinical Summary ---
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 -2.5 SD FRAX RISK CALCULATION (USED FOR OSTEOPENIA ONLY): 10-year probability of major osteoporotic fracture: 9.4%. 10-year probability of hip fracture: 1.3%. us Mateusz Beavers MD DEXA Final Resu lt * EXECUTIVE LEGAL SECRETARY THIN PREP PAP SCREEN IMAGED (05/26/2024 3:40 PM CDT) Case Report Gynecologic Cytology Report Case: [id number] Authorizing Provider: Mateusz Beavers MD Collected: 05/26/2024 1540 Ordering Location: [facility] Received: 05/26/2024 1540 Clinic First Screen: Clif Menendez Specimen: EXECUTIVE LEGAL SECRETARY ThinPrep Vial Screening, Cervical 06/11/2024 10:30 AM CDT [facility] INTERPRETATION/ RESULT NEGATIVE FOR INTRAEPITHELIAL LESION OR MALIGNANCY (NIL) (none) 06/11/2024 10:30 AM CDT [facility] at 1030 CDT SPECIMEN ADEQUACY Satisfactory for evaluation Endocervical component present 06/11/2024 10:30 AM CDT [facility] HPV REQUEST HPV and PAP 06/11/2024 10:30 AM CDT [facility] Date of LMP unknown 06/11/2024 10:30 AM CDT [facility] Last Pap Date 07/20/20 06/11/2024 10:30 AM CDT [facility] Last Pap Result NIL 10:30 AM CDT [facility] Abnormal Pap or Fabius Bx in last 5 years No 06/11/2024 10:30 AM CDT [facility] Menstrual Status Postmenopausal 06/11/2024 10:30 AM CDT [facility] Fabius Bx Done Today No 06/11/2024 10:30 AM CDT [facility] Additional Information None given 06/11/2024 10:30 AM CDT [facility] Comment: Cytology is screened at [facility], Central Laboratory - [address] [address] and [facility] - [address], [place] [address] and [facility] - [address], [place] [address] Interpreted at [facility] - [address], [place] [address] Automated Review Successful 06/11/2024 10:30 AM CDT [facility] Comment:Specimen processed s uccessfully by automated flame hardener device, ThinPrep Imaging System, [employer] ANCILLARY TESTING EXECUTIVE LEGAL SECRETARY HPV Ordered, Please see separate report 06/11/2024 10:30 AM CDT [facility] Note The pap test is a screening technique, not a diagnostic procedure. It is used primarily to screen for squamous cancers and precursor lesions. Published studies have shown that it is subject to both false negative and false positive results. The pap test should not be used as the sole means to diagnose or exclude pre-malignant and malignant lesions. 06/11/2024 10:30 AM CDT [facility] Other (Cervical) Non-Blood / Unknown 05/26/2024 3:40 PM CDT 05/26/2024 3:40 PM CDT Mateusz Beavers MD PATHOLOGY/CYTOLOGY Final R esult [facility] [address] [place] [address], [place] * ANTI HIV 1/2 [89452.0] (06/12/2023 10:13 AM CDT) HIV-1/HIV-2 SCREEN Non-Reacti ve Non-Reacti ve 06/12/2023 6:55 PM CDT [facility] Comment:HIV-1 p24 and HIV-1/ HIV-2 Ab Not Detected. Blood BLOOD SPECIMEN / Unknown Venipuncture / Unknown 06/12/2023 10:13 AM CDT 06/12/2023 10:14 AM CDT Mateusz Beavers MD SEND OUTS Final Resu lt [facility] [address] [place] [address], [place] * XR MAMMO BILAT SCREENING (06/03/2023 1:24 PM CDT) Anatomical Region Laterality Modality BREASTS, Breast Left, Breast Right Bilateral Mammography Impressions 06/03/2023 1:52 PM CDT There is no radiographic evidence for malignancy. Recommend annual mammograms. MAMMOGRAM ASSESSMENT: ACR 1 Negative PATIENTS: You will also receive a letter with your examination results in an easy to read format. If you have questions about your results, please contact your referring provider. Narrative 06/03/2023 1:52 PM CDT For Patients: As a result of the Century Cures Act, medical imaging exams and procedure reports are released immediately into your electronic medical record. You may view this report before your referring provider. If you have questions, please contact your health care provider. XR MAMMO BILAT SCREENING [[id number]] CLINICAL HISTORY: This is an asymptomatic 63 y.o. patient. INDICATION FOR EXAM: Mammogram Screening. TECHNIQUE: CC & MLO views were obtained. This study was evaluated with the assistance of Computer-Aided Detection. COMPARISON FILM: Yes 08/07/21 [facility] 04/25/20 [facility] FINDINGS: The breasts have scattered areas of fibroglandular density. There are no dominant masses, suspicious micro calcifications or areas of architectural distortion. us Mateusz Beavers MD MAMMO Final Resu lt * SCAN-COLONOSCOPY (09/10/2022 12:00 AM CDT) us Scanner OTHER Final Result * ANTI HCV (11/29/2020 8:40 AM CDT) HEPATITIS C ANTIBODY Non-React davian Non-React davian 11/29/2020 4:39 PM CDT [facility] Comment:Antibodies to HCV no t detected; does not exclude the possibility of exposure to HCV. Blood BLOOD SPECIMEN / Unknown Venipuncture / Unknown 11/29/2020 8:40 AM CDT 11/29/2020 8:40 AM CDT us Mateusz Beavers MD SEND OUTS Final Resu lt [facility] [address] [place] [address], [place] * CT CHEST SCREENING LOW DOSE WO CONTRAST (08/01/2020 1:59 PM CDT) Anatomical Region Laterality Modality Computed Tomogra phy Impressions 08/02/2020 11:53 AM CDT 1. Old granulomatous disease. 4 mm ground-glass density in the right middle lobe not likely significant. Lung rads category 2: Benign appearance or behavior. Recommend continued annual screening was LD CT in 12 months. 2. Benign 2 cm left adrenal nodule. 3. 8 mm solitary sclerosis in the body of T1. Likely a benign finding, ie. Bone island or calcified encondroma. Less likely a solitary blastic metastasis. Please note that all CT scans at this facility use dose modulation, iterative reconstruction and/or weight-based dosing when appropriate to reduce radiation dose to as low as reasonably achievable. Dictated by: Candy Acuña MD @08/02/2020 7:44:24 AM/CRL:nissa Narrative 08/02/2020 11:53 AM CDT CHEST SCREENING LOW DOSE WITHOUT CONTRAST INDICATION: Lung cancer screening. TECHNIQUE: CT chest without contrast. COMPARISON: None. FINDINGS: Cardiovascular structures: Heart size is normal. Thoracic aorta and main pulmonary artery are normal in caliber. Mild atherosclerotic calcification of the coronary arteries and thoracic aorta. Mediastinum and alannah: Calcified granuloma left hilum. No sign of mass or adenopathy. Lungs: Single calcified granuloma superior posterior right upper lobe, series #3, image #36. Small lymph node adjacent to the right major fissure image #48. Nonspecific 4 mm ground-glass nodule right middle lobe image #50. No other pulmonary nodules, mass or consolidation. No endobronchial or tracheal lesions. Pleura and pericardium: No effusions. Chest wall and axilla: No mass or adenopathy. Bones: Degenerative thoracic spine. Focal 8 mm sclerosis in the anterior inferior body of T1. The inferior endplate is intact. No other lytic or osteoblastic skeletal lesions. Upper abdomen: 2 cm left adrenal nodule with Hounsfield numbers less than 10 consistent with a lipid rich benign adenoma. Upper abdomen otherwise unremarkable. Shreya Rivera NP CT Final Result from Last 3 Months or Most Recently Relevant to Health Maintenance Additional Health Concerns Infection Onset Date Last Indicated C diff History Comment:+ C diff test 05/26/2020. Enteric Precautions not required on subsequent admissions provided: 1) >3 weeks since positive C diff test; 2) diarrhea resolved; and 3) patient has completed CDI antibiotics (excluding vanco taper). C diff testing not required on subsequent admissions unless patient is presenting with C diff symptoms 01/04/2021 01/04/2021 Insurance MEDICARE PB ONLY MEDICARE PART B HB ONLY MEDICARE PART A HB ONLY [facility] Member Subscriber Plan / Payer (Ef fective for All Dates) Name:Nela Gutierrez Member ID:Not on file Relation to Subscriber:Self Name:Nela Gutierrez Subscriber ID:Not on file Payer ID:Not on file Group ID:Not on file Type:Not on file [facility] [place] [id number] [address] [address] [place] [address] Advance Directives * Full Code (Latest Code Status on File) Date Activated Date Inactivated Comments 05/06/2023 7:39 AM 05/06/2023 3:06 PM Should be di scussed pre operatively with anesthesia or surgeon Question Answer Comments Code Status Discussion: Not Discussed * Full Code Date Activated Date Inactivated Comments 01/05/2021 4:09 PM 01/09/2021 3:38 PM Question Answer Comments Code Status Discussion: Per Existing Order * Full Code Date Activated Date Inactivated Comments 12/05/2018 3:37 AM 12/06/2018 5:51 PM * Full Code Date Activated Date Inactivated Comments 01/10/2014 11:48 AM 01/12/2014 2:30 PM Care Teams Chamber Worker Relationship Specialty Start Date End Date Mateusz Beavers [place] [address] PCP - General 12/03/06
--- NOTE | 2024-10-04 01:44 | CRLHL7_ITS ---
For Patients: As a result of the Century Cures Act, medical imaging exams and procedure reports are released immediately into your electronic medical record. You may view this report before your referring provider. If you have questions, please contact your health care provider. Indication: Dyspnea. Technique: Chest 1 view. Comparison: Chest x-ray 01/23/2023. Findings/Impression: Cardiomegaly with pulmonary vascular congestion and interstitial pulmonary edema. Patchy bilateral airspace opacification likely related to edema, however developing infectious process not definitively excluded in the appropriate clinical context. No definite pleural effusion, however the left costophrenic angle is excluded from the [id number]. No pneumothorax. No acute osseous abnormality. Dictated by Jeevan Kenny MD @ 10/04/2024 2:14:47 AM (Electronically Signed)
[2024-10-04 01:56] LABS: HCO3 VBG 27 mmol/L (21-28); PCO2 VBG 45 mmHG (40-50); PO2 VBG 38.2 mmHG (25-47); pH VBG 7.379 (7.32-7.43)
[2024-10-04] MEDS: FUROSEMIDE 10 MG/ML inj 20 MG IVP (01:56)
[2024-10-04 01:58] LABS: Hematocrit 38.5 % (33.0-51.0); Hemoglobin* 12.0 gm/dL (12.0-16.0); Immature Granulocytes Pct Auto 0.6 %; Mean Corpuscular HGB Conc 31 gm/dL (32-36); Mean Corpuscular Hemoglobin 27 pg (26-34); Mean Corpuscular Volume 87 fL (80-100); RDW Coefficient of Variation % 15.2 % (11.5-15.5); Red Blood Count 4.45 m/uL (4.00-5.20); White Blood Count* 15.99 K/uL (4.50-11.00)
[2024-10-04] MEDS: IPRAT-ALBUT 0.5-2.5 MG/3 ML NEB 1 NEB IH (01:59)
[2024-10-04 02:05] LABS: Immature Granulocytes Abs Auto 0.10 K/uL (0.00-0.30); Lymphocytes Absolute Auto 1.50 K/uL (0.90-2.90); Slide Review Reflex No
[2024-10-04 02:08] LABS: Albumin* 3.7 g/dL (3.3-5.0); Chloride* 104 mmol/L (96-114); Sodium* 138 mmol/L (135-149)
[2024-10-04 02:09] LABS: Potassium* 3.3 mmol/L (3.6-5.1)
[2024-10-04 02:11] LABS: Blood Urea Nitrogen* 10 mg/dL (7-30); Creatinine* 0.7 mg/dL (0.5-1.5); Est. Creatinine Clearance* 44.36; Estimated Glomerular Filt Rate 96 ml/min
[2024-10-04 02:12] LABS: Alanine Aminotransferase* 32 U/L (4-35); Alkaline Phosphatase* 84 U/L (40-150); Anion Gap 7 mEq/L (7-15); Aspartate Amino Transferase* 38 U/L (12-35); Bilirubin Total* 0.6 mg/dL (0.1-1.5); Calcium* 9.1 mg/dL (8.4-10.6); Carbon Dioxide* 27 mmol/L (20-32); Glucose* 346 mg/dL (60-115); Total Protein* 6.7 g/dL (6.0-8.3)
[2024-10-04 02:24] LABS: NT Pro B Type NatriureticPept* 4670 pg/mL (See Note)
--- NOTE | 2024-10-04 02:29 | ED.SOB ---
HPI - SOB/Dyspnea General Chief Complaint: Shortness of Breath/Dyspnea Stated Complaint: COPD Time Seen by Provider: 10/04/24 01:37 History of Present Illness HPI Narrative: 64-year-old female presents to the ED by EMS. O2 sats were 77% upon their arrival. Patient gradually feeling poorly over the last few days. Becoming increasingly short of breath tonight. Has not been able to lie flat for several weeks. Review of the records shows a history of chronic hypoxic respiratory failure secondary to congestive heart failure from an admission in February of 2023. Patient is prescribed daily diuretics. Denies any recent dose adjustments. Has a CPAP at home does not use any nebulizer treatments. She is not currently smoking. Reports that when she was symptomatic like this similarly, she did have pneumonia. She is not running any fever. She has no productive cough. EMS started patient on BiPAP and respiratory rate remained elevated but O2 sats did improve into the low 90s with this intervention. She denies any abdominal pain, is feeling a little nauseated though. She reports that she does not normally have swelling in her legs but has noticed some in the last couple of days. Denies abdominal symptoms, dysuria or fever. Did not try any other interventions at home prior to coming to the ED. Past medical history notable for congestive heart failure. Admission reviewed from February of 2023. She also has type 2 diabetes, insulin-dependent, history of AFib and prior respiratory failure. She lives independently. Does have shellfish allergy and is also allergic to latex and Brilinta. ROS is notable for the respiratory and generalized symptoms as described above, otherwise acutely denies times 12 systems today. Related Data Home Medications ?Medication ?Instructions ?Recorded ?Confirmed aspirin 81 mg capsule 81 mg PO DAILY 12/15/22 02/26/23 insulin aspart U-100 100 unit/mL 34 unit subcut TIDWM 12/15/22 02/26/23 (3 mL) subcutaneous pen (Novolog FlexPen U-100 Insulin aspart) losartan 100 mg tablet 100 mg PO DAILY 12/15/22 02/26/23 metoprolol succinate 100 mg 100 mg PO BID 12/15/22 02/26/23 tablet,extended release 24 hr multivitamin (Daily Multi-Vitamin 1 tab PO DAILY 12/15/22 02/26/23 tablet) omega-3 fatty acids 500 mg capsule 500 mg PO DAILY 12/15/22 02/26/23 rosuvastatin 40 mg tablet 40 mg PO HS 12/15/22 02/26/23 sertraline 100 mg tablet 100 mg PO QAM 12/15/22 02/26/23 amlodipine 10 mg tablet 10 mg PO DAILY 02/26/23 02/26/23 furosemide 40 mg tablet 40 mg PO DAILY 02/26/23 02/26/23 Previous Rx's ?Medication ?Instructions ?Recorded apixaban 5 mg tablet (Eliquis) 5 mg PO BID #60 tabs 01/30/23 insulin detemir U-100 100 unit/mL 35 unit (0.35 mL) subcut BID #15 mL 03/03/23 (3 mL) subcutaneous pen (Levemir FlexPen) metformin 850 mg tablet 850 mg PO TIDWMEAL #90 tabs 03/03/23 potassium chloride 20 mEq 40 meq (2 x 20 mEq) PO BID #120 03/03/23 tablet,extended release tabs spironolactone 50 mg tablet 50 mg PO BID #60 tabs 03/03/23 (Aldactone) Allergies Allergy/AdvReac Type Severity Reaction Status Date / Time Latex, Natural Rubber Allergy Verified 02/26/23 19:40 iodine AdvReac Severe Anaphylaxis Verified 01/21/23 09:42 shellfish derived AdvReac Severe Anaphylaxis Verified 01/21/23 09:42 ticagrelor (From Brilinta) AdvReac Severe Rash Verified 01/21/23 09:42 [facility] Medical History Numbness and tingling of left side of face ?R20.0 - Anesthesia of skin (ICD-10) ?R20.2 - Paresthesia of skin (ICD-10) Congestive heart failure ?I50.9 - Heart failure, unspecified (ICD-10) Type 2 diabetes mellitus ?E11.9 - Type 2 diabetes mellitus without complications (ICD-10) Atrial fibrillation with RVR ?I48.91 - Unspecified atrial fibrillation (ICD-10) Systolic CHF, acute ?I50.21 - Acute systolic (congestive) heart failure (ICD-10) Tobacco dependence in remission ?F17.201 - Nicotine dependence, unspecified, in remission (ICD-10) Clostridium difficile diarrhea ?A04.72 - Enterocolitis due to Clostridium difficile, not specified as recurrent (ICD-10) Dyspnea ?R06.00 - Dyspnea, unspecified (ICD-10) Hypoxia ?R09.02 - Hypoxemia (ICD-10) Bilateral pleural effusion ?J90 - Pleural effusion, not elsewhere classified (ICD-10) Pneumonia ?J18.9 - Pneumonia, unspecified organism (ICD-10) Depression, recurrent ?F33.9 - Major depressive disorder, recurrent, unspecified (ICD-10) Spinal stenosis, lumbar region with neurogenic claudication ?M48.062 - Spinal stenosis, lumbar region with neurogenic claudication (ICD-10) Abscess of right breast ?N61.1 - Abscess of the breast and nipple (ICD-10) Adenomatous colon polyp ?D12.6 - Benign neoplasm of colon, unspecified (ICD-10) Ureteral stone with hydronephrosis ?N13.2 - Hydronephrosis with renal and ureteral calculous obstruction (ICD-10) Coronary artery disease involving [place] coronary artery of [place] heart without angina pectoris ?I25.10 - Atherosclerotic heart disease of [place] coronary artery without angina pectoris (ICD-10) BILLIE (obstructive sleep apnea) ?G47.33 - Obstructive sleep apnea (adult) (pediatric) (ICD-10) STEMI (ST elevation myocardial infarction) ?I21.3 - ST elevation (STEMI) myocardial infarction of unspecified site (ICD-10) Psoriasis ?L40.9 - Psoriasis, unspecified (ICD-10) Hypokalemia ?E87.6 - Hypokalemia (ICD-10) Sciatica ?M54.30 - Sciatica, unspecified side (ICD-10) Hyperlipidemia ?E78.5 - Hyperlipidemia, unspecified (ICD-10) Essential hypertension ?I10 - Essential (primary) hypertension (ICD-10) Surgical History H/O tubal ligation ?Z98.51 - Tubal ligation status (ICD-10) S/P rotator cuff repair ?Z98.890 - Other specified postprocedural states (ICD-10) H/O lithotripsy ?Z98.890 - Other specified postprocedural states (ICD-10) H/O arthroscopic knee surgery ?Z98.890 - Other specified postprocedural states (ICD-10) History of reduction surgery of right breast ?Z98.890 - Other specified postprocedural states (ICD-10) Hx of colonoscopy ?Z98.890 - Other specified postprocedural states (ICD-10) Previous back surgery ?Z98.890 - Other specified postprocedural states (ICD-10) Family History Brother Alcohol dependence Father Alcohol dependence Social History Narrative: Smoked 1ppd for 45 years, quit cold turkey 2 months ago. Denies alcohol use. Denies recreational drug use. Requests DNR DNI resuscitation status. Designates her sons as power of electroencephalographic technologist for health should that be required. What is your current living situation?: I presently have a place to live Problems where you live: no known problems Problems where you live details: n/a In the past 12 months, utilities in danger of being shut off: no In past 12 months, lack of transportation kept you from medical appts, meetings, work, or getting things needed for daily living: no In the past 12 mos, have been you worried that your food would run out before you had money to buy more?: never true In the past 12 mos, the food you bought just didn't last and you didn't have money to buy more?: never true Highest level of school completed/degree received: high school graduate Smoking Status: Former smoker What tobacco products do you use: cigarettes Smoking quit date/years: <= 15 years ago Do you use any of these nicotine containing products: None Nicotine containing products detail: Quit November 2022 Second hand tobacco smoke exposure: No How often do you have a drink containing alcohol: never How often do you have six or more drinks on one occasion: Never AUDIT-C Alcohol total score: 0 Non-prescribed substance use: denies use Caffeine: No How often does anyone, including family, friends and others, physically hurt you: never How often does anyone, including family, friends and others, insult or talk down to you: never How often does anyone, including family, friends and others, threaten you with harm: never How often does anyone, including family, friends and others, scream or curse at you: never service: No Exam Const: Vital Signs, click to edit/add: Vital Signs - 24 hr 10/04/24 01:37 10/04/24 02:00 10/04/24 02:02 Temperature 99.3 F Pulse Rate [Pulse Oximeter] 75 Respiratory Rate 38 H 37 H 33 H Blood Pressure [Le ft Upper Arm] 167/61 H Pulse Oximetry 77 L 93 91 Oxygen Delivery Me thod Room Air 10/04/24 02:10 10/04/24 02:12 10/04/24 02:20 Temperature Pulse Rate [Pulse Oximeter] Respiratory Rate 33 H 31 H 34 H Blood Pressure [Le ft Upper Arm] Pulse Oximetry 92 94 93 Oxygen Delivery Me thod 10/04/24 02:23 10/04/24 02:30 10/04/24 02:32 Temperature Pulse Rate [Pulse Oximeter] Respiratory Rate 21 30 H 30 H Blood Pressure [Le ft Upper Arm] Pulse Oximetry 95 92 91 Oxygen Delivery Me thod 10/04/24 02:40 10/04/24 02:42 10/04/24 02:50 Temperature Pulse Rate [Pulse Oximeter] Respiratory Rate 36 H 31 H 32 H Blood Pressure [Le ft Upper Arm] Pulse Oximetry 92 91 93 Oxygen Delivery Me thod 10/04/24 02:52 10/04/24 03:00 10/04/24 03:01 Temperature Pulse Rate [Pulse Oximeter] Respiratory Rate 29 H 30 H 30 H Blood Pressure [Le ft Upper Arm] Pulse Oximetry 91 89 89 Oxygen Delivery Me thod 10/04/24 03:10 10/04/24 03:11 10/04/24 03:20 Temperature Pulse Rate [Pulse Oximeter] Respiratory Rate 17 30 H 27 H Blood Pressure [Le ft Upper Arm] Pulse Oximetry 91 92 88 Oxygen Delivery Me thod 10/04/24 03:21 10/04/24 03:30 10/04/24 03:32 Temperature Pulse Rate [Pulse Oximeter] Respiratory Rate 32 H 27 H 30 H Blood Pressure [Le ft Upper Arm] Pulse Oximetry 87 L 91 91 Oxygen Delivery Me thod 10/04/24 03:40 Temperature Pulse Rate [Pulse Oximeter] Respiratory Rate 29 H Blood Pressure [Le ft Upper Arm] Pulse Oximetry 92 Oxygen Delivery Me thod Documenting provider has reviewed patient's vital signs: yes Common normals: oriented x3 and alert Other: Tachypneic, can speak in 1-2 word sentences. Normal mentation. Appears well nourished and well hydrated. HENMT: Common normals: normocephalic, moist oral mucous membranes and oropharynx normal Head and scalp: normocephalic Mouth: oral and palatal mucosa normal Eye: Common normals: PERRL, EOMs intact bilaterally and conjunctivae normal Conjunctiva: conjunctiva(e) normal Pupil: PERRL Neck & C-Spine: Common normals: full ROM and no lymphadenopathy General: normal visual inspection Resp: Other: Tachypneic with use of accessory muscles. Coarse rhonchi on the left with bilateral crackles. Poor air movement in the bases but the upper lungs aerate well. Cardio: Common normals: regular rate, regular rhythm, S1 normal heart sound, S2 normal heart sound and no murmurs Rate: regular rate Rhythm: regular rhythm Heart sounds: S1 normal and S2 normal GI: Common normals: Normal to inspection, nondistended, normoactive bowel sounds present, soft to palpation, non-tender, no hepatosplenomegaly and no masses Palpation: soft and no hepatosplenomegaly Extremity: Common normals: normal to inspection and normal capillary refill Other: 1+ edema to the mid tibia. Neuro: Common normals: oriented x3, moves all extremities and no focal motor deficits Sensorium/orientation: alert Psych: Appearance: grossly normal Attitude: engaged Activity/motor behavior: appropriate eye contact Mood and affect: euthymic mood Insight: insight good Judgement: judgment good Skin: Common normals: no rashes or lesions noted General skin exam: no rashes or lesions noted Course Course ED Course: 64-year-old female with acute hypoxic respiratory failure likely secondary to congestive heart failure based on initial exam. Will give 20 of IV Lasix, DuoNeb, obtain chest x-ray and typical cardiac and respiratory labs. Await clinical response. Differential diagnosis including CHF, acute [place], COPD exacerbation, upper respiratory infection, pneumonia, pulmonary embolism, amongst others. Update: Response to the Lasix and neb treatment. Elect to start her on BiPAP. The chest x-ray does clearly show CHF and I do think that this will help push some of the fluid out of her lungs. Respiratory rate did improve a little bit from 36 down to about 30 but would like to get her under 24 prior to transfer to the floor. Cannot exclude a pneumonia based on the appearance of the chest x-ray and the exam once initially suspicious. Will add a dose of Solu-Medrol, Rocephin and azithromycin to cover for possible pneumonia as well. BNP is elevated but EKG and troponins are not suggestive of acute [place]. Reevaluation(s) Time of Reevaluation #1: 05:31 Reevaluation #1: Patient resting comfortably, respiratory rate is now 24-26. She is 800 mL of urine out, not as robust a response to the Lasix as I would have hoped. Try a higher dose of Lasix as I have now had more time to review her chart and see that she does take 40 b.i.d. chronically. She is starting to feel better. As above, I would like her respiratory rate under about 24 and back on OxyMask before transfer to the floor. Re-evaluate and another hour. Time of Reevaluation #2: 07:33 Reevaluation #2: Patient continues to improve has had really good urine output with the 2nd dose of Lasix. Patient has been accepted by the hospitalist. I think we could probably will wean her off of BiPAP later this morning but it is helping so much with her CHF that I am hard pressed to do this unless it is necessary for staffing reasons. We are going to do a trial of taking it off for her breakfast and see how that goes. Will hand over care to day shift hospitalist for further treatment of pneumonia, pulmonary edema, acute on chronic heart failure, respiratory failure, hypokalemia. Vital Signs Vital signs: Initial Vital Signs Respiratory Effort Labored, Short of Breath, Pursed Lip, Accessory Muscle Use, Abdominal Breathing, Shortness of Breath at Re 10/04/24 01:30 Respiratory Depth Shallow 10/04/24 01:30 Respiratory Pattern Normal 10/04/24 01:30 Vital Signs Temperature 99.3 F 10/04/24 01:37 Pulse Rate 75 10/04/24 01:37 Respiratory Rate 38 H 10/04/24 01:37 Blood Pressure 167/61 H 10/04/24 01:37 Pulse Oximetry 77 L 10/04/24 01:37 Oxygen Delivery Method Room Air 10/04/24 01:37 Temperature 99.3 F 10/04/24 01:37 Pulse Rate 75 10/04/24 01:37 Respiratory Rate 29 H 10/04/24 03:40 Blood Pressure 167/61 H 10/04/24 01:37 Pulse Oximetry 92 10/04/24 03:40 Oxygen Delivery Method Room Air 10/04/24 01:37 Medications Administered Medications: Discontinued Medications Generic Name Dose Route Start Last Admin Trade Name Gonzaloq PRN Reason Stop Dose Admin Albuterol/Ipratropium 1 neb 10/04/24 01:44 10/04/24 01:59 Iprat-Albut 0.5-2.5 Mg/3 Ml Neb IH 10/04/24 01:45 1 neb ONCE ONE Administration Furosemide 20 mg 10/04/24 01:44 10/04/24 01:56 Furosemide 10 Mg/Ml Inj IVP 10/04/24 01:45 20 mg ONCE ONE Administration Furosemide 80 mg 10/04/24 05:30 10/04/24 06:09 Furosemide 10 Mg/Ml Inj IVP 10/04/24 05:31 80 mg ONCE ONE Administration Ceftriaxone Sodium 1 gm/ 100 mls @ 200 mls/hr 10/04/24 05:10 10/04/24 06:02 Sodium Chloride IVPB 10/04/24 05:11 200 mls/hr ONCE ONE Administration Azithromycin 500 mg/ Sodium 255 mls @ 255 mls/hr 10/04/24 05:10 10/04/24 06:20 Chloride IVPB 10/04/24 05:11 255 mls/hr ONCE ONE Administration Methylprednisolone Sodium Succinate 40 mg 10/04/24 05:10 10/04/24 06:10 Methylprednisolone Sod Succ 40 Mg/Ml IVP 10/04/24 05:11 40 mg ONCE ONE Administration Potassium Chloride 40 meq 10/04/24 05:30 10/04/24 06:13 Potassium Chloride 10 Meq Capsule Er PO 10/04/24 05:31 40 meq ONCE ONE Administration MDM - SOB/Dyspnea Differential Diagnosis Differential diagnosis: Likely acute exacerbation of chronic obstructive airways disease, congestive heart failure, community acquired pneumonia, asthma with exacerbation and pulmonary embolism Medical Records Attestation: I reviewed the patient's medical records. Lab Data Attestation: I reviewed the patient's lab results. Lab results narrative: Leukocytosis with left shift noted suggestive of infection. Potassium mildly low at 3.3 with creatinine stable per patient is 0.7. BNP elevated suggestive of heart failure. Labs: Lab Results 10/04/24 10/04/24 10/04/24 Range/Units 01:35 02:09 02:12 WBC 15.99 H (4.50-11.00) K/uL RBC 4.45 (4.00-5.20) m/uL Hgb 12.0 (12.0-16.0) gm/dL Hct 38.5 (33.0-51.0) % MCV 87 (80-100) fL MCH 27 (26-34) pg MCHC 31 L (32-36) gm/dL RDW Coeff of Vanessa 15.2 (11.5-15.5) % Plt Count 345 (140-440) K/uL Neut % (Auto) 82.9 H (42.0-72.0) % Lymph % (Auto) 9.3 L (20-44) % [place] % (Auto) 5.7 (0.0-11.0) % Eos % (Auto) 1.1 (0.0-7.0) % Baso % (Auto) 0.4 (0.0-3.0) % Neut # (Auto) 13.30 H (1.7-7.0) K/uL Lymph # (Auto) 1.50 (0.90-2.90) K/uL [place] # (Auto) 0.90 (0.00-0.90) K/UL Eos # (Auto) 0.20 (0.00-0.50) K/uL Baso # (Auto) 0.10 (0.00-0.30) K/uL Abs Immat Gran (auto) 0.10 (0.00-0.30) K/uL Imm/Tot Granulo (auto) 0.6 % VBG pH 7.379 (7.32-7.43) VBG pCO2 45 (40-50) mmHG VBG pO2 38.2 (25-47) mmHG VBG HCO3 27 (21-28) mmol/L Sodium 138 (135-149) mmol/L Potassium 3.3 L (3.6-5.1) mmol/L Chloride 104 (96-114) mmol/L Carbon Dioxide 27 (20-32) mmol/L Anion Gap 7 (7-15) mEq/L BUN 10 (7-30) mg/dL Creatinine 0.7 (0.5-1.5) mg/dL Estimated Creat Clear 44.36 Estimated GFR 96 ml/min Glucose 346 H (60-115) mg/dL Calcium 9.1 (8.4-10.6) mg/dL Total Bilirubin 0.6 (0.1-1.5) mg/dL AST 38 H (12-35) U/L ALT 32 (4-35) U/L Alkaline Phosphatase 84 (40-150) U/L Troponin I 0.01 (0.01-0.04) ng/mL C-Reactive Protein 8.2 H (0.5-1.0) mg/dL NT-Pro-B Natriuret Pep 4670 H (See Note) pg/mL Total Protein 6.7 (6.0-8.3) g/dL Albumin 3.7 (3.3-5.0) g/dL Urine Color (Yellow) Urine Appearance (Clear) Urine pH (5.0-8.5) Ur Specific [place] (1.000-1.030) Urine Protein (Negative) Urine Glucose (UA) (Negative) Urine Ketones (Negative) Urine Blood (Negative) Urine Nitrite (Negative) Urine Bilirubin (Negative) Urine Urobilinogen (0.2-1.0) Ur Leukocyte Esterase (Negative) Urine RBC (0-2) Urine WBC (0-5) Ur Squamous Epith Cells (None-Few) Urine Bacteria (None) SARS-CoV-2 (PCR) Negative SARS-CoV-2 (Negative) Influenza Type A (PCR) Negative PCR FLU A (Negative) Influenza Type B (PCR) Negative PCR FLU B (Negative) RSV (PCR) Negative PCR RSV (Negative) Lab Acknowledgement Cancelled 10/04/24 Range/Units 02:20 WBC (4.50-11.00) K/uL RBC (4.00-5.20) m/uL Hgb (12.0-16.0) gm/dL Hct (33.0-51.0) % MCV (80-100) fL MCH (26-34) pg MCHC (32-36) gm/dL RDW Coeff of [place]essa (11.5-15.5) % Plt Count (140-440) K/uL Neut % (Auto) (42.0-72.0) % Lymph % (Auto) (20-44) % [place] % (Auto) (0.0-11.0) % Eos % (Auto) (0.0-7.0) % Baso % (Auto) (0.0-3.0) % Neut # (Auto) (1.7-7.0) K/uL Lymph # (Auto) (0.90-2.90) K/uL [place] # (Auto) (0.00-0.90) K/UL Eos # (Auto) (0.00-0.50) K/uL Baso # (Auto) (0.00-0.30) K/uL Abs Immat Gran (auto) (0.00-0.30) K/uL Imm/Tot Granulo (auto) % VBG pH (7.32-7.43) VBG pCO2 (40-50) mmHG VBG pO2 (25-47) mmHG VBG HCO3 (21-28) mmol/L Sodium (135-149) mmol/L Potassium (3.6-5.1) mmol/L Chloride (96-114) mmol/L Carbon Dioxide (20-32) mmol/L Anion Gap (7-15) mEq/L BUN (7-30) mg/dL Creatinine (0.5-1.5) mg/dL Estimated Creat Clear Estimated GFR ml/min Glucose (60-115) mg/dL Calcium (8.4-10.6) mg/dL Total Bilirubin (0.1-1.5) mg/dL AST (12-35) U/L ALT (4-35) U/L Alkaline Phosphatase (40-150) U/L Troponin I (0.01-0.04) ng/mL C-Reactive Protein (0.5-1.0) mg/dL NT-Pro-B Natriuret Pep (See Note) pg/mL Total Protein (6.0-8.3) g/dL Albumin (3.3-5.0) g/dL Urine Color Yellow (Yellow) Urine Appearance Clear (Clear) Urine pH 6.5 (5.0-8.5) Ur Specific [place] 1.020 (1.000-1.030) Urine Protein 3+ A (Negative) Urine Glucose (UA) 3+ A (Negative) Urine Ketones Negative (Negative) Urine Blood 1+ A (Negative) Urine Nitrite Negative (Negative) Urine Bilirubin Negative (Negative) Urine Urobilinogen 0.2 (0.2-1.0) Ur Leukocyte Esterase Negative (Negative) Urine RBC 0-2 (0-2) Urine WBC 0-2 (0-5) Ur Squamous Epith Cells None (None-Few) Urine Bacteria None (None) SARS-CoV-2 (PCR) (Negative) Influenza Type A (PCR) (Negative) Influenza Type B (PCR) (Negative) RSV (PCR) (Negative) Lab Acknowledgement Imaging Data Chest x-ray: Attestation: I have reviewed the pertinent imaging results. My impression: Significant pulmonary edema and cardiomegaly Radiologist's impression: Comparison: Chest x-ray 01/23/2023. Findings/Impression: Cardiomegaly with pulmonary vascular congestion and interstitial pulmonary edema. Patchy bilateral airspace opacification likely related to edema, however developing infectious process not definitively excluded in the appropriate clinical context. No definite pleural effusion, however the left costophrenic angle is excluded from the [id number]. No pneumothorax. No acute osseous abnormality. Dictated by Jeevan Kenny MD @ 10/04/2024 2:14:47 AM ECG Data Attestation: I personally reviewed and interpreted this ECG as follows: Prior ECG tracings: available for review Interpretation: Sinus rhythm with normal intervals and axis. Unchanged from February of 2023. No acute ischemic changes in the ST segments or T-waves. Stable EKG. Discharge Plan Discharge Clinical Impression: Acute hypoxemic respiratory failure, Acute congestive heart failure, Pulmonary edema, Community acquired pneumonia, Acute hypokalemia Patient Disposition: Admitted As Inpatient Procedures ABG Interpretation ABG Results: 10/04/24 01:35 VBG pH 7.379 VBG pCO2 45 VBG pO2 38.2 VBG HCO3 27
[2024-10-04 02:31] LABS: Appearance Urine Clear (Clear)
[2024-10-04 02:52] LABS: PCR FLU A Negative PCR FLU A (Negative); PCR FLU B Negative PCR FLU B (Negative); PCR RSV Negative PCR RSV (Negative); SARS PCR* Negative SARS-CoV-2 (Negative)
[2024-10-04] MEDS: cefTRIAXone 1 GM in 0.9 % SODIUM CHLORIDE Mini-bag 100 ML IVPB (06:02)
[2024-10-04] MEDS: FUROSEMIDE 10 MG/ML inj 80 MG IVP (06:09)
[2024-10-04] MEDS: POTASSIUM CHLORIDE 10 MEQ CAPSULE ER 40 MEQ PO (06:13)
[2024-10-04] MEDS: AZITHROMYCIN 500 MG in 0.9 % SODIUM CHLORIDE 250 ml 250 ML 255 MG IVPB (06:20)
--- NOTE | 2024-10-04 08:18 | ED.NURSE ---
reported 1L of urine already emptied from [facility]vath. Just now emptied another 700. Pt now on nc 3L, off of bipap, tolerated breakfast well. Sats avg high 80-low 90's.
--- NOTE | 2024-10-04 10:13 | PM.IMHP1 ---
Assessment and Plan Assessment and plan (1) Acute hypoxemic respiratory failure: Problem comment: -HFPEF and CAP Status: Acute (2) (HFpEF) heart failure with preserved ejection fraction: Problem comment: - echo on this admission actually favors an increase in ventricular function. EF from 46 to 59%. -continue current treatment with IV diuresis. lasix 40mg q12h. -wean oxygen as appropriate Status: Acute (3) Community acquired pneumonia: Problem comment: -consider imaging for further clarification. trend WBC, CRP -2 grams rocephin and 1/2 gram of azithromycin -no further steroids. Status: Acute (4) Poorly controlled diabetes mellitus: Problem comment: A1C 12.3 in may 2024 insulin dependent; insulin resistant. consider jardiance or semiglutide Status: Acute (5) Acute hypokalemia: Problem comment: replace orally Status: Acute (6) Atrial fibrillation: Problem comment: -typically controlled with metoprolol Status: Chronic (7) CKD (chronic kidney disease) stage 3, GFR 30-59 ml/min: Problem comment: w/proteinuria Status: Acute (8) Coronary artery disease involving blackfeet coronary artery of blackfeet heart without angina pectoris: Problem comment: 01/10/14 100% occlusion of distal RCA; PERCUTANEOUS CORONARY INTERVENTION with drug eluting stent showed a good result. Peak troponin was 180. Ejection fraction was 50-55% with hypokinesis of inferior and inferolateral wall. Status: Acute (9) Lesion of adrenal gland: Problem comment: hospitalist with Dr. Beavers about this and he noted that they had done a CT abdomen in late January, just a few weeks ago that showed multiple bilateral benign adrenal nodules. Status: Chronic (10) Morbid obesity: Status: Acute Hospitalist- H&P: HPI History of Present Illness Date Seen: 10/04/24 Chief complaint: COPD Narrative: ADMISSION HISTORY AND PHYSICAL - HOSPITALIST Chief Complaint: HPI: reviewed ED documentation with patient. 64-year-old female presents to the ED by EMS. O2 sats were 77% upon their arrival. Patient gradually feeling poorly over the last few days. Becoming increasingly short of breath tonight. Has not been able to lie flat for several weeks. Review of the records shows a history of chronic hypoxic respiratory failure secondary to congestive heart failure from an admission in February of 2023. Patient is prescribed daily diuretics. Denies any recent dose adjustments. Has a CPAP at home does not use any nebulizer treatments. She is not currently smoking. Reports that when she was symptomatic like this similarly, she did have pneumonia. She is not running any fever. She has no productive cough. EMS started patient on BiPAP and respiratory rate remained elevated but O2 sats did improve into the low 90s with this intervention. She denies any abdominal pain, is feeling a little nauseated though. She reports that she does not normally have swelling in her legs but has noticed some in the last couple of days. Denies abdominal symptoms, dysuria or fever ER COURSE: Initially started on BiPaP and by the time she was on the floor down to 2-3L. Started on ceftriaxone and azithromycin. Has been given in the ER 2 doses of IV furosemide 20 mg an 80 mg. Is also given 40 mg of methylprednisolone and then 40 mEq of potassium. One-view chest x-ray:Cardiomegaly with pulmonary vascular congestion and interstitial pulmonary edema. Patchy bilateral airspace opacification likely related to edema, however developing infectious process not definitively excluded in the appropriate clinical context. No definite pleural effusion, however the left costophrenic angle is excluded from the [id number]. No pneumothorax. No acute osseous abnormality. CODE STATUS: Full code PCP: Mateusz Beavers EMERGENCY CONTACT PLAN: Son or daughter I've updated the PFSH, medications and allergies in the Expanse tabs. INVESTIGATIONS: LABS/MICRO/ECG/IMAGING CBC reflects an elevated white blood cell count at 15.9. Hemoglobin 12. Normal platelets. Normal blood gas Mild hypokalemia otherwise hyperglycemia at 346. Otherwise normal kidney function and other normal electrolytes. CRP 8.2 BNP 4670, baseline 1900 UA other than glucosuria is unremarkable No new cultures EKG shows no specific ischemic changes or arrhythmias. Echo done 10/04/24 - no significant changes from previous. Final Impressions: 1. Normal left ventricular size, normal wall thickness, normal global systolic function, calculated EF of 59 %. 2. Inferior wall is abnormal. hypokinetic. 3. Mildly enlarged left atrium. 4. Right ventricular cavity size is normal, global systolic RV function is normal. 5. The aortic valve is normal and trileaflet, no stenosis and no regurgitation. 6. The mitral valve is normal, trace mitral regurgitation. REVIEW OF SYSTEMS: 12-point ROS completed with patient and negative unless otherwise stated in HPI or below. PHYSICAL EXAM: CONSTITUTIONAL: Conversive, good historian. A/O. Knows setting and context. GENERAL: Well-developed and above ideal body weight, in no respiratory distress. VITAL SIGNS: Afebrile. Blood pressure 139/62. Pulse 66. Respirations 20. Pulse ox 95% HEENT: Sclerae are anicteric. No petechiae. CARDIAC: rhythm is regular. There is no S3 or rub. No harsh murmurs. Extremities show trace edema with symmetrical pulses. PULM: good air entry but crackles and ronchi bilaterally NEURO: Speech is fluent. A brief neurologic exam is negative. SKIN: No rashes, petechiae, concerning changes PSYCHIATRIC: Euthymic. ADMIT TO MEDSURG: FLOOR CARE DVT: Lovenox GI: PO intake Time spent: Today I spent 75 minutes seeing the patient, discussing the patient with ER staff, reviewing Expanse and EPIC notes/diagnostics, discussing the care plan with our care time that includes social work, PT/OT, pharmacy, RT, penitentiary and documenting my impressions and plan in the medical record. MEDICAL NECESSITY FOR HOSPITALIZATION Anticipated midnights in the hospital: Admitting diagnosis: Risk of morbidity and mortality: high Acuity is characterized as high and reflected in: This patient will require hospital services as outlined in the assessment and plan in order to stabilize and be safely discharged to a lower level of care. Because of the risk and acuity as described above, this patient cannot be managed at a lower level of care. LENGTH OF STAY: 2 IP ? Anticipated LOS>2 midnights due to acuity of clinical presentation requiring inpatient level of care Medical Decision Making Medical Decision Making Has patient completed a Health Care Directive: No [facility] Medical History (Updated 10/04/24 @ 16:35 by Lata Fam MD) Morbid obesity ?E66.01 - Morbid (severe) obesity due to excess calories (ICD-10) Numbness and tingling of left side of face ?R20.0 - Anesthesia of skin (ICD-10) ?R20.2 - Paresthesia of skin (ICD-10) Atrial fibrillation with RVR ?I48.91 - Unspecified atrial fibrillation (ICD-10) Systolic CHF, acute ?I50.21 - Acute systolic (congestive) heart failure (ICD-10) Tobacco dependence in remission ?F17.201 - Nicotine dependence, unspecified, in remission (ICD-10) Clostridium difficile diarrhea ?A04.72 - Enterocolitis due to Clostridium difficile, not specified as recurrent (ICD-10) Dyspnea ?R06.00 - Dyspnea, unspecified (ICD-10) Hypoxia ?R09.02 - Hypoxemia (ICD-10) Bilateral pleural effusion ?J90 - Pleural effusion, not elsewhere classified (ICD-10) Pneumonia ?J18.9 - Pneumonia, unspecified organism (ICD-10) Depression, recurrent ?F33.9 - Major depressive disorder, recurrent, unspecified (ICD-10) Spinal stenosis, lumbar region with neurogenic claudication ?M48.062 - Spinal stenosis, lumbar region with neurogenic claudication (ICD-10) Abscess of right breast ?N61.1 - Abscess of the breast and nipple (ICD-10) Adenomatous colon polyp ?D12.6 - Benign neoplasm of colon, unspecified (ICD-10) Ureteral stone with hydronephrosis ?N13.2 - Hydronephrosis with renal and ureteral calculous obstruction (ICD-10) Coronary artery disease involving blackfeet coronary artery of blackfeet heart without angina pectoris ?I25.10 - Atherosclerotic heart disease of blackfeet coronary artery without angina pectoris (ICD-10) BILLIE (obstructive sleep apnea) ?G47.33 - Obstructive sleep apnea (adult) (pediatric) (ICD-10) STEMI (ST elevation myocardial infarction) ?I21.3 - ST elevation (STEMI) myocardial infarction of unspecified site (ICD-10) Psoriasis ?L40.9 - Psoriasis, unspecified (ICD-10) Hypokalemia ?E87.6 - Hypokalemia (ICD-10) Sciatica ?M54.30 - Sciatica, unspecified side (ICD-10) Hyperlipidemia ?E78.5 - Hyperlipidemia, unspecified (ICD-10) Essential hypertension ?I10 - Essential (primary) hypertension (ICD-10) Surgical History H/O tubal ligation ?Z98.51 - Tubal ligation status (ICD-10) S/P rotator cuff repair ?Z98.890 - Other specified postprocedural states (ICD-10) H/O lithotripsy ?Z98.890 - Other specified postprocedural states (ICD-10) H/O arthroscopic knee surgery ?Z98.890 - Other specified postprocedural states (ICD-10) History of reduction surgery of right breast ?Z98.890 - Other specified postprocedural states (ICD-10) Hx of colonoscopy ?Z98.890 - Other specified postprocedural states (ICD-10) Previous back surgery ?Z98.890 - Other specified postprocedural states (ICD-10) Family History Brother Alcohol dependence Father Alcohol dependence Social History Narrative: Smoked 1ppd for 45 years, quit cold turkey 2 months ago. Denies alcohol use. Denies recreational drug use. Requests DNR DNI resuscitation status. Designates her sons as power of erisa attorney for health should that be required. What is your current living situation?: I presently have a place to live Problems where you live: no known problems Problems where you live details: NA In the past 12 months, utilities in danger of being shut off: no In past 12 months, lack of transportation kept you from medical appts, meetings, work, or getting things needed for daily living: no In the past 12 mos, have been you worried that your food would run out before you had money to buy more?: never true In the past 12 mos, the food you bought just didn't last and you didn't have money to buy more?: never true Highest level of school completed/degree received: some college, no degree Smoking Status: Former smoker What tobacco products do you use: cigarettes Years smoked: 35 Smoking quit date/years: <= 15 years ago Do you use any of these nicotine containing products: None Nicotine containing products detail: Quit November 2022 Second hand tobacco smoke exposure: No How often do you have a drink containing alcohol: never How often do you have six or more drinks on one occasion: Never AUDIT-C Alcohol total score: 0 Non-prescribed substance use: denies use Caffeine: Yes (special occasion) How often does anyone, including family, friends and others, physically hurt you: never How often does anyone, including family, friends and others, insult or talk down to you: never How often does anyone, including family, friends and others, threaten you with harm: never How often does anyone, including family, friends and others, scream or curse at you: never service: No Meds Home Medications and Allergies Home Medications ?Medication ?Instructions ?Recorded ?Confirmed ?Type aspirin 81 mg capsule 81 mg PO DAILY 12/15/22 10/04/24 History losartan 100 mg tablet 100 mg PO DAILY 12/15/22 10/04/24 History metoprolol succinate 100 mg 100 mg PO BID 12/15/22 10/04/24 History tablet,extended release 24 hr multivitamin (Daily Multi-Vitamin 1 tab PO DAILY 12/15/22 10/04/24 History tablet) rosuvastatin 40 mg tablet 40 mg PO HS 12/15/22 10/04/24 History sertraline 100 mg tablet 100 mg PO QAM 12/15/22 10/04/24 History apixaban 5 mg tablet (Eliquis) 5 mg PO BID #60 tabs 01/30/23 10/04/24 Rx amlodipine 10 mg tablet 10 mg PO HS 02/26/23 10/04/24 History furosemide 40 mg tablet 40 mg PO DAILY 02/26/23 10/04/24 History insulin aspart 50 unit subcut TIDWMEAL 10/04/24 10/04/24 History (niacinamide)(U-100) 100 unit/mL(3 mL) subcutaneous pen (Fiasp FlexTouch U-100 Insulin) insulin glargine 100 unit/mL (3 40 - 42 unit subcut BID 10/04/24 10/04/24 History mL) subcutaneous pen (Lantus Solostar U-100 Insulin) metformin 1,000 mg tablet 1,000 mg PO BID 10/04/24 10/04/24 History spironolactone 50 mg tablet 50 mg PO DAILY 10/04/24 10/04/24 History tolterodine 4 mg capsule,extended 4 mg PO DAILY 10/04/24 10/04/24 History release 24 hr Allergies Allergy/AdvReac Type Severity Reaction Status Date / Time Latex, Natural Rubber Allergy Verified 02/26/23 19:40 iodine AdvReac Severe Anaphylaxis Verified 01/21/23 09:42 shellfish derived AdvReac Severe Anaphylaxis Verified 01/21/23 09:42 ticagrelor (From Brilinta) AdvReac Severe Rash Verified 01/21/23 09:42 Exam Const: Vital Signs, click to edit/add: Vital Signs - 24 hr 10/04/24 01:37 10/04/24 02:00 10/04/24 02:02 Temperature 99.3 F Pulse Rate Pulse Rate [Pulse Oximeter] 75 Respiratory Rate 38 H 37 H 33 H Blood Pressure Blood Pressure [Le ft Upper Arm] 167/61 H Pulse Oximetry 77 L 93 91 Oxygen Delivery Me thod Room Air Oxygen Flow Rate 10/04/24 02:10 10/04/24 02:12 10/04/24 02:15 Temperature Pulse Rate 79 Pulse Rate [Pulse Oximeter] Respiratory Rate 33 H 31 H 13 Blood Pressure Blood Pressure [Le ft Upper Arm] Pulse Oximetry 92 94 94 Oxygen Delivery Me thod Oxygen Flow Rate 10/04/24 02:20 10/04/24 02:23 10/04/24 02:30 Temperature Pulse Rate Pulse Rate [Pulse Oximeter] Respiratory Rate 34 H 21 30 H Blood Pressure Blood Pressure [Le ft Upper Arm] Pulse Oximetry 93 95 92 Oxygen Delivery Me thod Oxygen Flow Rate 10/04/24 02:32 10/04/24 02:40 10/04/24 02:42 Temperature Pulse Rate Pulse Rate [Pulse Oximeter] Respiratory Rate 30 H 36 H 31 H Blood Pressure Blood Pressure [Le ft Upper Arm] Pulse Oximetry 91 92 91 Oxygen Delivery Me thod Oxygen Flow Rate 10/04/24 02:45 10/04/24 02:50 10/04/24 02:52 Temperature Pulse Rate 76 Pulse Rate [Pulse Oximeter] Respiratory Rate 32 H 32 H 29 H Blood Pressure Blood Pressure [Le ft Upper Arm] Pulse Oximetry 91 93 91 Oxygen Delivery Me thod Oxygen Flow Rate 10/04/24 03:00 10/04/24 03:01 10/04/24 03:10 Temperature Pulse Rate Pulse Rate [Pulse Oximeter] Respiratory Rate 30 H 30 H 17 Blood Pressure Blood Pressure [Le ft Upper Arm] Pulse Oximetry 89 89 91 Oxygen Delivery Me thod Oxygen Flow Rate 10/04/24 03:11 10/04/24 03:16 10/04/24 03:20 Temperature Pulse Rate 72 Pulse Rate [Pulse Oximeter] Respiratory Rate 30 H 29 H 27 H Blood Pressure Blood Pressure [Le ft Upper Arm] Pulse Oximetry 92 90 88 Oxygen Delivery Me thod Oxygen Flow Rate 10/04/24 03:21 10/04/24 03:30 10/04/24 03:32 Temperature Pulse Rate Pulse Rate [Pulse Oximeter] Respiratory Rate 32 H 27 H 30 H Blood Pressure Blood Pressure [Le ft Upper Arm] Pulse Oximetry 87 L 91 91 Oxygen Delivery Me thod Oxygen Flow Rate 10/04/24 03:40 10/04/24 03:42 10/04/24 03:45 Temperature Pulse Rate 74 72 Pulse Rate [Pulse Oximeter] Respiratory Rate 29 H 26 H 30 H Blood Pressure 157/89 H Blood Pressure [Le ft Upper Arm] Pulse Oximetry 92 93 92 Oxygen Delivery Me thod Oxygen Flow Rate 10/04/24 03:52 10/04/24 04:00 10/04/24 04:02 Temperature Pulse Rate 70 70 72 Pulse Rate [Pulse Oximeter] Respiratory Rate 23 12 25 H Blood Pressure 148/57 H 146/54 H Blood Pressure [Le ft Upper Arm] Pulse Oximetry 92 93 91 Oxygen Delivery Me thod Oxygen Flow Rate 10/04/24 04:11 10/04/24 04:15 10/04/24 04:21 Temperature Pulse Rate 70 69 68 Pulse Rate [Pulse Oximeter] Respiratory Rate 8 L 9 L 14 Blood Pressure 141/75 H 139/75 Blood Pressure [Le ft Upper Arm] Pulse Oximetry 86 L 93 94 Oxygen Delivery Me thod Oxygen Flow Rate 10/04/24 04:30 10/04/24 04:31 10/04/24 04:41 Temperature Pulse Rate 66 72 73 Pulse Rate [Pulse Oximeter] Respiratory Rate 11 L 7 L 9 L Blood Pressure 146/67 H 143/69 H Blood Pressure [Le ft Upper Arm] Pulse Oximetry 92 92 94 Oxygen Delivery Me thod Oxygen Flow Rate 10/04/24 04:45 10/04/24 04:51 10/04/24 05:00 Temperature Pulse Rate 74 73 73 Pulse Rate [Pulse Oximeter] Respiratory Rate 30 H 16 28 H Blood Pressure 144/72 H Blood Pressure [Le ft Upper Arm] Pulse Oximetry 92 93 93 Oxygen Delivery Me thod Oxygen Flow Rate 10/04/24 05:01 10/04/24 05:11 10/04/24 05:15 Temperature Pulse Rate 73 73 73 Pulse Rate [Pulse Oximeter] Respiratory Rate 26 H 29 H 15 Blood Pressure 153/75 H 149/71 H Blood Pressure [Le ft Upper Arm] Pulse Oximetry 92 93 93 Oxygen Delivery Me thod Oxygen Flow Rate 10/04/24 05:21 10/04/24 05:30 10/04/24 05:31 Temperature Pulse Rate 72 66 66 Pulse Rate [Pulse Oximeter] Respiratory Rate 22 10 L 17 Blood Pressure 150/73 H 153/72 H Blood Pressure [Le ft Upper Arm] Pulse Oximetry 93 95 94 Oxygen Delivery Me thod Oxygen Flow Rate 10/04/24 05:41 10/04/24 05:45 10/04/24 05:51 Temperature Pulse Rate 69 64 62 Pulse Rate [Pulse Oximeter] Respiratory Rate 10 L 22 23 Blood Pressure 149/117 H 138/66 Blood Pressure [Le ft Upper Arm] Pulse Oximetry 97 95 95 Oxygen Delivery Me thod Oxygen Flow Rate 10/04/24 06:00 10/04/24 06:01 10/04/24 06:11 Temperature Pulse Rate 64 65 64 Pulse Rate [Pulse Oximeter] Respiratory Rate 13 27 H 23 Blood Pressure 133/71 149/71 H Blood Pressure [Le ft Upper Arm] Pulse Oximetry 97 97 95 Oxygen Delivery Me thod Oxygen Flow Rate 10/04/24 06:15 10/04/24 06:22 10/04/24 06:30 Temperature Pulse Rate 64 65 64 Pulse Rate [Pulse Oximeter] Respiratory Rate 22 23 23 Blood Pressure 151/69 H Blood Pressure [Le ft Upper Arm] Pulse Oximetry 95 95 94 Oxygen Delivery Me thod Oxygen Flow Rate 10/04/24 06:32 10/04/24 06:42 10/04/24 06:45 Temperature Pulse Rate 64 64 64 Pulse Rate [Pulse Oximeter] Respiratory Rate 23 22 21 Blood Pressure 147/65 H 148/69 H Blood Pressure [Le ft Upper Arm] Pulse Oximetry 94 94 93 Oxygen Delivery Me thod Oxygen Flow Rate 10/04/24 06:51 10/04/24 07:00 10/04/24 07:02 Temperature Pulse Rate 64 63 63 Pulse Rate [Pulse Oximeter] Respiratory Rate 22 21 20 Blood Pressure 149/73 H 160/74 H Blood Pressure [Le ft Upper Arm] Pulse Oximetry 93 92 93 Oxygen Delivery Me thod BiPAP Oxygen Flow Rate 10/04/24 07:11 10/04/24 07:15 10/04/24 07:22 Temperature Pulse Rate 64 64 69 Pulse Rate [Pulse Oximeter] Respiratory Rate 22 27 H 26 H Blood Pressure 150/73 H 142/68 H Blood Pressure [Le ft Upper Arm] Pulse Oximetry 93 97 96 Oxygen Delivery Me thod Oxygen Flow Rate 10/04/24 07:30 10/04/24 07:32 10/04/24 07:41 Temperature Pulse Rate 76 67 64 Pulse Rate [Pulse Oximeter] Respiratory Rate 11 L 20 21 Blood Pressure 109/65 120/69 Blood Pressure [Le ft Upper Arm] Pulse Oximetry 96 94 92 Oxygen Delivery Me thod Nasal Cannula Nasal Cannula Oxygen Flow Rate 3 3 10/04/24 07:45 10/04/24 08:00 10/04/24 08:57 Temperature Pulse Rate 51 L 68 Pulse Rate [Pulse Oximeter] Respiratory Rate 17 11 L 20 Blood Pressure Blood Pressure [Le ft Upper Arm] Pulse Oximetry 93 85 L 91 Oxygen Delivery Me thod Nasal Cannula Nasal Cannula Oxygen Flow Rate 3 2 Hospitalist - H&P: Result Labs Labs: Short CBC 10/04/24 Range/Units 01:35 WBC 15.99 H (4.50-11.00) K/uL Hgb 12.0 (12.0-16.0) gm/dL Hct 38.5 (33.0-51.0) % Plt Count 345 (140-440) K/uL BMP 10/04/24 01:35 Sodium 138 Potassium 3.3 L Chloride 104 Carbon Dioxide 27 BUN 10 Creatinine 0.7 Glucose 346 H Calcium 9.1 Cardiac Enzymes 10/04/24 Range/Units 01:35 Troponin I 0.01 (0.01-0.04) ng/mL Liver Function 10/04/24 Range/Units 01:35 Total Bilirubin 0.6 (0.1-1.5) mg/dL AST 38 H (12-35) U/L ALT 32 (4-35) U/L Alkaline Phosphatase 84 (40-150) U/L Albumin 3.7 (3.3-5.0) g/dL Urine 10/04/24 Range/Units 02:20 Urine Color Yellow (Yellow) Urine Appearance Clear (Clear) Urine pH 6.5 (5.0-8.5) Ur Specific Wells 1.020 (1.000-1.030) Urine Protein 3+ A (Negative) Urine Glucose (UA) 3+ A (Negative)
[2024-10-04] MEDS: SERTRALINE 100 MG TABLET PO (12:32)
[2024-10-04] MEDS: SPIRONOLACTONE 25 MG TABLET 50 MG PO (12:32)
[2024-10-04] MEDS: METFORMIN 1,000 MG TABLET 1000 MG PO ×2 (12:32→20:40)
[2024-10-04] MEDS: APIXABAN 5 MG TABLET PO ×2 (12:32→20:40)
[2024-10-04] MEDS: INSULIN ASPART 100 UNIT/ML 50 UNIT SUBCUT ×2 (13:36→17:11)
--- NOTE | 2024-10-04 15:22 | RESP.RT ---
Patient used V60 overnight, but can now use her home CPAP unit when resting with a 2L bleed in. Patient is on RA at home, and is currently weaned to 1L NC to keep SATs 88-92%. We will continue to wean her off of O2 while awake and she should use her home CPAP whenever she is resting.
[2024-10-04] MEDS: FUROSEMIDE 10 MG/ML inj 40 MG IVP (15:39)
[2024-10-04] MEDS: ACETAMINOPHEN 650 MG TABLET ER 1300 MG PO ×2 (15:39→23:36)
[2024-10-04] MEDS: POTASSIUM BICARB 25 MEQ EFFERVESCENT TAB PO ×2 (17:10→19:08)
[2024-10-04] MEDS: CELECOXIB 200 MG CAPSULE PO (17:10)
[2024-10-04] MEDS: INSULIN ASPART 100 UNIT/ML SUBCUT ×2 (17:11→20:42)
--- NOTE | 2024-10-04 17:54 | PC.NURSE ---
End of shift report. Alert and oriented x 4. Pain to low back reported, chronic pain due to previous lumbar fusion, new orders received for pain and effective. SOB with exertion reported, patient on 2L per NC on admission and weaned to room air at 1700 d/t O2 sats 95% on 1L and RT recommendation to keep sats 88-92%. Lung sounds clear but diminished in bases. Elevated BG at 1200 and 1700, MD notified and insulin administered, no new orders with current blood glucose levels. Transfers with SBA. Bhatt catheter patent, draining clear, pale yellow urine.
[2024-10-04] MEDS: ROSUVASTATIN CALCIUM 10 MG TABLET 40 MG PO (20:38)
[2024-10-04] MEDS: METOPROLOL SUCCINATE (XL) 100 MG TAB PO (20:40)
[2024-10-04] MEDS: AMLODIPINE 10 MG TABLET PO (20:40)
[2024-10-04] MEDS: SODIUM CHLORIDE 0.9 % (FLUSH) 10 ML SYRINGE 5 ML IVF (20:44)
[2024-10-05] VITALS (10 sets, daily range): BP systolic 124–149; BP diastolic 59–79; PULSE 54–66; RESP 16–20; TEMP 36–36.7; O2SAT 90–95
[2024-10-05] MEDS: FUROSEMIDE 10 MG/ML inj 40 MG IVP (03:20)
[2024-10-05] MEDS: AZITHROMYCIN 250 MG TABLET 500 MG PO (05:31)
[2024-10-05] MEDS: cefTRIAXone 2 GM in 0.9 % SODIUM CHLORIDE Mini-bag 100 ML IVPB (05:32)
[2024-10-05] MEDS: SODIUM CHLORIDE 0.9 % (FLUSH) 10 ML SYRINGE 5 ML IVF ×3 (05:38→21:48)
--- NOTE | 2024-10-05 06:49 | PC.NURSE ---
Shift note: Patient is pleasant, alert and oriented. Oxygen at 1-3L tonight to keep the O2 between 88 and 92%. Patient used CPAP tonight with 2L oxygen blend. A1, walker to recliner. Bhatt intact and draining clear urine.
[2024-10-05 07:28] LABS: Hematocrit 34.7 % (33.0-51.0); Hemoglobin* 10.8 gm/dL (12.0-16.0); Mean Corpuscular HGB Conc 31 gm/dL (32-36); Mean Corpuscular Hemoglobin 27 pg (26-34); Mean Corpuscular Volume 87 fL (80-100); Red Blood Count 3.99 m/uL (4.00-5.20); White Blood Count* 9.34 K/uL (4.50-11.00)
[2024-10-05 07:29] LABS: HCO3 VBG 32 mmol/L (21-28); PCO2 VBG 48 mmHG (40-50); PO2 VBG 57.6 mmHG (25-47); pH VBG 7.430 (7.32-7.43)
[2024-10-05 07:31] LABS: Slide Review Reflex No
[2024-10-05 07:47] LABS: Chloride* 100 mmol/L (96-114)
[2024-10-05 07:48] LABS: Albumin* 3.2 g/dL (3.3-5.0); Potassium* 3.4 mmol/L (3.6-5.1); Sodium* 136 mmol/L (135-149)
[2024-10-05 07:50] LABS: Blood Urea Nitrogen* 22 mg/dL (7-30); Creatinine* 0.7 mg/dL (0.5-1.5); Est. Creatinine Clearance* 44.36; Estimated Glomerular Filt Rate 96 ml/min
[2024-10-05 07:51] LABS: Alanine Aminotransferase* 25 U/L (4-35); Alkaline Phosphatase* 63 U/L (40-150); Anion Gap 4 mEq/L (7-15); Aspartate Amino Transferase* 20 U/L (12-35); Bilirubin Total* 0.2 mg/dL (0.1-1.5); Calcium* 8.4 mg/dL (8.4-10.6); Carbon Dioxide* 32 mmol/L (20-32); Glucose* 227 mg/dL (60-115); Total Protein* 6.0 g/dL (6.0-8.3)
[2024-10-05 08:07] LABS: Procalcitonin* 0.50 ng/mL (<0.50)
[2024-10-05] MEDS: ACETAMINOPHEN 650 MG TABLET ER 1300 MG PO ×2 (09:25→17:03)
[2024-10-05] MEDS: ASPIRIN 81 MG TABLET EC PO (09:26)
[2024-10-05] MEDS: APIXABAN 5 MG TABLET PO ×2 (09:26→21:45)
[2024-10-05] MEDS: SERTRALINE 100 MG TABLET PO (09:26)
[2024-10-05] MEDS: TOLTERODINE TARTRATE 2 MG CAP.ER.24H 4 MG PO (09:27)
[2024-10-05] MEDS: SPIRONOLACTONE 25 MG TABLET 50 MG PO (09:27)
[2024-10-05] MEDS: LIDOCAINE 5% PATCH 1 PATCH TRANSDERMA (09:28)
[2024-10-05] MEDS: LOSARTAN POTASSIUM 50 MG TABLET 100 MG PO (09:28)
[2024-10-05] MEDS: MULTIVITAMIN/MINERALS 1 TABLET 1 TAB PO (09:28)
[2024-10-05] MEDS: METOPROLOL SUCCINATE (XL) 100 MG TAB PO ×2 (09:28→21:46)
[2024-10-05] MEDS: METFORMIN 1,000 MG TABLET 1000 MG PO ×2 (09:28→21:46)
[2024-10-05] MEDS: EMPAGLIFLOZIN 10 MG TABLET PO (10:15)
[2024-10-05] MEDS: CELECOXIB 200 MG CAPSULE PO (10:15)
[2024-10-05] MEDS: INSULIN ASPART 100 UNIT/ML 50 UNIT SUBCUT ×2 (10:17→14:03)
[2024-10-05] MEDS: INSULIN ASPART 100 UNIT/ML SUBCUT ×3 (10:18→21:52)
--- NOTE | 2024-10-05 10:59 | PC.NURSE ---
Spoke with Dr. Fam about a few topics/concerns. Patient requested to get catheter out this morning. Patient is ambulating stand by assist. MD okay with taking this out. Verbal order placed and catheter was removed and tip was intact. Patient also concerned about the amount of diabetes medications she is on. MD will discuss this with patient. Patient also stated that she fell 3 weeks ago and since then has been having nausea/vomiting 3X per day along with diarrhea and has also lost 25lbs unintentionally. Dr. Fam will look into this. Patient stated she was prescribed ozempic and has it at home but has not used it yet. Patient also stated she was discharged on oxygen at her last admission but did not use it at home and called the oxygen company to remove it. Uses CPAP at night at home.
--- NOTE | 2024-10-05 11:22 | XR_ITS ---
Patient: SHANIKA NOWAK Facility:?[facility] Patient ID:?[id number] Site Patient ID:?[id number]. Site :?[id number] Study:?XRay-Chest 2 VIEWS-10/05/2024 1:01:23 PM Ordering Physician:Claudio Guido Final Report: Indication: Congestive heart failure. Technique: Chest 2 views. Comparison: Chest radiograph 10/04/2024. Findings/Impression: Cardiovascular and mediastinum: Heart size is unchanged. Unremarkable mediastinum. Lungs and pleural spaces: Decreased interstitial prominence likely reflecting decreased pulmonary edema. No new consolidation. Minimal blunting of the left costophrenic angle may reflect small pleural effusion. No pneumothorax. Bones and soft tissues: No significant findings. Dictated by Alejandra Clifford MD @ 10/05/2024 1:25:35 PM (Electronic Signature)
--- NOTE | 2024-10-05 11:33 | CRLHL7_ITS ---
For Patients: As a result of the Century Cures Act, medical imaging exams and procedure reports are released immediately into your electronic medical record. You may view this report before your referring provider. If you have questions, please contact your health care provider. Indication: Fall 3 weeks ago. Technique: Frontal view of the pelvis Comparison: None. Findings: There is partial external rotation of hips this limits evaluation. The hips are located. No gross fracture. Mild osteoarthritis. Obturator rings are intact. Impression: 1. No gross acute osseous abnormality of the pelvis. Partial rotation of the hips limits evaluation. Follow-up hip radiographs may be performed for further evaluation if clinical concern for hip fracture. Dictated by Tutu Baer MD @ 10/05/2024 1:29:47 PM (Electronically Signed)
--- NOTE | 2024-10-05 13:54 | P.IMPN_ITS ---
Assessment and Plan Assessment and plan (1) Acute hypoxemic respiratory failure: Problem comment: -HFPEF and CAP -both improving Status: Acute (2) (HFpEF) heart failure with preserved ejection fraction: Problem comment: - echo on this admission actually favors an increase in ventricular function. EF from 46 to 59%. -continue current treatment with IV diuresis. lasix 40mg q12h --> 40mg PO q12 as of 10/05 -weaned to room air Status: Acute (3) Community acquired pneumonia: Problem comment: -consider imaging for further clarification. trend WBC, CRP -2 grams rocephin and 1/2 gram of azithromycin -no further steroids. Status: Acute (4) Poorly controlled diabetes mellitus: Problem comment: A1C 12.3 in may 2024 lantus 42 units BID, regular insulin 50 with meals, on our SSI adding jardiance 10mg insulin dependent; insulin resistant. consider semiglutide Status: Acute (5) Acute hypokalemia: Problem comment: replace orally Status: Acute (6) Atrial fibrillation: Problem comment: -typically controlled with metoprolol Status: Chronic (7) CKD (chronic kidney disease) stage 3, GFR 30-59 ml/min: Problem comment: w/proteinuria Status: Acute (8) Coronary artery disease involving [place] coronary artery of [place] heart without angina pectoris: Problem comment: 01/10/14 100% occlusion of distal RCA; PERCUTANEOUS CORONARY INTERVENTION with drug eluting stent showed a good result. Peak troponin was 180. Ejection fraction was 50-55% with hypokinesis of inferior and inferolateral wall. Status: Acute (9) Lesion of adrenal gland: Problem comment: hospitalist with Dr. Beavers about this and he noted that they had done a CT abdomen in late January, just a few weeks ago that showed multiple bilateral benign adrenal nodules. Status: Chronic (10) Morbid obesity: Status: Acute Subjective Date Seen: 10/05/24 Interval history: Daily Progress Note - Hospital Medicine #: 2 CC: Acute CHF, CAP 24 HOUR UPDATE: Much improved. off oxygen. diuresed. afebrile. In rounds this morning we discussed her diabetes, her fall three weeks ago and ongoing right hip pain. Her breathing was not at the top of her mind. Notable Labs, Micro, Rads, Interventions: Vitals reviewed. 91% on room air. Objective: alert, smiling. Vitals: see above Lungs: much improved wrt to wheezing/crackes. Cardiac: S1S2. Disposition/Potential discharge - Home in 1-2 days. Today I spent 50minutes seeing the patient, reviewing Expanse and EPIC notes/diagnostics, discussing the care plan with our care time that includes social work, PT/OT, pharmacy, RT, senior care and documenting my impressions and plan in the medical record. Exam Const: Vital Signs, click to edit/add: Vital Signs - 24 hr 10/04/24 15:00 10/04/24 15:00 10/04/24 15:00 Temperature Pulse Rate 65 Pulse Rate [Right Brachial] 66 Respiratory Rate 20 20 Blood Pressure [Ri ght Arm] Pulse Oximetry 95 Oxygen Delivery Me thod Nasal Cannula Oxygen Flow Rate 10/04/24 15:00 10/04/24 19:00 10/04/24 23:00 Temperature 98.0 F 97.6 F Pulse Rate 62 Pulse Rate [Right Brachial] 66 65 Respiratory Rate 20 20 Blood Pressure [Ri ght Arm] 139/62 146/63 H Pulse Oximetry 95 94 Oxygen Delivery Me thod Room Air Room Air Oxygen Flow Rate 1 10/04/24 23:00 10/04/24 23:00 10/04/24 23:00 Temperature 97.6 F Pulse Rate Pulse Rate [Right Brachial] 61 Respiratory Rate 20 20 20 Blood Pressure [Ri ght Arm] 137/66 Pulse Oximetry 92 93 Oxygen Delivery Me thod Room Air CPAP Oxygen Flow Rate 1 2 10/05/24 03:00 10/05/24 09:00 10/05/24 09:05 Temperature 97.9 F 96.8 F L Pulse Rate Pulse Rate [Right Brachial] 54 L 58 L Respiratory Rate 20 16 16 Blood Pressure [Ri ght Arm] 124/65 149/79 H Pulse Oximetry 90 95 95 Oxygen Delivery Me thod CPAP Nasal Cannula Nasal Cannula Oxygen Flow Rate 2 2 2 10/05/24 10:00 10/05/24 10:56 Temperature Pulse Rate 63 Pulse Rate [Right Brachial] Respiratory Rate Blood Pressure [Ri ght Arm] Pulse Oximetry 91 Oxygen Delivery Me thod Room Air Oxygen Flow Rate Labs Labs: Laboratory Results - last 24 hr 10/05/24 07:15 WBC 9.34 RBC 3.99 L Hgb 10.8 L Hct 34.7 MCV 87 MCH 27 MCHC 31 L Plt Count 324 VBG pH 7.430 VBG pCO2 48 VBG pO2 57.6 H VBG HCO3 32 H Sodium 136 Potassium 3.4 L Chloride 100 Carbon Dioxide 32 Anion Gap 4 L BUN 22 Creatinine 0.7 Estimated Creat Clear 44.36 Estimated GFR 96 Glucose 227 H Calcium 8.4 Total Bilirubin 0.2 AST 20 ALT 25 Alkaline Phosphatase 63 C-Reactive Protein 7.7 H Total Protein 6.0 Albumin 3.2 L Procalcitonin 0.50
[2024-10-05] MEDS: FUROSEMIDE 40 MG TABLET PO (14:04)
--- NOTE | 2024-10-05 14:41 | PC.NURSE ---
End of shift report: Patient has been on room air most of this shift. Patient has ambulated in lee twice and has tolerated well. PIV patent and intact. Lung sounds are clear, but diminished at bases. Patient has had pain in right hip from fall that happened 3 weeks ago. Xray was done of this today and no concerns on X-ray. Chest X-ray has improved but will continue treating for pneumonia until discharge. Blood sugars have been in the 200's. Scheduled insulin and sliding scale ordered. Started on Jardiance and will continue metformin. Tolerating a regular diet. No fluid restriction ordered or needed per MD. Catheter was discontinued this morning. Patient has voided X1 since catheter taken out. Patient has had 1 loose BM today. VSS. Alert and oriented. Anticipate discharge tomorrow back to [address] [facility] apartments.
--- NOTE | 2024-10-05 18:12 | PC.NURSE ---
End of shift [id number]: Pt AxOx4, cooperative, and pleasant with cares. Pt up in hallways ambulating on RA, sats remaining dipping low as 85% with recovery back up to >90% within seconds. Continent of bladder and bowel. Blood sugar alarm went of via Pts phone. Health Education Specialist assessed BG with our own device reading B. Juice given. Taken again B, Pt symptomatic at this point reporting feeling dizzy and lightheaded. Juice and ice cream provided. Dinner provided. BG recheck: 114. MD Verde notified during BG changes and symptoms arising. Pt denies feeling dizzy and lightheaded. Insulin held per orders. MD Verde requesting BG check at bedtime to reassess and evaluate for further intervention. Pt appears resting in chair watching television. Call light within reach.
[2024-10-05] MEDS: AMLODIPINE 10 MG TABLET PO (21:46)
[2024-10-05] MEDS: ROSUVASTATIN CALCIUM 10 MG TABLET 40 MG PO (21:47)
[2024-10-06 00:30] VITALS: BP 141/69; PULSE 58; RESP 20; TEMP 36.1; O2SAT 89; O2SAT 91
[2024-10-06] MEDS: ACETAMINOPHEN 650 MG TABLET ER 1300 MG PO (00:56)
[2024-10-06 02:25] VITALS: BP 148/58; PULSE 57; RESP 17; TEMP 36.3; O2SAT 88
[2024-10-06 06:53] LABS: Hematocrit 36.8 % (33.0-51.0); Hemoglobin* 11.4 gm/dL (12.0-16.0); Mean Corpuscular HGB Conc 31 gm/dL (32-36); Mean Corpuscular Hemoglobin 27 pg (26-34); Mean Corpuscular Volume 88 fL (80-100); Red Blood Count 4.18 m/uL (4.00-5.20); White Blood Count* 8.58 K/uL (4.50-11.00)
[2024-10-06] MEDS: cefTRIAXone 2 GM in 0.9 % SODIUM CHLORIDE Mini-bag 100 ML IVPB (06:55)
[2024-10-06] MEDS: AZITHROMYCIN 250 MG TABLET 500 MG PO (06:57)
[2024-10-06 07:00] VITALS: BP 146/67; PULSE 60; RESP 18; TEMP 36.5; O2SAT 90
[2024-10-06 07:01] LABS: Slide Review Reflex No
--- NOTE | 2024-10-06 07:09 | PC.NURSE ---
Shift note ([id number]): Patient pleasant, alert and oriented. Stand by assist for ambulation. Staff monitored and adjusted O2 as needed. O2 at 1-2 LPM was bled through CPAP at times during night?to keep sats 88-92%. Pt maintaining sats above 88% on RA while awake. Denied pain.
[2024-10-06 07:10] LABS: Albumin* 3.3 g/dL (3.3-5.0); Chloride* 99 mmol/L (96-114); Potassium* 3.8 mmol/L (3.6-5.1); Sodium* 138 mmol/L (135-149)
[2024-10-06 07:13] LABS: Alanine Aminotransferase* 21 U/L (4-35); Aspartate Amino Transferase* 19 U/L (12-35); Blood Urea Nitrogen* 24 mg/dL (7-30); Creatinine* 0.8 mg/dL (0.5-1.5); Est. Creatinine Clearance* 44.36; Estimated Glomerular Filt Rate 82 ml/min
[2024-10-06 07:14] LABS: Alkaline Phosphatase* 64 U/L (40-150); Anion Gap 6 mEq/L (7-15); Bilirubin Total* 0.3 mg/dL (0.1-1.5); Calcium* 9.0 mg/dL (8.4-10.6); Carbon Dioxide* 33 mmol/L (20-32); Glucose* 117 mg/dL (60-115); Total Protein* 6.3 g/dL (6.0-8.3)
--- NOTE | 2024-10-06 07:35 | P.IMPN_ITS ---
Assessment and Plan Assessment and plan (1) Acute hypoxemic respiratory failure: Problem comment: -HFPEF and CAP -both improving Status: Acute (2) (HFpEF) heart failure with preserved ejection fraction: Problem comment: - echo on this admission actually favors an increase in ventricular function. EF from 46 to 59%. -continue current treatment with IV diuresis. lasix 40mg q12h --> 40mg PO q12 as of 10/05 -weaned to room air Status: Acute (3) Community acquired pneumonia: Problem comment: -consider imaging for further clarification. trend WBC, CRP -2 grams rocephin and 1/2 gram of azithromycin -no further steroids. Status: Acute (4) Poorly controlled diabetes mellitus: Problem comment: A1C 12.3 in may 2024 lantus 42 units BID, regular insulin 50 with meals, on our SSI adding jardiance 10mg insulin dependent; insulin resistant. consider semiglutide Status: Acute (5) Acute hypokalemia: Problem comment: replace orally Status: Acute (6) Atrial fibrillation: Problem comment: -typically controlled with metoprolol Status: Chronic (7) CKD (chronic kidney disease) stage 3, GFR 30-59 ml/min: Problem comment: w/proteinuria Status: Acute (8) Coronary artery disease involving [place] coronary artery of [place] heart without angina pectoris: Problem comment: 01/10/14 100% occlusion of distal RCA; PERCUTANEOUS CORONARY INTERVENTION with drug eluting stent showed a good result. Peak troponin was 180. Ejection fraction was 50-55% with hypokinesis of inferior and inferolateral wall. Status: Acute (9) Lesion of adrenal gland: Problem comment: hospitalist with Dr. Beavers about this and he noted that they had done a CT abdomen in late January, just a few weeks ago that showed multiple bilateral benign adrenal nodules. Status: Chronic (10) Morbid obesity: Status: Acute Subjective Interval history: Daily Progress Note - Hospital Medicine Day #: 3 CC: Acute CHF, CAP 24 HOUR UPDATE: Much improved. off oxygen. diuresed. afebrile. In rounds this morning we discussed her diabetes, her fall three weeks ago and ongoing right hip pain. Her breathing was not at the top of her mind. Notable Labs, Micro, Rads, Interventions: Vitals reviewed. 91% on room air. CXR 10/05 AM Chest 2 views. Comparison: Chest radiograph 10/04/2024. Findings/Impression: Cardiovascular and mediastinum: Heart size is unchanged. Unremarkable mediastinum. Lungs and pleural spaces: Decreased interstitial prominence likely reflecting decreased pulmonary edema. No new consolidation. Minimal blunting of the left costophrenic angle may reflect small pleural effusion. No pneumothorax. Bones and soft tissues: No significant findings. Echo 10/04/24 Final Impressions: 1. Normal left ventricular size, normal wall thickness, normal global systolic function, calculated EF of 59 %. 2. Inferior wall is abnormal. 3. Mildly enlarged left atrium. 4. Right ventricular cavity size is normal, global systolic RV function is normal. 5. The aortic valve is normal and trileaflet, no stenosis and no regurgitation. 6. The mitral valve is normal, trace mitral regurgitation. ? Comparison Compared to prior exam images and report of 01/22/23: - The left ventricular function has increased. Objective: alert, smiling. Vitals: see above Lungs: much improved wrt to wheezing/crackles. Cardiac: S1S2. Disposition/Potential discharge - Home in 1-2 days. Today I spent 50minutes seeing the patient, reviewing Expanse and EPIC notes/diagnostics, discussing the care plan with our care time that includes social work, PT/OT, pharmacy, RT, nursing home and documenting my impressions and plan in the medical record. Exam Const: Vital Signs, click to edit/add: Vital Signs - 24 hr 10/05/24 09:00 10/05/24 09:05 10/05/24 10:00 Temperature 96.8 F L Pulse Rate Pulse Rate [Right Brachial] 58 L Respiratory Rate 16 16 Blood Pressure [Ri ght Arm] 149/79 H Pulse Oximetry 95 95 91 Oxygen Delivery Me thod Nasal Cannula Nasal Cannula Room Air Oxygen Flow Rate 2 2 10/05/24 10:56 10/05/24 11:30 10/05/24 14:30 Temperature 98.1 F Pulse Rate 63 Pulse Rate [Right Brachial] 62 Respiratory Rate 16 Blood Pressure [Ri ght Arm] 130/61 Pulse Oximetry 91 91 Oxygen Delivery Me thod Room Air Oxygen Flow Rate 10/05/24 15:00 10/05/24 15:00 10/05/24 15:00 Temperature 97.4 F L Pulse Rate 64 Pulse Rate [Right Brachial] 66 Respiratory Rate 18 18 Blood Pressure [Ri ght Arm] 135/79 Pulse Oximetry 94 94 Oxygen Delivery Me thod Room Air Room Air Oxygen Flow Rate 10/05/24 20:05 10/05/24 20:47 10/06/24 00:30 Temperature 97.3 F L Pulse Rate 64 Pulse Rate [Right Brachial] 66 Respiratory Rate 17 20 Blood Pressure [Ri ght Arm] 143/59 H Pulse Oximetry 91 91 Oxygen Delivery Me thod Room Air CPAP Oxygen Flow Rate 10/06/24 00:30 10/06/24 02:25 Temperature 97.0 F L 97.4 F L Pulse Rate Pulse Rate [Right Brachial] 58 L 57 L Respiratory Rate 20 17 Blood Pressure [Ri ght Arm] 141/69 H 148/58 H Pulse Oximetry 89 88 Oxygen Delivery Me thod CPAP CPAP Oxygen Flow Rate 1 Labs Labs: Laboratory Results - last 24 hr 10/05/24 10/05/24 10/06/24 07:15 14:00 06:40 WBC 8.58 RBC 4.18 Hgb 11.4 L Hct 36.8 MCV 88 MCH 27 MCHC 31 L Plt Count 354 Sodium 136 138 Potassium 3.4 L 3.8 Chloride 100 99 Carbon Dioxide 32 33 H Anion Gap 4 L 6 L BUN 22 24 Creatinine 0.7 0.8 Estimated Creat Clear 44.36 44.36 Estimated GFR 96 82 Glucose 227 H 117 H Hemoglobin A1c 13.5 H Calcium 8.4 9.0 Total Bilirubin 0.2 0.3 AST 20 19 ALT 25 21 Alkaline Phosphatase 63 64 C-Reactive Protein 7.7 H 4.8 H Total Protein 6.0 6.3 Albumin 3.2 L 3.3 Procalcitonin 0.50 Lab Acknowledgement Test Added
[2024-10-06] MEDS: FUROSEMIDE 40 MG TABLET PO (07:42)
[2024-10-06 09:05] VITALS: PULSE 65
[2024-10-06] MEDS: SPIRONOLACTONE 25 MG TABLET 50 MG PO (09:07)
[2024-10-06] MEDS: ASPIRIN 81 MG TABLET EC PO (09:07)
[2024-10-06] MEDS: APIXABAN 5 MG TABLET PO (09:08)
[2024-10-06] MEDS: EMPAGLIFLOZIN 10 MG TABLET PO (09:08)
[2024-10-06] MEDS: LOSARTAN POTASSIUM 50 MG TABLET 100 MG PO (09:08)
[2024-10-06] MEDS: METOPROLOL SUCCINATE (XL) 100 MG TAB PO (09:08)
[2024-10-06] MEDS: METFORMIN 1,000 MG TABLET 1000 MG PO (09:08)
[2024-10-06] MEDS: SERTRALINE 100 MG TABLET PO (09:08)
[2024-10-06] MEDS: CELECOXIB 200 MG CAPSULE PO (09:08)
[2024-10-06] MEDS: MULTIVITAMIN/MINERALS 1 TABLET 1 TAB PO (09:08)
[2024-10-06] MEDS: TOLTERODINE TARTRATE 2 MG CAP.ER.24H 4 MG PO (09:09)
[2024-10-06] MEDS: SODIUM CHLORIDE 0.9 % (FLUSH) 10 ML SYRINGE 5 ML IVF (09:09)
[2024-10-06 09:46] VITALS: PULSE 71
[2024-10-06 11:00] VITALS: BP 144/58; PULSE 62; RESP 22; TEMP 35.8; O2SAT 89
[2024-10-06] MEDS: INSULIN ASPART 100 UNIT/ML SUBCUT (12:15)
--- NOTE | 2024-10-06 12:32 | PC.SOCIAL ---
Discharge planning: head screen worker completed the Initial Psychosocial Assessment with the pt today before discharge... Initial Psychosocial Assessment: 1.? Assessment completed with: Patient, Spouse, Child, Friend, Other: Patient. 2.? Pt lives at address and phone number on face sheet? Own home; facility , Other: Rental unit/apartment at [facility]. 3.?Insurance information? on face sheet is correct? Yes. 4.?Contacts? on face sheet are correct? Yes. 5.? Does pt have a Healthcare Directive, POLST or Guardian? No guardian. 6.? Who is the pt?s main source/sources of emotional/physical support? Daughter and granddaughter. 7.? Prior to admission did pt need assistance? Yes/No No. 8.? Who provided and what was the assistance needed? N/A. 9.? Was Home Health being provided, by what agency? N/A. 10. Does pt use/have medical equipment at home already? What? No. 11. Will there be a need for additional assistance at discharge and is this available in previous setting? No. 12. If pt needs to go to a higher level of care, are they open to this and do they have facilities they are interested in? N/A. 13. How would pt plan to transport at discharge? Daughter will transport. 14. Is there anyone pt would like social secretary to contact to discuss discharge plans? Daughter if needed. Other information:
[2024-10-06] MEDS: INSULIN ASPART 100 UNIT/ML 30 UNIT SUBCUT (13:19)
--- NOTE | 2024-10-06 13:55 | PC.NURSE ---
Pt discharged @ 1330, accompanied by daughter. Transferred via wheelchair, going back to [facility]. IV removed. Discharge forms understood and signed. Pt in good condition, pain controlled. Final room check complete.
--- NOTE | 2024-10-06 15:30 | P.DS_ITS ---
DS: Providers Provider Date Seen: 10/06/24 Date of admission: 10/04/24 08:21 Primary care physician: Mateusz Beavers MD Admitting Clinician: Lata Fam MD Consults: 10/04/24 10:40 Consult to Occupational Therapy [CONS] Routine Comment: Reason(s) for OT Consult:: Evaluate and Treat Any Restrictions?:: No Restrictions Consult to Physical Therapy [CONS] Routine Comment: Reason(s) for PT Consult:: Evaluate and Treat Any Restrictions?:: No Restrictions Consult to Respiratory Therapy [CONS] Routine Comment: Reason(s) for RT Consult:: Consult Consult to Graphic Designer [CONS] Routine Comment: Reason for Consult:: Social Service Consult Attending Physician on discharge: Lata Fam MD DS: Summary Hospital Course Hospital Course: QUESTIONS TO ASK AT FOLLOW-UP: 1. How's her breathing? She underwent IV diuresis for heart failure with preserved ejection fraction. Likely uncontrolled diabetes tipped her into failure. Initially we thought there could be a community-acquired pneumonia on her one-view chest x-ray. Follow-up chest x-ray and eval of symptoms argue against this. 2. However blood sugars been? Poorly controlled type 2 diabetes. Her A1c is 13.5 which is up from 12.5 earlier this year. I am not sure what her compliance really is with her home insulin regimen. She is clearly insulin dependence, insulin resistant. She continues to take metformin. We added Jardiance. 3. How is the flank pain? She fell about 3 weeks ago and has been struggling with some soft tissue/right hip discomfort. X-rays here were negative. I asked her to follow-up with her PCP and consider physical therapy or advanced imaging if needed. BRIEF HOSPITAL COURSE: Patient was admitted for 3 days. Synopsis of acute inpatient issues are outlined above. Chronic medical conditions with notable findings outlined above. Nela presented in significant respiratory distress. Her work of breathing was much worse than baseline. She was found to be in acute congestive heart failure. She was started on BiPAP and diuresed in the emergency room which made dramatic improvements. On the floor we were able to wean her to room air quite fast. We continued the IV diuresis. We performed an echocardiogram which showed that her actually her EF had improved. She was significantly hyperglycemic upon arrival and I suspect that her poorly controlled diabetes was the insult but tipped her into failure. We managed her diabetes and following her home insulin regimen she actually bottomed out here into the 60s. It makes me wonder if she is compliant with any of the regimen and that is on paper. We did start Jardiance, continued her metformin. I have asked her to check her blood sugars at least 3 times a day and cautiously readministered Lantus b.i.d., insulin aspart with meals. The range of doses was discussed with the patient. DISCHARGE MEDICATIONS: See Reconciled list - SIGNIFICANT CHANGES: Only new med is Jardiance We did not adjust her previous Lasix dosing Lantus 40 units b.i.d. Mealtime aspart 20-40 units based on carb counting and blood sugar Other meds were not changed. Specific instructions to the patient and follow-up are outlined below. REVIEW OF SYSTEMS No new chest pain or dyspnea Pain controlled No voiding difficulties Tolerating diet challenge PHYSICAL EXAM: CONSTITUTIONAL: Conversive, good historian. A/O. Knows setting and context. GENERAL: Well-developed and above ideal body weight, in no respiratory distress. VITAL SIGNS: see record. HEENT: Sclerae are anicteric. No petechiae. CARDIAC: rhythm is regular. There is no S3 or rub. No harsh murmurs. Extremities show trace edema with symmetrical pulses. PULM: good air entry with no wheeze. NEURO: Speech is fluent. A brief neurologic exam is negative. SKIN: No rashes, petechiae, concerning changes PSYCHIATRIC: Euthymic. DISPOSITION: Home with daughter Time spent on discharge 37 minutes. Time Spent with Patient Time attestation: Total time spent providing and/or coordinating discharge services: Exam Const: Vital Signs, click to edit/add: Vital Signs - 24 hr 10/05/24 20:05 10/05/24 20:47 10/06/24 00:30 Temperature 97.3 F L Pulse Rate 64 Pulse Rate [Right Brachial] 66 Respiratory Rate 17 20 Blood Pressure [Ri ght Arm] 143/59 H Pulse Oximetry 91 91 Oxygen Delivery Me thod Room Air CPAP Oxygen Flow Rate 10/06/24 00:30 10/06/24 02:25 10/06/24 07:00 Temperature 97.0 F L 97.4 F L 97.7 F Pulse Rate Pulse Rate [Right Brachial] 58 L 57 L 60 Respiratory Rate 20 17 18 Blood Pressure [Ri ght Arm] 141/69 H 148/58 H 146/67 H Pulse Oximetry 89 88 90 Oxygen Delivery Me thod CPAP CPAP Room Air Oxygen Flow Rate 1 10/06/24 07:00 10/06/24 09:05 10/06/24 09:46 Temperature Pulse Rate 71 Pulse Rate [Right Brachial] 65 Respiratory Rate 18 Blood Pressure [Ri ght Arm] Pulse Oximetry 90 Oxygen Delivery Me thod Room Air Oxygen Flow Rate 10/06/24 11:00 Temperature 96.4 F L Pulse Rate Pulse Rate [Right Brachial] 62 Respiratory Rate 22 Blood Pressure [Ri ght Arm] 144/58 H Pulse Oximetry 89 Oxygen Delivery Me thod Room Air Oxygen Flow Rate DS: Data Data Completed and Pending Completed studies during hospitalization: Procedures Excision of Right Breast, Open Approach, Diagnostic (01/22/23) Introduction of Other Gas into Respiratory Tract, Via Natural or Artificial Opening (01/22/23) Labs on day of discharge: Labs from last 24 hours 10/06/24 06:40 WBC 8.58 RBC 4.18 Hgb 11.4 L Hct 36.8 MCV 88 MCH 27 MCHC 31 L Plt Count 354 Sodium 138 Potassium 3.8 Chloride 99 Carbon Dioxide 33 H Anion Gap 6 L BUN 24 Creatinine 0.8 Estimated Creat Clear 44.36 Estimated GFR 82 Glucose 117 H Calcium 9.0 Total Bilirubin 0.3 AST 19 ALT 21 Alkaline Phosphatase 64 C-Reactive Protein 4.8 H Total Protein 6.3 Albumin 3.3 Discharge Plan Discharge Disposition: Home, Self-Care Date of Admission: 10/04/24 08:21 Attending Provider on Discharge: Lata Fam Primary Care Provider: Mateusz Beavers Condition: Improved Anticipated Discharge Date/Time: 10/06/24 11:55 Discharge Medications: New lidocaine 5 % Adhesive Patch,Medicated 1 patch transdermal Q24H Qty: 30 0RF Rx Instructions: OTC is fine acetaminophen 650 mg Tablet Extended Release 1,300 mg PO Q8H Qty: 90 0RF Jardiance 10 mg Tablet 10 mg PO DAILY Qty: 30 0RF Continued metoprolol succinate 100 mg tablet extended release 24 hr 100 mg PO BID losartan 100 mg tablet 100 mg PO DAILY rosuvastatin 40 mg tablet 40 mg PO HS sertraline 100 mg tablet 100 mg PO QAM multivitamin [Daily Multi-Vitamin] Tablet 1 tab PO DAILY aspirin 81 mg capsule 81 mg PO DAILY furosemide 40 mg tablet 40 mg PO DAILY amlodipine 10 mg tablet 10 mg PO HS Eliquis 5 mg Tablet 5 mg PO BID Qty: 60 0RF metformin 1,000 mg tablet 1,000 mg PO BID tolterodine 4 mg capsule,extended release 24hr 4 mg PO DAILY spironolactone 50 mg tablet 50 mg PO DAILY Changed insulin glargine [Lantus Solostar U-100 Insulin] 100 unit/mL (3 mL) insulin pen 40 unit subcut BID 30 Days Qty: 24 0RF Rx Instructions: 42 UNITS IN AM 40 UNITS IN PM Fiasp FlexTouch U-100 Insulin 100 unit/mL (3 mL) insulin pen 20 unit subcut TIDWMEAL 30 Days Qty: 15 0RF Discharge Orders: Discharge Order (Routine); Ordered 10/06/24 Ordered By: Lata Fam Patient Education: Acetaminophen (By mouth), Lidocaine Patch (On the skin), Empagliflozin (By mouth) Additional Instructions: Diabetes regimen: daily Jardiance twice daily Metformin long acting insulin (40 units twice daily) short acting insulin (20-40 units depending on amount of food you eat) check your sugar 3-4x a day until you get to goals of 100-200. f/u with Dr. Beavers regarding Ozempic, weight loss and this ongoing right flank pain. for your back - consider physical therapy. I've sent Tylenol and Lidoderm patches to the pharmacy. continue other medications as previously scheduled Activity Level: Activity as Tolerated Discharge Diet: Diabetic Follow Up Appointments: Mateusz Beavers MD [Primary Care Provider, Family Practice] - 10/21/24 11:45 am Referral Note: [facility] for hospital follow-up. Forms: [facility], [facility] Info Instructions
--- NOTE | 2024-10-06 15:41 | P.DS_ITS ---
DS: Providers Provider Date Seen: 10/06/24 Date of admission: 10/04/24 08:21 Primary care physician: Mateusz Beavers MD Admitting Clinician: Lata Fam MD Consults: 10/04/24 10:40 Consult to Occupational Therapy [CONS] Routine Comment: Reason(s) for OT Consult:: Evaluate and Treat Any Restrictions?:: No Restrictions Consult to Physical Therapy [CONS] Routine Comment: Reason(s) for PT Consult:: Evaluate and Treat Any Restrictions?:: No Restrictions Consult to Respiratory Therapy [CONS] Routine Comment: Reason(s) for RT Consult:: Consult Consult to Oil Field Technician [CONS] Routine Comment: Reason for Consult:: Social Service Consult Attending Physician on discharge: Lata Fam MD Date of Discharge: 10/06/24 DS: Diagnosis Discharge Diagnosis (1) Acute hypoxemic respiratory failure: Status: Acute Problem details: -HFPEF -initially consider CAP but f/u imaging and lack of symptoms argued against -improved with diuresis; echo actually look improved from previous -no medication changes (other than adding jardiance) (2) (HFpEF) heart failure with preserved ejection fraction: Status: Acute Problem details: - echo on this admission actually favors an increase in ventricular function. EF from 46 to 59%. -continue current treatment with IV diuresis. lasix 40mg q12h --> 40mg PO q12 as of 10/05 -weaned to room air -discharged on previous lasix dose (3) Poorly controlled diabetes mellitus: Status: Acute Problem details: A1C 12.3 in may 2024, 13.5 this hospitalization it is unclear if she is compliant with home insulin regimen adding jardiance 10mg insulin dependent; insulin resistant. consider starting semiglutide (4) CKD (chronic kidney disease) stage 3, GFR 30-59 ml/min: Status: Acute Problem details: w/proteinuria (5) Atrial fibrillation: Status: Chronic Problem details: -typically controlled with metoprolol (6) Coronary artery disease involving [place] coronary artery of [place] heart without angina pectoris: Status: Acute Problem details: 01/10/14 100% occlusion of distal RCA; PERCUTANEOUS CORONARY INTERVENTION with drug eluting stent showed a good result. Peak troponin was 180. Ejection fraction was 50-55% with hypokinesis of inferior and inferolateral wall. (7) Morbid obesity: Status: Acute DS: Summary Hospital Course Hospital Course: QUESTIONS TO ASK AT FOLLOW-UP: 1. Hours her breathing? She underwent IV diuresis for heart failure with preserved ejection fraction. Likely uncontrolled diabetes tipped her into failure. Initially we thought there could be a community-acquired pneumonia on her one-view chest x-ray. Follow-up chest x-ray and eval of symptoms argue against this. 2. However blood sugars been? Poorly controlled type 2 diabetes. Her A1c is 13.5 which is up from 12.5 earlier this year. I am not sure what her compliance really is with her home insulin regimen. She is clearly insulin dependence, insulin resistant. She continues to take metformin. We added Jardiance. 3. How is the flank pain? She fell about 3 weeks ago and has been struggling with some soft tissue/right hip discomfort. X-rays here were negative. I asked her to follow-up with her PCP and consider physical therapy or advanced imaging if needed. BRIEF HOSPITAL COURSE: Patient was admitted for 3 days. Synopsis of acute inpatient issues are outlined above. Chronic medical conditions with notable findings outlined above. Nela presented in significant respiratory distress. Her work of breathing was much worse than baseline. She was found to be in acute congestive heart failure. She was started on BiPAP and diuresed in the emergency room which made dramatic improvements. On the floor we were able to wean her to room air quite fast. We continued the IV diuresis. We performed an echocardiogram which showed that her actually her EF had improved. She was significantly hyperglycemic upon arrival and I suspect that her poorly controlled diabetes was the insult but tipped her into failure. We managed her diabetes and following her home insulin regimen she actually bottomed out here into the 60s. It makes me wonder if she is compliant with any of the regimen and that is on paper. We did start Jardiance, continued her metformin. I have asked her to check her blood sugars at least 3 times a day and cautiously readministered Lantus b.i.d., insulin aspart with meals. The range of doses was discussed with the patient. DISCHARGE MEDICATIONS: See Reconciled list - SIGNIFICANT CHANGES: Only new med is Jardiance We did not adjust her previous Lasix dosing Lantus 40 units b.i.d. Mealtime aspart 20-40 units based on carb counting and blood sugar Other meds were not changed. Specific instructions to the patient and follow-up are outlined below. REVIEW OF SYSTEMS No new chest pain or dyspnea Pain controlled No voiding difficulties Tolerating diet challenge PHYSICAL EXAM: CONSTITUTIONAL: Conversive, good historian. A/O. Knows setting and context. GENERAL: Well-developed and above ideal body weight, in no respiratory distress. VITAL SIGNS: see record. HEENT: Sclerae are anicteric. No petechiae. CARDIAC: rhythm is regular. There is no S3 or rub. No harsh murmurs. Extremities show trace edema with symmetrical pulses. PULM: good air entry with no wheeze. NEURO: Speech is fluent. A brief neurologic exam is negative. SKIN: No rashes, petechiae, concerning changes PSYCHIATRIC: Euthymic. DISPOSITION: Home with daughter Time spent on discharge 37 minutes. Status at Discharge Functional status at discharge: uses cane/walker Overall status at discharge: patient is progressing back to baseline Time Spent with Patient Time attestation: Total time spent providing and/or coordinating discharge services: Time spent: Greater than 30 minutes Exam Const: Vital Signs, click to edit/add: Vital Signs - 24 hr 10/05/24 20:05 10/05/24 20:47 10/06/24 00:30 Temperature 97.3 F L Pulse Rate 64 Pulse Rate [Right Brachial] 66 Respiratory Rate 17 20 Blood Pressure [Ri ght Arm] 143/59 H Pulse Oximetry 91 91 Oxygen Delivery Me thod Room Air CPAP Oxygen Flow Rate 10/06/24 00:30 10/06/24 02:25 10/06/24 07:00 Temperature 97.0 F L 97.4 F L 97.7 F Pulse Rate Pulse Rate [Right Brachial] 58 L 57 L 60 Respiratory Rate 20 17 18 Blood Pressure [Ri ght Arm] 141/69 H 148/58 H 146/67 H Pulse Oximetry 89 88 90 Oxygen Delivery Me thod CPAP CPAP Room Air Oxygen Flow Rate 1 10/06/24 07:00 10/06/24 09:05 10/06/24 09:46 Temperature Pulse Rate 71 Pulse Rate [Right Brachial] 65 Respiratory Rate 18 Blood Pressure [Ri ght Arm] Pulse Oximetry 90 Oxygen Delivery Me thod Room Air Oxygen Flow Rate 10/06/24 11:00 Temperature 96.4 F L Pulse Rate Pulse Rate [Right Brachial] 62 Respiratory Rate 22 Blood Pressure [Ri ght Arm] 144/58 H Pulse Oximetry 89 Oxygen Delivery Me thod Room Air Oxygen Flow Rate DS: Data Data Completed and Pending Completed studies during hospitalization: Procedures Excision of Right Breast, Open Approach, Diagnostic (01/22/23) Introduction of Other Gas into Respiratory Tract, Via Natural or Artificial Opening (01/22/23) Labs on day of discharge: Labs from last 24 hours 10/06/24 06:40 WBC 8.58 RBC 4.18 Hgb 11.4 L Hct 36.8 MCV 88 MCH 27 MCHC 31 L Plt Count 354 Sodium 138 Potassium 3.8 Chloride 99 Carbon Dioxide 33 H Anion Gap 6 L BUN 24 Creatinine 0.8 Estimated Creat Clear 44.36 Estimated GFR 82 Glucose 117 H Calcium 9.0 Total Bilirubin 0.3 AST 19 ALT 21 Alkaline Phosphatase 64 C-Reactive Protein 4.8 H Total Protein 6.3 Albumin 3.3 Discharge Plan Discharge Disposition: Home, Self-Care Date of Admission: 10/04/24 08:21 Attending Provider on Discharge: Lata Fam Primary Care Provider: Mateusz Beavers Condition: Improved Anticipated Discharge Date/Time: 10/06/24 11:55 Discharge Medications: New lidocaine 5 % Adhesive Patch,Medicated 1 patch transdermal Q24H Qty: 30 0RF Rx Instructions: OTC is fine acetaminophen 650 mg Tablet Extended Release 1,300 mg PO Q8H Qty: 90 0RF Jardiance 10 mg Tablet 10 mg PO DAILY Qty: 30 0RF Continued metoprolol succinate 100 mg tablet extended release 24 hr 100 mg PO BID losartan 100 mg tablet 100 mg PO DAILY rosuvastatin 40 mg tablet 40 mg PO HS sertraline 100 mg tablet 100 mg PO QAM multivitamin [Daily Multi-Vitamin] Tablet 1 tab PO DAILY aspirin 81 mg capsule 81 mg PO DAILY furosemide 40 mg tablet 40 mg PO DAILY amlodipine 10 mg tablet 10 mg PO HS Eliquis 5 mg Tablet 5 mg PO BID Qty: 60 0RF metformin 1,000 mg tablet 1,000 mg PO BID tolterodine 4 mg capsule,extended release 24hr 4 mg PO DAILY spironolactone 50 mg tablet 50 mg PO DAILY Changed insulin glargine [Lantus Solostar U-100 Insulin] 100 unit/mL (3 mL) insulin pen 40 unit subcut BID 30 Days Qty: 24 0RF Rx Instructions: 42 UNITS IN AM 40 UNITS IN PM Fiasp FlexTouch U-100 Insulin 100 unit/mL (3 mL) insulin pen 20 unit subcut TIDWMEAL 30 Days Qty: 15 0RF Discharge Orders: Discharge Order (Routine); Ordered 10/06/24 Ordered By: Lata Fam Patient Education: Acetaminophen (By mouth), Lidocaine Patch (On the skin), Empagliflozin (By mouth) Additional Instructions: Diabetes regimen: daily Jardiance twice daily Metformin long acting insulin (40 units twice daily) short acting insulin (20-40 units depending on amount of food you eat) check your sugar 3-4x a day until you get to goals of 100-200. f/u with Dr. Beavers regarding Ozempic, weight loss and this ongoing right flank pain. for your back - consider physical therapy. I've sent Tylenol and Lidoderm patches to the pharmacy. continue other medications as previously scheduled Activity Level: Activity as Tolerated Discharge Diet: Diabetic Follow Up Appointments: Mateusz Beavers MD [Primary Care Provider, Family Practice] - 10/21/24 11:45 am Referral Note: [facility] for hospital follow-up. Forms: [facility] Bel[facility], [facility] Instructions
== END 2024-10-06 13:30 | disposition home or self-care (01) | DRG 291 ==
LOC: ED 07:32 → MEDSURG 08:23
PROVIDERS: Admitting Provider Family Medicine; Emergency Provider Family Medicine; PCP Family Medicine; Visit Provider Family Medicine
DX: I13.0 Hypertensive heart and chronic kidney disease with heart failure and stage 1 through stage 4 chronic kidney disease, or unspecified chronic kidney disease (principal); I50.33 Acute on chronic diastolic (congestive) heart failure; J96.01 Acute respiratory failure with hypoxia; J18.9 Pneumonia, unspecified organism; I48.20 Chronic atrial fibrillation, unspecified; Z68.41 Body mass index [BMI] 40.0-44.9, adult; E87.6 Hypokalemia; E11.22 Type 2 diabetes mellitus with diabetic chronic kidney disease; N18.30 Chronic kidney disease, stage 3 unspecified; E11.65 Type 2 diabetes mellitus with hyperglycemia; Z79.4 Long term (current) use of insulin; Z79.84 Long term (current) use of oral hypoglycemic drugs; I25.10 Atherosclerotic heart disease of native coronary artery without angina pectoris; G47.33 Obstructive sleep apnea (adult) (pediatric); E66.01 Morbid (severe) obesity due to excess calories; E27.9 Disorder of adrenal gland, unspecified; Z87.891 Personal history of nicotine dependence; E78.5 Hyperlipidemia, unspecified
CPT/HCPCS: 36415; 71045; 71046; 72170; 80053; 81001; 81003; 82803; 82962; 83036; 83880; 84145; 84484; 85025; 85027; 86140; 87631; 93306; 94660; 94761; 97110; 97116; 97161; 97165; 97530; 97535; 99284; 99285; A9153; A9270; J0456; J0696; J1815; J1938; J2919; J7050